=== PATIENT | male | born 1960 | race Caucasian/White ===

== ENCOUNTER 2020-04-29 13:23 | Outpatient (REF) | payer OTHER, SELFPAY | END 2020-04-29 13:24 | disposition home or self-care (01) | LOC: HO.LAB 13:23 | PROVIDERS: PCP Internal Medicine; Visit Provider Internal Medicine | DX: Z20.822 Contact with and (suspected) exposure to COVID-19 (principal) | CPT/HCPCS: 36415; C9803; U0003 ==

== ENCOUNTER 2020-07-17 17:50 | Inpatient (IN) | payer OTHER, SELFPAY ==
[2020-07-17] VITALS (39 sets, daily range): BP systolic 75–218; BP diastolic 47–128; PULSE 89–120; RESP 18–24; TEMP 37.5–38.1; O2SAT 65–99; BMI 31.1
--- NOTE | 2020-07-17 | ECG_ITS ---
Test Reason : OD Blood Pressure : / mmHG Vent. Rate : 091 BPM Atrial Rate : 091 BPM P-R Int : 194 ms QRS Dur : 092 ms QT Int : 362 ms P-R-T Axes : 059 053 054 degrees QTc Int : 445 ms Normal sinus rhythm Normal ECG When compared to the previous EKG of No significant changes seen Referred By: Tatianna Ruiz Electronically Signed By:Vazquez Moeller
--- NOTE | ~2020-07-17 | XR_ITS ---
EXAMINATION: XR CHEST CLINICAL INFORMATION: Post intubation COMPARISON: 07/26/2019 TECHNIQUE: Frontal view of the chest was obtained. FINDINGS: ET tube present 5.7 cm above the kellie. An NG tube has its tip somewhere below the diaphragm. There are new multifocal groundglass infiltrates present in both lungs that were not present on the 07/26/2019 study. XR/XR chest 1V IMPRESSION: Commonly reported imaging features of Covid 19 or viral pneumonia are present. Other processes such as influenza pneumonia or organizing pneumonia, as can be seen with drug toxicity and connective tissue disease, can cause a similar imaging pattern. ET tube in good position.
--- NOTE | ~2020-07-17 | CT_ITS ---
EXAMINATION: CT ABDOMEN AND PELVIS WITHOUT CONTRAST CLINICAL INFORMATION: Abdominal pain COMPARISON: None TECHNIQUE: Multidetector volumetric imaging was performed from the superior aspect of the liver through the pubic symphysis. Sagittal and coronal reformatted images were obtained on the technologist's workstation. This CT examination was performed using dose optimization techniques as appropriate, variously including the following: *Automated exposure control *Adjustment of mA and/or kV according to patient size (this includes techniques or standardized protocols for targeted exams where dose is matched to indication/reason for exam; i.e. extremities or head) *Use of iterative reconstruction technique DLP: 2720 mGy-cm FINDINGS: LUNG BASES: There are bilateral lower lobe small infiltrates right greater than left. The heart size is normal. No pericardial effusion seen. There is an enteric tube with its tip in the stomach. LIVER, GALLBLADDER, AND BILIARY TREE: The liver is normal in size, shape, and attenuation. No focal hepatic lesion or biliary ductal dilatation is present. The gallbladder has been surgically removed. PANCREAS: Unremarkable. SPLEEN: Unremarkable. ADRENAL GLANDS: Unremarkable. KIDNEYS AND URETERS: The kidneys are normal in size, shape, and attenuation. No hydronephrosis, hydroureter, or calculi seen. There is bilateral perinephric stranding. BLADDER: The bladder is mildly distended. GASTROINTESTINAL TRACT: There are scattered diverticuli throughout the colon. There is nonspecific submucosal fat deposition in descending colon but no pericolic fat stranding. Rest of the colon and small bowel loops are unremarkable. Appendix is visualized and appears normal caliber. No evidence of diverticulitis. No free air or free fluid seen. ABDOMINAL WALL: No significant hernia is appreciated. LYMPH NODES: Normal. VASCULAR: Atherosclerotic calcification of abdominal aorta and common iliac arteries with no dilatation seen. PELVIC VISCERA: Unremarkable. OSSEOUS STRUCTURES: No lytic or sclerotic process seen. CT/CT abdomen pelvis wo con IMPRESSION: No acute intra-abdominal process seen. Submucosal fat deposition in descending colon likely from chronic inflammatory process. Scattered colonic diverticulosis without diverticulitis. Bilateral basilar infiltrates
--- NOTE | ~2020-07-17 | XR_ITS ---
EXAMINATION: XR chest 1V CLINICAL INFORMATION: Reason for Exam s/p ett placement COMPARISON: 07/17/2020 TECHNIQUE: XR chest 1V Tubes and lines: Endotracheal tube tip is 7 cm above kellie. Gastric tube passing below the diaphragm into the stomach. Lungs and Diana: Redemonstration of bilateral diffuse patchy interstitial opacification unchanged. Pleura: Normal. Costophrenic angles are sharp. No pneumothorax. Heart and mediastinum: The mediastinum is within normal limits.. Bones: Skeletal structures included are normal for patient's age. XR/XR chest 1V IMPRESSION: No significant change. ET tube tip is about 7 cm above kellie. Gastric tube passing into the stomach. Unchanged bilateral diffuse patchy interstitial opacification.
--- NOTE | ~2020-07-17 | XR_ITS ---
EXAMINATION: XR CHEST CLINICAL INFORMATION: Temperature elevation COMPARISON: Prior chest 07/23/2020 TECHNIQUE: Frontal view of the chest was obtained. FINDINGS: There is linear opacity in the right mid to lower lung compared to prior. Lungs otherwise clear. Lines and tubes: Endotracheal tube 6 cm above kellie. Central venous catheter in SVC unchanged. NG tube tip in region of stomach unchanged. Cardiac silhouette normal. Calcification of the dorsal aorta. Pulmonary vessels normal. XR/XR chest 1V IMPRESSION: Linear opacity right lung new compared to prior likely discoid atelectasis. Lungs otherwise clear.
--- NOTE | ~2020-07-17 | CT_ITS ---
EXAMINATION: CT HEAD WITHOUT CONTRAST. CT CHEST WITHOUT CONTRAST. CLINICAL INFORMATION: Altered mental status. ? Covid Infection. COMPARISON: None TECHNIQUE: 5 mm thin axial and reformatted 2 mm thin sagittal and coronal images of brain were obtained. Subsequently 5 mm thin axial and reformatted 3 mm thin sagittal and coronal images of chest were obtained without contrast. DL 2720 FINDINGS: Brain: There is no acute intra-axial, extra-axial bleed, masses or midline shift. There are punctate hypodensities in the right head of caudate nucleus on axial image 18/5 and degenerative bilateral internal capsule, question lacunar infarctions. The lateral ventricles are slightly asymmetrical but normal for patient's age. Mild periventricular hypodensity without mass effect is seen in both cerebral hemispheres. Bone windows reveal no calvarial abnormality. There is no scalp soft tissue abnormality. There is mild mucosal thickening right maxillary sinus. Rest of the paranasal sinuses are well-aerated and clear. CHEST: The lungs are expanded with patchy confluent infiltrate seen right lower lobe posterior basal and superior segments. Minimal infiltrative changes seen in left lung base. Ill-defined groundglass opacities are seen in the left upper lobe. There is bronchial wall thickening in both upper lobes. The thyroid lobes are symmetrical and normal. There is endotracheal tube 4.8 cm above the kellie. Heart size and the great vessels are normal caliber. There are reactive lymph nodes in the mediastinum. No pericardial effusion seen. There are coronary artery calcifications present. There is an enteric tube with its tip in the stomach. There is no pleural effusion or calcification. The axilla and the chest wall appears unremarkable. Imaging through the upper abdomen reveals visualized liver, spleen, pancreas and bilateral adrenal glands to be unremarkable. The gallbladder has been surgically removed. There is a punctate air bubble seen in between the liver and anterior abdominal wall. Bone windows reveal no lytic or sclerotic process. CT/CT head/brain wo con IMPRESSION: Confluent large infiltrate in the dependent portion of the right lower lobe and right upper lobe. Minimal infiltrates is seen in the left lower lobe basal segment. There are groundglass opacities in the left upper lobe. Also visualized is bronchial wall thickening. Findings are suspicious for Covid disease. Small lacunar infarcts in the right basal ganglia and bilateral internal capsules. No acute intracranial bleed, edema or mass effect.
--- NOTE | ~2020-07-17 | MR_ITS ---
EXAMINATION: MR BRAIN WITHOUT CONTRAST CLINICAL INFORMATION: Persistent encephalopathy. Question of anoxic injury. COMPARISON: CT head dated 07/17/2020 TECHNIQUE: MRI of the brain was obtained using routine sequences without contrast. FINDINGS: Bilaterally symmetric ovoid areas of restricted diffusion involving the globus pallidi. Focal restricted diffusion within the right caudate head. Numerous foci of restricted diffusion scattered throughout the parasagittal bilateral cerebral white matter. Focally restricted diffusion present within the right superior occipital lobe/posterior temporal lobe. Background patchy and confluent subcortical and periventricular white matter T2 prolongation compatible with chronic microvascular ischemic disease. Ventricular system normal in size and configuration. Susceptibility weighted images fail to demonstrate evidence of intra-axial blood products. There is no intracranial mass, mass effect, or shift of midline structures. No abnormal extra axial fluid collection. Posterior fossa structures are normal. The craniocervical junction is normal. Midline structures including the posterior pituitary bright spot are normal. The intracranial vascular flow voids including the major dural venous sinuses are preserved. Mastoid air cells are clear. Mild mucosal thickening present throughout the paranasal sinuses. Globes and orbits unremarkable. MR/MR head/brain wo con IMPRESSION: Multiple areas of restricted diffusion scattered throughout the brain parenchyma, with symmetric involvement of the bilateral globus pallidus, focal involvement of the right caudate head, bilateral parasagittal subcortical white matter foci, and a single focus within the right lateral occipital lobe. The watershed distribution of the infarcts, and involvement of the globus pallidi (more sensitive to ischemia) would suggest a hypoxic-ischemic insult.
--- NOTE | ~2020-07-17 | XR_ITS ---
EXAMINATION: XR CHEST CLINICAL INFORMATION: Check central line placement COMPARISON: Chest radiograph 07/22/2020 TECHNIQUE: Frontal view of the chest was obtained. FINDINGS: An ET tube remains in place 6 cm above the kellie. A left IJ central line has been placed with its tip up against the lateral wall of the proximal SVC. No pneumothorax is seen. Again noted left lower lobe increased opacity suggestive of left lower lobe collapse/consolidation. Bilateral effusions are most likely present. An NG tube is present with its tip in the stomach. XR/XR chest 1V IMPRESSION: The left IJ catheter has its tip in the proximal SVC up against the lateral wall.
--- NOTE | ~2020-07-17 | CT_ITS ---
EXAMINATION: CT HEAD WITHOUT CONTRAST CLINICAL INFORMATION: Sluggish pupils. Status post anoxic encephalopathy. COMPARISON: MRI brain dated 07/20/2020 TECHNIQUE: Contiguous axial imaging was performed from the skull base to vertex without intravenous administration of contrast. This CT examination was performed using dose optimization techniques as appropriate, variously including the following: *Automated exposure control *Adjustment of mA and/or kV according to patient size (this includes techniques or standardized protocols for targeted exams where dose is matched to indication/reason for exam; i.e. extremities or head) *Use of iterative reconstruction technique DLP: 812 mGy-cm FINDINGS: Evolving infarcts within the bilateral globi pallidi, right caudate head, parasagittal white matter and right lateral occipital lobe. No new infarcts are seen. No intracranial hemorrhage or extra-axial collection. No extra-axial fluid collection. The ventricles are normal in size. The osseous structures and soft tissues are normal. Scattered secretions present throughout the paranasal sinuses. Small mucous retention cyst within the right maxillary sinus. Mastoid air cells are clear. CT/CT head/brain wo con IMPRESSION: Evolving deep keenan, parasagittal cerebral white matter and right occipital lobe infarcts. No new infarcts. No intracranial hemorrhage.
--- NOTE | ~2020-07-17 | XR_ITS ---
EXAMINATION: XR CHEST CLINICAL INFORMATION: Hypoxic COMPARISON: 07/21/2020 TECHNIQUE: Frontal view of the chest was obtained. FINDINGS: Again seen is ET tube 6 cm above the kellie. An NG tube is present in the stomach. Since the prior study, there is new left lower lobe consolidation with increased opacity and obscuration of the left hemidiaphragm. A small left pleural effusion is present. Mildly increased bilateral interstitial markings are improved since the prior study. XR/XR chest 1V IMPRESSION: Slight improvement in interstitial changes but there is new dense left lower lobe consolidation and probable left effusion.
[2020-07-17] MEDS: Etomidate 20 MG/10 ML VIAL IVPUSH (18:00)
[2020-07-17] MEDS: Succinylcholine Chloride 200 MG/10 ML VIAL 100 MG IVPUSH (18:00)
[2020-07-17] MEDS: 0.9 % Sodium Chloride 1,000 ML 999 ML IV ×3 (18:00→20:20)
--- NOTE | 2020-07-17 18:07 | ECG_ITS ---
Test Reason : OVERDOSE Blood Pressure : / mmHG Vent. Rate : 116 BPM Atrial Rate : 116 BPM P-R Int : 196 ms QRS Dur : 088 ms QT Int : 308 ms P-R-T Axes : 050 059 034 degrees QTc Int : 428 ms Sinus tachycardia Otherwise normal ECG No previous ECGs available Referred By: Tatianna Ruiz Electronically Signed By:Vazquez Moeller
--- NOTE | 2020-07-17 18:10 | PC.NURSE ---
propofol started at 20, MAR perlat let this nurse document it
[2020-07-17 18:24] LABS: MANUAL DIFF FLAG NO
[2020-07-17 18:40] LABS: Prothrombin Time 11.8 SEC (10.8-13.0)
[2020-07-17 18:44] LABS: Basophils Percent Auto 0.1 % (0-2); Hemoglobin 16.1 g/dl (14.0-18.0); Imm Gran Pct Auto 0.7 % (0.0-0.4); Lymphocytes Absolute Auto 0.9 X10*3/uL (1.2-4.9); Lymphocytes Percent Auto 6.1 % (20-40); Mean Corpuscular HGB Conc 32.2 g/dl (31.0-36.0); Mean Corpuscular Hemoglobin 33.8 pg (27.0-33.0); Mean Corpuscular Volume 104.8 fL (80-98); Mean Platelet Volume 10.7 fL (9.4-12.4); Monocytes Absolute Auto 1.4 X10*3/uL (0.1-1.2); Monocytes Percent Auto 9.6 % (2-11); Neutrophils Absolute Auto 12.1 X10*3/uL (2.0-8.3); Neutrophils Percent Auto 83.5 % (45-73); Platelet Count 252 X10*3/uL (160-400); Red Blood Count 4.77 X10*6/uL (4.60-5.80); Red Cell Distribution Width 12.4 % (11.0-16.0); White Blood Count 14.5 X10*3/uL (4.8-10.8)
[2020-07-17 18:45] LABS: ABG Refer to POC result
[2020-07-17 18:47] LABS: ABG Base Excess -6.4 mmol/L; ABG HCO3 21 mmol/L (22-26); ABG pCO2 51 mmHg (32-45); ABG pCO2 TC 52 mmHg (32-45); ABG pH 7.22 (7.35-7.45); ABG pH TC 7.22 (7.35-7.45); ABG pO2 64 mmHg (83-108); ABG pO2 TC 64 (83-108)
--- NOTE | 2020-07-17 18:54 | ED.AMS ---
HPI - Altered Mental Status General Chief Complaint: Overdose Stated Complaint: OVERDOSE,UNRESPSONSIVE, NARCAN GIVEN,BAGGED Time Seen by Provider: 07/17/20 17:53 History of Present Illness HPI narrative: Patient is a 59-year-old male with a history of hypertension previous history of narcotic use. Patient found on the ground with altered mental status. A sugar was checked by EMS. It was over 100. Narcan was given to no avail. Patient sent in for further evaluation being bag at the time. Per the son patient has a history of depression and anxiety. Per the family member that found him there was an empty bottle of Percocet. He takes it for chronic pain. He is also on gabapentin and clonidine. The clonidine bottle seems to be intact per EMS. Related Data Home Medications Medication Instructions Recorded Confirmed clonidine HCl 0.1 mg PO BID PRN 07/17/20 07/17/20 fluoride (sodium) 1 appl PO BID 07/17/20 07/17/20 gabapentin 100 mg PO BID 07/17/20 07/17/20 mirtazapine 30 mg PO BEDTIME 07/17/20 07/17/20 olanzapine 7.5 mg PO BID 07/17/20 07/17/20 trazodone 50 - 100 mg PO BEDTIME PRN 07/17/20 07/17/20 venlafaxine 75 mg PO DAILY 07/17/20 07/17/20 Allergies Allergy/AdvReac Type Severity Reaction Status Date / Time No Known Allergies Allergy Unverified 01/04/20 15:51 [No Known Allergies*] Review of Systems Review of Systems: Unable to obtain review of systems secondary to patient's condition. COUNTS INCLUDE 234 BEDS AT THE [facility] Past Medical History Medical History Anxiety Depression Social History Social History Advance Directives: No Advance Directives Information Provided: No Physical Exam Vital Signs: Vital Signs: Last Vital Signs Temp 100.6 F H 07/17/20 23:00 Pulse 90 07/17/20 23:00 Resp 24 H 07/17/20 23:00 BP 109/73 07/17/20 23:00 Pulse Ox 98 07/17/20 23:00 Body Mass Index 31.1 Appearance: Lethargic withdrawals to pain. Unable to respond to verbal stimuli. No spontaneous eye opening to painful stimuli. Eyes: Pupils equal, round and reactive to light. ENT: Pharynx normal. Neck: Neck is supple, there is no JVD noted. Trachea is midline. CVS: Regular rate rhythm no murmurs Respiratory: Rhonchi bilaterally diminished breath sounds bilaterally. Abdomen: Soft and nontender Skin: Skin warm and dry. Normal skin color. Normal skin turgor. Extremities: No lower extremity edema. Neurovascular intact to all extremities. No Lacerations. No Rash Neuro: Lethargic. Withdraws to pain. Moving all extremities. Procedures Intubation Time out performed: Yes sedative: Etomidate paralytic: Succinylcholine Laryngoscope: other ([place] scope) ET Tube Size: 8 ET Tube Uncuffed: No Tube Secured Depth (cm): 23 Tube Secured Location: teeth Tube Placement Confirmation: visualized tube passing through cords, equal breath sounds bilaterally, no breath sounds over epigastrium and confirmation by capnometry Patient Tolerated Procedure: well Intubation Complications: none MDM - Altered Mental Status MDM Narrative Medical decision making narrative: Positive change in mental status with increased respiratory rate question etiology. Cultures obtained. Patient's chest x-ray showed bilateral infiltrate cannot rule out the possibility of CHF versus community-acquired pneumonia versus coronavirus infection versus aspiration. Zosyn was started. Patient BNP is still pending. Patient's EKG showed a sinus tachycardia heart rate is 120 WI QRS QT within normal limits is no acute ST segment elevation. Interestingly patient's troponin is elevated at approximately 800. Question if patient had a myocardial infarction. Will give aspirin p.r.. Patient had no response to Narcan. Gervais at this time less likely secondary to narcotics overdose. There is a possibility of Tylenol overdose here. Patient had a bottle Percocet that was open. And emptied. Question as to the timing of ingestion. Tylenol and salicylate level was ordered. Patient started on a seated O2 for him. Treatment of acute versus chronic Tylenol overdose. An ABG was obtained at this point. It showed a respiratory acidosis with a pH of 7.2 to a pCO2 in the 50s. Will increase the respiratory rate and increased the tidal volume. Patient taken to CT scanner. CT of the head chest, abdomen pelvis was ordered. The head is to rule out the possibility of bleeding. The abdomen pelvis is look for gross pathology to rule out the possibility of obstruction causing nausea vomiting. The ICU was notified. Patient will require intensive care unit. CT scan of the chest showed areas consistent with pneumonia. There is ground-glass opacity cannot rule out the possibility of coronavirus. COVID test was negative initially. Patient was started on Zosyn initially also given Decadron. Patient's lactate was elevated. 30 cc/kilos IV fluid given. Will monitor carefully. CT scan of the abdomen did not show any acute evidence of pathology. CT scan of the head was negative for any evidence of bleeding. No fracture noted. Patient being admitted to the intensive care unit. Differential Diagnosis Differential diagnosis: Likely altered mental status, hypoglycemia, overdose polysubstance, renal failure, subarachnoid hemorrhage and sepsis Medical Records Attestation: I reviewed the patient's medical records. Lab Data Result diagrams: 07/17/20 18:18 07/17/20 22:03 Labs: Lab Results 07/17/20 07/17/20 07/17/20 Range/Units 18:18 18:18 18:18 WBC 14.5 H (4.8-10.8) X10*3/uL RBC 4.77 (4.60-5.80) X10*6/uL Hgb 16.1 (14.0-18.0) g/dl Hct 50.0 (42-52) % MCV 104.8 H (80-98) fL MCH 33.8 H (27.0-33.0) pg MCHC 32.2 (31.0-36.0) g/dl RDW 12.4 (11.0-16.0) % Plt Count 252 (160-400) X10*3/uL MPV 10.7 (9.4-12.4) fL Immature Gran % (Auto) 0.7 H (0.0-0.4) % Neut % (Auto) 83.5 H (45-73) % Lymph % (Auto) 6.1 L (20-40) % Shelby % (Auto) 9.6 (2-11) % Eos % (Auto) 0.0 (0-4) % Baso % (Auto) 0.1 (0-2) % Lymph # (Auto) 0.9 L (1.2-4.9) X10*3/uL Shelby # (Auto) 1.4 H (0.1-1.2) X10*3/uL Eos # (Auto) 0.0 (0.0-0.4) X10*3/uL Baso # (Auto) 0.0 (0.0-0.2) X10*3/uL Abs Immat Gran (auto) 0.10 H (0.00-0.03) X10*3/uL Absolute Neuts (auto) 12.1 H (2.0-8.3) X10*3/uL Absolute Nucleated RBC 0.000 (0.0-0.012) X10*3/uL Nucleated RBC % (auto) 0.0 (0.0-0.2) /100WBC PT 11.8 (10.8-13.0) SEC INR 1.0 (0.9-1.1) O2 Saturation % ABG pH at Pt Temp (7.35-7.45) ABG pH (Temp Correct) (7.35-7.45) ABG pCO2 at Pt Temp (32-45) mmHg ABG pCO2 (Temp Corrct (32-45) mmHg ABG pO2 at Pt Temp (83-108) mmHg ABG pO2 (Temp Correct (83-108) ABG HCO3 (22-26) mmol/L ABG Base Excess (Actual) mmol/L Sodium 137 (135-145) mmol/L Potassium 5.5 H (3.3-5.1) mmol/L Chloride 96 (96-108) mmol/L Carbon Dioxide 23 (22-29) mmol/L Anion Gap 24 H (12-20) BUN 14 (9-16) mg/dL Creatinine 3.44 H (0.5-1.4) mg/dL Estim Creat Clear Calc 25.7 Estimated GFR 18 Random Glucose 112 (60-115) mg/dL Calcium 8.4 (8.4-10.2) mg/dL Phosphorus 8.5 H (2.7-4.5) mg/dL Magnesium 1.9 (1.6-2.6) mg/dL Total Bilirubin 0.6 (0.0-1.0) mg/dL Direct Bilirubin 0.3 (0.0-0.5) mg/dL AST 30 (5-37) U/L ALT 24 (0-40) U/L Alkaline Phosphatase 123 H (39-117) U/L Total Creatine Kinase (38-174) U/L Troponin I High Sens (<3.5-35.0) ng/L B-Natriuretic Peptide (<100) pg/mL Total Protein 7.7 (6.5-8.0) g/dL Albumin 4.2 (3.5-5.0) g/dL Salicylates < 5.0 L (15-30) mg/dL Acetaminophen < 1 (<30) mcg/mL Coronavirus (PCR) (Negative) Influenza Type A (PCR) (Negative) Influenza Type B (PCR) (Negative) RSV RNA Qual (PCR) (Negative) 07/17/20 07/17/20 07/17/20 Range/Units 18:18 18:18 18:28 WBC (4.8-10.8) X10*3/uL RBC (4.60-5.80) X10*6/uL Hgb (14.0-18.0) g/dl Hct (42-52) % MCV (80-98) fL MCH (27.0-33.0) pg MCHC (31.0-36.0) g/dl RDW (11.0-16.0) % Plt Count (160-400) X10*3/uL MPV (9.4-12.4) fL Immature Gran % (Auto) (0.0-0.4) % Neut % (Auto) (45-73) % Lymph % (Auto) (20-40) % Shelby % (Auto) (2-11) % Eos % (Auto) (0-4) % Baso % (Auto) (0-2) % Lymph # (Auto) (1.2-4.9) X10*3/uL Shelby # (Auto) (0.1-1.2) X10*3/uL Eos # (Auto) (0.0-0.4) X10*3/uL Baso # (Auto) (0.0-0.2) X10*3/uL Abs Immat Gran (auto) (0.00-0.03) X10*3/uL Absolute Neuts (auto) (2.0-8.3) X10*3/uL Absolute Nucleated RBC (0.0-0.012) X10*3/uL Nucleated RBC % (auto) (0.0-0.2) /100WBC PT (10.8-13.0) SEC INR (0.9-1.1) O2 Saturation % ABG pH at Pt Temp (7.35-7.45) ABG pH (Temp Correct) (7.35-7.45) ABG pCO2 at Pt Temp (32-45) mmHg ABG pCO2 (Temp Corrct (32-45) mmHg ABG pO2 at Pt Temp (83-108) mmHg ABG pO2 (Temp Correct (83-108) ABG HCO3 (22-26) mmol/L ABG Base Excess (Actual) mmol/L Sodium (135-145) mmol/L Potassium (3.3-5.1) mmol/L Chloride (96-108) mmol/L Carbon Dioxide (22-29) mmol/L Anion Gap (12-20) BUN (9-16) mg/dL Creatinine (0.5-1.4) mg/dL Estim Creat Clear Calc Estimated GFR Random Glucose (60-115) mg/dL Calcium (8.4-10.2) mg/dL Phosphorus (2.7-4.5) mg/dL Magnesium (1.6-2.6) mg/dL Total Bilirubin (0.0-1.0) mg/dL Direct Bilirubin (0.0-0.5) mg/dL AST (5-37) U/L ALT (0-40) U/L Alkaline Phosphatase (39-117) U/L Total Creatine Kinase 895 H (38-174) U/L Troponin I High Sens 882.9 H (<3.5-35.0) ng/L B-Natriuretic Peptide 154 H (<100) pg/mL Total Protein (6.5-8.0) g/dL Albumin (3.5-5.0) g/dL Salicylates (15-30) mg/dL Acetaminophen (<30) mcg/mL Coronavirus (PCR) NEGATIVE (Negative) Influenza Type A (PCR) NEGATIVE (Negative) Influenza Type B (PCR) NEGATIVE (Negative) RSV RNA Qual (PCR) NEGATIVE (Negative) 07/17/20 Range/Units 18:37 WBC (4.8-10.8) X10*3/uL RBC (4.60-5.80) X10*6/uL Hgb (14.0-18.0) g/dl Hct (42-52) % MCV (80-98) fL MCH (27.0-33.0) pg MCHC (31.0-36.0) g/dl RDW (11.0-16.0) % Plt Count (160-400) X10*3/uL MPV (9.4-12.4) fL Immature Gran % (Auto) (0.0-0.4) % Neut % (Auto) (45-73) % Lymph % (Auto) (20-40) % Shelby % (Auto) (2-11) % Eos % (Auto) (0-4) % Baso % (Auto) (0-2) % Lymph # (Auto) (1.2-4.9) X10*3/uL Shelby # (Auto) (0.1-1.2) X10*3/uL Eos # (Auto) (0.0-0.4) X10*3/uL Baso # (Auto) (0.0-0.2) X10*3/uL Abs Immat Gran (auto) (0.00-0.03) X10*3/uL Absolute Neuts (auto) (2.0-8.3) X10*3/uL Absolute Nucleated RBC (0.0-0.012) X10*3/uL Nucleated RBC % (auto) (0.0-0.2) /100WBC PT (10.8-13.0) SEC INR (0.9-1.1) O2 Saturation 91.0 % ABG pH at Pt Temp 7.22 L (7.35-7.45) ABG pH (Temp Correct) 7.22 L (7.35-7.45) ABG pCO2 at Pt Temp 51 H (32-45) mmHg ABG pCO2 (Temp Corrct 52 H (32-45) mmHg ABG pO2 at Pt Temp 64 L (83-108) mmHg ABG pO2 (Temp Correct 64 L (83-108) ABG HCO3 21 L (22-26) mmol/L ABG Base Excess (Actual) -6.4 mmol/L Sodium (135-145) mmol/L Potassium (3.3-5.1) mmol/L Chloride (96-108) mmol/L Carbon Dioxide (22-29) mmol/L Anion Gap (12-20) BUN (9-16) mg/dL Creatinine (0.5-1.4) mg/dL Estim Creat Clear Calc Estimated GFR Random Glucose (60-115) mg/dL Calcium (8.4-10.2) mg/dL Phosphorus (2.7-4.5) mg/dL Magnesium (1.6-2.6) mg/dL Total Bilirubin (0.0-1.0) mg/dL Direct Bilirubin (0.0-0.5) mg/dL AST (5-37) U/L ALT (0-40) U/L Alkaline Phosphatase (39-117) U/L Total Creatine Kinase (38-174) U/L Troponin I High Sens (<3.5-35.0) ng/L B-Natriuretic Peptide (<100) pg/mL Total Protein (6.5-8.0) g/dL Albumin (3.5-5.0) g/dL Salicylates (15-30) mg/dL Acetaminophen (<30) mcg/mL Coronavirus (PCR) (Negative) Influenza Type A (PCR) (Negative) Influenza Type B (PCR) (Negative) RSV RNA Qual (PCR) (Negative) Critical Care Time Critical Care Time Critical Care Time: Yes Total Critical Care Time: 130 Attestation: I have personally provided 130 minutes of critical care time exclusive of time spent on separately billable procedures. Time includes review of lab data, radiology results, discussion with consultants, and monitoring for potential decompensation. Interventions were performed as documented above Discharge Plan Discharge Clinical Impression: Respiratory failure Patient Disposition: Admitted As Inpatient
[2020-07-17 18:58] LABS: Alanine Aminotransferase 24 U/L (0-40); Albumin Level 4.2 g/dL (3.5-5.0); Alkaline Phosphatase 123 U/L (39-117); Anion Gap 24 (12-20); Aspartate Amino Transferase 30 U/L (5-37); Bilirubin Direct 0.3 mg/dL (0.0-0.5); Bilirubin Total 0.6 mg/dL (0.0-1.0); Blood Urea Nitrogen 14 mg/dL (9-16); Calcium 8.4 mg/dL (8.4-10.2); Carbon Dioxide 23 mmol/L (22-29); Chloride 96 mmol/L (96-108); Creatinine Clr Calc Pharmacy 25.7; Estimated Glomerular Filt Rate 18; Glucose Random 112 mg/dL (60-115); Magnesium 1.9 mg/dL (1.6-2.6); Phosphorus 8.5 mg/dL (2.7-4.5); Potassium 5.5 mmol/L (3.3-5.1); Salicylate < 5.0 mg/dL (15-30); Sodium 137 mmol/L (135-145); Total Protein 7.7 g/dL (6.5-8.0)
[2020-07-17 19:00] LABS: Acetaminophen LAB < 1 mcg/mL (<30); B Type Natriuretic Peptide 154 pg/mL (<100); Troponin-I High Sensitivity 882.9 ng/L (<3.5-35.0)
[2020-07-17 19:21] LABS: Influenza A PCR NEGATIVE (Negative); Influenza B PCR NEGATIVE (Negative); Resp Syncy Virus RNA Qual PCR NEGATIVE (Negative); SARS COV2 PCR INHOUSE NEGATIVE (Negative)
[2020-07-17] MEDS: Acetylcysteine 15,000 MG in Dextrose 5 % 200 ML 275 MG IV (19:21)
--- NOTE | 2020-07-17 19:22 | PC.NURSE ---
Addendum entered by Alondra Christensen RN 07/17/20 23:32: ekg performed Original Note: 1800 pt intubated, - tube 8, 24 at lip, 18 rr, tv 450, 50% O2, peep 5 1805- og tube placed by provider 1815- cxr performed, 20 g lt ac placed 183-additional of 100 ben administered due to patient movement, hr 113, bp 153/[address] scan hr 116, [address], vent settings changed by rt, rr24, tv 500, 70% o2, 5 peep 1905- schmitt cath placed, urine obtained 1920 medication started per order
--- NOTE | 2020-07-17 19:26 | PC.NURSE ---
blood cultures obtained
[2020-07-17 19:43] LABS: Amphetamine Screen Urine Not Detected (Not Detect); Barbiturates, Urine Not Detected (Not Detect); Benzodiazepines Screen Urine Not Detected (Not Detect); Cannabinoid Screen Urine Not Detected (Not Detect); Cocaine Screen Urine Not Detected (Not Detect); Opiate Screen Urine Not Detected (Not Detect); Phencyclidine Screen Urine Not Detected (Not Detect)
[2020-07-17 19:56] LABS: Lactic Acid 3.4 mmol/L (0.5-2.0)
--- NOTE | 2020-07-17 20:05 | PC.NURSE ---
2005- new 50ml bottle propofol hung
[2020-07-17] MEDS: Piperacillin Sodium/Tazobactam 4.5 GM in 0.9 % Sodium Chloride 100 ML IV (20:11)
--- NOTE | 2020-07-17 20:11 | PM.CCHP ---
History of Present Illness Date of Service: 07/17/20 Chief Complaint: Altered mental status This is a 59-year-old male with a past medical history of hypertension in history under cardiac use who presented to the emergency room after family found him on the floor where altered mental status. According to EMS, the patient was unresponsive with shallow breathing. Blood sugar was over 100 at home and Narcan was given. Upon arrival to the emergency room, the patient required emergent endotracheal intubation due to severe altered mental status and airway protection. ED physician spoke with the patient's son who reported the patient has a history of depression and anxiety. He also reported to have found an empty bottle of Percocet at the patient home. He takes it for chronic pain. He is also on gabapentin and clonidine. The clonidine bottle seems to be intact per EMS. Laboratory data significant for: ABGs: 7.22/ / / WBC 14.5, neutrophils % 83.5, potassium 5.5, and anion gap 24, BUN 14, creatinine 3.44, alk-phos 123, CK 895, troponin 882.9, BNP 154, lactic 3.4. Imaging: Head CT: no acute findings Chest CT: shows significant infiltrates in the right lobe. With some ground-glass opacities in the left upper lobe. Abdominal/ pelvis CT: no acute findings In the ED he received Narcan 2mg, 3 L of fluids, Zosyn, and started on acetylcysteine protocol. Review of Systems Review of Systems: Whenever 4 patient on a mechanical ventilator PMFSH Past Medical History Medical History Anxiety Depression Social History Social History Advance Directives: No Advance Directives Information Provided: No Meds Allergies Allergy/AdvReac Type Severity Reaction Status Date / Time No Known Allergies Allergy Unverified 01/04/20 15:51 [No Known Allergies*] Active Medications: Current Medications Generic Name Dose Route Start Last Admin Trade Name Freq PRN Reason Stop Dose Admin Heparin Sodium (Porcine) 5,000 unit 07/17/20 20:00 Heparin Sodium,Porcine 5,000 Unit/Ml Vial SUBCUT Q8H GINNY Acetylcysteine 5,000 mg/ 525 mls @ 125 mls/hr 07/17/20 20:00 Dextrose IV 07/18/20 00:11 ONCE ONE Acetylcysteine 10,000 mg/ 1,050 mls @ 62.5 mls/hr 07/18/20 00:00 Dextrose IV 07/18/20 16:47 ONCE ONE Lactated Ringer's 1,000 mls @ 125 mls/hr 07/17/20 19:30 Lr IVCONT .Q8H GINNY Piperacillin Sod/Tazobactam 100 mls @ 200 mls/hr 07/18/20 03:00 Sod 4.5 gm/ Sodium Chloride IV Q8H GINNY Propofol 1,000 mg in 100 mls @ 0 mls/hr 07/17/20 19:45 Diprivan IVCONT .Q0M GINNY Protocol Per Protocol Sodium Chloride 1,000 mls @ 999 mls/hr 07/17/20 20:00 Ns IV 07/17/20 21:00 .Q1H1M GINNY Sodium Chloride 1,000 mls @ 999 mls/hr 07/17/20 20:00 Ns IV 07/17/20 21:00 .Q1H1M [facility] Pharmacy Consult 1 each 07/17/20 18:12 Consult Rx Perform Med Rec MISCELLANE ONCE PRN Consult order Rocuronium [place] 100 mg 07/17/20 18:36 07/17/20 18:38 Rocuronium [place] 100 Mg/10 Ml Vial IV 100 mg Q2H PRN Administration agtation Home Medications Medication Instructions Recorded Confirmed Last Taken Type clonidine HCl 0.1 mg PO BID PRN 07/17/20 07/17/20 Unknown History fluoride (sodium) 1 appl PO BID 07/17/20 07/17/20 Unknown History gabapentin 100 mg PO BID 07/17/20 07/17/20 Unknown History mirtazapine 30 mg PO BEDTIME 07/17/20 07/17/20 Unknown History olanzapine 7.5 mg PO BID 07/17/20 07/17/20 Unknown History trazodone 50 - 100 mg PO BEDTIME PRN 07/17/20 07/17/20 Unknown History venlafaxine 75 mg PO DAILY 07/17/20 07/17/20 Unknown History Physical Exam Vital Signs: Vital Signs: Last Vital Signs Pulse 110 H 07/17/20 18:02 BP 185/111 H 07/17/20 18:02 Pulse Ox 90 L 07/17/20 18:02 Body Mass Index 31.1 Const: Other: On a ventilator HENMT: Head: Yes normal to inspection Eyes: Pupils: Equal, round and reactive pupils present Neck: Neck: Yes supple and Yes no JVD Chest: Chest palpation & inspection: normal inspection of the chest Resp: Other: On a ventilator on AC: 24/500/5/ Effort & Inspection: normal respiratory effort Auscultation: rhonchi Cardio: Jugular venous distension: no JVD Rate: regular rate Rhythm: regular rhythm Heart sounds: S1 normal heart sound present and S2 normal heart sound present Peripheral pulses: Peripheral pulses 2+ throughout GI: Palpation (GI): Soft to palpation Auscultation: normal bowel sounds : Other: Martinez catheter Neuro: Cranial nerves: Yes Equal, round and reactive pupils present Extrem: Right upper extremity: normal capillary refill Results Labs CBC and Chem 7: 07/17/20 18:18 07/17/20 22:03 Labs: Laboratory Results - last 24 hr 07/17/20 07/17/20 07/17/20 18:18 18:18 18:18 MCV 104.8 H MCH 33.8 H MCHC 32.2 RDW 12.4 Plt Count 252 MPV 10.7 Immature Gran % (Auto) 0.7 H Neut % (Auto) 83.5 H Lymph % (Auto) 6.1 L Parke % (Auto) 9.6 Eos % (Auto) 0.0 Baso % (Auto) 0.1 Lymph # (Auto) 0.9 L Parke # (Auto) 1.4 H Eos # (Auto) 0.0 Baso # (Auto) 0.0 Abs Immat Gran (auto) 0.10 H Absolute Neuts (auto) 12.1 H Absolute Nucleated RBC 0.000 Nucleated RBC % (auto) 0.0 PT 11.8 INR 1.0 O2 Saturation ABG pH at Pt Temp ABG pH (Temp Correct) ABG pCO2 at Pt Temp ABG pCO2 (Temp Corrct ABG pO2 at Pt Temp ABG pO2 (Temp Correct ABG HCO3 ABG Base Excess (Actual) Anion Gap 24 H Estim Creat Clear Calc 25.7 Estimated GFR 18 Random Glucose 112 Lactic Acid Calcium 8.4 Phosphorus 8.5 H Magnesium 1.9 Total Bilirubin 0.6 Direct Bilirubin 0.3 AST 30 ALT 24 Alkaline Phosphatase 123 H Total Creatine Kinase Troponin I High Sens B-Natriuretic Peptide Total Protein 7.7 Albumin 4.2 Salicylates < 5.0 L Urine Opiates Screen Acetaminophen < 1 Ur Barbiturates Screen Ur Phencyclidine Scrn Ur Amphetamines Screen U Benzodiazepines Scrn Urine Cocaine Screen U Marijuana (THC) Screen Coronavirus (PCR) Influenza Type A (PCR) Influenza Type B (PCR) RSV RNA Qual (PCR) 07/17/20 07/17/20 07/17/20 18:18 18:18 18:28 MCV MCH MCHC RDW Plt Count MPV Immature Gran % (Auto) Neut % (Auto) Lymph % (Auto) Parke % (Auto) Eos % (Auto) Baso % (Auto) Lymph # (Auto) Parke # (Auto) Eos # (Auto) Baso # (Auto) Abs Immat Gran (auto) Absolute Neuts (auto) Absolute Nucleated RBC Nucleated RBC % (auto) PT INR O2 Saturation ABG pH at Pt Temp ABG pH (Temp Correct) ABG pCO2 at Pt Temp ABG pCO2 (Temp Corrct ABG pO2 at Pt Temp ABG pO2 (Temp Correct ABG HCO3 ABG Base Excess (Actual) Anion Gap Estim Creat Clear Calc Estimated GFR Random Glucose Lactic Acid Calcium Phosphorus Magnesium Total Bilirubin Direct Bilirubin AST ALT Alkaline Phosphatase Total Creatine Kinase 895 H Troponin I High Sens 882.9 H B-Natriuretic Peptide 154 H Total Protein Albumin Salicylates Urine Opiates Screen Acetaminophen Ur Barbiturates Screen Ur Phencyclidine Scrn Ur Amphetamines Screen U Benzodiazepines Scrn Urine Cocaine Screen U Marijuana (THC) Screen Coronavirus (PCR) NEGATIVE Influenza Type A (PCR) NEGATIVE Influenza Type B (PCR) NEGATIVE RSV RNA Qual (PCR) NEGATIVE 07/17/20 07/17/20 07/17/20 18:37 19:12 19:20 MCV MCH MCHC RDW Plt Count MPV Immature Gran % (Auto) Neut % (Auto) Lymph % (Auto) Parke % (Auto) Eos % (Auto) Baso % (Auto) Lymph # (Auto) Parke # (Auto) Eos # (Auto) Baso # (Auto) Abs Immat Gran (auto) Absolute Neuts (auto) Absolute Nucleated RBC Nucleated RBC % (auto) PT INR O2 Saturation 91.0 ABG pH at Pt Temp 7.22 L ABG pH (Temp Correct) 7.22 L ABG pCO2 at Pt Temp 51 H ABG pCO2 (Temp Corrct 52 H ABG pO2 at Pt Temp 64 L ABG pO2 (Temp Correct 64 L ABG HCO3 21 L ABG Base Excess (Actual) -6.4 Anion Gap Estim Creat Clear Calc Estimated GFR Random Glucose Lactic Acid 3.4 H* Calcium Phosphorus Magnesium Total Bilirubin Direct Bilirubin AST ALT Alkaline Phosphatase Total Creatine Kinase Troponin I High Sens B-Natriuretic Peptide Total Protein Albumin Salicylates Urine Opiates Screen Not Detected Acetaminophen Ur Barbiturates Screen Not Detected Ur Phencyclidine Scrn Not Detected Ur Amphetamines Screen Not Detected U Benzodiazepines Scrn Not Detected Urine Cocaine Screen Not Detected U Marijuana (THC) Screen Not Detected Coronavirus (PCR) Influenza Type A (PCR) Influenza Type B (PCR) RSV RNA Qual (PCR) Imaging Radiologist's Impressions: Impressions Chest X-Ray 07/17/20 18:05 IMPRESSION: Commonly reported imaging features of Covid 19 or viral pneumonia are present. Other processes such as influenza pneumonia or organizing pneumonia, as can be seen with drug toxicity and connective tissue disease, can cause a similar imaging pattern. ET tube in good position. Head CT 07/17/20 18:07 IMPRESSION: Confluent large infiltrate in the dependent portion of the right lower lobe and right upper lobe. Minimal infiltrates is seen in the left lower lobe basal segment. There are groundglass opacities in the left upper lobe. Also visualized is bronchial wall thickening. Findings are suspicious for Covid disease. Small lacunar infarcts in the right basal ganglia and bilateral internal capsules. No acute intracranial bleed, edema or mass effect. Chest CT 07/17/20 18:21 IMPRESSION: Confluent large infiltrate in the dependent portion of the right lower lobe and right upper lobe. Minimal infiltrates is seen in the left lower lobe basal segment. There are groundglass opacities in the left upper lobe. Also visualized is bronchial wall thickening. Findings are suspicious for Covid disease. Small lacunar infarcts in the right basal ganglia and bilateral internal capsules. No acute intracranial bleed, edema or mass effect. Abdomen/Pelvis CT 07/17/20 18:31 IMPRESSION: No acute intra-abdominal process seen. Submucosal fat deposition in descending colon likely from chronic inflammatory process. Scattered colonic diverticulosis without diverticulitis. Bilateral basilar infiltrates Assessment and Plan (1) Acute respiratory failure: Status: Acute 59-year-old male with a past medical history of hypertension, anxiety and depression who was found down by family from like narcotic overdose. Admitted into the ICU for acute respiratory failure require mechanical intubation likely from overdose Neuro: AMS- due to narcotic overdose. Head CT with no acute findings. Neurologically intact at this point. Continue to closely monitor neuros Cardiac: Elevated troponin: EKG does not show any ST changes. This could be likely due to possible rhabdomyolysis from the patient being down. We will repeat troponin. Elevated lactic: lactate 3.4, he did have a possible aspiration event during his downtime. He received empiric dose of Zosyn. Vitals are stable at this time. There is no significant evidence for septic shock. Will cont to trend lactate. Pulmonary: Acute respiratory failure: this is likely related to overdose, as well as an underlying aspiration event due to the overdose. Continue Zosyn. Wean from mechanical ventilation as tolerated. Renal: LA- most likely related to hypoperfusion and rhabdo, nonoliguric. Continue Aggressive IV fluids. Continue to check renal induces and urine output Rhabdomyolysis: unknown down time for patient, CPK 895. Concerning for rhabdo. He has received 3 L of fluids in the ED. We will add maintenance fluids repeat CPK. Hyperkalemia- likely related to hypoperfusion/ rhabdo/ LA. no acute changes on the EKG. Will repeat BMP later on. GI: No acute issues Endo: No acute issues ID: leukocytosis: WBC elevated to 14.5, neutrophils 83.5%. COVID negative. CT chest does show some possible aspiration of the right upper and lobe. Will continue with Zosyn Heme/Onc: No acute issues. Psych: No acute issues. Miscellaneous: No acute issues. Prophylaxis: Heparin Subcut Diet: NPO Critical care time: 90x minutes of critical care time CODE: FULL (2) Aspiration into airway: Status: Acute (3) Rhabdomyolysis: Status: Acute (4) LA (acute kidney injury): Status: Acute (5) Hyperkalemia: Status: Acute (6) Elevated troponin: Status: Acute (7) Metabolic acidosis: Status: Acute
--- NOTE | 2020-07-17 20:23 | PC.NURSE ---
per icu provider, run NS first then start LR
--- NOTE | 2020-07-17 20:45 | PC.NURSE ---
OG tube clogged, 40 ml water to flush tube, air instilled as well, OG tube unclogged. patients bp decreased during this time, ICU provider notified and will be down to evaluate.
[2020-07-17] MEDS: Heparin Sodium,Porcine 5,000 UNIT/ML VIAL 5000 UNIT SUBCUT (21:06)
[2020-07-17] MEDS: Acetylcysteine 5,000 MG in Dextrose 5 % 500 ML 125 MG IV (21:08)
[2020-07-17] MEDS: Albumin Human 25 % 100 ML IV (21:16)
[2020-07-17 21:22] LABS: Reflex Lactate? Lactic Acid Added
--- NOTE | 2020-07-17 21:25 | PC.NURSE ---
iv drips hung per order
[2020-07-17] MEDS: Lactated Ringers 1,000 ML 125 ML IVCONT (22:10)
[2020-07-17 22:13] LABS: Venous Blood Gas Refer to POC result
[2020-07-17 22:14] LABS: VBG Base Excess -8.2 mmol/L; VBG HCO3 16 mmol/L (22-26); VBG pCO2 31 mmHg; VBG pH 7.32 (7.32-7.43); VBG pO2 78 mmHg
[2020-07-17 22:33] LABS: ~Lactic Acid-LAB USE ONLY 2.8 mmol/L (0.5-2.0)
[2020-07-17 22:34] LABS: Anion Gap 17 (12-20); Blood Urea Nitrogen 14 mg/dL (9-16); Carbon Dioxide 19 mmol/L (22-29); Chloride 107 mmol/L (96-108); Creatinine Clr Calc Pharmacy 40.7; Estimated Glomerular Filt Rate 31; Glucose Random 148 mg/dL (60-115); Sodium 139 mmol/L (135-145)
[2020-07-17 22:37] LABS: Troponin-I High Sensitivity 699.1 ng/L (<3.5-35.0)
[2020-07-18] VITALS (28 sets, daily range): BP systolic 107–161; BP diastolic 66–100; PULSE 79–104; RESP 11–27; TEMP 36.8–37.7; O2SAT 3–96; BMI 31.8; BMI 32.9
[2020-07-18 00:06] LABS: Reflex Lactate? 2 Y
[2020-07-18] MEDS: propofoL 1,000 MG/100 ML VIAL 11.47 MG IVCONT ×3 (00:25→13:40)
[2020-07-18 01:04] LABS: ~Lactic Acid-LAB USE ONLY 2.6 mmol/L (0.5-2.0)
[2020-07-18] MEDS: Acetylcysteine 10,000 MG in Dextrose 5 % 1,000 ML 62.5 MG IV (01:40)
[2020-07-18] MEDS: Lactated Ringers 1,000 ML 125 ML IVCONT ×3 (04:03→22:13)
[2020-07-18] MEDS: Piperacillin Sodium/Tazobactam 4.5 GM in 0.9 % Sodium Chloride 100 ML IV (04:04)
[2020-07-18] MEDS: Heparin Sodium,Porcine 5,000 UNIT/ML VIAL 5000 UNIT SUBCUT ×2 (04:04→11:15)
[2020-07-18] MEDS: Chlorhexidine Gluc Oral Rinse 15 ML MOUTHWASH BUCCAL ×3 (06:14→22:11)
[2020-07-18 06:17] LABS: MANUAL DIFF FLAG NO
[2020-07-18 06:19] LABS: Basophils Percent Auto 0.1 % (0-2); Hematocrit 41.8 % (42-52); Hemoglobin 14.1 g/dl (14.0-18.0); Imm Gran Abs Auto 0.04 X10*3/uL (0.00-0.03); Imm Gran Pct Auto 0.3 % (0.0-0.4); Lymphocytes Percent Auto 6.6 % (20-40); Mean Corpuscular HGB Conc 33.7 g/dl (31.0-36.0); Mean Corpuscular Hemoglobin 33.7 pg (27.0-33.0); Mean Platelet Volume 11.6 fL (9.4-12.4); Monocytes Absolute Auto 0.8 X10*3/uL (0.1-1.2); Monocytes Percent Auto 5.5 % (2-11); Neutrophils Absolute Auto 13.1 X10*3/uL (2.0-8.3); Neutrophils Percent Auto 87.5 % (45-73); Platelet Count 186 X10*3/uL (160-400); Red Blood Count 4.18 X10*6/uL (4.60-5.80); Red Cell Distribution Width 12.3 % (11.0-16.0); White Blood Count 14.9 X10*3/uL (4.8-10.8)
[2020-07-18 06:43] LABS: Alanine Aminotransferase 20 U/L (0-40); Albumin Level 3.5 g/dL (3.5-5.0); Alkaline Phosphatase 73 U/L (39-117); Anion Gap 19 (12-20); Aspartate Amino Transferase 34 U/L (5-37); Bilirubin Total 0.7 mg/dL (0.0-1.0); Blood Urea Nitrogen 18 mg/dL (9-16); Calcium 8.1 mg/dL (8.4-10.2); Carbon Dioxide 18 mmol/L (22-29); Chloride 104 mmol/L (96-108); Creatinine Clr Calc Pharmacy 44.5; Estimated Glomerular Filt Rate 34; Glucose Random 124 mg/dL (60-115); Magnesium 1.7 mg/dL (1.6-2.6); Phosphorus 2.2 mg/dL (2.7-4.5); Potassium 4.1 mmol/L (3.3-5.1); Sodium 137 mmol/L (135-145)
[2020-07-18 06:57] LABS: Troponin-I High Sensitivity 1082.4 ng/L (<3.5-35.0)
--- NOTE | 2020-07-18 07:18 | P.CDIC_ITS ---
CDI Concurrent Query Service Date: 07/18/20 Documentation Clarification: Please clarify if you are treating a proba ble/suspected/likely or confirmed: Sepsis txt Sepsis rule out Please specify if known Provider Response: Other Other Diagnosis: Sepsis ruled out PLEASE DO NOT DELETE/MODIFY EXISTING CONTENT Additional information is needed in order to code to the highest accuracy and appropriate Severity of Illness (SOI). Please clarify the information noted below in your progress notes and discharge summary. Risk Factors/Clinical Indicators/Treatments WBC 14.9 LA 2.4/3.4 HR 120 RR 24 Temp 100.6 altered mental status due to narcotic overdose? Tylenol? found unresponsive Zosyn administered ? aspiration vs community acquired pneumonia vs CHF. Intubated for airway protection, ICU admit requested. CDS: Naina Alejandro CCS, CDIS Contact Number: [phone]. [phone] Please Review the information above and exercise your independent professional judgment in responding to the query. If you concur, pleas document in the PROGRESS NOTES and DISCHARGE SUMMARY. If you do not agree with the query, please document in the query above. THIS QUERY IS PART OF THE PERMANENT MEDICAL RECORD
--- NOTE | 2020-07-18 07:24 | P.CDIC_ITS ---
CDI Concurrent Query Service Date: 07/18/20 Documentation Clarification: Please clarify if you are treating a proba ble/suspected/likely or confirmed: Toxic encephalopathy due to drug overdose POA Other please specify if known Provider Response: Other Other Diagnosis: Toxic encephalopathy secondary to drug overdose present on admission PLEASE DO NOT DELETE/MODIFY EXISTING CONTENT Additional information is needed in order to code to the highest accuracy and appropriate Severity of Illness (SOI). Please clarify the information noted below in your progress notes and discharge summary. Risk Factors/Clinical Indicators/Treatments Altered mental status, found unresponsive, lethargic possible narcotic overdose, Tylenol? jar of Percocet found empty. Admit to ICU intubated for severe altered mental status and airway protection. CDS: Naina Alejandro CCS, CDIS Contact Number: [phone]. [phone] Please Review the information above and exercise your independent professional judgment in responding to the query. If you concur, pleas document in the PROGRESS NOTES and DISCHARGE SUMMARY. If you do not agree with the query, please document in the query above. THIS QUERY IS PART OF THE PERMANENT MEDICAL RECORD
[2020-07-18 07:29] LABS: VBG Base Excess -5.9 mmol/L; VBG HCO3 17 mmol/L (22-26); VBG pCO2 29 mmHg; VBG pO2 74 mmHg
[2020-07-18 07:30] LABS: VBG pH 7.38 (7.32-7.43)
[2020-07-18] MEDS: Sodium,Potassium Phosphates POWD.PACK 2 PACKET PO (08:40)
--- NOTE | 2020-07-18 10:00 | CA_ITS ---
Transthoracic Echocardiogram Patient (Last, First, Middle): Eugene Gustafson D Gender: Male Date of : 1960 Age: 59 Procedure Date: 07/18/2020 Procedure Type: Transthoracic Echocardiogram Location: ICU Height: 175.26 cm Weight: 100.7 kg BSA: 2.16 m2 Heart Rate: bpm BP: 150 / 100 mmHg Smasher: JENS Referring MD: David Arthur MD Symptoms: ?NSTEMI Study Quality: Technically Difficult/contrast Conclusions: - The left ventricular systolic function is moderately decreased. The visually estimated ejection fraction is between 30-35%. - There is a large mobile mass noticed in the apex which is likely a thrombus. - There is mildly decreased right ventricular systolic function. - There is mild dilatation of the ascending aorta. Findings Procedure Information Contrast agent, definity, is being given per protocol without apparent complications. Left Ventricle Normal left ventricular cavity size. There is mildly increased left ventricular wall thickness. The left ventricular systolic function is moderately decreased. The visually estimated ejection fraction is between 30 35%. There is moderate global hypokinesis. Diastolic function is indeterminate on the basis of available data. There is a large thrombus in the left ventricle. Right Ventricle Normal right ventricular cavity size. There is mildly decreased right ventricular systolic function. Atria The left atrium is normal in size. Aortic Valve There is a normal trileaflet aortic valve. There is mild calcification of the aortic valve. There is mild thickening of the aortic valve. There is no aortic valve regurgitation. Mitral Valve Likely normal mitral valve structure and function. There is no mitral valve regurgitation. There is no mitral valve stenosis. Pulmonic Valve The pulmonic valve is likely normal. Tricuspid Valve Normal tricuspid valve structure and function. There is trace tricuspid valve regurgitation. Tricuspid regurgitation envelope is inadequate for calculation of right ventricular systolic pressure. Moderately elevated right atrial pressure. Great Vessels There is mild dilatation of the ascending aorta. The visualized portions of the pulmonary artery and branches are normal. Venous The inferior vena cava is dilated and does not collapse with inspiration. Pericardium/Pleural There is no evidence of pericardial effusion. Prior Study Comparison No prior study available for comparison. Measurements 2D Linear Measurements IVSd: 1.08 0.6-0.9/0.6-1.0 cm LVIDd: 4.58 3.9-5.3/4.2-5.9 cm LVIDd Index: 2.12 2.4-3.2/2.2-3.1 cm/m2 LVIDs: 4.04 2.0-3.6 cm LVPWd: 1.15 0.7-1.1 cm Ao Root: 4.10 2.1-3.5 cm LA Diam: 3.50 2.7-3.8/3.0-4.0 cm LAIDs Index: 1.62 1.5-2.3 cm/m2 LV Mass: 228.54 67-162/88-224 g LV Mass Index: 105.81 43-95/49-115 g/m2 LVOT Diam: 2.20 3.0+(-)1.3 cm Aortic Valve AoV Pk Tal: 0.87 AoV Mn Tal: 0.68 AoV VTI: 0.16 AoV Pk Grad: 3.00 Aov Mn Grad: 2.00 WOLFGANG Cont.VTI: 2.79 LVOT LVOT Pk Tal: 0.70 LVOT Mn Tal: 0.49 LVOT VTI: 0.12 LVOT Pk Grad: 2.00 LVOT Mn Grad: 1.00 LVOT Diam: 2.20 LVOT Area: 3.80 Tricuspid Valve TR Pk Tal: 1.62 TR Pk Grad: 10.00 Great Vessels Aorta Ao Root-2D: 4.10 2.0-3.7 cm Ao Asc: 3.50 2.1-3.4 cm Updated in Other Vendor System with Status of Final Vazquez Moeller MD electronically signed on 07/18/2020 8:05:58 PM with status of Final
--- NOTE | 2020-07-18 10:23 | MHC.CM.PN ---
Pt is intubated and unable to participate in CM assessment: Information obtained from EMR, ICU care team and from pt's brother Star who was in to visit. Per Star, pt resides in a rooming house run by the [facility] One of his other brothers also resides there. Star states pt's PCP is Dr. Hernandez. Because pt has a large family, Star will serve as the automotive parts counter person and can be reached at [phone]. There may be a HCP although Star isn't certain on it's location. Pt is independent with all care needs and has family that can assist with transportation. Pt has a son, Aaron and significant other, Laura (spelling?) who can assist as well. Pt will be weaned off vent support today and more will be known regarding his level of function. It is expected he can return to home without services. CM will follow for any changes.
[2020-07-18 11:00] LABS: Venous Blood Gas Refer to POC result
[2020-07-18] MEDS: Famotidine/PF 20 MG/2 ML VIAL IVPUSH (11:16)
[2020-07-18] MEDS: Piperacillin Sodium/Tazobactam 3.375 GM in 0.9 % Sodium Chloride 50 ML IV ×3 (11:16→22:11)
--- NOTE | 2020-07-18 13:52 | P.PNCC_ITS ---
Subjective Subjective Date of Service: 07/18/20 Interval History: 59-year-old gentleman with underlying history of hypertension, depression, anxiety with possible psychotic features, admitted on 07/17/2020 of after he was found unresponsive and on the floor in his house with Percocet but anemia by. EMS administered Narcan with no improvement. Patient was intubated in the emergency room. 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 He has been transferred to intensive care unit for further care. His toxicology screen has been essentially negative. He got an empiric 1st part of acetylcysteine protocol for Tylenol toxicity. His CT chest was significant for sequela of an aspiration. Patient also was noted to have rising CPK and has been started IV fluid resuscitation. No events overnight. Copious amount of endotracheal secretions. Physical Exam Vital Signs: Vital Signs: Last Vital Signs Temp 99.9 F 07/18/20 13:00 Pulse 99 07/18/20 13:00 Resp 21 H 07/18/20 13:00 BP 126/79 07/18/20 13:00 Pulse Ox 90 L 07/18/20 13:00 Body Mass Index 32.9 Const: General: no acute distress and other (Sedated on the vent) Eyes: Sclerae: sclerae normal EOM: EOMs intact bilaterally Neck: Neck: Yes no lymphadenopathy, Yes trachea midline and Yes supple Resp: Effort & Inspection: normal respiratory effort and no respiratory distress Auscultation: clear to auscultation bilaterally Cardio: Rate: regular rate Rhythm: regular rhythm Heart sounds: no gallops, no murmurs and no rubs GI: Palpation (GI): Soft to palpation and Other GI palpation findings present ( Nontender) Auscultation: normal bowel sounds Extrem: General: No clubbing, No cyanosis and Yes pedal edema (Trace bilateral) Objective Data Labs CBC & Chem 7: 07/18/20 05:30 07/18/20 05:30 Labs: Laboratory Results - last 24 hr 07/17/20 07/17/20 07/17/20 18:18 18:18 18:18 WBC 14.5 H RBC 4.77 Hgb 16.1 Hct 50.0 MCV 104.8 H MCH 33.8 H MCHC 32.2 RDW 12.4 Plt Count 252 MPV 10.7 Immature Gran % (Auto) 0.7 H Neut % (Auto) 83.5 H Lymph % (Auto) 6.1 L Catron % (Auto) 9.6 Eos % (Auto) 0.0 Baso % (Auto) 0.1 Lymph # (Auto) 0.9 L Catron # (Auto) 1.4 H Eos # (Auto) 0.0 Baso # (Auto) 0.0 Abs Immat Gran (auto) 0.10 H Absolute Neuts (auto) 12.1 H Absolute Nucleated RBC 0.000 Nucleated RBC % (auto) 0.0 PT 11.8 INR 1.0 O2 Saturation ABG pH at Pt Temp ABG pH (Temp Correct) ABG pCO2 at Pt Temp ABG pCO2 (Temp Corrct ABG pO2 at Pt Temp ABG pO2 (Temp Correct ABG HCO3 ABG Base Excess (Actual) VBG pH VBG pCO2 VBG pO2 VBG HCO3 VBG O2 Saturation VBG Base Excess Sodium 137 Potassium 5.5 H Chloride 96 Carbon Dioxide 23 Anion Gap 24 H BUN 14 Creatinine 3.44 H Estim Creat Clear Calc 25.7 Estimated GFR 18 Random Glucose 112 Lactic Acid Lactic Acid Fup @ 2Hr Lactic Acid Fup @ 4Hr Calcium 8.4 Phosphorus 8.5 H Magnesium 1.9 Total Bilirubin 0.6 Direct Bilirubin 0.3 AST 30 ALT 24 Alkaline Phosphatase 123 H Total Creatine Kinase Troponin I High Sens B-Natriuretic Peptide Total Protein 7.7 Albumin 4.2 Salicylates < 5.0 L Urine Opiates Screen Acetaminophen < 1 Ur Barbiturates Screen Ur Phencyclidine Scrn Ur Amphetamines Screen U Benzodiazepines Scrn Urine Cocaine Screen U Marijuana (THC) Screen Coronavirus (PCR) Influenza Type A (PCR) Influenza Type B (PCR) RSV RNA Qual (PCR) 07/17/20 07/17/20 07/17/20 18:18 18:18 18:28 WBC RBC Hgb Hct MCV MCH MCHC RDW Plt Count MPV Immature Gran % (Auto) Neut % (Auto) Lymph % (Auto) Catron % (Auto) Eos % (Auto) Baso % (Auto) Lymph # (Auto) Catron # (Auto) Eos # (Auto) Baso # (Auto) Abs Immat Gran (auto) Absolute Neuts (auto) Absolute Nucleated RBC Nucleated RBC % (auto) PT INR O2 Saturation ABG pH at Pt Temp ABG pH (Temp Correct) ABG pCO2 at Pt Temp ABG pCO2 (Temp Corrct ABG pO2 at Pt Temp ABG pO2 (Temp Correct ABG HCO3 ABG Base Excess (Actual) VBG pH VBG pCO2 VBG pO2 VBG HCO3 VBG O2 Saturation VBG Base Excess Sodium Potassium Chloride Carbon Dioxide Anion Gap BUN Creatinine Estim Creat Clear Calc Estimated GFR Random Glucose Lactic Acid Lactic Acid Fup @ 2Hr Lactic Acid Fup @ 4Hr Calcium Phosphorus Magnesium Total Bilirubin Direct Bilirubin AST ALT Alkaline Phosphatase Total Creatine Kinase 895 H Troponin I High Sens 882.9 H B-Natriuretic Peptide 154 H Total Protein Albumin Salicylates Urine Opiates Screen Acetaminophen Ur Barbiturates Screen Ur Phencyclidine Scrn Ur Amphetamines Screen U Benzodiazepines Scrn Urine Cocaine Screen U Marijuana (THC) Screen Coronavirus (PCR) NEGATIVE Influenza Type A (PCR) NEGATIVE Influenza Type B (PCR) NEGATIVE RSV RNA Qual (PCR) NEGATIVE 07/17/20 07/17/20 07/17/20 18:37 19:12 19:20 WBC RBC Hgb Hct MCV MCH MCHC RDW Plt Count MPV Immature Gran % (Auto) Neut % (Auto) Lymph % (Auto) Catron % (Auto) Eos % (Auto) Baso % (Auto) Lymph # (Auto) Catron # (Auto) Eos # (Auto) Baso # (Auto) Abs Immat Gran (auto) Absolute Neuts (auto) Absolute Nucleated RBC Nucleated RBC % (auto) PT INR O2 Saturation 91.0 ABG pH at Pt Temp 7.22 L ABG pH (Temp Correct) 7.22 L ABG pCO2 at Pt Temp 51 H ABG pCO2 (Temp Corrct 52 H ABG pO2 at Pt Temp 64 L ABG pO2 (Temp Correct 64 L ABG HCO3 21 L ABG Base Excess (Actual) -6.4 VBG pH VBG pCO2 VBG pO2 VBG HCO3 VBG O2 Saturation VBG Base Excess Sodium Potassium Chloride Carbon Dioxide Anion Gap BUN Creatinine Estim Creat Clear Calc Estimated GFR Random Glucose Lactic Acid 3.4 H* Lactic Acid Fup @ 2Hr Lactic Acid Fup @ 4Hr Calcium Phosphorus Magnesium Total Bilirubin Direct Bilirubin AST ALT Alkaline Phosphatase Total Creatine Kinase Troponin I High Sens B-Natriuretic Peptide Total Protein Albumin Salicylates Urine Opiates Screen Not Detected Acetaminophen Ur Barbiturates Screen Not Detected Ur Phencyclidine Scrn Not Detected Ur Amphetamines Screen Not Detected U Benzodiazepines Scrn Not Detected Urine Cocaine Screen Not Detected U Marijuana (THC) Screen Not Detected Coronavirus (PCR) Influenza Type A (PCR) Influenza Type B (PCR) RSV RNA Qual (PCR) 07/17/20 07/17/20 07/17/20 22:03 22:03 22:03 WBC RBC Hgb Hct MCV MCH MCHC RDW Plt Count MPV Immature Gran % (Auto) Neut % (Auto) Lymph % (Auto) Catron % (Auto) Eos % (Auto) Baso % (Auto) Lymph # (Auto) Catron # (Auto) Eos # (Auto) Baso # (Auto) Abs Immat Gran (auto) Absolute Neuts (auto) Absolute Nucleated RBC Nucleated RBC % (auto) PT INR O2 Saturation ABG pH at Pt Temp ABG pH (Temp Correct) ABG pCO2 at Pt Temp ABG pCO2 (Temp Corrct ABG pO2 at Pt Temp ABG pO2 (Temp Correct ABG HCO3 ABG Base Excess (Actual) VBG pH VBG pCO2 VBG pO2 VBG HCO3 VBG O2 Saturation VBG Base Excess Sodium 139 Potassium 4.0 D Chloride 107 Carbon Dioxide 19 L Anion Gap 17 BUN 14 Creatinine 2.17 H Estim Creat Clear Calc 40.7 Estimated GFR 31 Random Glucose 148 H Lactic Acid Lactic Acid Fup @ 2Hr 2.8 H* Lactic Acid Fup @ 4Hr Calcium 7.0 L D Phosphorus Magnesium Total Bilirubin Direct Bilirubin AST ALT Alkaline Phosphatase Total Creatine Kinase 1349 H D Troponin I High Sens 699.1 H B-Natriuretic Peptide Total Protein Albumin Salicylates Urine Opiates Screen Acetaminophen Ur Barbiturates Screen Ur Phencyclidine Scrn Ur Amphetamines Screen U Benzodiazepines Scrn Urine Cocaine Screen U Marijuana (THC) Screen Coronavirus (PCR) Influenza Type A (PCR) Influenza Type B (PCR) RSV RNA Qual (PCR) 07/17/20 07/18/20 07/18/20 22:07 00:31 05:30 WBC 14.9 H RBC 4.18 L Hgb 14.1 Hct 41.8 L MCV 100.0 H MCH 33.7 H MCHC 33.7 RDW 12.3 Plt Count 186 D MPV 11.6 Immature Gran % (Auto) 0.3 Neut % (Auto) 87.5 H Lymph % (Auto) 6.6 L Catron % (Auto) 5.5 Eos % (Auto) 0.0 Baso % (Auto) 0.1 Lymph # (Auto) 1.0 L Catron # (Auto) 0.8 Eos # (Auto) 0.0 Baso # (Auto) 0.0 Abs Immat Gran (auto) 0.04 H Absolute Neuts (auto) 13.1 H Absolute Nucleated RBC 0.000 Nucleated RBC % (auto) 0.0 PT INR O2 Saturation ABG pH at Pt Temp ABG pH (Temp Correct) ABG pCO2 at Pt Temp ABG pCO2 (Temp Corrct ABG pO2 at Pt Temp ABG pO2 (Temp Correct ABG HCO3 ABG Base Excess (Actual) VBG pH 7.32 VBG pCO2 31 VBG pO2 78 VBG HCO3 16 L VBG O2 Saturation 96.0 VBG Base Excess -8.2 Sodium Potassium Chloride Carbon Dioxide Anion Gap BUN Creatinine Estim Creat Clear Calc Estimated GFR Random Glucose Lactic Acid Lactic Acid Fup @ 2Hr Lactic Acid Fup @ 4Hr 2.6 H* Calcium Phosphorus Magnesium Total Bilirubin Direct Bilirubin AST ALT Alkaline Phosphatase Total Creatine Kinase Troponin I High Sens B-Natriuretic Peptide Total Protein Albumin Salicylates Urine Opiates Screen Acetaminophen Ur Barbiturates Screen Ur Phencyclidine Scrn Ur Amphetamines Screen U Benzodiazepines Scrn Urine Cocaine Screen U Marijuana (THC) Screen Coronavirus (PCR) Influenza Type A (PCR) Influenza Type B (PCR) RSV RNA Qual (PCR) 07/18/20 07/18/20 07/18/20 05:30 05:30 05:30 WBC RBC Hgb Hct MCV MCH MCHC RDW Plt Count MPV Immature Gran % (Auto) Neut % (Auto) Lymph % (Auto) Catron % (Auto) Eos % (Auto) Baso % (Auto) Lymph # (Auto) Catron # (Auto) Eos # (Auto) Baso # (Auto) Abs Immat Gran (auto) Absolute Neuts (auto) Absolute Nucleated RBC Nucleated RBC % (auto) PT INR O2 Saturation ABG pH at Pt Temp ABG pH (Temp Correct) ABG pCO2 at Pt Temp ABG pCO2 (Temp Corrct ABG pO2 at Pt Temp ABG pO2 (Temp Correct ABG HCO3 ABG Base Excess (Actual) VBG pH VBG pCO2 VBG pO2 VBG HCO3 VBG O2 Saturation VBG Base Excess Sodium 137 Potassium 4.1 Chloride 104 Carbon Dioxide 18 L Anion Gap 19 BUN 18 H Creatinine 2.01 H Estim Creat Clear Calc 44.5 Estimated GFR 34 Random Glucose 124 H Lactic Acid Lactic Acid Fup @ 2Hr Lactic Acid Fup @ 4Hr Calcium 8.1 L D Phosphorus 2.2 L Magnesium 1.7 Total Bilirubin 0.7 Direct Bilirubin AST 34 ALT 20 Alkaline Phosphatase 73 D Total Creatine Kinase 1457 H Troponin I High Sens 1082.4 H D B-Natriuretic Peptide Total Protein 6.0 L D Albumin 3.5 Salicylates Urine Opiates Screen Acetaminophen Ur Barbiturates Screen Ur Phencyclidine Scrn Ur Amphetamines Screen U Benzodiazepines Scrn Urine Cocaine Screen U Marijuana (THC) Screen Coronavirus (PCR) Influenza Type A (PCR) Influenza Type B (PCR) RSV RNA Qual (PCR) 07/18/20 07/18/20 05:30 05:35 WBC RBC Hgb Hct MCV MCH MCHC RDW Plt Count MPV Immature Gran % (Auto) Neut % (Auto) Lymph % (Auto) Catron % (Auto) Eos % (Auto) Baso % (Auto) Lymph # (Auto) Catron # (Auto) Eos # (Auto) Baso # (Auto) Abs Immat Gran (auto) Absolute Neuts (auto) Absolute Nucleated RBC Nucleated RBC % (auto) PT INR O2 Saturation TNP ABG pH at Pt Temp TNP ABG pH (Temp Correct) [employer] ABG pCO2 at Pt Temp TNP ABG pCO2 (Temp Corrct ABG pO2 at Pt Temp TNP ABG pO2 (Temp Correct ABG HCO3 TNP ABG Base Excess (Actual) TNP VBG pH 7.38 VBG pCO2 29 VBG pO2 74 VBG HCO3 17 L VBG O2 Saturation 92.0 VBG Base Excess -5.9 Sodium Potassium Chloride Carbon Dioxide Anion Gap BUN Creatinine Estim Creat Clear Calc Estimated GFR Random Glucose Lactic Acid Lactic Acid Fup @ 2Hr Lactic Acid Fup @ 4Hr Calcium Phosphorus Magnesium Total Bilirubin Direct Bilirubin AST ALT Alkaline Phosphatase Total Creatine Kinase Troponin I High Sens B-Natriuretic Peptide Total Protein Albumin Salicylates Urine Opiates Screen Acetaminophen Ur Barbiturates Screen Ur Phencyclidine Scrn Ur Amphetamines Screen U Benzodiazepines Scrn Urine Cocaine Screen U Marijuana (THC) Screen Coronavirus (PCR) Influenza Type A (PCR) Influenza Type B (PCR) RSV RNA Qual (PCR) Progress Note: A&P Assessment and plan (1) LA (acute kidney injury): Status: Acute Assessment and Plan: Assessment: 59-year-old gentleman admitted with acute respiratory failure and toxic encephalopathy likely secondary to intentional versus unintentional drug overdose requiring ventilatory support further complicated by elevated troponins, acute kidney injury, and rhabdomyolysis. Plan: Neuro: Toxic encephalopathy. Initial CT chest negative for an acute changes. Cardiac: Elevated troponin, likely physiologic stress related. 2D echocardiogram is pending. Pulmonary: Acute hypoxic respiratory failure with a pulmonary aspiration component requiring ventilatory support. Continue to titrate off ventilatory support as tolerated. Renal: Acute kidney injury likely secondary to rhabdomyolysis. Non oliguric. Continue with IV fluid support. Continue to monitor renal indices and urine output. Endo: No acute issues. GI: No acute issues. ID: No evidence of severe sepsis or septic shock. Empirically covered with broad-spectrum antibiotics. Will consider discontinuation in 24-48 hours. Heme/Onc: No acute issues. Psych: No acute issues. Underlying anxiety and depression. Possible suicide attempt. Now on one-to-one sitter. Will require psychiatric clearance after extubation. Miscellaneous: No acute issues. Prophylaxis: Heparin, famotidine Diet: Nothing by mouth Critical care time spent: 60 minutes (2) Rhabdomyolysis: Status: Acute (3) Aspiration into airway: Status: Acute (4) Acute respiratory failure: Status: Acute (5) Toxic encephalopathy: Status: Acute (6) Metabolic acidosis: Status: Acute Time Spent With Patient Total time spent with greater than 50% in coordination of care (as documented) at patient's floor/unit and/or counseling patient:: 0 Critical Care Time Critical Care Time (minutes): 60
[2020-07-18 14:54] LABS: Anion Gap 15 (12-20); Blood Urea Nitrogen 19 mg/dL (9-16); Calcium 8.5 mg/dL (8.4-10.2); Carbon Dioxide 22 mmol/L (22-29); Chloride 102 mmol/L (96-108); Creatinine Clr Calc Pharmacy 56.4; Estimated Glomerular Filt Rate 44; Glucose Random 105 mg/dL (60-115); Potassium 3.6 mmol/L (3.3-5.1); Sodium 135 mmol/L (135-145)
[2020-07-18] MEDS: propofoL 1,000 MG/100 ML VIAL 22.94 MG IVCONT (18:02)
[2020-07-18 19:56] LABS: INTERNATIONAL NORM RATIO 1.4 (0.9-1.1); Prothrombin Time 16.8 SEC (10.8-13.0)
[2020-07-18 19:58] LABS: PTT Heparin Drip 32.8 SEC (53-77.9)
[2020-07-18] MEDS: Heparin Sodium,Porcine/1/2NS 25,000 UNIT/250 ML IV.SOLN 14.15 UNIT IVCONT (20:04)
[2020-07-18 20:47] LABS: Troponin-I High Sensitivity 1212.2 ng/L (<3.5-35.0)
[2020-07-18] MEDS: propofoL 1,000 MG/100 ML VIAL 20.08 MG IVCONT (23:47)
[2020-07-19] VITALS (28 sets, daily range): BP systolic 97–170; BP diastolic 67–117; PULSE 69–99; RESP 14–26; TEMP 36.7–37.9; O2SAT 89–96; BMI 32.8
[2020-07-19] MEDS: propofoL 1,000 MG/100 ML VIAL 20.08 MG IVCONT ×2 (03:54→09:01)
[2020-07-19] MEDS: Piperacillin Sodium/Tazobactam 3.375 GM in 0.9 % Sodium Chloride 50 ML IV ×4 (04:21→23:19)
[2020-07-19 05:47] LABS: VBG Base Excess 0.1 mmol/L; VBG HCO3 22 mmol/L (22-26); VBG pCO2 29 mmHg; VBG pH 7.48 (7.32-7.43); VBG pO2 132 mmHg
[2020-07-19] MEDS: Lactated Ringers 1,000 ML 125 ML IVCONT ×2 (05:58→13:25)
[2020-07-19] MEDS: Chlorhexidine Gluc Oral Rinse 15 ML MOUTHWASH BUCCAL (05:58)
[2020-07-19 06:19] LABS: MANUAL DIFF FLAG NO
[2020-07-19 06:24] LABS: Basophils Percent Auto 0.1 % (0-2); Eosinophils Percent Auto 0.1 % (0-4); Hematocrit 37.9 % (42-52); Hemoglobin 12.9 g/dl (14.0-18.0); Imm Gran Abs Auto 0.04 X10*3/uL (0.00-0.03); Imm Gran Pct Auto 0.3 % (0.0-0.4); Lymphocytes Absolute Auto 1.8 X10*3/uL (1.2-4.9); Lymphocytes Percent Auto 12.3 % (20-40); Mean Corpuscular Hemoglobin 33.5 pg (27.0-33.0); Mean Corpuscular Volume 98.4 fL (80-98); Mean Platelet Volume 12.1 fL (9.4-12.4); Monocytes Absolute Auto 0.8 X10*3/uL (0.1-1.2); Monocytes Percent Auto 5.8 % (2-11); Neutrophils Absolute Auto 11.6 X10*3/uL (2.0-8.3); Neutrophils Percent Auto 81.4 % (45-73); Platelet Count 202 X10*3/uL (160-400); Red Blood Count 3.85 X10*6/uL (4.60-5.80); Red Cell Distribution Width 12.6 % (11.0-16.0); White Blood Count 14.3 X10*3/uL (4.8-10.8)
[2020-07-19 06:33] LABS: INTERNATIONAL NORM RATIO 1.2 (0.9-1.1); Prothrombin Time 14.6 SEC (10.8-13.0)
--- NOTE | 2020-07-19 06:44 | P.CDIC_ITS ---
CDI Concurrent Query Service Date: 07/19/20 Documentation Clarification: Please clarify if you are treating a proba ble/suspected/likely or confirmed: Clarity of documentation within medical record: Aspiration pneumonia Community acquired pneumonia Please specific if known Provider Response: Other Other Diagnosis: Aspiration pneumonitis PLEASE DO NOT DELETE/MODIFY EXISTING CONTENT Additional information is needed in order to code to the highest accuracy and appropriate Severity of Illness (SOI). Please clarify the information noted below in your progress notes and discharge summary. Risk Factors/Clinical Indicators/Treatments ED: Evaluation- Cxr shows bilateral infiltrates, CHF vs. community acquired pneumonia vs. Covid CT consistent with pneumonia. IV Zosyn, Intubated for severe altered mental status and to protect airway. H&P: Patient did have possible aspiration due to overdose. PN: sequela of aspiration. Dx: acute hypoxic respiratory failure w a pulmonary aspiration component requiring vent support. CDS: Naina Alejandro CCS, CDIS Contact Number: [phone]. [phone] Please Review the information above and exercise your independent professional judgment in responding to the query. If you concur, pleas document in the PROGRESS NOTES and DISCHARGE SUMMARY. If you do not agree with the query, please document in the query above. THIS QUERY IS PART OF THE PERMANENT MEDICAL RECORD
[2020-07-19 06:53] LABS: Alanine Aminotransferase 21 U/L (0-40); Albumin Level 3.1 g/dL (3.5-5.0); Alkaline Phosphatase 61 U/L (39-117); Anion Gap 14 (12-20); Aspartate Amino Transferase 29 U/L (5-37); Bilirubin Total 0.7 mg/dL (0.0-1.0); Blood Urea Nitrogen 17 mg/dL (9-16); Calcium 8.3 mg/dL (8.4-10.2); Carbon Dioxide 22 mmol/L (22-29); Chloride 100 mmol/L (96-108); Creatinine Clr Calc Pharmacy 79.7; Estimated Glomerular Filt Rate > 60; Glucose Random 103 mg/dL (60-115); Magnesium 1.7 mg/dL (1.6-2.6); Phosphorus 2.2 mg/dL (2.7-4.5); Potassium 3.4 mmol/L (3.3-5.1); Sodium 133 mmol/L (135-145); Total Protein 5.5 g/dL (6.5-8.0)
[2020-07-19 07:08] LABS: Troponin-I High Sensitivity 859.4 ng/L (<3.5-35.0)
[2020-07-19 07:15] LABS: Venous Blood Gas Refer to POC result
[2020-07-19] MEDS: Famotidine/PF 20 MG/2 ML VIAL IVPUSH (07:50)
[2020-07-19 09:25] LABS: PTT Heparin Drip 73.7 SEC (53-77.9)
--- NOTE | 2020-07-19 09:57 | P.CDIC_ITS ---
CDI Concurrent Query Service Date: 07/19/20 Documentation Clarification: Please clarify if you are treating a proba ble/suspected/likely or confirmed: LABS: Hyperkalemia POA, resolved Please specify if known or other Provider Response: Other Other Diagnosis: Hyperkalemia present on admission, resolved PLEASE DO NOT DELETE/MODIFY EXISTING CONTENT Additional information is needed in order to code to the highest accuracy and appropriate Severity of Illness (SOI). Please clarify the information noted below in your progress notes and discharge summary. Risk Factors/Clinical Indicators/Treatments LAB FINDING: Potassium 5.5 H (poa) potassium/sodium 2 packet po x1 CDS: Naina Alejandro CCS, CDIS Contact Number: [phone]. [phone] Please Review the information above and exercise your independent professional judgment in responding to the query. If you concur, pleas document in the PROGRESS NOTES and DISCHARGE SUMMARY. If you do not agree with the query, please document in the query above. THIS QUERY IS PART OF THE PERMANENT MEDICAL RECORD
[2020-07-19] MEDS: dexmedeTOMIDidine HCL/NS 400 MCG/100 ML INFUS..BTL 25.25 MCG IVCONT (10:00)
--- NOTE | 2020-07-19 10:08 | PM.CNCAR ---
History of Present Illness History of Present Illness Date of Service: 07/19/20 Requesting physician: David Arthur Chief complaint: OVERDOSE Narrative: [age] year gentleman with background history of hypertension who was found at home by family on the floor without a mental status. He was given Narcan and was intubated in the emergency department for airway protection. He had positive biomarkers and ruled in for NSTEMI. He had an echocardiogram done yesterday which showed somewhat globally down ejection fraction of 30 35% and concern for apical thrombus. He had definity given to him but still it was difficult to say whether there is a true apical thrombus or an abnormal papillary muscle or subvalvular structure there. In any case given his wall motion abnormality this was called as a thrombus. He is currently intubated and sedation is being backed off so he could be extubated. Review of Systems Review of Systems: Yes unobtainable due to endotracheal tube PMFSH Past Medical History Medical History Anxiety Depression Social History Social History Currently Displaying Signs/Symptoms of Drug Intoxication Withdrawal: No Advance Directives: No Advance Directives Information Provided: No service: No Current occupational status: unemployed Meds Allergies Allergy/AdvReac Type Severity Reaction Status Date / Time No Known Allergies Allergy Unverified 01/04/20 15:51 [No Known Allergies*] Active Medications: Current Medications Generic Name Dose Route Start Last Admin Trade Name Freq PRN Reason Stop Dose Admin Chlorhexidine Gluconate 15 ml 07/18/20 06:00 07/19/20 05:58 Chlorhexidine Gluc Oral Rinse 15 Ml Mouthwash BUCCAL 15 ml Q8H GINNY Administration Famotidine 20 mg 07/18/20 09:40 07/19/20 07:50 Famotidine/Pf 20 Mg/2 Ml Vial IVPUSH 20 mg DAILY GINNY Administration Heparin Sodium (Porcine) 4,000 unit 07/18/20 19:30 Heparin Sodium,Porcine 5,000 Unit/Ml Vial 40 unit/kg (4000 unit) IVPUSH BOLUS PRN 40 unit/kg - Heparin Protocol Heparin Sodium (Porcine) 8,100 unit 07/18/20 19:30 Heparin Sodium,Porcine 5,000 Unit/Ml Vial 80 unit/kg (8100 unit) IVPUSH BOLUS PRN 80 unit/kg - Heparin Protocol Lactated Ringer's 1,000 mls @ 125 mls/hr 07/17/20 19:30 07/19/20 05:58 Lr IVCONT 125 mls/hr .Q8H GINNY Administration Propofol 1,000 mg in 100 mls @ 0 mls/hr 07/17/20 19:45 07/19/20 09:01 Diprivan IVCONT 35 mcg/kg/min .Q0M GINNY 20.08 mls/hr Administration Protocol Per Protocol Piperacillin Sod/Tazobactam 50 mls @ 100 mls/hr 07/18/20 11:00 07/19/20 05:01 Sod 3.375 gm/ Sodium Chloride IV Infused Q6H GINNY Infusion Heparin Sodium/Sodium Chloride 25,000 unit in 250 mls @ 0 mls/hr 07/18/20 19:30 07/19/20 03:58 IVCONT 11 units/kg/hr .Q0M GINNY 11.12 mls/hr Titration Protocol Per Protocol Potassium Phosphate 30 mmol/ 510 mls @ 85 mls/hr 07/19/20 07:55 Sodium Chloride IV 07/19/20 13:54 ONCE ONE Dexmedetomidine HCl 400 mcg in 100 mls @ 0 mls/hr 07/19/20 10:00 Precedex IVCONT .Q0M GINNY Protocol Per Protocol Pharmacy Consult 1 each 07/17/20 18:12 Consult Rx Perform Med Rec MISCELLANE ONCE PRN Consult order Home Medications Medication Instructions Recorded Confirmed Last Taken Type clonidine HCl 0.1 mg PO BID PRN 07/17/20 07/17/20 Unknown History fluoride (sodium) 1 appl PO BID 07/17/20 07/17/20 Unknown History gabapentin 100 mg PO BID 07/17/20 07/17/20 Unknown History mirtazapine 30 mg PO BEDTIME 07/17/20 07/17/20 Unknown History olanzapine 7.5 mg PO BID 07/17/20 07/17/20 Unknown History trazodone 50 - 100 mg PO BEDTIME PRN 07/17/20 07/17/20 Unknown History venlafaxine 75 mg PO DAILY 07/17/20 07/17/20 Unknown History Physical Exam Vital Signs: Vital Signs: Last Vital Signs Temp 98.8 F 07/19/20 09:47 Pulse 97 07/19/20 09:47 Resp 22 H 07/19/20 09:47 BP 135/79 07/19/20 09:47 Pulse Ox 95 07/19/20 09:47 Body Mass Index 32.8 GENERAL APPEARANCE: Intubated, slightly agitated as sedation has been cut back.. HEENT: unremarkable. HEAD: normocephalic, atraumatic. NECK/THYROID: no carotid bruit, no jugular venous distention. SKIN: no suspicious lesions, warm and dry. HEART: no murmurs, regular rate and rhythm, S1, S2 normal. LUNGS: clear to auscultation bilaterally. ABDOMEN: Soft, nondistended. EXTREMITIES: no clubbing, cyanosis, or edema. PERIPHERAL PULSES: equal. NEUROLOGIC: Sedated and ventilated. Somewhat agitated right now. Results Labs and Meds Result diagrams: 07/19/20 05:32 07/19/20 05:32 Lab results: Laboratory Results - last 24 hr 07/18/20 07/18/20 07/18/20 14:07 19:41 19:41 WBC RBC Hgb Hct MCV MCH MCHC RDW Plt Count MPV Immature Gran % (Auto) Neut % (Auto) Lymph % (Auto) [place] % (Auto) Eos % (Auto) Baso % (Auto) Lymph # (Auto) [place] # (Auto) Eos # (Auto) Baso # (Auto) Abs Immat Gran (auto) Absolute Neuts (auto) Absolute Nucleated RBC Nucleated RBC % (auto) PT 16.8 H D INR 1.4 H PTT (Heparin Protocol) 32.8 L VBG pH VBG pCO2 VBG pO2 VBG HCO3 VBG O2 Saturation VBG Base Excess Sodium 135 Potassium 3.6 Chloride 102 Carbon Dioxide 22 Anion Gap 15 BUN 19 H Creatinine 1.61 H Estim Creat Clear Calc 56.4 Estimated GFR 44 Random Glucose 105 Calcium 8.5 Phosphorus Magnesium Total Bilirubin AST ALT Alkaline Phosphatase Total Creatine Kinase 1678 H Troponin I High Sens 1212.2 H Total Protein Albumin 07/19/20 07/19/20 07/19/20 02:09 05:32 05:32 WBC 14.3 H RBC 3.85 L Hgb 12.9 L Hct 37.9 L MCV 98.4 H MCH 33.5 H MCHC 34.0 RDW 12.6 Plt Count 202 MPV 12.1 Immature Gran % (Auto) 0.3 Neut % (Auto) 81.4 H Lymph % (Auto) 12.3 L [place] % (Auto) 5.8 Eos % (Auto) 0.1 Baso % (Auto) 0.1 Lymph # (Auto) 1.8 [place] # (Auto) 0.8 Eos # (Auto) 0.0 Baso # (Auto) 0.0 Abs Immat Gran (auto) 0.04 H Absolute Neuts (auto) 11.6 H Absolute Nucleated RBC 0.000 Nucleated RBC % (auto) 0.0 PT INR PTT (Heparin Protocol) 104.0 H D VBG pH VBG pCO2 VBG pO2 VBG HCO3 VBG O2 Saturation VBG Base Excess Sodium 133 L Potassium 3.4 Chloride 100 Carbon Dioxide 22 Anion Gap 14 BUN 17 H Creatinine 1.14 Estim Creat Clear Calc 79.7 Estimated GFR > 60 Random Glucose 103 Calcium 8.3 L Phosphorus 2.2 L Magnesium 1.7 Total Bilirubin 0.7 AST 29 ALT 21 Alkaline Phosphatase 61 Total Creatine Kinase 848 H D Troponin I High Sens Total Protein 5.5 L Albumin 3.1 L 07/19/20 07/19/20 07/19/20 05:32 05:32 05:37 WBC RBC Hgb Hct MCV MCH MCHC RDW Plt Count MPV Immature Gran % (Auto) Neut % (Auto) Lymph % (Auto) [place] % (Auto) Eos % (Auto) Baso % (Auto) Lymph # (Auto) [place] # (Auto) Eos # (Auto) Baso # (Auto) Abs Immat Gran (auto) Absolute Neuts (auto) Absolute Nucleated RBC Nucleated RBC % (auto) PT 14.6 H INR 1.2 H PTT (Heparin Protocol) VBG pH 7.48 H VBG pCO2 29 VBG pO2 132 VBG HCO3 22 VBG O2 Saturation 98.0 VBG Base Excess 0.1 Sodium Potassium Chloride Carbon Dioxide Anion Gap BUN Creatinine Estim Creat Clear Calc Estimated GFR Random Glucose Calcium Phosphorus Magnesium Total Bilirubin AST ALT Alkaline Phosphatase Total Creatine Kinase Troponin I High Sens 859.4 H Total Protein Albumin 07/19/20 09:05 WBC RBC Hgb Hct MCV MCH MCHC RDW Plt Count MPV Immature Gran % (Auto) Neut % (Auto) Lymph % (Auto) [place] % (Auto) Eos % (Auto) Baso % (Auto) Lymph # (Auto) [place] # (Auto) Eos # (Auto) Baso # (Auto) Abs Immat Gran (auto) Absolute Neuts (auto) Absolute Nucleated RBC Nucleated RBC % (auto) PT INR PTT (Heparin Protocol) 73.7 D VBG pH VBG pCO2 VBG pO2 VBG HCO3 VBG O2 Saturation VBG Base Excess Sodium Potassium Chloride Carbon Dioxide Anion Gap BUN Creatinine Estim Creat Clear Calc Estimated GFR Random Glucose Calcium Phosphorus Magnesium Total Bilirubin AST ALT Alkaline Phosphatase Total Creatine Kinase Troponin I High Sens Total Protein Albumin Assessment and Plan (1) Toxic encephalopathy: Status: Acute (2) Cardiomyopathy: Status: Acute (3) NSTEMI (non-ST elevated myocardial infarction): Status: Acute 59-year-old gentleman who is presenting with change in mental status was given Narcan in the field. He was intubated for airway protection. He had ruled in for NSTEMI and has EF of 30 35% which seems globally down. The apical windows have concern for LV thrombus versus subvalvular structure. He has depressed LV function which can increase the risk of thrombus formation. He is on heparin drip right now. I will continue the heparin drip for the non-STEMI as well as the concern for apical thrombus. We will do limited echo with definity just focusing on the apex to see if we can clear this issue. If truly there is an apical thrombus present then he will need longer anticoagulation till LV function improves. In terms of his non-STEMI I think he should be on baby aspirin if there is a bleeding issues right now. He should also be started on statin therapy if there is no significant concerns again state. He will require further assessment for the LV dysfunction as he wakes up. This will be decided based on his clinical situation and status. Once he is extubated and stable please add low-dose lisinopril. Thank you for allowing me to participate in the care of your patient. Please feel free to contact me if you have any questions.
[2020-07-19] MEDS: Potassium Phosphate 30 MMOL in 0.9 % Sodium Chloride 500 ML 85 MMOL IV (10:14)
[2020-07-19] MEDS: LORazepam 2 MG/ML VIAL 0.5 MG IVPUSH ×3 (10:45→20:04)
--- NOTE | 2020-07-19 11:10 | MHC.CLN ---
F/U PT STARTED ON TF PROMOTE AT MAX GOAL RATE 65CC/HR WITH 240CC WATER FLUSHES Q SHIFT TO PROVIDE 1560KCALS (2089KCALS WITH SEDATION; 25KCALS/KG), 97.5G (1.2G/KG), 2027CC TOTAL WATER FROM FORMULA AND FLUSH (25CC/KG) TF CURRENTLY AT 40CC/HR-TOLERATING WELL PER NSG MONITOR TOLERANCE, RESIDUALS AND LYTES
--- NOTE | 2020-07-19 11:42 | CA_ITS ---
Transthoracic Echocardiogram Patient (Last, First, Middle): Eugene Gustafson D Gender: Male Date of : 1960 Age: 59 Procedure Date: 07/19/2020 Procedure Type: Transthoracic Echocardiogram Location: ICU Height: 175.26 cm Weight: 100.7 kg BSA: 2.16 m2 Heart Rate: bpm Equipment Planner: JENS Referring MD: Vazquez Moeller MD Symptoms: ? apical thrombus. limited echo, do with definity Study Quality: Fair ECG Rhythm: Sinus Conclusions: - Limited echo for ?apical thrombus seen on previous echo. - Moderate biventricular dysfunction. - There is no evidence of apical thrombus. The abnormality seen on previous echo was either an artifact or was due to imaging of accessory papillary muscle. Findings Left Ventricle Normal left ventricular cavity size. The left ventricular systolic function is moderately decreased. The visually estimated ejection fraction is between 30-35%. There is abnormal septal motion with excessive respiratory change. Right Ventricle Moderately increased right ventricular cavity size. There is moderately decreased right ventricular systolic function. Mitral Valve There is moderate mitral annular calcification. Updated in Other Vendor System with Status of Final Vazquez Moeller MD electronically signed on 07/20/2020 2:14:08 PM with status of Final
--- NOTE | 2020-07-19 12:59 | MHC.CM.PN ---
pt is in icu; intubated, sedated on mech. vent. dc planning is deferred to a future time. cm to cont to follow.
[2020-07-19 15:39] LABS: PTT Heparin Drip 54.6 SEC (53-77.9)
--- NOTE | 2020-07-19 15:42 | P.PNCC_ITS ---
Subjective Subjective Date of Service: 07/19/20 Interval History: 59-year-old gentleman with underlying history of hypertension, depression, anxiety with possible psychotic features, admitted on 07/17/2020 of after he was found unresponsive and on the floor in his house with Percocet but anemia by. EMS administered Narcan with no improvement. Patient was intubated in the emergency room. 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 He has been transferred to intensive care unit for further care. His toxicology screen has been essentially negative. He got an empiric 1st part of acetylcysteine protocol for Tylenol toxicity. His CT chest was significant for sequela of an aspiration. Patient also was noted to have rising CPK and has been started IV fluid resuscitation. On further discussion with his family patient was not noted to be abusing any substances, including alcohol over the last several years. His 2D echocardiogram was notable for new cardiomyopathy with ejection fraction of 30% and possible left ventricular thrombus. Patient has been started heparin drip. He has been extubated on 07/19/2020, however he remained significantly delirious. Physical Exam Vital Signs: Vital Signs: Last Vital Signs Temp 100.0 F 07/19/20 15:00 Pulse 73 07/19/20 15:00 Resp 17 07/19/20 15:00 BP 157/106 H 07/19/20 15:00 Pulse Ox 90 L 07/19/20 15:00 Body Mass Index 32.8 Const: General: no acute distress and lethargic (Intermittently agitated) Orientation/consciousness: lethargic (Intermittently agitated) Eyes: Sclerae: sclerae normal Neck: Neck: Yes no lymphadenopathy, Yes trachea midline and Yes supple Resp: Effort & Inspection: normal respiratory effort and no respiratory di stress Auscultation: crackles (Bibasilar) Cardio: Rate: regular rate Rhythm: regular rhythm Heart sounds: no gallops, no murmurs and no rubs GI: Palpation (GI): Soft to palpation and Other GI palpation findings present ( Nontender) Auscultation: normal bowel sounds Extrem: General: No clubbing, No cyanosis and Yes pedal edema (Trace bilateral) Objective Data Labs CBC & Chem 7: 07/19/20 05:32 07/19/20 05:32 Labs: Laboratory Results - last 24 hr 07/18/20 07/18/20 07/19/20 19:41 19:41 02:09 WBC RBC Hgb Hct MCV MCH MCHC RDW Plt Count MPV Immature Gran % (Auto) Neut % (Auto) Lymph % (Auto) [place] % (Auto) Eos % (Auto) Baso % (Auto) Lymph # (Auto) [place] # (Auto) Eos # (Auto) Baso # (Auto) Abs Immat Gran (auto) Absolute Neuts (auto) Absolute Nucleated RBC Nucleated RBC % (auto) PT 16.8 H D INR 1.4 H PTT (Heparin Protocol) 32.8 L 104.0 H D VBG pH VBG pCO2 VBG pO2 VBG HCO3 VBG O2 Saturation VBG Base Excess Sodium Potassium Chloride Carbon Dioxide Anion Gap BUN Creatinine Estim Creat Clear Calc Estimated GFR Random Glucose Calcium Phosphorus Magnesium Total Bilirubin AST ALT Alkaline Phosphatase Total Creatine Kinase Troponin I High Sens 1212.2 H Total Protein Albumin 07/19/20 07/19/20 07/19/20 05:32 05:32 05:32 WBC 14.3 H RBC 3.85 L Hgb 12.9 L Hct 37.9 L MCV 98.4 H MCH 33.5 H MCHC 34.0 RDW 12.6 Plt Count 202 MPV 12.1 Immature Gran % (Auto) 0.3 Neut % (Auto) 81.4 H Lymph % (Auto) 12.3 L [place] % (Auto) 5.8 Eos % (Auto) 0.1 Baso % (Auto) 0.1 Lymph # (Auto) 1.8 [place] # (Auto) 0.8 Eos # (Auto) 0.0 Baso # (Auto) 0.0 Abs Immat Gran (auto) 0.04 H Absolute Neuts (auto) 11.6 H Absolute Nucleated RBC 0.000 Nucleated RBC % (auto) 0.0 PT INR PTT (Heparin Protocol) VBG pH VBG pCO2 VBG pO2 VBG HCO3 VBG O2 Saturation VBG Base Excess Sodium 133 L Potassium 3.4 Chloride 100 Carbon Dioxide 22 Anion Gap 14 BUN 17 H Creatinine 1.14 Estim Creat Clear Calc 79.7 Estimated GFR > 60 Random Glucose 103 Calcium 8.3 L Phosphorus 2.2 L Magnesium 1.7 Total Bilirubin 0.7 AST 29 ALT 21 Alkaline Phosphatase 61 Total Creatine Kinase 848 H D Troponin I High Sens 859.4 H Total Protein 5.5 L Albumin 3.1 L 07/19/20 07/19/20 07/19/20 05:32 05:37 09:05 WBC RBC Hgb Hct MCV MCH MCHC RDW Plt Count MPV Immature Gran % (Auto) Neut % (Auto) Lymph % (Auto) [place] % (Auto) Eos % (Auto) Baso % (Auto) Lymph # (Auto) [place] # (Auto) Eos # (Auto) Baso # (Auto) Abs Immat Gran (auto) Absolute Neuts (auto) Absolute Nucleated RBC Nucleated RBC % (auto) PT 14.6 H INR 1.2 H PTT (Heparin Protocol) 73.7 D VBG pH 7.48 H VBG pCO2 29 VBG pO2 132 VBG HCO3 22 VBG O2 Saturation 98.0 VBG Base Excess 0.1 Sodium Potassium Chloride Carbon Dioxide Anion Gap BUN Creatinine Estim Creat Clear Calc Estimated GFR Random Glucose Calcium Phosphorus Magnesium Total Bilirubin AST ALT Alkaline Phosphatase Total Creatine Kinase Troponin I High Sens Total Protein Albumin 07/19/20 15:22 WBC RBC Hgb Hct MCV MCH MCHC RDW Plt Count MPV Immature Gran % (Auto) Neut % (Auto) Lymph % (Auto) [place] % (Auto) Eos % (Auto) Baso % (Auto) Lymph # (Auto) [place] # (Auto) Eos # (Auto) Baso # (Auto) Abs Immat Gran (auto) Absolute Neuts (auto) Absolute Nucleated RBC Nucleated RBC % (auto) PT INR PTT (Heparin Protocol) 54.6 D VBG pH VBG pCO2 VBG pO2 VBG HCO3 VBG O2 Saturation VBG Base Excess Sodium Potassium Chloride Carbon Dioxide Anion Gap BUN Creatinine Estim Creat Clear Calc Estimated GFR Random Glucose Calcium Phosphorus Magnesium Total Bilirubin AST ALT Alkaline Phosphatase Total Creatine Kinase Troponin I High Sens Total Protein Albumin Microbiology Microbiology Results: Microbiology 07/19/20 10:02 Sputum - Suctioned Gram Stain - Final 07/17/20 19:28 Blood - Venous Blood Culture - Preliminary No growth after 24 hours. 07/17/20 19:20 Blood - Venous Blood Culture - Preliminary No growth after 24 hours. Progress Note: A&P Assessment and plan (1) Cardiomyopathy: Status: Acute Assessment and Plan: Assessment: 59-year-old gentleman admitted with acute respiratory failure and toxic encephalopathy likely secondary to intentional versus unintentional drug overdose requiring ventilatory support further complicated by elevated troponins, acute kidney injury, and rhabdomyolysis. Plan: Neuro: Likely underlying toxic encephalopathy. Initial CT chest negative for an acute changes. Extubated, but remains lethargic with intermittent agitation. If mental status does not improve, will consider MRI brain. Cardiac: New diagnosis of cardiomyopathy with reduced ejection fraction and possible left ventricular thrombus. Started on heparin drip. Cardiology servic e care appreciated. Pulmonary: Acute hypoxic respiratory failure with a pulmonary aspiration compon ent requiring ventilatory support. Extubated 07/19/2020. Continue to titrate off supplemental oxygen as tolerated. Renal: Acute kidney injury secondary to rhabdomyolysis, improving. Non oliguric. Continue to monitor renal indices and urine output. Endo: No acute issues. GI: No acute issues. ID: No evidence of severe sepsis or septic shock. Empirically covered with broad-spectrum antibiotics. Will consider discontinuation in 24-48 hours. Heme/Onc: No acute issues. Psych: No acute issues. Underlying anxiety and depression. Possible suicide attempt. Now on one-to-one sitter. Will require psychiatric clearance. Miscellaneous: No acute issues. Prophylaxis: Heparin Diet: Nothing by mouth Critical care time spent: 60 minutes (2) LA (acute kidney injury): Status: Acute (3) Rhabdomyolysis: Status: Acute (4) Acute respiratory failure: Status: Acute (5) Aspiration into airway: Status: Acute (6) Toxic encephalopathy: Status: Acute Time Spent With Patient Total time spent with greater than 50% in coordination of care (as documented) at patient's floor/unit and/or counseling patient:: 0 Critical Care Time Critical Care Time (minutes): 60
[2020-07-19] MEDS: Heparin Sodium,Porcine/1/2NS 25,000 UNIT/250 ML IV.SOLN 11.12 UNIT IVCONT (15:48)
[2020-07-19] MEDS: dexmedeTOMIDidine HCL/NS 400 MCG/100 ML INFUS..BTL 12.63 MCG IVCONT (17:22)
--- NOTE | 2020-07-19 17:40 | PC.NURSE ---
Sedation vacation from propofol started at 10:00 per MD. Patient switched to PS 10/5 and 40% fio2. O2 sats trends in the low 90s, HR 102, RR 24. Patient alert and opening eyes to command. Extubated around 10:30 and placed on 4 L via NC with O2 sats in the low 90s. Patient alert but unable to follow commands. Patient became increasingly restless and agitated kicking, kicking legs. Started on Precedex drip per MD, titrated per protocol with moderated effect effect. Patient remained restless, one time dose of 0.5 mg ativan given. Medication combination provided good effect. Patient became relaxed and appeared comfortable. Precedex drip titrated down following ativan admin per MD. Around 1500 patient given nasopharengeal suctioning per MD for a weak productive cough and O2 sats trending around 88% on 4L. Thick, cream colored secretions removed, O2 sats improved to low 90s. Patient remains on Precedex drip and resting comfortably in bed. Primary patient contact/ patients brother Star Gustafson at bedside this morning and provided with patient health status update and plan of care by this RN and MD. Star verbalized understanding of health status and questions were answered satisfactory. Star was also in agreement with plan of care . Star to update multiple other family members. Multiple family members at bedside to visit patient throughout the day. Recommended they speak to primary contact for detailed update.
[2020-07-20] VITALS (27 sets, daily range): BP systolic 134–185; BP diastolic 76–114; PULSE 66–110; RESP 16–88; TEMP 36.3–37.5; O2SAT 88–97; BMI 32.3
[2020-07-20] MEDS: dexmedeTOMIDidine HCL/NS 400 MCG/100 ML INFUS..BTL 16.41 MCG IVCONT (00:35)
[2020-07-20] MEDS: hydrALAZINE HCl 20 MG/ML VIAL 10 MG IVPUSH ×3 (02:31→13:25)
[2020-07-20] MEDS: LORazepam 2 MG/ML VIAL 0.5 MG IVPUSH ×3 (02:50→09:40)
[2020-07-20] MEDS: Piperacillin Sodium/Tazobactam 3.375 GM in 0.9 % Sodium Chloride 50 ML IV (04:52)
[2020-07-20 05:41] LABS: VBG HCO3 20 mmol/L (22-26); VBG pCO2 26 mmHg; VBG pH 7.49 (7.32-7.43); VBG pO2 71 mmHg
[2020-07-20 05:53] LABS: Venous Blood Gas Refer to POC result
[2020-07-20 05:57] LABS: MANUAL DIFF FLAG NO
[2020-07-20 06:00] LABS: Basophils Percent Auto 0.1 % (0-2); Eosinophils Percent Auto 0.1 % (0-4); Hematocrit 37.4 % (42-52); Hemoglobin 12.8 g/dl (14.0-18.0); Imm Gran Abs Auto 0.07 X10*3/uL (0.00-0.03); Imm Gran Pct Auto 0.5 % (0.0-0.4); Lymphocytes Absolute Auto 1.3 X10*3/uL (1.2-4.9); Lymphocytes Percent Auto 9.7 % (20-40); Mean Corpuscular HGB Conc 34.2 g/dl (31.0-36.0); Mean Corpuscular Hemoglobin 33.2 pg (27.0-33.0); Mean Corpuscular Volume 96.9 fL (80-98); Mean Platelet Volume 11.1 fL (9.4-12.4); Monocytes Absolute Auto 0.7 X10*3/uL (0.1-1.2); Monocytes Percent Auto 5.2 % (2-11); Neutrophils Absolute Auto 11.6 X10*3/uL (2.0-8.3); Neutrophils Percent Auto 84.4 % (45-73); Platelet Count 203 X10*3/uL (160-400); Red Blood Count 3.86 X10*6/uL (4.60-5.80); Red Cell Distribution Width 12.3 % (11.0-16.0); White Blood Count 13.8 X10*3/uL (4.8-10.8)
[2020-07-20] MEDS: dexmedeTOMIDidine HCL/NS 400 MCG/100 ML INFUS..BTL 20.2 MCG IVCONT ×2 (06:03→21:49)
[2020-07-20 06:07] LABS: PTT Heparin Drip 44.1 SEC (53-77.9)
[2020-07-20 06:15] LABS: Ammonia 36 umol/L (13-55)
[2020-07-20 06:28] LABS: Alanine Aminotransferase 19 U/L (0-40); Albumin Level 3.3 g/dL (3.5-5.0); Alkaline Phosphatase 68 U/L (39-117); Anion Gap 14 (12-20); Aspartate Amino Transferase 41 U/L (5-37); Bilirubin Total 0.9 mg/dL (0.0-1.0); Blood Urea Nitrogen 15 mg/dL (9-16); Calcium 8.4 mg/dL (8.4-10.2); Carbon Dioxide 23 mmol/L (22-29); Chloride 108 mmol/L (96-108); Creatinine Clr Calc Pharmacy 109.4; Estimated Glomerular Filt Rate > 60; Glucose Random 64 mg/dL (60-115); Magnesium 1.8 mg/dL (1.6-2.6); Phosphorus 2.2 mg/dL (2.7-4.5); Potassium 3.3 mmol/L (3.3-5.1); Sodium 142 mmol/L (135-145); Total Protein 5.8 g/dL (6.5-8.0)
[2020-07-20] MEDS: Heparin Sodium,Porcine 5,000 UNIT/ML VIAL 4000 UNIT IVPUSH (07:23)
--- NOTE | 2020-07-20 07:35 | PC.NURSE ---
Precedex was titrated as needed. Patient with increasing blood pressures, Stefani Ruiz NP notitifed and hydralazine 10 mg administered. Patient was unable to follow directions during shift. Patient's movements are random, repetitive and nonpurposeful.
[2020-07-20] MEDS: Haloperidol Lactate 5 MG/ML VIAL 10 MG IVPUSH (08:37)
--- NOTE | 2020-07-20 09:16 | PM.CCPN ---
Subjective Subjective Date of Service: 07/20/20 Interval History: 59-year-old gentleman with underlying history of hypertension, depression, anxiety with possible psychotic features, admitted on 07/17/2020 of after he was found unresponsive and on the floor in his house with Percocet but anemia by. EMS administered Narcan with no improvement. Patient was intubated in the emergency room. 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 He has been transferred to intensive care unit for further care. His toxicology screen has been essentially negative. He got an empiric 1st part of acetylcysteine protocol for Tylenol toxicity. His CT chest was significant for sequela of an aspiration. Patient also was noted to have rising CPK and has been started IV fluid resuscitation. On further discussion with his family patient was not noted to be abusing any substances, including alcohol over the last several years. His 2D echocardiogram was notable for new cardiomyopathy with ejection fraction of 30% and possible left ventricular thrombus. Patient has been started heparin drip. He has been extubated on 07/19/2020, however he remained significantly delirious. No improvement in delirium/encephalopathy overnight. Otherwise no events overnight. Physical Exam Vital Signs: Vital Signs: Last Vital Signs Temp 99.5 F 07/20/20 09:00 Pulse 84 07/20/20 09:00 Resp 30 H 07/20/20 09:00 BP 134/76 07/20/20 09:00 Pulse Ox 96 07/20/20 09:00 Body Mass Index 32.3 Const: General: no acute distress and lethargic (Intermittently agitated) Eyes: Sclerae: sclerae normal Neck: Neck: Yes no lymphadenopathy, Yes trachea midline and Yes supple Resp: Effort & Inspection: normal respiratory effort and no respiratory distress Auscultation: crackles (Bibasilar ) Cardio: Rate: regular rate Rhythm: regular rhythm Heart sounds: no gallops, no murmurs and no rubs GI: Palpation (GI): Soft to palpation and Other GI palpation findings present ( Nontender) Auscultation: normal bowel sounds Extrem: General: Yes no pedal edema, No clubbing and No cyanosis Objective Data Labs CBC & Chem 7: 07/20/20 05:35 07/20/20 05:35 Labs: Laboratory Results - last 24 hr 07/19/20 07/19/20 07/20/20 09:05 15:22 05:34 WBC RBC Hgb Hct MCV MCH MCHC RDW Plt Count MPV Immature Gran % (Auto) Neut % (Auto) Lymph % (Auto) [place] % (Auto) Eos % (Auto) Baso % (Auto) Lymph # (Auto) [place] # (Auto) Eos # (Auto) Baso # (Auto) Abs Immat Gran (auto) Absolute Neuts (auto) Absolute Nucleated RBC Nucleated RBC % (auto) PTT (Heparin Protocol) 73.7 D 54.6 D 44.1 L VBG pH VBG pCO2 VBG pO2 VBG HCO3 VBG O2 Saturation VBG Base Excess Sodium Potassium Chloride Carbon Dioxide Anion Gap BUN Creatinine Estim Creat Clear Calc Estimated GFR Random Glucose Calcium Phosphorus Magnesium Total Bilirubin AST ALT Alkaline Phosphatase Ammonia Total Protein Albumin 07/20/20 07/20/20 07/20/20 05:34 05:34 05:35 WBC 13.8 H RBC 3.86 L Hgb 12.8 L Hct 37.4 L MCV 96.9 MCH 33.2 H MCHC 34.2 RDW 12.3 Plt Count 203 MPV 11.1 Immature Gran % (Auto) 0.5 H Neut % (Auto) 84.4 H Lymph % (Auto) 9.7 L [place] % (Auto) 5.2 Eos % (Auto) 0.1 Baso % (Auto) 0.1 Lymph # (Auto) 1.3 [place] # (Auto) 0.7 Eos # (Auto) 0.0 Baso # (Auto) 0.0 Abs Immat Gran (auto) 0.07 H Absolute Neuts (auto) 11.6 H Absolute Nucleated RBC 0.000 Nucleated RBC % (auto) 0.0 PTT (Heparin Protocol) VBG pH 7.49 H VBG pCO2 26 VBG pO2 71 VBG HCO3 20 L VBG O2 Saturation 92.0 VBG Base Excess -1.0 Sodium Potassium Chloride Carbon Dioxide Anion Gap BUN Creatinine Estim Creat Clear Calc Estimated GFR Random Glucose Calcium Phosphorus Magnesium Total Bilirubin AST ALT Alkaline Phosphatase Ammonia 36 Total Protein Albumin 07/20/20 05:35 WBC RBC Hgb Hct MCV MCH MCHC RDW Plt Count MPV Immature Gran % (Auto) Neut % (Auto) Lymph % (Auto) [place] % (Auto) Eos % (Auto) Baso % (Auto) Lymph # (Auto) [place] # (Auto) Eos # (Auto) Baso # (Auto) Abs Immat Gran (auto) Absolute Neuts (auto) Absolute Nucleated RBC Nucleated RBC % (auto) PTT (Heparin Protocol) VBG pH VBG pCO2 VBG pO2 VBG HCO3 VBG O2 Saturation VBG Base Excess Sodium 142 Potassium 3.3 Chloride 108 Carbon Dioxide 23 Anion Gap 14 BUN 15 Creatinine 0.83 Estim Creat Clear Calc 109.4 Estimated GFR > 60 Random Glucose 64 D Calcium 8.4 Phosphorus 2.2 L Magnesium 1.8 Total Bilirubin 0.9 AST 41 H D ALT 19 Alkaline Phosphatase 68 Ammonia Total Protein 5.8 L Albumin 3.3 L Microbiology Microbiology Results: Microbiology 07/19/20 10:02 Sputum - Suctioned Gram Stain - Final 07/19/20 10:02 Sputum - Suctioned Sputum Culture - Preliminary Normal so far. 07/17/20 19:28 Blood - Venous Blood Culture - Preliminary No growth after 48 hours. 07/17/20 19:20 Blood - Venous Blood Culture - Preliminary No growth after 48 hours. Progress Note: A&P Assessment and plan (1) Toxic encephalopathy: Status: Acute Assessment and Plan: Assessment: 59-year-old gentleman admitted with acute respiratory failure and toxic encephalopathy likely secondary to intentional versus unintentional drug overdose requiring ventilatory support further complicated by new onset cardiomyopathy, acute kidney injury, and rhabdomyolysis. Plan: Neuro: Likely underlying toxic encephalopathy. Initial CT chest negative for an acute changes. Extubated, but remains lethargic with intermittent agitation. Will obtain MRI brain to evaluate for possible anoxic injury. Cardiac: New diagnosis of cardiomyopathy with reduced ejection fraction and possible left ventricular thrombus. Continues heparin drip. Cardiology service care appreciated. Pulmonary: Acute hypoxic respiratory failure with a pulmonary aspiration component requiring ventilatory support. Extubated 07/19/2020. Continue to titrate off supplemental oxygen as tolerated. Renal: Acute kidney injury secondary to rhabdomyolysis, improving. Non oliguric. Continue to monitor renal indices and urine output. Endo: No acute issues. GI: No acute issues. ID: No evidence of severe sepsis or septic shock. Will discontinue and monitor off antibiotics. Heme/Onc: No acute issues. Psych: No acute issues. Underlying anxiety and depression. Possible suicide attempt. Now on one-to-one sitter. Will require psychiatric clearance. Miscellaneous: No acute issues. Prophylaxis: Heparin Diet: Nothing by mouth Critical care time spent: 60 minutes (2) Cardiomyopathy: Status: Acute (3) Rhabdomyolysis: Status: Acute (4) LA (acute kidney injury): Status: Acute (5) Aspiration into airway: Status: Acute (6) Acute respiratory failure: Status: Acute Time Spent With Patient Total time spent with greater than 50% in coordination of care (as documented) at patient's floor/unit and/or counseling patient:: 0 Critical Care Time Critical Care Time (minutes): 60
[2020-07-20] MEDS: Potassium Phosphate 30 MMOL in 0.9 % Sodium Chloride 500 ML 85 MMOL IV (09:28)
--- NOTE | 2020-07-20 10:18 | MHC.CM.PN ---
Received message from Johanny at [facility] requesting clinical info on patient. Attempted to reach Johanny at [phone]. Unable to leave message. Will attempt to reach during normal business hours. Continue to monitor for d/c needs.
[2020-07-20] MEDS: dexmedeTOMIDidine HCL/NS 400 MCG/100 ML INFUS..BTL 35.35 MCG IVCONT (10:43)
[2020-07-20] MEDS: LORazepam 2 MG/ML VIAL IVPUSH (11:45)
[2020-07-20] MEDS: Heparin Sodium,Porcine/1/2NS 25,000 UNIT/250 ML IV.SOLN 13.14 UNIT IVCONT (13:21)
[2020-07-20 14:09] LABS: PTT Heparin Drip 83.6 SEC (53-77.9)
[2020-07-20] MEDS: dexmedeTOMIDidine HCL/NS 400 MCG/100 ML INFUS..BTL 25.25 MCG IVCONT (17:10)
[2020-07-20] MEDS: fentaNYL citrate/PF 100 MCG/2 ML VIAL 50 MCG IVPUSH ×2 (17:21→20:32)
--- NOTE | 2020-07-20 19:29 | PC.NURSE ---
Assumed care at 07:00. Patient had been on 0.8 of precedex, and this was turned off per MD and patient was attempted to be awakened with sternal rub, verbal and tactile stimuli, with no purposeful movement. Patient did not follow any commands, he did try repeatedly to put his leg out ot the bed. Patient was very restless, tachypneic, RR 36-42, MD aware, sedation holiday was stopped around 9 am, and patient was re-started on precedex, which was uptitrated as high as 1.4, and patient also was given 0.5 mg IV ativan, with no noticeable effect, then given 0.5 mg IV ativan again early per MD, and finally given another 2 mg IV ativan at 1145 upon arrival to MRI. Audible upper airway congestion, MD aware, discussed possible nasal deep suctioning, but OK to continue to monitor per MD as long as spO2 is wnl, and patient was 98-100% on 4 lpm nasal cannula, which was titrated down in the afternoon to 3 lpm nasal cannula, and subsequent spo2 was 92-93%. Lung sounds coarse bilaterally to auscultation, and dim at bilateral bases. Patient was brought to MRI after screening was completed using medical record, information obtained from patient's primary contact, Star, as well as having a radiologist clear him using his recent CT scans of head, chest, and abdmn/pelvis. Upon review of MRI, MD updated patient's primary contact that he has an anoxic brain injury; patient's family was in today as well. Patient had a 1:1 sitter, but the sitter was discontinued after MRI was resulted in the afternoon per MD, nursing supervisor abattoir aware. Patient continued to have increased work of breathing and tachypneia, seeming somewhat episodic, discussed with MD and was given one time dose of 50 mcg IV fentanyl per MD with good effect, decreased WOB and RR was down from 36 to 24, discusse with MD and new order for IV PRN fentanyl. fop was about 75-100 cc/hour, concentrated, dark [place]. skin intact, slight bruising to hands and slight blanchable redness to buttocks; air loss bed, heelbos, q2hr turning, barrier cream. no bm this shift.
[2020-07-20 20:17] LABS: Glucose, Whole Blood 59 mg/dL (60-115)
[2020-07-20] MEDS: Dextrose 5 % 1,000 ML 50 ML IVCONT (20:18)
[2020-07-20 20:48] LABS: PTT Heparin Drip 53.8 SEC (53-77.9)
[2020-07-21] VITALS (58 sets, daily range): BP systolic 69–216; BP diastolic 41–124; PULSE 79–132; RESP 11–45; TEMP 37.2–38.6; O2SAT 89–97; BMI 32.5
[2020-07-21] MEDS: fentaNYL citrate/PF 100 MCG/2 ML VIAL 50 MCG IVPUSH ×6 (00:05→19:40)
[2020-07-21] MEDS: Albuterol/Iprat 2.5/0.5MG 3 ML AMPUL.NEB INHALE (00:09)
[2020-07-21] MEDS: dexmedeTOMIDidine HCL/NS 400 MCG/100 ML INFUS..BTL 20.2 MCG IVCONT (02:43)
[2020-07-21 04:00] LABS: PTT Heparin Drip 26.5 SEC (53-77.9)
[2020-07-21] MEDS: Heparin Sodium,Porcine 5,000 UNIT/ML VIAL 8100 UNIT IVPUSH (04:08)
[2020-07-21] MEDS: hydrALAZINE HCl 20 MG/ML VIAL 10 MG IVPUSH ×2 (04:10→07:15)
[2020-07-21 05:26] LABS: VBG Base Excess -5.3 mmol/L; VBG HCO3 16 mmol/L (22-26); VBG pCO2 22 mmHg; VBG pH 7.47 (7.32-7.43); VBG pO2 74 mmHg
[2020-07-21 05:47] LABS: MANUAL DIFF FLAG NO
[2020-07-21 05:51] LABS: Basophils Percent Auto 0.2 % (0-2); Eosinophils Absolute Auto 0.1 X10*3/uL (0.0-0.4); Eosinophils Percent Auto 0.7 % (0-4); Hematocrit 37.8 % (42-52); Hemoglobin 12.9 g/dl (14.0-18.0); Imm Gran Abs Auto 0.18 X10*3/uL (0.00-0.03); Imm Gran Pct Auto 1.5 % (0.0-0.4); Lymphocytes Absolute Auto 1.2 X10*3/uL (1.2-4.9); Lymphocytes Percent Auto 9.7 % (20-40); Mean Corpuscular HGB Conc 34.1 g/dl (31.0-36.0); Mean Corpuscular Hemoglobin 33.1 pg (27.0-33.0); Mean Corpuscular Volume 96.9 fL (80-98); Mean Platelet Volume 11.3 fL (9.4-12.4); Monocytes Percent Auto 7.8 % (2-11); Neutrophils Absolute Auto 9.7 X10*3/uL (2.0-8.3); Neutrophils Percent Auto 80.1 % (45-73); Platelet Count 174 X10*3/uL (160-400); Red Cell Distribution Width 12.3 % (11.0-16.0); White Blood Count 12.1 X10*3/uL (4.8-10.8)
[2020-07-21 05:52] LABS: Venous Blood Gas Refer to POC result
[2020-07-21 06:42] LABS: Alanine Aminotransferase 20 U/L (0-40); Albumin Level 3.3 g/dL (3.5-5.0); Alkaline Phosphatase 68 U/L (39-117); Anion Gap 20 (12-20); Aspartate Amino Transferase 36 U/L (5-37); Bilirubin Total 1.8 mg/dL (0.0-1.0); Blood Urea Nitrogen 11 mg/dL (9-16); Carbon Dioxide 17 mmol/L (22-29); Chloride 109 mmol/L (96-108); Creatinine Clr Calc Pharmacy 116.9; Estimated Glomerular Filt Rate > 60; Glucose Random 66 mg/dL (60-115); Magnesium 1.8 mg/dL (1.6-2.6); Phosphorus 3.1 mg/dL (2.7-4.5); Potassium 3.3 mmol/L (3.3-5.1); Sodium 143 mmol/L (135-145); Total Protein 5.8 g/dL (6.5-8.0)
[2020-07-21] MEDS: dexmedeTOMIDidine HCL/NS 400 MCG/100 ML INFUS..BTL 35.35 MCG IVCONT (07:41)
[2020-07-21] MEDS: LORazepam 2 MG/ML VIAL 0.5 MG IVPUSH (07:41)
[2020-07-21] MEDS: niCARdipine HCL 25 MG in 0.9 % Sodium Chloride 250 ML 50 MG IVCONT (07:46)
[2020-07-21] MEDS: Heparin Sodium,Porcine/1/2NS 25,000 UNIT/250 ML IV.SOLN 15.17 UNIT IVCONT (07:47)
[2020-07-21 08:02] LABS: Glucose, Whole Blood 128 mg/dL (60-115)
[2020-07-21] MEDS: propofoL 200 MG/20 ML VIAL 150 MG IVPUSH (08:27)
[2020-07-21] MEDS: Cisatracurium Besylate 20 MG/10 ML VIAL 10 MG IVPUSH (08:30)
[2020-07-21] MEDS: propofoL 1,000 MG/100 ML VIAL 17.86 MG IVCONT (08:30)
--- NOTE | 2020-07-21 08:51 | W.PM.CCHP ---
Procedures Intubation Intubation Comments: Patient acutely developed respiratory distress and hypoxia secondary to an acute aspiration event and has been emergently intubated with 7.5 cuffed ET tube under glide scope guidance. Passage of ET tube through the vocal cords visualized with glide scope. Position verified with capnometry. Copious amount of tenacious dark brown/black secretions suctioned out from oropharynx during intubation. Chest x-ray for ett position is pending.
--- NOTE | 2020-07-21 09:30 | W.PM.CCHP ---
Procedures Bronchoscopy Bronchoscopy Comments: Emergent bedside bronchoscopy performed for refractory hypoxemia and aspiration of tenacious secretions. Bronchoscope advanced via ET tube through the tracheobronchial tree with with visualization and clearance of tenacious copious right mainstem and bilateral lower lobe secretions with significant improvement in patient's oxygenation and tachypnea with no immediate complications. Consent for Procedure: Emergent-no informed consent obtained Indication: pulmonary toilet
--- NOTE | 2020-07-21 09:33 | PM.NEUROCN ---
History of Present Illness Data of Consult Service Date: 07/21/20 Primary Care Provider: John Hernandez MD 59 years old man with underlying history of hypertension anxiety and depression, also taking Percocet, was brought to hospital after he was found unresponsive at home. Apparently down time was unclear but at least was few hours. He was found with blood sugar of 100, shallow breathing, and confusion. In emergency room he was intubated to protect his airway. Tentative diagnosis was myocardial infarction leading to collapse and possibly vomiting leading to aspiration. Yesterday he was extubated and noted not to be communicating. He would thrash his legs randomly and was restless and tachypneic. He did not follow any commands. Because of worsening of same symptoms he was reactivated this morning. I examined him after stopping sedation while he was still intubated. There was no evidence of convulsion or seizure-like episode. Review of Systems Review of Systems: Unable to obtain. PMFSH Past Medical History Medical History Anxiety Depression Social History Social History Currently Displaying Signs/Symptoms of Drug Intoxication Withdrawal: No Advance Directives: No Advance Directives Information Provided: No service: No Current occupational status: unemployed Meds Allergies Allergy/AdvReac Type Severity Reaction Status Date / Time No Known Allergies Allergy Unverified 01/04/20 15:51 [No Known Allergies*] Active Medications: Current Medications Generic Name Dose Route Start Last Admin Trade Name Freq PRN Reason Stop Dose Admin Chlorhexidine Gluconate 15 ml 07/21/20 09:00 Chlorhexidine Gluc Oral Rinse 15 Ml Mouthwash BUCCAL TID GINNY Fentanyl 50 mcg 07/20/20 18:06 07/21/20 06:58 Fentanyl Citrate/Pf 100 Mcg/2 Ml Vial IVPUSH 50 mcg Q2H PRN Administration Respiratory rate >30 Heparin Sodium (Porcine) 4,000 unit 07/18/20 19:30 07/20/20 07:23 Heparin Sodium,Porcine 5,000 Unit/Ml Vial 40 unit/kg (4000 unit) 4,000 unit IVPUSH Administration BOLUS PRN 40 unit/kg - Heparin Protocol Heparin Sodium (Porcine) 8,100 unit 07/18/20 19:30 07/21/20 04:08 Heparin Sodium,Porcine 5,000 Unit/Ml Vial 80 unit/kg (8100 unit) 8,100 unit IVPUSH Administration BOLUS PRN 80 unit/kg - Heparin Protocol Hydralazine HCl 10 mg 07/20/20 08:07 07/21/20 07:15 Hydralazine Hcl 20 Mg/Ml Vial IVPUSH 10 mg Q4H PRN Administration SBP >160 Protocol Heparin Sodium/Sodium Chloride 25,000 unit in 250 mls @ 0 mls/hr 07/18/20 19:30 07/21/20 07:47 IVCONT 15 units/kg/hr .Q0M GINNY 15.17 mls/hr Administration Protocol Per Protocol Dexmedetomidine HCl 400 mcg in 100 mls @ 0 mls/hr 07/19/20 10:00 07/21/20 08:30 Precedex IVCONT 0 mcg/kg/hr .Q0M GINNY 0 mls/hr Titration Protocol Per Protocol Dextrose 1,000 mls @ 50 mls/hr 07/20/20 20:15 07/20/20 20:18 D5w IVCONT 50 mls/hr .Q20H GINNY Administration Nicardipine HCl 25 mg/ Sodium 260 mls @ 0 mls/hr 07/21/20 07:45 07/21/20 09:07 Chloride IVCONT 12.5 mg/hr .Q0M GINNY 130 mls/hr Titration Protocol Per Protocol Propofol 1,000 mg in 100 mls @ 0 mls/hr 07/21/20 08:15 Diprivan IVCONT .Q0M GINNY Protocol Per Protocol Lorazepam 0.5 mg 07/19/20 12:50 07/21/20 07:41 Lorazepam 2 Mg/Ml Vial IVPUSH 0.5 mg Q4H PRN Administration agitation Pharmacy Consult 1 each 07/17/20 18:12 Consult Rx Perform Med Rec MISCELLANE ONCE PRN Consult order Home Medications Medication Instructions Recorded Confirmed Last Taken Type clonidine HCl 0.1 mg PO BID PRN 07/17/20 07/17/20 Unknown History fluoride (sodium) 1 appl PO BID 07/17/20 07/17/20 Unknown History gabapentin 100 mg PO BID 07/17/20 07/17/20 Unknown History mirtazapine 30 mg PO BEDTIME 07/17/20 07/17/20 Unknown History olanzapine 7.5 mg PO BID 07/17/20 07/17/20 Unknown History trazodone 50 - 100 mg PO BEDTIME PRN 07/17/20 07/17/20 Unknown History venlafaxine 75 mg PO DAILY 07/17/20 07/17/20 Unknown History Physical Exam Vital Signs: Vital Signs: Last Vital Signs Temp 101.1 F H 07/21/20 09:00 Pulse 126 H 07/21/20 09:00 Resp 29 H 07/21/20 09:00 BP 190/96 H 07/21/20 09:07 Pulse Ox 90 L 07/21/20 09:00 Body Mass Index 32.5 He was hypertensive and febrile. He was intubated and sedation was stopped for exam. In a minute or 2 started moving his legs and became quite restless and tachypneic with the breathing rate in 40s. His pupils were about 3 mm round reactive to light. I was able to move his eyes with oculocephalic maneuver. Neck was supple. He was withdrawing with painful stimulus but not when I applied it to left hand. Deep tendon reflexes were absent with flexor plantars. Examination was limited. Because of significant restlessness and tachypnea, sedation was restarted. Nursing stated that last night his gag reflex was present. Results Labs CBC & Chem 7: 07/21/20 05:20 07/21/20 05:20 Labs: Short CBC 07/21/20 Range/Units 05:20 WBC 12.1 H (4.8-10.8) X10*3/uL Hgb 12.9 L (14.0-18.0) g/dl Hct 37.8 L (42-52) % Plt Count 174 (160-400) X10*3/uL BMP 07/21/20 05:20 Sodium 143 Potassium 3.3 Chloride 109 H Carbon Dioxide 17 L BUN 11 Creatinine 0.77 Calcium 8.0 L Liver Function 07/21/20 Range/Units 05:20 Total Bilirubin 1.8 H (0.0-1.0) mg/dL AST 36 (5-37) U/L ALT 20 (0-40) U/L Alkaline Phosphatase 68 (39-117) U/L Albumin 3.3 L (3.5-5.0) g/dL His chest x-ray has revealed bilateral infiltrate. COVID test was negative. Initial CT scan revealed bilateral putaminal area hypodensities. MRI of brain revealed multiple areas of restricted diffusion scattered bilaterally and cerebral cortex and also distinct bilateral putaminal abnormalities. These lesions are also noted on FLAIR sequence. His echocardiogram revealed low ejection fraction. Initially at thrombus was reported but repeat echocardiogram seem to refute that. Cardiac enzymes were significantly high. Microbiology Microbiology Results: Microbiology 07/19/20 10:02 Sputum - Suctioned Gram Stain - Final 07/19/20 10:02 Sputum - Suctioned Sputum Culture - Final 07/17/20 19:28 Blood - Venous Blood Culture - Preliminary No growth after 48 hours. 07/17/20 19:20 Blood - Venous Blood Culture - Preliminary No growth after 48 hours. Assessment and Plan (1) Encephalopathy: Problem details: Multifactorial encephalopathy. There was significant concern about anoxic encephalopathy based upon his initial history. His imaging revealed distinct basal ganglia lesions that were likely not from cerebral infarcts from embolism but rather were from anoxic injury. This implied the severe nature of anoxic injury. On top of that there were multiple acute embolic infarctions probably from cardiac source of embolism. Primary pathology probably was myocardial infarction resulting in hypoxemia and cerebral embolism. Status: Acute Due to multifactorial nature of encephalopathy from anoxia and multiple cerebral infarctions, prognosis was poor. At the same time his brainstem at this time was intact. Lack of cortical functions could be explained based upon severe nature of anoxic encephalopathy and multiple cerebral infarcts. It is highly unlikely that, if he recovers, he would go back to his baseline brain function. At the same time his brain lesions were not severe enough to be fatal. Overall prognosis was poor because of multi organ failure, including cardiopulmonary system (2) Multiple cerebral infarctions: Status: Acute (3) Anoxic encephalopathy: Status: Acute
[2020-07-21] MEDS: propofoL 200 MG/20 ML VIAL 100 MG IVPUSH (09:41)
[2020-07-21] MEDS: Phenylephrine HCL 1,000 MCG/10 ML SYRINGE 1000 MCG IVPUSH (09:54)
[2020-07-21] MEDS: Phenylephrine HCL 20 MG in 0.9 % Sodium Chloride 250 ML 37.88 MG IVCONT (10:15)
[2020-07-21] MEDS: Cisatracurium Besylate 20 MG/10 ML VIAL IVPUSH (11:00)
[2020-07-21 11:07] LABS: PTT Heparin Drip 85.4 SEC (53-77.9)
[2020-07-21] MEDS: Chlorhexidine Gluc Oral Rinse 15 ML MOUTHWASH BUCCAL ×3 (11:22→19:40)
--- NOTE | 2020-07-21 11:54 | PM.CCPN ---
Subjective Subjective Date of Service: 07/21/20 Interval History: ICU day 5 for acute hypoxic respiratory failure, new onset cardiomyopathy, and anoxic encephalopathy 59-year-old gentleman with underlying history of hypertension, depression, anxiety with possible psychotic features, admitted on 07/17/2020 of after he was found unresponsive and on the floor in his house with Percocet but anemia by. EMS administered Narcan with no improvement. Patient was intubated in the emergency room. 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 He has been transferred to intensive care unit for further care. His toxicology screen has been essentially negative. He got an empiric 1st part of acetylcysteine protocol for Tylenol toxicity. His CT chest was significant for sequela of an aspiration. Patient also was noted to have rising CPK and has been started IV fluid resuscitation. On further discussion with his family patient was not noted to be abusing any substances, including alcohol over the last several years. His 2D echocardiogram was notable for new cardiomyopathy with ejection fraction of 30% and possible left ventricular thrombus. Patient has been started heparin drip. He has been extubated on 07/19/2020, however he remained significantly delirious. MRI in 07/20/2020 with evidence of anoxic brain injury. Overnight with intermittent agitation. This a.m. with an acutely worsening hypoxia requiring re-intubation and bedside bronchoscopic clearance of aspirated secretions. Physical Exam Vital Signs: Vital Signs: Last Vital Signs Temp 101.5 F H 07/21/20 10:03 Pulse 127 H 07/21/20 11:00 Resp 36 H 07/21/20 11:33 BP 213/111 H 07/21/20 11:28 Pulse Ox 94 07/21/20 11:00 Body Mass Index 32.5 Const: General: no acute distress and other (Sedated on the vent) Eyes: Sclerae: sclerae normal EOM: EOMs intact bilaterally Neck: Neck: Yes no lymphadenopathy, Yes trachea midline and Yes supple Resp: Auscultation: crackles (Bibasilar) Cardio: Rate: tachycardic Rhythm: regular rhythm Heart sounds: no gallops, no murmurs and no rubs GI: Palpation (GI): Soft to palpation and Other GI palpation findings present ( Nontender) Auscultation: normal bowel sounds Extrem: General: No clubbing, No cyanosis and Yes pedal edema (Trace bilateral) Objective Data Labs CBC & Chem 7: 07/21/20 05:20 07/21/20 05:20 Labs: Laboratory Results - last 24 hr 07/20/20 07/20/20 07/20/20 13:45 20:03 20:31 WBC RBC Hgb Hct MCV MCH MCHC RDW Plt Count MPV Immature Gran % (Auto) Neut % (Auto) Lymph % (Auto) [place] % (Auto) Eos % (Auto) Baso % (Auto) Lymph # (Auto) [place] # (Auto) Eos # (Auto) Baso # (Auto) Abs Immat Gran (auto) Absolute Neuts (auto) Absolute Nucleated RBC Nucleated RBC % (auto) PTT (Heparin Protocol) 83.6 H D 53.8 D VBG pH VBG pCO2 VBG pO2 VBG HCO3 VBG O2 Saturation VBG Base Excess Sodium Potassium Chloride Carbon Dioxide Anion Gap BUN Creatinine Estim Creat Clear Calc Estimated GFR POC Glucose 59 L* Random Glucose Calcium Phosphorus Magnesium Total Bilirubin AST ALT Alkaline Phosphatase Total Protein Albumin 07/21/20 07/21/20 07/21/20 03:11 05:20 05:20 WBC 12.1 H RBC 3.90 L Hgb 12.9 L Hct 37.8 L MCV 96.9 MCH 33.1 H MCHC 34.1 RDW 12.3 Plt Count 174 MPV 11.3 Immature Gran % (Auto) 1.5 H Neut % (Auto) 80.1 H Lymph % (Auto) 9.7 L [place] % (Auto) 7.8 Eos % (Auto) 0.7 Baso % (Auto) 0.2 Lymph # (Auto) 1.2 [place] # (Auto) 1.0 Eos # (Auto) 0.1 Baso # (Auto) 0.0 Abs Immat Gran (auto) 0.18 H Absolute Neuts (auto) 9.7 H Absolute Nucleated RBC 0.000 Nucleated RBC % (auto) 0.0 PTT (Heparin Protocol) 26.5 L D VBG pH VBG pCO2 VBG pO2 VBG HCO3 VBG O2 Saturation VBG Base Excess Sodium 143 Potassium 3.3 Chloride 109 H Carbon Dioxide 17 L Anion Gap 20 BUN 11 Creatinine 0.77 Estim Creat Clear Calc 116.9 Estimated GFR > 60 POC Glucose Random Glucose 66 Calcium 8.0 L Phosphorus 3.1 Magnesium 1.8 Total Bilirubin 1.8 H AST 36 ALT 20 Alkaline Phosphatase 68 Total Protein 5.8 L Albumin 3.3 L 07/21/20 07/21/20 07/21/20 05:20 07:42 10:17 WBC RBC Hgb Hct MCV MCH MCHC RDW Plt Count MPV Immature Gran % (Auto) Neut % (Auto) Lymph % (Auto) [place] % (Auto) Eos % (Auto) Baso % (Auto) Lymph # (Auto) [place] # (Auto) Eos # (Auto) Baso # (Auto) Abs Immat Gran (auto) Absolute Neuts (auto) Absolute Nucleated RBC Nucleated RBC % (auto) PTT (Heparin Protocol) 85.4 H D VBG pH 7.47 H VBG pCO2 22 VBG pO2 74 VBG HCO3 16 L VBG O2 Saturation 94.0 VBG Base Excess -5.3 Sodium Potassium Chloride Carbon Dioxide Anion Gap BUN Creatinine Estim Creat Clear Calc Estimated GFR POC Glucose 128 H Random Glucose Calcium Phosphorus Magnesium Total Bilirubin AST ALT Alkaline Phosphatase Total Protein Albumin Microbiology Microbiology Results: Microbiology 07/19/20 10:02 Sputum - Suctioned Gram Stain - Final 07/19/20 10:02 Sputum - Suctioned Sputum Culture - Final 07/17/20 19:28 Blood - Venous Blood Culture - Preliminary No growth after 48 hours. 07/17/20 19:20 Blood - Venous Blood Culture - Preliminary No growth after 48 hours. Progress Note: A&P Assessment and plan (1) Anoxic encephalopathy: Status: Acute Assessment and Plan: Assessment: 59-year-old gentleman admitted with acute respiratory failure and toxic encephalopathy likely secondary to intentional versus unintentional drug overdose requiring ventilatory support further complicated by new onset cardiomyopathy, acute kidney injury, and rhabdomyolysis. Plan: Neuro: MRI brain with evidence of multiple infarcts and anoxic encephalopathy. Neurology service care appreciated. Prognosis for recovery is poor Cardiac: New diagnosis of cardiomyopathy with reduced ejection fraction and possible left ventricular thrombus. Completed heparin drip of 48 hours. Cardiology service care appreciated. Pulmonary: Acute hypoxic respiratory failure with a pulmonary aspiration component requiring ventilatory support. Extubated 07/19/2020. Continue to titrate off supplemental oxygen as tolerated. Renal: Acute kidney injury secondary to rhabdomyolysis, improving. Non oliguric. Continue to monitor renal indices and urine output. Endo: No acute issues. GI: No acute issues. ID: No evidence of severe sepsis or septic shock. Will discontinue and monitor off antibiotics. Heme/Onc: No acute issues. Psych: No acute issues. Underlying anxiety and depression. Miscellaneous: No acute issues. Prophylaxis: Heparin, ppi Diet: Tube feeds Critical care time spent: 60 minutes (2) Multiple cerebral infarctions: Status: Acute (3) NSTEMI (non-ST elevated myocardial infarction): Status: Acute (4) Cardiomyopathy: Status: Acute (5) Aspiration into airway: Status: Acute (6) Acute respiratory failure: Status: Acute Time Spent With Patient Total time spent with greater than 50% in coordination of care (as documented) at patient's floor/unit and/or counseling patient:: 0 Critical Care Time Critical Care Time (minutes): 60
[2020-07-21 11:58] LABS: Glucose, Whole Blood 107 mg/dL (60-115)
[2020-07-21] MEDS: propofoL 1,000 MG/100 ML VIAL 23.81 MG IVCONT ×2 (12:00→20:04)
[2020-07-21] MEDS: niCARdipine HCL 25 MG in 0.9 % Sodium Chloride 250 ML 52 MG IVCONT (12:47)
[2020-07-21] MEDS: Dextrose 5 % 1,000 ML 50 ML IVCONT (13:09)
[2020-07-21] MEDS: propofoL 1,000 MG/100 ML VIAL 11.9 MG IVCONT (17:45)
[2020-07-21] MEDS: Dextrose 5 % 1,000 ML 100 ML IVCONT (18:00)
[2020-07-21 18:10] LABS: Glucose, Whole Blood 93 mg/dL (60-115)
[2020-07-21] MEDS: fentaNYL citrate/NS 1,000 MCG/100 ML PLAST..BAG 5 MCG IVCONT (22:09)
[2020-07-22] VITALS (37 sets, daily range): BP systolic 70–223; BP diastolic 42–124; PULSE 47–136; RESP 7–31; TEMP 36.7–37.4; O2SAT 91–100
[2020-07-22] MEDS: propofoL 1,000 MG/100 ML VIAL 23.81 MG IVCONT ×3 (00:28→14:00)
[2020-07-22] MEDS: Dextrose 5 % 1,000 ML 100 ML IVCONT ×3 (00:29→21:02)
[2020-07-22 00:32] LABS: Glucose, Whole Blood 96 mg/dL (60-115)
[2020-07-22 05:21] LABS: VBG Base Excess 0.8 mmol/L; VBG HCO3 24 mmol/L (22-26); VBG pCO2 34 mmHg; VBG pH 7.45 (7.32-7.43); VBG pO2 83 mmHg
[2020-07-22 05:22] LABS: MANUAL DIFF FLAG NO
[2020-07-22 05:25] LABS: Basophils Percent Auto 0.3 % (0-2); Eosinophils Absolute Auto 0.4 X10*3/uL (0.0-0.4); Eosinophils Percent Auto 4.3 % (0-4); Hematocrit 39.3 % (42-52); Hemoglobin 13.3 g/dl (14.0-18.0); Lymphocytes Absolute Auto 1.6 X10*3/uL (1.2-4.9); Lymphocytes Percent Auto 15.8 % (20-40); Mean Corpuscular HGB Conc 33.8 g/dl (31.0-36.0); Mean Corpuscular Hemoglobin 33.7 pg (27.0-33.0); Mean Corpuscular Volume 99.5 fL (80-98); Mean Platelet Volume 10.6 fL (9.4-12.4); Monocytes Absolute Auto 1.4 X10*3/uL (0.1-1.2); Monocytes Percent Auto 13.9 % (2-11); NRBC Pct Auto 0.4 /100WBC (0.0-0.2); Neutrophils Absolute Auto 6.5 X10*3/uL (2.0-8.3); Neutrophils Percent Auto 63.7 % (45-73); Platelet Count 170 X10*3/uL (160-400); Red Blood Count 3.95 X10*6/uL (4.60-5.80); Red Cell Distribution Width 12.9 % (11.0-16.0); White Blood Count 10.2 X10*3/uL (4.8-10.8)
[2020-07-22 05:26] LABS: Venous Blood Gas Refer to POC result
[2020-07-22] MEDS: propofoL 1,000 MG/100 ML VIAL 17.86 MG IVCONT (05:30)
[2020-07-22 05:48] LABS: Glucose, Whole Blood 101 mg/dL (60-115)
[2020-07-22 05:50] LABS: Albumin Level 3.1 g/dL (3.5-5.0); Anion Gap 12 (12-20); Blood Urea Nitrogen 11 mg/dL (9-16); Carbon Dioxide 24 mmol/L (22-29); Chloride 108 mmol/L (96-108); Estimated Glomerular Filt Rate > 60; Glucose Random 101 mg/dL (60-115); Magnesium 1.8 mg/dL (1.6-2.6); Phosphorus 3.8 mg/dL (2.7-4.5); Potassium 2.9 mmol/L (3.3-5.1); Sodium 141 mmol/L (135-145)
[2020-07-22] MEDS: Potassium Chloride Packet 20 MEQ PACKET 40 MEQ G-TUBE ×2 (06:27→07:58)
[2020-07-22] MEDS: Phenylephrine HCL 20 MG in 0.9 % Sodium Chloride 250 ML 15.15 MG IVCONT ×2 (06:46→13:39)
[2020-07-22] MEDS: Chlorhexidine Gluc Oral Rinse 15 ML MOUTHWASH BUCCAL ×2 (07:59→17:10)
[2020-07-22 08:22] LABS: Glucose, Whole Blood 61 mg/dL (60-115)
[2020-07-22] MEDS: fentaNYL citrate/NS 1,000 MCG/100 ML PLAST..BAG 5 MCG IVCONT (10:29)
[2020-07-22 13:05] LABS: Glucose, Whole Blood 117 mg/dL (60-115)
[2020-07-22] MEDS: LORazepam 2 MG/ML VIAL 0.5 MG IVPUSH (17:13)
--- NOTE | 2020-07-22 17:40 | P.PNCC_ITS ---
Subjective Subjective Date of Service: 07/22/20 Interval History: 59-year-old male found unresponsive with an empty bottle of pills and an unknown amount of down time and was intubated and clearly has evidence of anoxic encephalopathy and attempt at extubation was made on July 19 requiring re-intubation on July [address] scan shows multilobar infiltrates throughout the entire right lung and left lower lobe in particular which could be aspiration and his brain MRI shows multiple areas of restricted diffusion interpreted as an ischemic or anoxic insult but being treated right now with heparin as possibility of of scattered possibly embolic infarcts Currently dyssynchronous with the ventilator with significant sternal retraction well making a significant inspiratory effort and as a result tachycardic to a rate of 124 in sinus rhythm with respiratory rate in the mid 30s and acute blood pressure even on sedation of 156/86 and it looks as though he needs to be paralyzed to to make him synchronous with the machine and remove his own negative inspiratory pressure room before he developed pulmonary edema That process worked well and he was perfectly synchronous and comfortable for the night with the ventilator and the hope was to stop sedation in the morning to evaluate his mental status and cognitive function to see whether not he might be again a candidate for weaning from the ventilator given that his FiO2 has been weaned to 30% Physical Exam Vital Signs: Vital Signs: Last Vital Signs Temp 99 F 07/22/20 17:00 Pulse 122 H 07/22/20 17:05 Resp 31 H 07/22/20 17:00 BP 157/82 H 07/22/20 17:00 Pulse Ox 94 07/22/20 17:00 Body Mass Index 32.5 Const: Other: Sedated and intubated No adventitious sounds over lungs Bedside echo shows moderate reduction of systolic reserve with the ventricle with estimated ejection fraction 30-35% no primary valve or pericardial disease Tolerating feedings abdomen benign soft with no organomegaly Skin is intact no significant edema Objective Data Labs CBC & Chem 7: 07/23/20 05:16 07/23/20 05:16 Labs: Laboratory Results - last 24 hr 07/20/20 07/21/20 07/22/20 20:04 18:06 00:28 WBC RBC Hgb Hct MCV MCH MCHC RDW Plt Count MPV Immature Gran % (Auto) Neut % (Auto) Lymph % (Auto) [place] % (Auto) Eos % (Auto) Baso % (Auto) Lymph # (Auto) [place] # (Auto) Eos # (Auto) Baso # (Auto) Abs Immat Gran (auto) Absolute Neuts (auto) Absolute Nucleated RBC Nucleated RBC % (auto) VBG pH VBG pCO2 VBG pO2 VBG HCO3 VBG O2 Saturation VBG Base Excess Sodium Potassium Chloride Carbon Dioxide Anion Gap BUN Creatinine Estim Creat Clear Calc Estimated GFR POC Glucose 61 93 96 Random Glucose Calcium Phosphorus Magnesium Albumin 07/22/20 07/22/20 07/22/20 05:09 05:09 05:15 WBC 10.2 RBC 3.95 L Hgb 13.3 L Hct 39.3 L MCV 99.5 H MCH 33.7 H MCHC 33.8 RDW 12.9 Plt Count 170 MPV 10.6 Immature Gran % (Auto) 2.0 H Neut % (Auto) 63.7 Lymph % (Auto) 15.8 L [place] % (Auto) 13.9 H Eos % (Auto) 4.3 H Baso % (Auto) 0.3 Lymph # (Auto) 1.6 [place] # (Auto) 1.4 H Eos # (Auto) 0.4 Baso # (Auto) 0.0 Abs Immat Gran (auto) 0.20 H Absolute Neuts (auto) 6.5 Absolute Nucleated RBC 0.040 H Nucleated RBC % (auto) 0.4 H VBG pH 7.45 H VBG pCO2 34 VBG pO2 83 VBG HCO3 24 VBG O2 Saturation 94.0 VBG Base Excess 0.8 Sodium 141 Potassium 2.9 L Chloride 108 Carbon Dioxide 24 Anion Gap 12 BUN 11 Creatinine 0.78 Estim Creat Clear Calc 116.0 Estimated GFR > 60 POC Glucose Random Glucose 101 D Calcium 8.0 L Phosphorus 3.8 Magnesium 1.8 Albumin 3.1 L 07/22/20 07/22/20 05:43 12:55 WBC RBC Hgb Hct MCV MCH MCHC RDW Plt Count MPV Immature Gran % (Auto) Neut % (Auto) Lymph % (Auto) [place] % (Auto) Eos % (Auto) Baso % (Auto) Lymph # (Auto) [place] # (Auto) Eos # (Auto) Baso # (Auto) Abs Immat Gran (auto) Absolute Neuts (auto) Absolute Nucleated RBC Nucleated RBC % (auto) VBG pH VBG pCO2 VBG pO2 VBG HCO3 VBG O2 Saturation VBG Base Excess Sodium Potassium Chloride Carbon Dioxide Anion Gap BUN Creatinine Estim Creat Clear Calc Estimated GFR POC Glucose 101 117 H Random Glucose Calcium Phosphorus Magnesium Albumin Microbiology Microbiology Results: Microbiology 07/19/20 10:02 Sputum - Suctioned Gram Stain - Final 07/19/20 10:02 Sputum - Suctioned Sputum Culture - Final 07/17/20 19:28 Blood - Venous Blood Culture - Preliminary No growth after 48 hours. 07/17/20 19:20 Blood - Venous Blood Culture - Preliminary No growth after 48 hours. Progress Note: A&P Assessment and plan (1) Anoxic encephalopathy: Status: Acute (2) Multiple cerebral infarctions: Status: Acute (3) NSTEMI (non-ST elevated myocardial infarction): Status: Acute (4) Cardiomyopathy: Status: Acute (5) Toxic encephalopathy: Status: Acute (6) Metabolic acidosis: Status: Acute (7) Elevated troponin: Status: Acute (8) Hyperkalemia: Status: Acute (9) LA (acute kidney injury): Status: Acute (10) Rhabdomyolysis: Status: Acute (11) Aspiration into airway: Status: Acute (12) Acute respiratory failure: Status: Acute Assessment and Plan: Status post possible attempted suicide with empty bottle of Percocet which did not appear as opiate positivity on his basic drug screen but nonetheless but could still be what he took in and found with reduced level of consciousness threatened airway intubated subsequently extubated and reintubated and along the way what appears to be aspiration pneumonitis now resolving along with resolving acute renal insufficiency and compensated cardiac status but nonetheless still no signs of restored cognitive function status post probable anoxic encephalopathy with questionable prognosis but will continue to try sedation holidays each morning to evaluate cognitive status and then if improving will consider weaning trial from the ventilator if not improving I think possibly an EEG and discussion with Neurology Time Spent With Patient Time: Total time spent is greater than 50% in coordination of care (as documented) at patient's floor/unit and/or counseling patient: Total time spent with greater than 50% in coordination of care (as documented) at patient's floor/unit and/or counseling patient:: 35
[2020-07-22] MEDS: Rocuronium Bromide 50 MG/5 ML VIAL IVPUSH (17:48)
[2020-07-22] MEDS: propofoL 1,000 MG/100 ML VIAL 29.76 MG IVCONT ×2 (18:01→21:02)
[2020-07-22] MEDS: Labetalol HCL 100 MG/20 ML VIAL 10 MG IVPUSH (18:05)
--- NOTE | 2020-07-22 18:07 | PC.NURSE ---
Pt became more restless, tachypneic- 30-32, tachycardic- 120's, increased propofol gtt per EMAR. Pt continued to be restless, tachycardic- 120's, tachypneic 30-32, prn ativan given. Pt using accessory muscles while breathing, breathing over vent, and sternal retraction. Md at bedside, order for rocuronium, given per EMAR. Pt hypertensive- 200-220s, tachycardic 130's, MD aware, labetolol given per emar. BP 153/86, HR 85, pt synchronized with vent o2 sat 92%
[2020-07-22 18:36] LABS: Glucose, Whole Blood 104 mg/dL (60-115)
[2020-07-23] VITALS (29 sets, daily range): BP systolic 85–182; BP diastolic 47–111; PULSE 65–110; RESP 10–27; TEMP 36.7–37.9; O2SAT 80–96; BMI 32.3
--- NOTE | 2020-07-23 | EEG_ITS ---
This is a 16-channel EEG with an EKG lead. The patient is reported restless and intubated during the tracing. Background EEG rhythm is 14-16 hertz, low to medium amplitude with frequent lead muscle and technical artifacts with no obvious asymmetry or paroxysmal tendency. Photic stimulation was not done. IMPRESSION: This EEG did not suggest any indication of epilepsy or seizure disorder. No significant abnormality was noted on this EEG. MD BRIGITTE Farfan/PENG / [phone]
[2020-07-23 00:56] LABS: Glucose, Whole Blood 122 mg/dL (60-115)
[2020-07-23] MEDS: Chlorhexidine Gluc Oral Rinse 15 ML MOUTHWASH BUCCAL ×4 (00:59→21:42)
[2020-07-23] MEDS: propofoL 1,000 MG/100 ML VIAL 29.76 MG IVCONT ×6 (00:59→23:37)
[2020-07-23 05:21] LABS: VBG Base Excess -0.4 mmol/L; VBG HCO3 24 mmol/L (22-26); VBG pCO2 38 mmHg; VBG pO2 79 mmHg
[2020-07-23 05:34] LABS: Venous Blood Gas Refer to POC result
[2020-07-23] MEDS: propofoL 1,000 MG/100 ML VIAL 17.86 MG IVCONT (05:48)
[2020-07-23] MEDS: fentaNYL citrate/NS 1,000 MCG/100 ML PLAST..BAG 5 MCG IVCONT (05:48)
[2020-07-23] MEDS: Dextrose 5 % 1,000 ML 100 ML IVCONT ×3 (05:48→23:41)
[2020-07-23 06:02] LABS: MANUAL DIFF FLAG SCAN; Mean Corpuscular Volume 100.5 fL (80-98); PLT CLUMP 1; SCAN SMEAR FLAG 1
[2020-07-23 06:05] LABS: Basophils Percent Auto 0.3 % (0-2); Eosinophils Absolute Auto 0.5 X10*3/uL (0.0-0.4); Eosinophils Percent Auto 7.8 % (0-4); Hematocrit 37.5 % (42-52); Hemoglobin 12.4 g/dl (14.0-18.0); Imm Gran Abs Auto 0.13 X10*3/uL (0.00-0.03); Imm Gran Pct Auto 1.9 % (0.0-0.4); Lymphocytes Absolute Auto 1.3 X10*3/uL (1.2-4.9); Lymphocytes Percent Auto 18.8 % (20-40); Mean Corpuscular HGB Conc 33.1 g/dl (31.0-36.0); Mean Corpuscular Hemoglobin 33.2 pg (27.0-33.0); Mean Platelet Volume 10.6 fL (9.4-12.4); Monocytes Percent Auto 13.7 % (2-11); NRBC Pct Auto 0.3 /100WBC (0.0-0.2); Neutrophils Percent Auto 57.5 % (45-73); Platelet Count 146 X10*3/uL (160-400); Red Blood Count 3.73 X10*6/uL (4.60-5.80); Red Cell Distribution Width 13.1 % (11.0-16.0); White Blood Count 6.9 X10*3/uL (4.8-10.8)
[2020-07-23 06:27] LABS: B Type Natriuretic Peptide 58 pg/mL (<100)
[2020-07-23 06:30] LABS: Anion Gap 11 (12-20); Blood Urea Nitrogen 9 mg/dL (9-16); Calcium 8.1 mg/dL (8.4-10.2); Carbon Dioxide 24 mmol/L (22-29); Chloride 105 mmol/L (96-108); Creatinine Clr Calc Pharmacy 123.5; Estimated Glomerular Filt Rate > 60; Glucose Random 117 mg/dL (60-115); Magnesium 1.8 mg/dL (1.6-2.6); Phosphorus 4.3 mg/dL (2.7-4.5); Potassium 3.3 mmol/L (3.3-5.1); Sodium 137 mmol/L (135-145)
[2020-07-23 06:32] LABS: Glucose, Whole Blood 125 mg/dL (60-115)
[2020-07-23] MEDS: Potassium Chloride Packet 20 MEQ PACKET PO (09:19)
--- NOTE | 2020-07-23 10:25 | MHC.CLN ---
F/U RECOMMEND CHANGE IN FORMULA; TF PROMOTE AT MAX GOAL RATE 65CC/HR TO PROVIDE 1560KCALS (2031KCALS WITH SEDATION; 25KCALS/KG), 97.5G (1.2G/KG), 1308CC WATER FROM FORMULA TF CURRENTLY USING JEVITY AT 50CC/HR -TOLERATING WELL PER NSG NOTED FRAGILE SKIN MONITOR TOLERANCE, RESIDUALS AND LYTES FOLLOWING
[2020-07-23] MEDS: Midazolam HCl/PF 2 MG/2 ML VIAL IVPUSH (11:00)
[2020-07-23 13:30] LABS: Glucose, Whole Blood 114 mg/dL (60-115)
[2020-07-23 18:01] LABS: Glucose, Whole Blood 116 mg/dL (60-115)
--- NOTE | 2020-07-23 18:03 | P.PNCC_ITS ---
Subjective Subjective Date of Service: 07/23/20 Interval History: 59-year-old male status post attempted overdose with Percocet with a negative urine drug screen toxicology The scenario was the presence of an empty bottle of Percocet which on a routine drug screen and will not be picked up and because it is a semi synthetic There was an and extubation and then a requirement for re-intubation for possible aspiration and since that time he has remained in the ICU with CT scan evidence of significant damage to the putamen and other nuclei indicating the severity of the anoxic injury and and each morning we removed sedation and patient has no signs of cognitive function stares at the ceiling with no response not to touch lab out voice 90 even necessarily to pain and then just simply becomes agitated moving all 4 extremities in a nonpurposeful fashion and but when he becomes tachypneic develops it in significant auto PEEP and needs to be recent dated The plan at least for a sense of prognosis is to keep repeating these actions of stopping the sedation each morning but did to recall Neurology the no for their opinion possibly EEG just to be sure were not missing somewhat form of a nonconvulsive status epilepticus and to see if there is an end encephalopathic pattern Physical Exam Vital Signs: Vital Signs: Last Vital Signs Temp 99.9 F 07/23/20 17:48 Pulse 97 07/23/20 17:48 Resp 17 07/23/20 17:48 BP 148/96 H 07/23/20 17:48 Pulse Ox 95 07/23/20 17:48 Body Mass Index 32.3 Const: Other: Again no cognitive function but is capable of moving all 4 ex tremities and his tone is equal in all 4 extremities Cardiac exam with my bedside echo reveals globally normal systolic wall motion which mean significant improvement over his presenting echo where he had segmental wall motion abnormalities and an ejection fraction of 30-35% and today currently EF is 55-60% and has no murmurs gallops and no primary valve or pericardial disease Lungs with no adventitious sounds but does make diaphragmatic effort once tachypneic on the ventilator Skin intact with no wounds and no livedo Objective Data Labs CBC & Chem 7: 07/26/20 05:17 07/26/20 05:17 Labs: Laboratory Results - last 24 hr 07/22/20 07/23/20 07/23/20 18:25 00:52 05:15 WBC RBC Hgb Hct MCV MCH MCHC RDW Plt Count MPV Immature Gran % (Auto) Neut % (Auto) Lymph % (Auto) [place] % (Auto) Eos % (Auto) Baso % (Auto) Lymph # (Auto) [place] # (Auto) Eos # (Auto) Baso # (Auto) Abs Immat Gran (auto) Absolute Neuts (auto) Absolute Nucleated RBC Nucleated RBC % (auto) Smear Tech's Comments VBG pH 7.40 VBG pCO2 38 VBG pO2 79 VBG HCO3 24 VBG O2 Saturation 93.0 VBG Base Excess -0.4 Sodium Potassium Chloride Carbon Dioxide Anion Gap BUN Creatinine Estim Creat Clear Calc Estimated GFR POC Glucose 104 122 H Random Glucose Calcium Phosphorus Magnesium Total Creatine Kinase B-Natriuretic Peptide 07/23/20 07/23/20 07/23/20 05:16 05:16 05:16 WBC 6.9 RBC 3.73 L Hgb 12.4 L Hct 37.5 L MCV 100.5 H MCH 33.2 H MCHC 33.1 RDW 13.1 Plt Count 146 L MPV 10.6 Immature Gran % (Auto) 1.9 H Neut % (Auto) 57.5 Lymph % (Auto) 18.8 L [place] % (Auto) 13.7 H Eos % (Auto) 7.8 H Baso % (Auto) 0.3 Lymph # (Auto) 1.3 [place] # (Auto) 1.0 Eos # (Auto) 0.5 H Baso # (Auto) 0.0 Abs Immat Gran (auto) 0.13 H Absolute Neuts (auto) 4.0 Absolute Nucleated RBC 0.020 H Nucleated RBC % (auto) 0.3 H Smear Tech's Comments Not Reportable VBG pH VBG pCO2 VBG pO2 VBG HCO3 VBG O2 Saturation VBG Base Excess Sodium 137 Potassium 3.3 Chloride 105 Carbon Dioxide 24 Anion Gap 11 L BUN 9 Creatinine 0.73 Estim Creat Clear Calc 123.5 Estimated GFR > 60 POC Glucose Random Glucose 117 H Calcium 8.1 L Phosphorus 4.3 Magnesium 1.8 Total Creatine Kinase 289 H D B-Natriuretic Peptide 58 07/23/20 07/23/20 07/23/20 06:28 13:26 17:57 WBC RBC Hgb Hct MCV MCH MCHC RDW Plt Count MPV Immature Gran % (Auto) Neut % (Auto) Lymph % (Auto) [place] % (Auto) Eos % (Auto) Baso % (Auto) Lymph # (Auto) [place] # (Auto) Eos # (Auto) Baso # (Auto) Abs Immat Gran (auto) Absolute Neuts (auto) Absolute Nucleated RBC Nucleated RBC % (auto) Smear Tech's Comments VBG pH VBG pCO2 VBG pO2 VBG HCO3 VBG O2 Saturation VBG Base Excess Sodium Potassium Chloride Carbon Dioxide Anion Gap BUN Creatinine Estim Creat Clear Calc Estimated GFR POC Glucose 125 H 114 116 H Random Glucose Calcium Phosphorus Magnesium Total Creatine Kinase B-Natriuretic Peptide Microbiology Microbiology Results: Microbiology 07/17/20 19:28 Blood - Venous Blood Culture - Final No growth after 5 days. 07/17/20 19:20 Blood - Venous Blood Culture - Final No growth after 5 days. 07/19/20 10:02 Sputum - Suctioned Gram Stain - Final 07/19/20 10:02 Sputum - Suctioned Sputum Culture - Final Progress Note: A&P Assessment and plan (1) Anoxic encephalopathy: Status: Acute (2) Multiple cerebral infarctions: Status: Acute (3) Encephalopathy: Problem details: Multifactorial encephalopathy. There was significant concern about anoxic encephalopathy based upon his initial history. His imaging revealed distinct basal ganglia lesions that were likely not from cerebral infarcts from embolism but rather were from anoxic injury. This implied the severe nature of anoxic injury. On top of that there were multiple acute embolic infarctions probably from cardiac source of embolism. Primary pathology probably was myocardial infarction resulting in hypoxemia and cerebral embolism. Status: Acute (4) NSTEMI (non-ST elevated myocardial infarction): Status: Acute (5) Cardiomyopathy: Status: Acute (6) Toxic encephalopathy: Status: Acute (7) Metabolic acidosis: Status: Acute (8) Elevated troponin: Status: Acute (9) Hyperkalemia: Status: Acute (10) LA (acute kidney injury): Status: Acute (11) Rhabdomyolysis: Status: Acute (12) Aspiration into airway: Status: Acute (13) Acute respiratory failure: Status: Acute (14) Respiratory failure: Status: Acute Assessment and Plan: A 59-year-old male who was down for an unknown amount of time found with empty bottle of Percocet following a long history of depression with negative urine tox screen which of course is not designed to detect semi synthetic opiates a who required re-intubation because of lack of airway protection and probable aspiration and has been here without signs of cognitive function and therefore the plan still remains continued support on the ventilator and decision about tracheostomy and PEG will be based on family desire but we will need the help of Neurology pop possibly EEG and maybe even repeat head scanning to determine prognosis to help the family make decision Time Spent With Patient Time: Total time spent is greater than 50% in coordination of care (as documented) at patient's floor/unit and/or counseling patient: Total time spent with greater than 50% in coordination of care (as documented) at patient's floor/unit and/or counseling patient:: 30
--- NOTE | 2020-07-23 20:09 | W.PM.CCHP ---
Procedures Central Line Placement Left IJ: Central Line Comments: venous access needed Spoke with Radiologist, Dr Yusef Villalpando, he said TLC is in good position and okay to use. He added to aspirate slowly, may feel some resistance. Advised RN Cherri to pass this info along in report to each nurse. I easliy aspirated and flushed each line upon insertion. Consent for Procedure: Emergent-no informed consent obtained Time out performed: Yes Sterile Technique Used: Yes Patient placed on monitor/pulse ox: Yes MD prep: mask, gown and gloves Central line prep: Chlorhexidine scrub and sterile drapes applied Local anesthesia used: other anesthetic (propofol sedation) Ultrasound used for placement: Yes Central line lumen inserted: triple Post procedure: sutured in place, good blood return, all ports aspirated, flushed, capped and sterile dressing applied Post procedure x-ray: tip of catheter in good position and no pneumothorax seen Patient tolerated procedure: well and no complications Complications: none
[2020-07-23] MEDS: Labetalol HCL 100 MG/20 ML VIAL 10 MG IVPUSH (22:02)
[2020-07-24] VITALS (30 sets, daily range): BP systolic 101–197; BP diastolic 60–113; PULSE 73–105; RESP 19–40; TEMP 36.9–37.9; O2SAT 93–100; BMI 33.3
[2020-07-24 00:03] LABS: Glucose, Whole Blood 135 mg/dL (60-115)
[2020-07-24] MEDS: propofoL 1,000 MG/100 ML VIAL 29.76 MG IVCONT ×6 (01:45→23:49)
[2020-07-24 05:18] LABS: VBG Base Excess 2.3 mmol/L; VBG HCO3 26 mmol/L (22-26); VBG pCO2 41 mmHg; VBG pH 7.41 (7.32-7.43); VBG pO2 58 mmHg
[2020-07-24 05:22] LABS: MANUAL DIFF FLAG NO
[2020-07-24 05:29] LABS: Basophils Percent Auto 0.3 % (0-2); Eosinophils Absolute Auto 0.6 X10*3/uL (0.0-0.4); Eosinophils Percent Auto 7.5 % (0-4); Hematocrit 37.7 % (42-52); Hemoglobin 12.7 g/dl (14.0-18.0); Imm Gran Abs Auto 0.15 X10*3/uL (0.00-0.03); Imm Gran Pct Auto 2.1 % (0.0-0.4); Lymphocytes Absolute Auto 1.2 X10*3/uL (1.2-4.9); Lymphocytes Percent Auto 16.8 % (20-40); Mean Corpuscular HGB Conc 33.7 g/dl (31.0-36.0); Mean Corpuscular Hemoglobin 33.3 pg (27.0-33.0); Mean Platelet Volume 10.3 fL (9.4-12.4); Monocytes Percent Auto 13.1 % (2-11); Neutrophils Absolute Auto 4.4 X10*3/uL (2.0-8.3); Neutrophils Percent Auto 60.2 % (45-73); Platelet Count 150 X10*3/uL (160-400); Red Blood Count 3.81 X10*6/uL (4.60-5.80); White Blood Count 7.3 X10*3/uL (4.8-10.8)
[2020-07-24 06:11] LABS: Anion Gap 9 (12-20); Blood Urea Nitrogen 6 mg/dL (9-16); Calcium 8.3 mg/dL (8.4-10.2); Carbon Dioxide 30 mmol/L (22-29); Chloride 104 mmol/L (96-108); Creatinine Clr Calc Pharmacy 138.5; Estimated Glomerular Filt Rate > 60; Glucose Random 108 mg/dL (60-115); Magnesium 1.8 mg/dL (1.6-2.6); Phosphorus 4.8 mg/dL (2.7-4.5); Potassium 3.4 mmol/L (3.3-5.1); Sodium 140 mmol/L (135-145)
[2020-07-24 06:13] LABS: B Type Natriuretic Peptide 39 pg/mL (<100)
[2020-07-24 07:53] LABS: Venous Blood Gas Refer to POC result
[2020-07-24] MEDS: Chlorhexidine Gluc Oral Rinse 15 ML MOUTHWASH BUCCAL ×3 (08:21→22:15)
--- NOTE | 2020-07-24 10:21 | MHC.CLN ---
F/U PT RECEIVING TF PROMOTE AT MAX GOAL RATE 65CC/HR TO PROVIDE 1560KCALS (2345KCALS WITH SEDATION; 28KCALS/KG), 97.5G (1.2G/KG), 1308CC WATER FROM FORMULA TOLERATING WELL PER NSG MONITOR TOLERANCE, RESIDUALS AND LYTES FOLLOWING
[2020-07-24 13:00] LABS: Glucose, Whole Blood 95 mg/dL (60-115)
--- NOTE | 2020-07-24 15:16 | PC.NURSE ---
Pt had EEG today, restless when off sedation. Tolerating pressure support. Plan is to evaluate EEG results tomorrow and contact family to decide if they are going to consider TRACH/PEG. MD aware and in communcation with family.
--- NOTE | 2020-07-24 17:07 | PM.CCPN ---
Subjective Subjective Date of Service: 07/24/20 Interval History: 59-year-old male with history of depression and opiate abuse found with empty bottle of Percocet by his side and unresponsive and initially intubated subsequently extubated and reintubated for aspiration and here ever since with original CT scan indicating significant anoxic brain injury that he sustained and neurology's opinion is that he has been and probably will remain in mostly a vegetative state with no evidence once again on a sedation holiday of any return of cognitive function again he awakens initially with just a stair in 1 direction no response to loud voice or to sore to the touch and eventually becomes agitated moves all 4 extremities becomes tachypneic developed auto PEEP requiring resedation EEG is to be done today and subsequently will recall Neurology between his examination and EEG to help us again generate a prognosis before tracheostomy and PEG is done to be sure that this is the wish of the family Physical Exam Vital Signs: Vital Signs: Last Vital Signs Temp 99.1 F 07/24/20 17:00 Pulse 95 07/24/20 17:00 Resp 25 H 07/24/20 17:00 BP 156/95 H 07/24/20 17:00 Pulse Ox 97 07/24/20 17:00 Body Mass Index 33.3 Const: Other: Again there is no cognitive function Stable on the ventilator at only on FiO2 of 30% and remains in normal sinus rhythm with restored systolic reserve of the left ventricle Between the troponin pattern and a trivial the no troponin peak and the initial dysfunction with quick repair I believe the anoxia because they could cardiac stunning affect just as it had damage to brain except that the the heart repaired itself and the brain has not and the patient continues to remain in a vegetative state Objective Data Labs CBC & Chem 7: 07/26/20 05:17 07/26/20 05:17 Labs: Laboratory Results - last 24 hr 07/23/20 07/23/20 07/24/20 17:57 23:55 05:10 WBC 7.3 RBC 3.81 L Hgb 12.7 L Hct 37.7 L MCV 99.0 H MCH 33.3 H MCHC 33.7 RDW 13.0 Plt Count 150 L MPV 10.3 Immature Gran % (Auto) 2.1 H Neut % (Auto) 60.2 Lymph % (Auto) 16.8 L [place] % (Auto) 13.1 H Eos % (Auto) 7.5 H Baso % (Auto) 0.3 Lymph # (Auto) 1.2 [place] # (Auto) 1.0 Eos # (Auto) 0.6 H Baso # (Auto) 0.0 Abs Immat Gran (auto) 0.15 H Absolute Neuts (auto) 4.4 Absolute Nucleated RBC 0.000 Nucleated RBC % (auto) 0.0 VBG pH VBG pCO2 VBG pO2 VBG HCO3 VBG O2 Saturation VBG Base Excess Sodium Potassium Chloride Carbon Dioxide Anion Gap BUN Creatinine Estim Creat Clear Calc Estimated GFR POC Glucose 116 H 135 H Random Glucose Calcium Phosphorus Magnesium Total Creatine Kinase B-Natriuretic Peptide Blood Type Antibody Screen 07/24/20 07/24/20 07/24/20 05:10 05:10 05:13 WBC RBC Hgb Hct MCV MCH MCHC RDW Plt Count MPV Immature Gran % (Auto) Neut % (Auto) Lymph % (Auto) [place] % (Auto) Eos % (Auto) Baso % (Auto) Lymph # (Auto) [place] # (Auto) Eos # (Auto) Baso # (Auto) Abs Immat Gran (auto) Absolute Neuts (auto) Absolute Nucleated RBC Nucleated RBC % (auto) VBG pH 7.41 VBG pCO2 41 VBG pO2 58 VBG HCO3 26 VBG O2 Saturation 83.0 VBG Base Excess 2.3 Sodium 140 Potassium 3.4 Chloride 104 Carbon Dioxide 30 H Anion Gap 9 L BUN 6 L Creatinine 0.66 Estim Creat Clear Calc 138.5 Estimated GFR > 60 POC Glucose Random Glucose 108 Calcium 8.3 L Phosphorus 4.8 H Magnesium 1.8 Total Creatine Kinase 244 H B-Natriuretic Peptide 39 Blood Type Antibody Screen 07/24/20 07/24/20 08:34 12:56 WBC RBC Hgb Hct MCV MCH MCHC RDW Plt Count MPV Immature Gran % (Auto) Neut % (Auto) Lymph % (Auto) [place] % (Auto) Eos % (Auto) Baso % (Auto) Lymph # (Auto) [place] # (Auto) Eos # (Auto) Baso # (Auto) Abs Immat Gran (auto) Absolute Neuts (auto) Absolute Nucleated RBC Nucleated RBC % (auto) VBG pH VBG pCO2 VBG pO2 VBG HCO3 VBG O2 Saturation VBG Base Excess Sodium Potassium Chloride Carbon Dioxide Anion Gap BUN Creatinine Estim Creat Clear Calc Estimated GFR POC Glucose 95 Random Glucose Calcium Phosphorus Magnesium Total Creatine Kinase B-Natriuretic Peptide Blood Type A Negative Antibody Screen NEGATIVE Microbiology Microbiology Results: Microbiology 07/17/20 19:28 Blood - Venous Blood Culture - Final No growth after 5 days. 07/17/20 19:20 Blood - Venous Blood Culture - Final No growth after 5 days. 07/19/20 10:02 Sputum - Suctioned Gram Stain - Final 07/19/20 10:02 Sputum - Suctioned Sputum Culture - Final Progress Note: A&P Assessment and plan (1) Anoxic encephalopathy: Status: Acute (2) Multiple cerebral infarctions: Status: Acute (3) Encephalopathy: Problem details: Multifactorial encephalopathy. There was significant concern about anoxic encephalopathy based upon his initial history. His imaging revealed distinct basal ganglia lesions that were likely not from cerebral infarcts from embolism but rather were from anoxic injury. This implied the severe nature of anoxic injury. On top of that there were multiple acute embolic infarctions probably from cardiac source of embolism. Primary pathology probably was myocardial infarction resulting in hypoxemia and cerebral embolism. Status: Acute (4) NSTEMI (non-ST elevated myocardial infarction): Status: Acute (5) Cardiomyopathy: Status: Acute (6) Toxic encephalopathy: Status: Acute (7) Metabolic acidosis: Status: Acute (8) Elevated troponin: Status: Acute (9) Hyperkalemia: Status: Acute (10) LA (acute kidney injury): Status: Acute (11) Rhabdomyolysis: Status: Acute (12) Aspiration into airway: Status: Acute (13) Acute respiratory failure: Status: Acute (14) Respiratory failure: Status: Acute Assessment and Plan: Again recent dated and will await EEG interpretation and neurology's return to speak with the family and will continue to maintain all the support Time Spent With Patient Time: Total time spent is greater than 50% in coordination of care (as documented) at patient's floor/unit and/or counseling patient: Total time spent with greater than 50% in coordination of care (as documented) at patient's floor/unit and/or counseling patient:: 30
[2020-07-24 18:13] LABS: Glucose, Whole Blood 109 mg/dL (60-115)
[2020-07-25] VITALS (30 sets, daily range): BP systolic 98–144; BP diastolic 60–92; PULSE 78–97; RESP 8–39; TEMP 37.7–38; O2SAT 91–97; BMI 34.8
[2020-07-25 00:10] LABS: Glucose, Whole Blood 108 mg/dL (60-115)
[2020-07-25] MEDS: propofoL 1,000 MG/100 ML VIAL 29.76 MG IVCONT ×7 (02:43→21:01)
[2020-07-25 05:41] LABS: VBG Base Excess 5.2 mmol/L; VBG HCO3 29 mmol/L (22-26); VBG pCO2 39 mmHg; VBG pH 7.47 (7.32-7.43); VBG pO2 54 mmHg
[2020-07-25 05:42] LABS: Venous Blood Gas Refer to POC result
[2020-07-25 05:48] LABS: MANUAL DIFF FLAG NO
[2020-07-25 05:53] LABS: Basophils Percent Auto 0.3 % (0-2); Eosinophils Absolute Auto 0.4 X10*3/uL (0.0-0.4); Eosinophils Percent Auto 3.3 % (0-4); Hematocrit 38.4 % (42-52); Hemoglobin 13.3 g/dl (14.0-18.0); Imm Gran Abs Auto 0.13 X10*3/uL (0.00-0.03); Imm Gran Pct Auto 1.1 % (0.0-0.4); Lymphocytes Absolute Auto 1.1 X10*3/uL (1.2-4.9); Lymphocytes Percent Auto 8.9 % (20-40); Mean Corpuscular HGB Conc 34.6 g/dl (31.0-36.0); Mean Corpuscular Hemoglobin 34.4 pg (27.0-33.0); Mean Corpuscular Volume 99.2 fL (80-98); Mean Platelet Volume 10.2 fL (9.4-12.4); Monocytes Absolute Auto 1.4 X10*3/uL (0.1-1.2); Monocytes Percent Auto 11.4 % (2-11); Platelet Count 175 X10*3/uL (160-400); Red Blood Count 3.87 X10*6/uL (4.60-5.80)
[2020-07-25 06:22] LABS: Anion Gap 11 (12-20); Blood Urea Nitrogen 9 mg/dL (9-16); Calcium 8.5 mg/dL (8.4-10.2); Carbon Dioxide 31 mmol/L (22-29); Chloride 105 mmol/L (96-108); Creatinine Clr Calc Pharmacy 136.4; Estimated Glomerular Filt Rate > 60; Glucose Random 100 mg/dL (60-115); Magnesium 1.7 mg/dL (1.6-2.6); Phosphorus 4.1 mg/dL (2.7-4.5); Potassium 3.7 mmol/L (3.3-5.1); Sodium 143 mmol/L (135-145)
[2020-07-25 06:34] LABS: B Type Natriuretic Peptide 52 pg/mL (<100)
--- NOTE | 2020-07-25 06:40 | PC.NURSE ---
NPO AT MIDNIGHT. SEDATED/WITH REPOSITIONING WILLHAVE ABNORMAL EXTENSION OF UPPER EXTREMITIES. WILL FLEX LEGS REPEATEDLY UP AND DOWN NO EYE OPENING. BREATH SOUNDS CONGESTED WITH SCATTERED RHONCHI. SUCTIONED VIA ETT FOR COPIOUS AMOUNTS OF THIN YELLOW SPUTUM. ECG DISPLAYS SR. HEMODYNAMICALLY STABLE. FEEDING HELD AT 2400. U/O 100-150ML/HR.
[2020-07-25 08:27] LABS: INTERNATIONAL NORM RATIO 1.1 (0.9-1.1)
[2020-07-25] MEDS: Chlorhexidine Gluc Oral Rinse 15 ML MOUTHWASH BUCCAL ×3 (08:38→21:02)
--- NOTE | 2020-07-25 09:29 | MHC.CLN ---
F/U PT CURRENTLY NPO PENDING TRACH/PEG PLACEMENT WHEN TF TO RESUME; RECOMMEND PROMOTE AT MAX GOAL RATE 65CC/HR TO PROVIDE 1560KCALS (2031KCALS WITH SEDATION; 25KCALS/KG), 97.5G (1.2G/KG), 1308CC WATER FROM FORMULA START AT 20CC/HR AND INCREASE BY 10CC Q 4HRS UNTIL MAX GOAL ACHIEVED MONITOR TOLERANCE, RESIDUALS AND LYTES FOLLOWING
--- NOTE | 2020-07-25 10:20 | PM.NEUROCN ---
History of Present Illness Data of Consult Service Date: 07/25/20 Primary Care Provider: John Hernandez MD 59 years old man with multifactorial but predominantly anoxic encephalopathy. I saw him few days ago and I was asked to see him again. Apparently his sedation was stopped but he was still not responsive and intubated. [facility] Past Medical History Medical History Anxiety Depression Social History Social History Currently Displaying Signs/Symptoms of Drug Intoxication Withdrawal: No Advance Directives: No Advance Directives Information Provided: No service: No Current occupational status: unemployed Meds Allergies Allergy/AdvReac Type Severity Reaction Status Date / Time No Known Allergies Allergy Unverified 01/04/20 15:51 [No Known Allergies*] Active Medications: Current Medications Generic Name Dose Route Start Last Admin Trade Name Freq PRN Reason Stop Dose Admin Chlorhexidine Gluconate 15 ml 07/21/20 09:00 07/25/20 08:38 Chlorhexidine Gluc Oral Rinse 15 Ml Mouthwash BUCCAL 15 ml TID GINNY Administration Nicardipine HCl 25 mg/ Sodium 260 mls @ 0 mls/hr 07/21/20 07:45 07/22/20 10:55 Chloride IVCONT Infused .Q0M GINNY Titration Protocol Per Protocol Propofol 1,000 mg in 100 mls @ 0 mls/hr 07/21/20 08:15 07/25/20 09:57 Diprivan IVCONT 50 mcg/kg/min .Q0M GINNY 29.76 mls/hr Titration Protocol Per Protocol Pharmacy Consult 1 each 07/17/20 18:12 Consult Rx Perform Med Rec MISCELLANE ONCE PRN Consult order Rocuronium [place] 50 mg 07/22/20 17:39 Rocuronium [place] 50 Mg/5 Ml Vial IVPUSH Q2H PRN VENTILATOR DYSSYNCHRONY Home Medications Medication Instructions Recorded Confirmed Last Taken Type clonidine HCl 0.1 mg PO BID PRN 07/17/20 07/17/20 Unknown History fluoride (sodium) 1 appl PO BID 07/17/20 07/17/20 Unknown History gabapentin 100 mg PO BID 07/17/20 07/17/20 Unknown History mirtazapine 30 mg PO BEDTIME 07/17/20 07/17/20 Unknown History olanzapine 7.5 mg PO BID 07/17/20 07/17/20 Unknown History trazodone 50 - 100 mg PO BEDTIME PRN 07/17/20 07/17/20 Unknown History venlafaxine 75 mg PO DAILY 07/17/20 07/17/20 Unknown History Physical Exam Vital Signs: Vital Signs: Last Vital Signs Temp 100.0 F 07/25/20 09:00 Pulse 87 07/25/20 09:00 Resp 12 07/25/20 09:00 BP 108/66 07/25/20 09:00 Pulse Ox 92 07/25/20 09:00 Body Mass Index 34.8 He was intubated. When I saw him his eyes were open and staring in space. He did not make eye contact. Pupils were reactive. I was able to move his eyes with oculocephalic maneuver. Deep tendon reflexes are absent with flexor plantars. Results Labs CBC & Chem 7: 07/25/20 05:35 07/25/20 05:35 Labs: Short CBC 07/25/20 Range/Units 05:35 WBC 12.0 H (4.8-10.8) X10*3/uL Hgb 13.3 L (14.0-18.0) g/dl Hct 38.4 L (42-52) % Plt Count 175 (160-400) X10*3/uL BMP 07/25/20 05:35 Sodium 143 Potassium 3.7 Chloride 105 Carbon Dioxide 31 H BUN 9 Creatinine 0.67 Calcium 8.5 Cardiac Enzymes 07/25/20 Range/Units 05:35 Total Creatine Kinase 85 D (38-174) U/L Electroencephalogram did not reveal any sign of seizure. Microbiology Microbiology Results: Microbiology 07/17/20 19:28 Blood - Venous Blood Culture - Final No growth after 5 days. 07/17/20 19:20 Blood - Venous Blood Culture - Final No growth after 5 days. 07/19/20 10:02 Sputum - Suctioned Gram Stain - Final 07/19/20 10:02 Sputum - Suctioned Sputum Culture - Final Assessment and Plan (1) Anoxic encephalopathy: Status: Acute Multifactorial but predominantly anoxic encephalopathy. At this time there was no obvious cortical function that 1 could discern from his examination. EEG did not reveal seizures but otherwise was not much helpful. His brainstem functions were relatively intact. This type of clinical picture was initially suspected, if he was not going to succumb to cardiopulmonary pathology. At this time, other than nursing care and management of cardiopulmonary function with intubation or tracheostomy, no further neurological intervention is recommended. His chances of going back to close to his baseline brain function was very limited around likely. At the same time his brain pathology was not fatal.
[2020-07-25] MEDS: Rocuronium Bromide 50 MG/5 ML VIAL IVPUSH (12:15)
[2020-07-25 12:51] LABS: Glucose, Whole Blood 105 mg/dL (60-115)
--- NOTE | 2020-07-25 13:32 | MHC.CM.PN ---
Pt remains in ICU on ventilatory and pressor support. Seen by neuro re: EEG findings: ? anoxic injury with some brain stem functioning. MD to have family meeting today to discuss goals of care. Family had initially wanted to pursue trach/peg if there was a high probability of meaningful recovery. Pt was independent with all care needs prior to admission - CM to follow for potential d/c needs
--- NOTE | 2020-07-25 14:00 | CA_ITS ---
Transthoracic Echocardiogram Patient (Last, First, Middle): Eugene Gustafson D Gender: Male Date of : 1960 Age: 59 Procedure Date: 07/25/2020 Procedure Type: Transthoracic Echocardiogram Location: ICU Height: 175.2 cm Weight: 100.7 kg BSA: 2.16 m2 Heart Rate: bpm BP: 112 / 66 mmHg Hat Checker: DANITA Referring MD: Soledad Peters MD Symptoms: LV function only Study Quality: Fair ECG Rhythm: Sinus Conclusions: - The left ventricular systolic function is normal. The visually estimated ejection fraction is between 55-60%. Findings Left Ventricle Normal left ventricular cavity size. The left ventricular systolic function is normal. The visually estimated ejection fraction is between 55-60%. No obvious wall motion abnormalities on limited images. Prior Study Comparison Changes noted compared to prior study dated: 07/19/2020. LVEF improved from prior study. Updated in Other Vendor System with Status of Final Leandro Garner MD electronically signed on 07/25/2020 3:34:24 PM with status of Final
--- NOTE | 2020-07-25 18:00 | P.PNCC_ITS ---
Subjective Subjective Date of Service: 07/25/20 Interval History: 59-year-old male with severe anoxic brain injury remains essentially vegetative no cognitive function when we wean his sedation and he gets agitated and I appreciate Neurology coming back to revisit him who feels that the prognosis is not good to regain meaningful cognitive function but otherwise no signs of active infection metabolically normal and my bedside echo today shows that he has returned his cardiac function to normal without segmental wall motion abnormality so I believe in retrospect that whenever created the anoxic brain injury also caused a stunning affect on the same basis to heart muscle making it diffusely dysfunctional and it has since the no returned to normal and therefore the troponin was not indicative of and unstable ischemic event if probably was part and parcel of the prolonged hypoxia His response today was no different coming off the propofol he had no demonstration of cognitive function no purposeful action And I discussed this with his girlfriend and she said that she believed that he was saving Percocet pills Physical Exam Vital Signs: Vital Signs: Last Vital Signs Temp 100.4 F 07/25/20 16:00 Pulse 85 07/25/20 16:55 Resp 15 07/25/20 16:55 BP 111/66 07/25/20 16:55 Pulse Ox 94 07/25/20 16:55 Body Mass Index 34.8 Const: Other: Off sedation he opens his eyes and awakens but no meaningful or purposeful function to indicate preserved cognitive capability As he awakens he becomes tachypneic during which time there was some air trapping and we have to recent date Repeat chest x-ray looked fairly clear and in relation to his low-grade temperature it seems the urinary tract is a likely source with the indwelling Martinez catheter and he is being covered for that Tolerating feedings and is abdomen is benign good bowel sounds and no organomegaly Skin without wounds and no evidence of livedo or acrocyanosis Cardiac exam by bedside echo shows normal left ventricular systolic reserve Objective Data Labs CBC & Chem 7: 07/26/20 05:17 07/26/20 05:17 Labs: Laboratory Results - last 24 hr 07/24/20 07/24/20 07/25/20 18:07 23:57 05:35 WBC 12.0 H RBC 3.87 L Hgb 13.3 L Hct 38.4 L MCV 99.2 H MCH 34.4 H MCHC 34.6 RDW 13.0 Plt Count 175 MPV 10.2 Immature Gran % (Auto) 1.1 H Neut % (Auto) 75.0 H Lymph % (Auto) 8.9 L [place] % (Auto) 11.4 H Eos % (Auto) 3.3 Baso % (Auto) 0.3 Lymph # (Auto) 1.1 L [place] # (Auto) 1.4 H Eos # (Auto) 0.4 Baso # (Auto) 0.0 Abs Immat Gran (auto) 0.13 H Absolute Neuts (auto) 9.0 H Absolute Nucleated RBC 0.000 Nucleated RBC % (auto) 0.0 PT INR APTT VBG pH VBG pCO2 VBG pO2 VBG HCO3 VBG O2 Saturation VBG Base Excess Sodium Potassium Chloride Carbon Dioxide Anion Gap BUN Creatinine Estim Creat Clear Calc Estimated GFR POC Glucose 109 108 Random Glucose Calcium Phosphorus Magnesium Total Creatine Kinase B-Natriuretic Peptide 07/25/20 07/25/20 07/25/20 05:35 05:35 05:35 WBC RBC Hgb Hct MCV MCH MCHC RDW Plt Count MPV Immature Gran % (Auto) Neut % (Auto) Lymph % (Auto) [place] % (Auto) Eos % (Auto) Baso % (Auto) Lymph # (Auto) [place] # (Auto) Eos # (Auto) Baso # (Auto) Abs Immat Gran (auto) Absolute Neuts (auto) Absolute Nucleated RBC Nucleated RBC % (auto) PT INR APTT VBG pH 7.47 H VBG pCO2 39 VBG pO2 54 VBG HCO3 29 H VBG O2 Saturation 82.0 VBG Base Excess 5.2 Sodium 143 Potassium 3.7 Chloride 105 Carbon Dioxide 31 H Anion Gap 11 L BUN 9 Creatinine 0.67 Estim Creat Clear Calc 136.4 Estimated GFR > 60 POC Glucose Random Glucose 100 Calcium 8.5 Phosphorus 4.1 Magnesium 1.7 Total Creatine Kinase 85 D B-Natriuretic Peptide 52 07/25/20 07/25/20 08:04 11:56 WBC RBC Hgb Hct MCV MCH MCHC RDW Plt Count MPV Immature Gran % (Auto) Neut % (Auto) Lymph % (Auto) [place] % (Auto) Eos % (Auto) Baso % (Auto) Lymph # (Auto) [place] # (Auto) Eos # (Auto) Baso # (Auto) Abs Immat Gran (auto) Absolute Neuts (auto) Absolute Nucleated RBC Nucleated RBC % (auto) PT 13.0 INR 1.1 APTT 29.0 VBG pH VBG pCO2 VBG pO2 VBG HCO3 VBG O2 Saturation VBG Base Excess Sodium Potassium Chloride Carbon Dioxide Anion Gap BUN Creatinine Estim Creat Clear Calc Estimated GFR POC Glucose 105 Random Glucose Calcium Phosphorus Magnesium Total Creatine Kinase B-Natriuretic Peptide Microbiology Microbiology Results: Microbiology 07/17/20 19:28 Blood - Venous Blood Culture - Final No growth after 5 days. 07/17/20 19:20 Blood - Venous Blood Culture - Final No growth after 5 days. 07/19/20 10:02 Sputum - Suctioned Gram Stain - Final 07/19/20 10:02 Sputum - Suctioned Sputum Culture - Final Progress Note: A&P Assessment and plan (1) Anoxic encephalopathy: Status: Acute (2) Multiple cerebral infarctions: Status: Acute (3) Encephalopathy: Problem details: Multifactorial encephalopathy. There was significant concern about anoxic encephalopathy based upon his initial history. His imaging revealed distinct basal ganglia lesions that were likely not from cerebral infarcts from embolism but rather were from anoxic injury. This implied the severe nature of anoxic injury. On top of that there were multiple acute embolic infarctions probably from cardiac source of embolism. Primary pathology probably was myocardial infarction resulting in hypoxemia and cerebral embolism. Status: Acute (4) NSTEMI (non-ST elevated myocardial infarction): Status: Acute (5) Cardiomyopathy: Status: Acute (6) Toxic encephalopathy: Status: Acute (7) Metabolic acidosis: Status: Acute (8) Elevated troponin: Status: Acute (9) Hyperkalemia: Status: Acute (10) LA (acute kidney injury): Status: Acute (11) Rhabdomyolysis: Status: Acute (12) Aspiration into airway: Status: Acute (13) Acute respiratory failure: Status: Acute (14) Respiratory failure: Status: Acute Assessment and Plan: So he still remains without cognitive function and in discussion the family seems to have a consensus for proceeding with the tracheostomy and PEG and that is now pending for next week and application will start to be made for long-term acute care Treating urinary tract infection and we will continue to do surveillance of his lungs and mental status Time Spent With Patient Time: Total time spent is greater than 50% in coordination of care (as documented) at patient's floor/unit and/or counseling patient: Total time spent with greater than 50% in coordination of care (as documented) at patient's floor/unit and/or counseling patient:: 30
[2020-07-25 18:19] LABS: Glucose, Whole Blood 94 mg/dL (60-115)
[2020-07-25 20:48] LABS: Glucose Urine UA NEG (NEG); Leukocyte Esterase Urine 2+ (NEG); Nitrite Urine POS (NEG); Specific Gravity - Urine 1.025 (1.005-1.025); UACC Culture Trigger YES; Urine Blood TRACE (NEG); Urine Ketones NEG (NEG); Urine Protein TRACE MG/DL (NEG-TRACE)
[2020-07-25] MEDS: cefTRIAXone sodium 1 GM in 0.9 % Sodium Chloride 50 ML IV (20:55)
[2020-07-25 20:59] LABS: Appearance Urine HAZY; Color Urine DARK YELLOW
[2020-07-25 21:03] LABS: Bacteria Urine 3+ /LPF; WBC Urine 50-75 /HPF (0-4)
[2020-07-25 21:04] LABS: Mucus Urine TRACE /LPF; Renal Epithelial Cells Urine TRACE /LPF; WBC Clumps Urine NOTED
[2020-07-25 21:04] LABS: Lactic Acid 0.9 mmol/L (0.5-2.0)
[2020-07-25 23:26] LABS: Glucose, Whole Blood 96 mg/dL (60-115)
[2020-07-26] VITALS (29 sets, daily range): BP systolic 89–149; BP diastolic 51–89; PULSE 69–892; RESP 17–71; TEMP 37.2–37.9; O2SAT 91–100; BMI 32.3
[2020-07-26] MEDS: propofoL 1,000 MG/100 ML VIAL 29.76 MG IVCONT ×8 (00:48→23:53)
--- NOTE | 2020-07-26 00:54 | PC.NURSE ---
SON SHANNAN VISITED [facility] IN THE NIGHT. LAKIA HENSON INFORMED SHANNAN THE PLAN OF CARE AND THE SEVERITY OF THE SITUATION WHICH IS COMPLICATED BY ANOXIC BRAIN INJURY. SON IS ADMANT THAT EVERYTHING BE DONE AND THAT HIS FATHER WOULD WANT EVERYTHING TO BE DONE. PT IS UNDER THE INFLUENCES OF PROPOFOL FOR VENTILATORY HARMONY. HE HAS EXPERIENCED BRIEF MOMENTS OF EMERGENCE FROM SEDATION WHERE HE WILL REPETITIVELY FLEX LOWER EXTREMITIES BACK AND FORTH. WITH ETT SUCTIONING ABNORMAL EXTENSION IS NOTED INVOLVING UPPER EXTREMITIES. PT HAS TEMP 100.2 1. PANCULTURES DRAWN(SPUTUM/URINE/BLOOD) 2. POST CULTURES CEFTRIAXONE 1 GRAM IVSS 3. LACTATE 0.9-URINE SPECIMEN IS + NITRATE AND NUMEROUS WBCS. HEMODYNAMICALLY STABLE. ECG DISPLAYS SR. ABDOMEN ROUND/SEMISOFT. TUBE FEEDINGS PROMOTE ADVANCED TO 40 ML/HR. GOAL FOR FEEDING IS 50ML/HR.
[2020-07-26 05:32] LABS: MANUAL DIFF FLAG NO
[2020-07-26 05:36] LABS: VBG Base Excess 5.9 mmol/L; VBG HCO3 29 mmol/L (22-26); VBG pCO2 39 mmHg; VBG pH 7.48 (7.32-7.43); VBG pO2 50 mmHg
[2020-07-26 05:39] LABS: Venous Blood Gas Refer to POC result
[2020-07-26 05:44] LABS: Basophils Percent Auto 0.2 % (0-2); Eosinophils Absolute Auto 0.4 X10*3/uL (0.0-0.4); Eosinophils Percent Auto 3.1 % (0-4); Hematocrit 39.8 % (42-52); Hemoglobin 12.9 g/dl (14.0-18.0); Imm Gran Abs Auto 0.09 X10*3/uL (0.00-0.03); Imm Gran Pct Auto 0.7 % (0.0-0.4); Lymphocytes Absolute Auto 1.3 X10*3/uL (1.2-4.9); Lymphocytes Percent Auto 9.5 % (20-40); Mean Corpuscular HGB Conc 32.4 g/dl (31.0-36.0); Mean Corpuscular Volume 101.8 fL (80-98); Mean Platelet Volume 10.4 fL (9.4-12.4); Monocytes Absolute Auto 1.4 X10*3/uL (0.1-1.2); Monocytes Percent Auto 10.8 % (2-11); Neutrophils Percent Auto 75.7 % (45-73); Platelet Count 179 X10*3/uL (160-400); Red Blood Count 3.91 X10*6/uL (4.60-5.80); Red Cell Distribution Width 13.1 % (11.0-16.0); White Blood Count 13.2 X10*3/uL (4.8-10.8)
[2020-07-26 06:09] LABS: B Type Natriuretic Peptide 27 pg/mL (<100)
[2020-07-26 06:11] LABS: Anion Gap 10 (12-20); Blood Urea Nitrogen 13 mg/dL (9-16); Calcium 8.6 mg/dL (8.4-10.2); Carbon Dioxide 31 mmol/L (22-29); Chloride 105 mmol/L (96-108); Creatinine Clr Calc Pharmacy 129.8; Estimated Glomerular Filt Rate > 60; Glucose Random 101 mg/dL (60-115); Phosphorus 4.1 mg/dL (2.7-4.5); Potassium 3.8 mmol/L (3.3-5.1); Sodium 142 mmol/L (135-145)
[2020-07-26 06:22] LABS: Glucose, Whole Blood 95 mg/dL (60-115)
[2020-07-26] MEDS: Chlorhexidine Gluc Oral Rinse 15 ML MOUTHWASH BUCCAL ×3 (07:48→20:59)
--- NOTE | 2020-07-26 11:16 | MHC.CLN ---
F/U PT RECEIVING TF PROMOTE AT MAX GOAL RATE 65CC/HR WITH TO PROVIDE 1560KCALS (2089KCALS WITH SEDATION; 25KCALS/KG), 97.5G (1.2G/KG), 1308CC FREE WATER FROM FORMULA WILL RE-START WATER FLUSHES 240CC WATER FLUSHES Q SHIFT TO PROVIDE 2028CC TOTAL WATER FROM FORMULA AND FLUSH (25CC/KG) MONITOR TOLERANCE, RESIDUALS AND LYTES
[2020-07-26 12:18] LABS: Glucose, Whole Blood 120 mg/dL (60-115)
[2020-07-26 13:08] LABS: Partial Thromboplastin Time 31.7 SEC (24.1-38.0)
--- NOTE | 2020-07-26 13:43 | MHC.CM.PN ---
i called pt's brother, jenniffer, today as he had questions regarding LTAC's - locations and process getting pt there. discussion was in detail and all his answers were satisfied. he would like a ref. made to [facility] [place] p PEG and Trach are placed. cm to cont. to follow.
--- NOTE | 2020-07-26 15:41 | PM.CCPN ---
Subjective Subjective Date of Service: 07/26/20 Interval History: 59-year-old male background of depression and opiate abuse who may very well have been saving Percocet pills was found with unresponsiveness and according to girlfriend foaming at the mouth with the very noisy gurgling for breathing was bagged by EMS but found with an empty Percocet bottle next to him and brought into the ER where he was intubated and between his CT scans and his MRI it appears that he has suffered a profound ischemic injury to his brain with extensive bilateral subcortical white matter and bilateral nuclei ischemic injury and still has no return of cognitive function and he remains ventilated and being fed by OG tube and at this point family wishes to proceed with tracheostomy and PEG tube and eventual transfer to [facility] Physical Exam Vital Signs: Vital Signs: Last Vital Signs Temp 99.1 F 07/26/20 15:00 Pulse 82 07/26/20 15:00 Resp 18 07/26/20 15:00 BP 130/73 07/26/20 15:00 Pulse Ox 96 07/26/20 15:00 Body Mass Index 32.3 Const: Other: Sedated and intubated and were going to try and other sedation holiday but today we will replace propofol with dexmedetomidine and because of the length of time that he spent on the propofol Pupils equal and reactive to light he has positive gag reflex lab work indicates that he has metabolically normal and he was started on ceftriaxone [place] for a presumed urinary tract infection Abdomen benign tolerating feedings good bowel sounds no organomegaly Cardiac exam with normal S1 normal S2 no gallops no murmurs good bilateral carotid upstrokes Chest essentially clear no adventitious sounds No wounds and no acrocyanosis no livedo Objective Data Labs CBC & Chem 7: 07/27/20 06:08 07/27/20 06:08 Labs: Laboratory Results - last 24 hr 07/25/20 07/25/20 07/25/20 18:14 20:23 20:34 WBC RBC Hgb Hct MCV MCH MCHC RDW Plt Count MPV Immature Gran % (Auto) Neut % (Auto) Lymph % (Auto) [place] % (Auto) Eos % (Auto) Baso % (Auto) Lymph # (Auto) [place] # (Auto) Eos # (Auto) Baso # (Auto) Abs Immat Gran (auto) Absolute Neuts (auto) Absolute Nucleated RBC Nucleated RBC % (auto) APTT VBG pH VBG pCO2 VBG pO2 VBG HCO3 VBG O2 Saturation VBG Base Excess Sodium Potassium Chloride Carbon Dioxide Anion Gap BUN Creatinine Estim Creat Clear Calc Estimated GFR POC Glucose 94 Random Glucose Lactic Acid 0.9 Calcium Phosphorus Magnesium Total Creatine Kinase B-Natriuretic Peptide Urine Color DARK YELLOW Urine Appearance HAZY Urine pH 6.0 Ur Specific [place] 1.025 Urine Protein TRACE Urine Glucose (UA) NEG Urine Ketones NEG Urine Blood TRACE Urine Nitrite POS H Ur Leukocyte Esterase 2+ H Urine RBC 15-29 H Urine WBC 50-75 H Urine WBC Clumps NOTED Ur Squamous Epith Cells NONE Ur Renal Epithelial Cell TRACE Urine Bacteria 3+ Urine Mucus TRACE 07/25/20 07/26/20 07/26/20 23:23 05:17 05:17 WBC 13.2 H RBC 3.91 L Hgb 12.9 L Hct 39.8 L MCV 101.8 H MCH 33.0 MCHC 32.4 RDW 13.1 Plt Count 179 MPV 10.4 Immature Gran % (Auto) 0.7 H Neut % (Auto) 75.7 H Lymph % (Auto) 9.5 L [place] % (Auto) 10.8 Eos % (Auto) 3.1 Baso % (Auto) 0.2 Lymph # (Auto) 1.3 [place] # (Auto) 1.4 H Eos # (Auto) 0.4 Baso # (Auto) 0.0 Abs Immat Gran (auto) 0.09 H Absolute Neuts (auto) 10.0 H Absolute Nucleated RBC 0.000 Nucleated RBC % (auto) 0.0 APTT VBG pH VBG pCO2 VBG pO2 VBG HCO3 VBG O2 Saturation VBG Base Excess Sodium 142 Potassium 3.8 Chloride 105 Carbon Dioxide 31 H Anion Gap 10 L BUN 13 Creatinine 0.72 Estim Creat Clear Calc 129.8 Estimated GFR > 60 POC Glucose 96 Random Glucose 101 Lactic Acid Calcium 8.6 Phosphorus 4.1 Magnesium 2.0 Total Creatine Kinase 37 L D B-Natriuretic Peptide Urine Color Urine Appearance Urine pH Ur Specific [place] Urine Protein Urine Glucose (UA) Urine Ketones Urine Blood Urine Nitrite Ur Leukocyte Esterase Urine RBC Urine WBC Urine WBC Clumps Ur Squamous Epith Cells Ur Renal Epithelial Cell Urine Bacteria Urine Mucus 07/26/20 07/26/20 07/26/20 05:17 05:29 06:00 WBC RBC Hgb Hct MCV MCH MCHC RDW Plt Count MPV Immature Gran % (Auto) Neut % (Auto) Lymph % (Auto) [place] % (Auto) Eos % (Auto) Baso % (Auto) Lymph # (Auto) [place] # (Auto) Eos # (Auto) Baso # (Auto) Abs Immat Gran (auto) Absolute Neuts (auto) Absolute Nucleated RBC Nucleated RBC % (auto) APTT VBG pH 7.48 H VBG pCO2 39 VBG pO2 50 VBG HCO3 29 H VBG O2 Saturation 78.0 VBG Base Excess 5.9 Sodium Potassium Chloride Carbon Dioxide Anion Gap BUN Creatinine Estim Creat Clear Calc Estimated GFR POC Glucose 95 Random Glucose Lactic Acid Calcium Phosphorus Magnesium Total Creatine Kinase B-Natriuretic Peptide 27 Urine Color Urine Appearance Urine pH Ur Specific [place] Urine Protein Urine Glucose (UA) Urine Ketones Urine Blood Urine Nitrite Ur Leukocyte Esterase Urine RBC Urine WBC Urine WBC Clumps Ur Squamous Epith Cells Ur Renal Epithelial Cell Urine Bacteria Urine Mucus 07/26/20 07/26/20 12:04 12:40 WBC RBC Hgb Hct MCV MCH MCHC RDW Plt Count MPV Immature Gran % (Auto) Neut % (Auto) Lymph % (Auto) [place] % (Auto) Eos % (Auto) Baso % (Auto) Lymph # (Auto) [place] # (Auto) Eos # (Auto) Baso # (Auto) Abs Immat Gran (auto) Absolute Neuts (auto) Absolute Nucleated RBC Nucleated RBC % (auto) APTT 31.7 VBG pH VBG pCO2 VBG pO2 VBG HCO3 VBG O2 Saturation VBG Base Excess Sodium Potassium Chloride Carbon Dioxide Anion Gap BUN Creatinine Estim Creat Clear Calc Estimated GFR POC Glucose 120 H Random Glucose Lactic Acid Calcium Phosphorus Magnesium Total Creatine Kinase B-Natriuretic Peptide Urine Color Urine Appearance Urine pH Ur Specific [place] Urine Protein Urine Glucose (UA) Urine Ketones Urine Blood Urine Nitrite Ur Leukocyte Esterase Urine RBC Urine WBC Urine WBC Clumps Ur Squamous Epith Cells Ur Renal Epithelial Cell Urine Bacteria Urine Mucus Microbiology Microbiology Results: Microbiology 07/25/20 Unknown Urine [place] Urine Culture - Preliminary Gram negative yoko 07/25/20 20:23 Sputum - Suctioned Gram Stain - Final 07/25/20 20:23 Sputum - Suctioned Sputum Culture - Preliminary Culture in progress. 07/17/20 19:28 Blood - Venous Blood Culture - Final No growth after 5 days. 07/17/20 19:20 Blood - Venous Blood Culture - Final No growth after 5 days. 07/19/20 10:02 Sputum - Suctioned Gram Stain - Final 07/19/20 10:02 Sputum - Suctioned Sputum Culture - Final Progress Note: A&P Assessment and plan (1) Anoxic encephalopathy: Status: Acute (2) Multiple cerebral infarctions: Status: Acute (3) Encephalopathy: Problem details: Multifactorial encephalopathy. There was significant concern about anoxic encephalopathy based upon his initial history. His imaging revealed distinct basal ganglia lesions that were likely not from cerebral infarcts from embolism but rather were from anoxic injury. This implied the severe nature of anoxic injury. On top of that there were multiple acute embolic infarctions probably from cardiac source of embolism. Primary pathology probably was myocardial infarction resulting in hypoxemia and cerebral embolism. Status: Acute (4) NSTEMI (non-ST elevated myocardial infarction): Status: Acute (5) Cardiomyopathy: Status: Acute (6) Toxic encephalopathy: Status: Acute (7) Metabolic acidosis: Status: Acute (8) Elevated troponin: Status: Acute (9) Hyperkalemia: Status: Acute (10) LA (acute kidney injury): Status: Acute (11) Rhabdomyolysis: Status: Acute (12) Aspiration into airway: Status: Acute (13) Acute respiratory failure: Status: Acute (14) Respiratory failure: Status: Acute Assessment and Plan: 59-year-old male with possible suicide attempt as there was an empty bottle of Percocet by his side when he was found unresponsive with compromised breathing and airway I can not even rule out that he might have been status post a a prolonged seizure from what the significant other had described in his appearance and here it is it is clear from Neurology and from his imaging that he had very significant anoxic brain damage with encephalopathy and still has not demonstrated any cognitive function and remains intubated and sedated and today we plan to change him to dexmedetomidine because of the length of time that he has spent on propofol and see if that hold him as we re-evaluate cognitive function once again This week he is rescheduled for tracheostomy and PEG tube insertion Time Spent With Patient Time: Total time spent is greater than 50% in coordination of care (as documented) at patient's floor/unit and/or counseling patient: Total time spent with greater than 50% in coordination of care (as documented) at patient's floor/unit and/or counseling patient:: 25
--- NOTE | 2020-07-26 17:45 | PC.NURSE ---
S/E Afebrile Sedated w/ propofol gtt Failed sedation vacation - tachypnic & HTN No purposeful movements, no pain response Pupils 3mm, PERRLA ; no tracking SR, HR 70-80's, no ectopy L IJ TLC dressing changed 3+ upper extremity edema LS dim throughout ETT 8, 26cm @ lip ; AC 18/500/8/30% Tolerating tube feeds well - Promote maxed @ 65 240cc water flushes q8hr added Last BM 07/24 Urine output 40-60cc/hr, dark yellow/concentrated On Rocephin 1g IV q24 for +UTI - culture pending No skin integrity concerns Repo q2hr, bathed, barrier cream applied Air loss bed & prevlon pad in place Family updated
[2020-07-26 18:37] LABS: Glucose, Whole Blood 111 mg/dL (60-115)
[2020-07-26] MEDS: cefTRIAXone sodium 1 GM in 0.9 % Sodium Chloride 50 ML IV (20:59)
[2020-07-27] VITALS (29 sets, daily range): BP systolic 105–168; BP diastolic 52–99; PULSE 55–87; RESP 4–27; TEMP 37–37.6; O2SAT 93–100
[2020-07-27 00:21] LABS: Glucose, Whole Blood 110 mg/dL (60-115)
[2020-07-27] MEDS: propofoL 1,000 MG/100 ML VIAL 23.81 MG IVCONT ×2 (04:12→09:00)
[2020-07-27 06:19] LABS: VBG Base Excess 5.7 mmol/L; VBG HCO3 29 mmol/L (22-26); VBG pCO2 38 mmHg; VBG pH 7.49 (7.32-7.43); VBG pO2 55 mmHg
[2020-07-27 06:28] LABS: MANUAL DIFF FLAG NO
[2020-07-27 06:32] LABS: Venous Blood Gas Refer to POC result
[2020-07-27 06:37] LABS: Basophils Percent Auto 0.2 % (0-2); Eosinophils Absolute Auto 0.3 X10*3/uL (0.0-0.4); Eosinophils Percent Auto 2.9 % (0-4); Hematocrit 38.5 % (42-52); Hemoglobin 12.5 g/dl (14.0-18.0); Imm Gran Abs Auto 0.06 X10*3/uL (0.00-0.03); Imm Gran Pct Auto 0.6 % (0.0-0.4); Lymphocytes Absolute Auto 1.1 X10*3/uL (1.2-4.9); Lymphocytes Percent Auto 10.7 % (20-40); Mean Corpuscular HGB Conc 32.5 g/dl (31.0-36.0); Mean Corpuscular Hemoglobin 33.1 pg (27.0-33.0); Mean Corpuscular Volume 101.9 fL (80-98); Mean Platelet Volume 11.4 fL (9.4-12.4); Monocytes Percent Auto 9.5 % (2-11); Neutrophils Absolute Auto 7.7 X10*3/uL (2.0-8.3); Neutrophils Percent Auto 76.1 % (45-73); Platelet Count 182 X10*3/uL (160-400); Red Blood Count 3.78 X10*6/uL (4.60-5.80); White Blood Count 10.1 X10*3/uL (4.8-10.8)
[2020-07-27 07:00] LABS: B Type Natriuretic Peptide 19 pg/mL (<100)
[2020-07-27 07:02] LABS: Anion Gap 13 (12-20); Blood Urea Nitrogen 16 mg/dL (9-16); Calcium 8.5 mg/dL (8.4-10.2); Carbon Dioxide 28 mmol/L (22-29); Chloride 105 mmol/L (96-108); Creatinine Clr Calc Pharmacy 132.6; Estimated Glomerular Filt Rate > 60; Glucose Random 112 mg/dL (60-115); Magnesium 1.9 mg/dL (1.6-2.6); Phosphorus 4.5 mg/dL (2.7-4.5); Sodium 142 mmol/L (135-145)
[2020-07-27] MEDS: Chlorhexidine Gluc Oral Rinse 15 ML MOUTHWASH BUCCAL ×3 (09:01→20:43)
--- NOTE | 2020-07-27 09:55 | MHC.CM.PN ---
Review of MD notes re: family meeting. Family aware of brain injury and little chance for meaningful recovery but are opting for peg and trach placement. Call to pt's brother Star who has been the family point of contact: Discussed LTAC facilities, potential wait list, overall prognosis and potential for complications d/t medical condition: Star verbalized understanding but states pt has 2 sons who want to give the pt every opportunity to make progress. 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 Star will contact Wilbert, pt's son who is most involved in pt's care to pass along CM contact number. Inquired on possible HCP form to which Star states nothing has surfaced as of yet. Referral made to [facility] as pt will likely have a peg/trach placed early this week. CM to follow and will await call from pt's son.
--- NOTE | 2020-07-27 12:03 | PM.CCPN ---
Subjective Subjective Date of Service: 07/27/20 Interval History: 59-year-old male possible suicide attempt found unresponsive with gurgling breathing frothy sputum unresponsive and was bagged until he came to the emergency room where he was intubated questionable aspiration as well can not even rule out that he might have been postictal and there was 1 attempted extubation and he required re-intubation within 24 hours with what looked like an inability to maintain airway and the probable aspiration and since then all infectious and metabolic issues have been cured including some acute kidney injury and tolerating feedings doing well but has no cognitive function on testing every day he has he has got intact vegetative function and the imaging and exam are all indicative of severe anoxic encephalopathy with a grave prognosis as was explained to the family but he remains here to have an elective tracheostomy and PEG tube and then eventually transfer to long-term acute care The initial troponin spill also seemed to have been based on the anoxic issue because he had initially a dysfunctional left ventricle which has completely turned around and all within 1 week so I do not believe this was an unstable ischemic issue Physical Exam Vital Signs: Vital Signs: Last Vital Signs Temp 99.1 F 07/27/20 11:00 Pulse 71 07/27/20 11:00 Resp 18 07/27/20 11:00 BP 155/89 H 07/27/20 11:00 Pulse Ox 95 07/27/20 11:00 Body Mass Index 32.3 Const: Other: Sedated and intubated moves his head and all 4 extremities in a nonpurposeful way cranial nerves intact With bilateral carotid upstrokes no neck vein distension no gallops Chest is clear and clear as well on chest x-ray Abdomen soft no guarding no organomegaly and tolerating feedings Skin intact no edema no acrocyanosis Objective Data Labs CBC & Chem 7: 07/27/20 06:08 07/27/20 06:08 Labs: Laboratory Results - last 24 hr 07/26/20 07/26/20 07/26/20 12:04 12:40 18:15 WBC RBC Hgb Hct MCV MCH MCHC RDW Plt Count MPV Immature Gran % (Auto) Neut % (Auto) Lymph % (Auto) [place] % (Auto) Eos % (Auto) Baso % (Auto) Lymph # (Auto) [place] # (Auto) Eos # (Auto) Baso # (Auto) Abs Immat Gran (auto) Absolute Neuts (auto) Absolute Nucleated RBC Nucleated RBC % (auto) APTT 31.7 VBG pH VBG pCO2 VBG pO2 VBG HCO3 VBG O2 Saturation VBG Base Excess Sodium Potassium Chloride Carbon Dioxide Anion Gap BUN Creatinine Estim Creat Clear Calc Estimated GFR POC Glucose 120 H 111 Random Glucose Calcium Phosphorus Magnesium Total Creatine Kinase B-Natriuretic Peptide 07/27/20 07/27/20 07/27/20 00:17 06:08 06:08 WBC 10.1 RBC 3.78 L Hgb 12.5 L Hct 38.5 L MCV 101.9 H MCH 33.1 H MCHC 32.5 RDW 13.0 Plt Count 182 MPV 11.4 Immature Gran % (Auto) 0.6 H Neut % (Auto) 76.1 H Lymph % (Auto) 10.7 L [place] % (Auto) 9.5 Eos % (Auto) 2.9 Baso % (Auto) 0.2 Lymph # (Auto) 1.1 L [place] # (Auto) 1.0 Eos # (Auto) 0.3 Baso # (Auto) 0.0 Abs Immat Gran (auto) 0.06 H Absolute Neuts (auto) 7.7 Absolute Nucleated RBC 0.000 Nucleated RBC % (auto) 0.0 APTT VBG pH VBG pCO2 VBG pO2 VBG HCO3 VBG O2 Saturation VBG Base Excess Sodium 142 Potassium 4.0 Chloride 105 Carbon Dioxide 28 Anion Gap 13 BUN 16 Creatinine 0.68 Estim Creat Clear Calc 132.6 Estimated GFR > 60 POC Glucose 110 Random Glucose 112 Calcium 8.5 Phosphorus 4.5 Magnesium 1.9 Total Creatine Kinase 29 L B-Natriuretic Peptide 07/27/20 07/27/20 06:08 06:13 WBC RBC Hgb Hct MCV MCH MCHC RDW Plt Count MPV Immature Gran % (Auto) Neut % (Auto) Lymph % (Auto) [place] % (Auto) Eos % (Auto) Baso % (Auto) Lymph # (Auto) [place] # (Auto) Eos # (Auto) Baso # (Auto) Abs Immat Gran (auto) Absolute Neuts (auto) Absolute Nucleated RBC Nucleated RBC % (auto) APTT VBG pH 7.49 H VBG pCO2 38 VBG pO2 55 VBG HCO3 29 H VBG O2 Saturation 82.0 VBG Base Excess 5.7 Sodium Potassium Chloride Carbon Dioxide Anion Gap BUN Creatinine Estim Creat Clear Calc Estimated GFR POC Glucose Random Glucose Calcium Phosphorus Magnesium Total Creatine Kinase B-Natriuretic Peptide 19 Microbiology Microbiology Results: Microbiology 07/25/20 20:23 Sputum - Suctioned Gram Stain - Final 07/25/20 20:23 Sputum - Suctioned Sputum Culture - Preliminary Culture in progress. 07/25/20 Unknown Urine [place] Urine Culture - Final Escherichia coli 07/25/20 20:34 Blood - Venous Blood Culture - Preliminary No growth after 24 hours. 07/25/20 20:34 Blood - Venous Blood Culture - Preliminary No growth after 24 hours. 07/17/20 19:28 Blood - Venous Blood Culture - Final No growth after 5 days. 07/17/20 19:20 Blood - Venous Blood Culture - Final No growth after 5 days. 07/19/20 10:02 Sputum - Suctioned Gram Stain - Final 07/19/20 10:02 Sputum - Suctioned Sputum Culture - Final Progress Note: A&P Assessment and plan (1) Anoxic encephalopathy: Status: Acute (2) Multiple cerebral infarctions: Status: Acute (3) Encephalopathy: Problem details: Multifactorial encephalopathy. There was significant concern about anoxic encephalopathy based upon his initial history. His imaging revealed distinct basal ganglia lesions that were likely not from cerebral infarcts from embolism but rather were from anoxic injury. This implied the severe nature of anoxic injury. On top of that there were multiple acute embolic infarctions probably from cardiac source of embolism. Primary pathology probably was myocardial infarction resulting in hypoxemia and cerebral embolism. Status: Acute (4) NSTEMI (non-ST elevated myocardial infarction): Status: Acute (5) Cardiomyopathy: Status: Acute (6) Toxic encephalopathy: Status: Acute (7) Metabolic acidosis: Status: Acute (8) Elevated troponin: Status: Acute (9) Hyperkalemia: Status: Acute (10) LA (acute kidney injury): Status: Acute (11) Rhabdomyolysis: Status: Acute (12) Aspiration into airway: Status: Acute (13) Acute respiratory failure: Status: Acute (14) Respiratory failure: Status: Acute Assessment and Plan: Continue feedings and exchange propofol for dexmedetomidine to avoid any propofol infusion issues and await next weeks elective tracheostomy and PEG tube Time Spent With Patient Time: Total time spent is greater than 50% in coordination of care (as documented) at patient's floor/unit and/or counseling patient: Total time spent with greater than 50% in coordination of care (as documented) at patient's floor/unit and/or counseling patient:: 25
[2020-07-27] MEDS: dexmedeTOMIDidine HCL/NS 400 MCG/100 ML INFUS..BTL 9.94 MCG IVCONT (12:36)
[2020-07-27] MEDS: dexmedeTOMIDidine HCL/NS 400 MCG/100 ML INFUS..BTL 14.91 MCG IVCONT (18:12)
[2020-07-27] MEDS: cefTRIAXone sodium 1 GM in 0.9 % Sodium Chloride 50 ML IV (20:43)
[2020-07-28] VITALS (36 sets, daily range): BP systolic 110–188; BP diastolic 65–105; PULSE 53–98; RESP 18–97; TEMP 37–37.5; O2SAT 93–100
[2020-07-28] MEDS: dexmedeTOMIDidine HCL/NS 400 MCG/100 ML INFUS..BTL 14.91 MCG IVCONT ×2 (00:14→05:45)
--- NOTE | 2020-07-28 07:40 | P.PNCC_ITS ---
Subjective Subjective Date of Service: 07/28/20 Interval History: Who presented to the emergency room now approximately 10 or 11 days ago after being found unresponsive with an empty bottle of Percocet apparently was shallow breathing and according to the girlfriend more less the foamy secretions and gurgling sound to the breathing which which of course could represent a postictal state and or with with aspiration because CT scan of the chest did show that he had scattered bilateral infiltrates and ultimately the he was intubated in the emergency room and has been of stairs with us and daily reassessment after stopping his sedation he he just stares absolutely no response 90 even to pain and never makes eye contact and then eventually becomes agitated so this still is persistent encephalopathy Originally came in with acute renal insufficiency stage IV level with evidence of rhabdomyolysis and a positive anion gap metabolic acidosis most of the metabolic issues including his renal insufficiency have all resolved as has his clinical aspiration pneumonitis and subsequent CT scans and MRI basically demonstrate ischemic changes in some of the adeno would deeper white matter im plying a profound and Oxy a and therefore an anoxic encephalopathy and of course on a daily basis without signs of repair bodes poorly for meaningful recovery and that has been corroborated on 2 occasions by Neurology Physical Exam Vital Signs: Vital Signs: Last Vital Signs Temp 99.5 F 07/28/20 07:00 Pulse 54 07/28/20 07:00 Resp 18 07/28/20 07:00 BP 123/71 07/28/20 07:00 Pulse Ox 98 07/28/20 07:00 Body Mass Index 32.3 Const: Other: Currently he is sedated on dexmedetomidine with a normal sinus rhythm rate of 59 oxygen saturation 97% and minimal residual low-grade temperature 99.5? and still being treated with ceftriaxone for and E coli urinary tract infection and blood pressure is 120/70 Bedside echo shows normal left ventricular systolic reserve and at this is with the initial backdrop of a dysfunctional it ventricle with 35% ejection fraction with a peak presenting troponin of about 1200 in the face of renal insufficiency Lungs it looks like he has got some residual infiltrate and/or elect atelectasis in the right base certainly much clearer than it is presentation Abdomen is benign with good bowel sounds soft and tolerating feedings Objective Data Labs CBC & Chem 7: 07/27/20 06:08 07/27/20 06:08 Microbiology Microbiology Results: Microbiology 07/25/20 20:34 Blood - Venous Blood Culture - Preliminary No growth after 48 hours. 07/25/20 20:34 Blood - Venous Blood Culture - Preliminary No growth after 48 hours. 07/25/20 20:23 Sputum - Suctioned Gram Stain - Final 07/25/20 20:23 Sputum - Suctioned Sputum Culture - Preliminary Culture in progress. 07/25/20 Unknown Urine [place] Urine Culture - Final Escherichia coli 07/17/20 19:28 Blood - Venous Blood Culture - Final No growth after 5 days. 07/17/20 19:20 Blood - Venous Blood Culture - Final No growth after 5 days. 07/19/20 10:02 Sputum - Suctioned Gram Stain - Final 07/19/20 10:02 Sputum - Suctioned Sputum Culture - Final Progress Note: A&P Assessment and plan (1) Anoxic encephalopathy: Status: Acute (2) Multiple cerebral infarctions: Status: Acute (3) Encephalopathy: Problem details: Multifactorial encephalopathy. There was significant concern about anoxic encephalopathy based upon his initial history. His imaging revealed distinct basal ganglia lesions that were likely not from cerebral infarcts from embolism but rather were from anoxic injury. This implied the severe nature of anoxic injury. On top of that there were multiple acute embolic infarctions probably from cardiac source of embolism. Primary pathology probably was myocardial infarction resulting in hypoxemia and cerebral embolism. Status: Acute (4) NSTEMI (non-ST elevated myocardial infarction): Status: Acute (5) Cardiomyopathy: Status: Acute (6) Toxic encephalopathy: Status: Acute (7) Metabolic acidosis: Status: Acute (8) Elevated troponin: Status: Acute (9) Hyperkalemia: Status: Acute (10) LA (acute kidney injury): Status: Acute (11) Rhabdomyolysis: Status: Acute (12) Aspiration into airway: Status: Acute (13) Acute respiratory failure: Status: Acute (14) Respiratory failure: Status: Acute Time Spent With Patient Time: Total time spent is greater than 50% in coordination of care (as documen tricia) at patient's floor/unit and/or counseling patient: Total time spent with greater than 50% in coordination of care (as documented) at patient's floor/unit and/or counseling patient:: 25
[2020-07-28 07:58] LABS: VBG Base Excess 3.2 mmol/L; VBG HCO3 26 mmol/L (22-26); VBG pCO2 36 mmHg; VBG pH 7.46 (7.32-7.43); VBG pO2 138 mmHg
[2020-07-28 08:01] LABS: Venous Blood Gas Refer to POC result
[2020-07-28 08:04] LABS: Imm Gran Abs Auto 0.05 X10*3/uL (0.00-0.03); Imm Gran Pct Auto 0.6 % (0.0-0.4); MANUAL DIFF FLAG SCAN; PLT CLUMP 1; SCAN SMEAR FLAG 1
[2020-07-28 08:06] LABS: Basophils Percent Auto 0.3 % (0-2); Eosinophils Absolute Auto 0.4 X10*3/uL (0.0-0.4); Eosinophils Percent Auto 4.2 % (0-4); Hematocrit 38.4 % (42-52); Hemoglobin 12.9 g/dl (14.0-18.0); Lymphocytes Absolute Auto 1.4 X10*3/uL (1.2-4.9); Mean Corpuscular HGB Conc 33.6 g/dl (31.0-36.0); Mean Corpuscular Hemoglobin 33.4 pg (27.0-33.0); Mean Corpuscular Volume 99.5 fL (80-98); Monocytes Absolute Auto 0.7 X10*3/uL (0.1-1.2); Monocytes Percent Auto 7.7 % (2-11); Neutrophils Absolute Auto 6.4 X10*3/uL (2.0-8.3); Neutrophils Percent Auto 71.2 % (45-73); Red Blood Count 3.86 X10*6/uL (4.60-5.80); Red Cell Distribution Width 12.6 % (11.0-16.0)
[2020-07-28 08:27] LABS: B Type Natriuretic Peptide 86 pg/mL (<100)
[2020-07-28 08:31] LABS: Anion Gap 14 (12-20); Blood Urea Nitrogen 18 mg/dL (9-16); Calcium 8.6 mg/dL (8.4-10.2); Carbon Dioxide 25 mmol/L (22-29); Chloride 107 mmol/L (96-108); Creatinine Clr Calc Pharmacy 134.5; Estimated Glomerular Filt Rate > 60; Glucose Random 129 mg/dL (60-115); Phosphorus 4.2 mg/dL (2.7-4.5); Potassium 4.5 mmol/L (3.3-5.1); Sodium 141 mmol/L (135-145)
[2020-07-28 08:45] LABS: Mean Platelet Volume 12.2 fL (9.4-12.4); Platelet Count 178 X10*3/uL (160-400)
[2020-07-28 08:46] LABS: SLIDE REVIEW VERIFIED
[2020-07-28] MEDS: Chlorhexidine Gluc Oral Rinse 15 ML MOUTHWASH BUCCAL ×3 (11:06→21:45)
[2020-07-28 12:18] LABS: Glucose, Whole Blood 112 mg/dL (60-115)
[2020-07-28] MEDS: dexmedeTOMIDidine HCL/NS 400 MCG/100 ML INFUS..BTL 9.94 MCG IVCONT (12:44)
--- NOTE | 2020-07-28 13:53 | PM.CCPN ---
Subjective Subjective Date of Service: 07/28/20 Interval History: 59-year-old male who was discovered to be unresponsive by his significant other they also noted an empty bottle of Percocet and he she believed that he was saving pills and she noted that he was unresponsive with gurgling with foamy secretions EMS bagged him to the hospital where he was intubated and that state in 0 could have been in a postictal or that could have been an episode of aspiration which compromised him and he was shortly thereafter extubated it did it barely last twenty four hours and then he required re-intubation with an episode of clinical aspiration and has remained here intubated kidney insufficiency all resolved Each day with sedation holiday he will open his eyes and just stare at the ceiling no meaningful response or lateralization to vigorous touch loud voice etc. and then he gets agitated and hyper ventilatory and compromises his oxygen saturation and then he requires recent they greer but currently he is on dexmedetomidine and propofol was stopped because of the length of time he was on and these Physical Exam Vital Signs: Vital Signs: Last Vital Signs Temp 99.1 F 07/28/20 13:00 Pulse 72 07/28/20 13:17 Resp 18 07/28/20 13:00 BP 148/89 H 07/28/20 13:00 Pulse Ox 99 07/28/20 13:00 Body Mass Index 32.3 Const: Other: Currently sedated with dexmedetomidine and off sedation awakens with staring no meaningful response or lateralizing to vigorous touch loud voice Tolerating feedings with no gastric residuals All lab work indicating good metabolic status and consistent with resolved pneumonitis and he is currently on ceftriaxone for an E coli urinary tract infection Chest essentially clear no adventitious sounds Cardiac exam but no neck vein distension and good bilateral carotid upstrokes normal S1 normal S2 Objective Data Labs CBC & Chem 7: 07/28/20 07:44 07/28/20 07:44 Labs: Laboratory Results - last 24 hr 07/28/20 07/28/20 07/28/20 07:44 07:44 07:44 WBC 9.0 RBC 3.86 L Hgb 12.9 L Hct 38.4 L MCV 99.5 H MCH 33.4 H MCHC 33.6 RDW 12.6 Plt Count 178 MPV 12.2 Immature Gran % (Auto) 0.6 H Neut % (Auto) 71.2 Lymph % (Auto) 16.0 L [place] % (Auto) 7.7 Eos % (Auto) 4.2 H Baso % (Auto) 0.3 Lymph # (Auto) 1.4 [place] # (Auto) 0.7 Eos # (Auto) 0.4 Baso # (Auto) 0.0 Abs Immat Gran (auto) 0.05 H Absolute Neuts (auto) 6.4 Absolute Nucleated RBC 0.000 Nucleated RBC % (auto) 0.0 Smear Tech's Comments VERIFIED O2 Saturation ABG pH at Pt Temp ABG pH (Temp Correct) ABG pCO2 at Pt Temp ABG pCO2 (Temp Corrct ABG pO2 at Pt Temp ABG pO2 (Temp Correct ABG HCO3 ABG Base Excess (Actual) VBG pH VBG pCO2 VBG pO2 VBG HCO3 VBG O2 Saturation VBG Base Excess Sodium 141 Potassium 4.5 Chloride 107 Carbon Dioxide 25 Anion Gap 14 BUN 18 H Creatinine 0.67 Estim Creat Clear Calc 134.5 Estimated GFR > 60 POC Glucose Random Glucose 129 H Calcium 8.6 Phosphorus 4.2 Magnesium 2.0 Total Creatine Kinase 28 L B-Natriuretic Peptide 86 07/28/20 07/28/20 07/28/20 07:46 07:53 12:15 WBC RBC Hgb Hct MCV MCH MCHC RDW Plt Count MPV Immature Gran % (Auto) Neut % (Auto) Lymph % (Auto) [place] % (Auto) Eos % (Auto) Baso % (Auto) Lymph # (Auto) [place] # (Auto) Eos # (Auto) Baso # (Auto) Abs Immat Gran (auto) Absolute Neuts (auto) Absolute Nucleated RBC Nucleated RBC % (auto) Smear Tech's Comments O2 Saturation Cancelled ABG pH at Pt Temp Cancelled ABG pH (Temp Correct) Cancelled ABG pCO2 at Pt Temp Cancelled ABG pCO2 (Temp Corrct Cancelled ABG pO2 at Pt Temp Cancelled ABG pO2 (Temp Correct Cancelled ABG HCO3 Cancelled ABG Base Excess (Actual) Cancelled VBG pH 7.46 H VBG pCO2 36 VBG pO2 138 VBG HCO3 26 VBG O2 Saturation 98.0 VBG Base Excess 3.2 Sodium Potassium Chloride Carbon Dioxide Anion Gap BUN Creatinine Estim Creat Clear Calc Estimated GFR POC Glucose 112 Random Glucose Calcium Phosphorus Magnesium Total Creatine Kinase B-Natriuretic Peptide Microbiology Microbiology Results: Microbiology 07/25/20 20:23 Sputum - Suctioned Gram Stain - Final 07/25/20 20:23 Sputum - Suctioned Sputum Culture - Final 07/25/20 20:34 Blood - Venous Blood Culture - Preliminary No growth after 48 hours. 07/25/20 20:34 Blood - Venous Blood Culture - Preliminary No growth after 48 hours. 07/25/20 Unknown Urine [place] Urine Culture - Final Escherichia coli 07/17/20 19:28 Blood - Venous Blood Culture - Final No growth after 5 days. 07/17/20 19:20 Blood - Venous Blood Culture - Final No growth after 5 days. 07/19/20 10:02 Sputum - Suctioned Gram Stain - Final 07/19/20 10:02 Sputum - Suctioned Sputum Culture - Final Progress Note: A&P Assessment and plan (1) Anoxic encephalopathy: Status: Acute (2) Multiple cerebral infarctions: Status: Acute (3) Encephalopathy: Problem details: Multifactorial encephalopathy. There was significant concern about anoxic encephalopathy based upon his initial history. His imaging revealed distinct basal ganglia lesions that were likely not from cerebral infarcts from embolism but rather were from anoxic injury. This implied the severe nature of anoxic injury. On top of that there were multiple acute embolic infarctions probably from cardiac source of embolism. Primary pathology probably was myocardial infarction resulting in hypoxemia and cerebral embolism. Status: Acute (4) NSTEMI (non-ST elevated myocardial infarction): Status: Acute (5) Cardiomyopathy: Status: Acute (6) Toxic encephalopathy: Status: Acute (7) Metabolic acidosis: Status: Acute (8) Elevated troponin: Status: Acute (9) Hyperkalemia: Status: Acute (10) LA (acute kidney injury): Status: Acute (11) Rhabdomyolysis: Status: Acute (12) Aspiration into airway: Status: Acute (13) Acute respiratory failure: Status: Acute (14) Respiratory failure: Status: Acute Assessment and Plan: So the plan is to continue with supportive therapy and finished a course of ceftriaxone for his UTI plan is for tracheostomy on Wednesday the and telephonic case managerresearch program manager worker where in they will begin to search out a bed in a long-term acute care unit Time Spent With Patient Time: Total time spent is greater than 50% in coordination of care (as documented) at patient's floor/unit and/or counseling patient: Total time spent with greater than 50% in coordination of care (as documented) at patient's floor/unit and/or counseling patient:: 25
--- NOTE | 2020-07-28 15:00 | PC.NURSE ---
Patient remains off sedation and on Precedex drip. This morning and early afternoon patient still unable to visually track, follow commands, or make purposeful movements. Patient was resting, appeared comfortable, and was not agitated. Vital signs stable. Sinus bradycardia on tele, HR in the high 50s on tele. Titrated Precedex drip per MD and protocolm, see titration in JUN. Patient reassessed this afternoon, able to nod to yes/no questions, tracking, following commands. MD at bedside. Continues to nod appropriately. Continues on Precedex per MD. Patient's son at bedside becoming aggressive, swearing and accusatory toward this RN. Patient becoming restless, tachypneic. Son asked to leave and visitors on hold for now. Nursing aluminum fabrication supervisor and Security updated and aware. HCP Star Gustafson called and updated about patient status and above situation with patient's son. HCP agreeable with plan for no visitors until he comes to visit [facility] [place].
--- NOTE | 2020-07-28 16:41 | MHC.CM.PN ---
No call from pt's son Wilbert as planned during 07/27 phone conversation with pt's brother/family contact point person, Star. CM wished to answer questions about prognosis, overall outcomes, LTAC placement, etc to ensure family is making informed decisions based on what they feel pt would want for continuation of care needs. Pt has had an anoxic brain injury and isn't likely to make clicnial progress. Review of MD notes indicate pt will go for Peg/Trach placement on 08/02. Pt has been referred to [facility] for LTAC placement. CM will follow
[2020-07-28 18:39] LABS: Glucose, Whole Blood 92 mg/dL (60-115)
[2020-07-28] MEDS: dexmedeTOMIDidine HCL/NS 400 MCG/100 ML INFUS..BTL 12.43 MCG IVCONT (18:42)
[2020-07-28] MEDS: cefTRIAXone sodium 1 GM in 0.9 % Sodium Chloride 50 ML IV (21:45)
[2020-07-28] MEDS: niCARdipine HCL 25 MG in 0.9 % Sodium Chloride 250 ML 52 MG IVCONT (21:48)
[2020-07-29] VITALS (48 sets, daily range): BP systolic 74–188; BP diastolic 43–121; PULSE 69–123; RESP 9–33; TEMP 37–37.5; O2SAT 92–98; BMI 31.6
[2020-07-29 00:44] LABS: Glucose, Whole Blood 95 mg/dL (60-115)
[2020-07-29] MEDS: propofoL 1,000 MG/100 ML VIAL 14.91 MG IVCONT ×2 (01:48→06:45)
[2020-07-29] MEDS: niCARdipine HCL 25 MG in 0.9 % Sodium Chloride 250 ML 26 MG IVCONT (04:38)
[2020-07-29 05:55] LABS: VBG Base Excess 2.5 mmol/L; VBG HCO3 25 mmol/L (22-26); VBG pCO2 32 mmHg; VBG pH 7.49 (7.32-7.43); VBG pO2 91 mmHg
[2020-07-29 06:04] LABS: Venous Blood Gas Refer to POC result
[2020-07-29 06:35] LABS: Glucose, Whole Blood 101 mg/dL (60-115)
[2020-07-29 06:50] LABS: Basophils Absolute Auto 0.1 X10*3/uL (0.0-0.2); Basophils Percent Auto 0.4 % (0-2); Eosinophils Absolute Auto 0.2 X10*3/uL (0.0-0.4); Eosinophils Percent Auto 1.7 % (0-4); Hematocrit 43.6 % (42-52); Hemoglobin 14.6 g/dl (14.0-18.0); Imm Gran Abs Auto 0.07 X10*3/uL (0.00-0.03); Imm Gran Pct Auto 0.5 % (0.0-0.4); Lymphocytes Absolute Auto 1.6 X10*3/uL (1.2-4.9); Lymphocytes Percent Auto 11.5 % (20-40); MANUAL DIFF FLAG SCAN; Mean Corpuscular HGB Conc 33.5 g/dl (31.0-36.0); Mean Corpuscular Volume 98.6 fL (80-98); Monocytes Absolute Auto 1.5 X10*3/uL (0.1-1.2); Monocytes Percent Auto 11.2 % (2-11); Neutrophils Absolute Auto 10.2 X10*3/uL (2.0-8.3); Neutrophils Percent Auto 74.7 % (45-73); PLT CLUMP 1; Red Blood Count 4.42 X10*6/uL (4.60-5.80); Red Cell Distribution Width 12.5 % (11.0-16.0); SCAN SMEAR FLAG 1
[2020-07-29 07:13] LABS: B Type Natriuretic Peptide 210 pg/mL (<100)
[2020-07-29 07:15] LABS: Anion Gap 17 (12-20); Blood Urea Nitrogen 18 mg/dL (9-16); Calcium 8.9 mg/dL (8.4-10.2); Carbon Dioxide 22 mmol/L (22-29); Chloride 105 mmol/L (96-108); Creatinine Clr Calc Pharmacy 135.1; Estimated Glomerular Filt Rate > 60; Glucose Random 92 mg/dL (60-115); Phosphorus 4.2 mg/dL (2.7-4.5); Potassium 4.1 mmol/L (3.3-5.1); Sodium 140 mmol/L (135-145)
[2020-07-29 07:47] LABS: SLIDE REVIEW VERIFIED; White Blood Count 13.7 X10*3/uL (4.8-10.8)
[2020-07-29] MEDS: fentaNYL citrate/NS 1,000 MCG/100 ML PLAST..BAG 5 MCG IVCONT (08:30)
[2020-07-29] MEDS: Chlorhexidine Gluc Oral Rinse 15 ML MOUTHWASH BUCCAL ×3 (09:54→21:22)
[2020-07-29] MEDS: niCARdipine HCL 25 MG in 0.9 % Sodium Chloride 250 ML 52 MG IVCONT (09:54)
[2020-07-29] MEDS: Metoprolol Tartrate 5 MG/5 ML VIAL IVPUSH ×3 (10:34→13:15)
--- NOTE | 2020-07-29 10:42 | P.PNCC_ITS ---
Subjective Subjective Date of Service: 07/29/20 Interval History: Mr. Gustafson was admitted to ICU on July 17 with acute respiratory failure. The patient is a 59 yo M with h/o HTN and depression, on mult meds (clonidine, gabapentin, mirtazapine, olanzapine, trazodone, and venlafaxine), along with opiates for chronic pain. The patient was BIBA to the ED on 07/17 after being found unresponsive at home w shallow breathing 2? presumed opiate OD. An empty bottle of Percocet was found. No response to Narcan. Was intubated for airway protection immed on arrival to ED. Chest CT suggested aspiration pneumonitis. Also had rhabdo and LA. Echo showed mod decreased LV fxn, EF 30-35%, with a likely apical thrombus, mildly decreased RV function, and dilated common non collapsing inferior vena cava. RVSP was unable to be calculated. Troponin was elevated. The patient was started on heparin drip. The patient was extubated on July 19, and was lethargic and significantly delirious. Acute kidney injury resolved. Empiric antibiotics were discontinued after 48 hours. MRI on July 20 showed ?Multiple areas of restricted diffusion scattered throughout the brain parenchyma, with symmetric involvement of the bilateral globus pallidus, focal involvement of the right caudate head, bilateral parasagittal subcortical white matter foci, and a single focus within the right lateral occipital lobe. The watershed distribution of the infarcts, and involvement of the globus pallidi (more sensitive to ischemia) suggested a hypoxic-ischemic insult.? On July 21, the patient acutely aspirated and required re-intubation. Neurology consult felt that there was severe anoxic injury, plus multiple acute embolic infarctions probably from cardiac source of embolism. Neurological p rognosis was poor. F/u echo on July 25g showed normal LV fxn with EF 55-60%, and no RWMAs. F/u neuro exam on July 25 showed no cognitive fxn. Fever w/u on July 25 showed a UTI, and he was put on ceftriaxone. Urine grew sensitive E-coli. After mult discussions, family decided to proceed with tracheostomy and PEG. Yesterday the patient seemed to be showing some purposeful responsiveness. On neuro exam today, with propofol off for a number of hours, the patient?s eyes are fully open. Pupils are equal round and very reactive to light, about 5 mm. On voice command, the patient does move his head and eyes slightly to the correct side, but only slightly, and he has no clear response to confrontation. There is no clear tracking. On command to show us 2 fingers, holding his arm, he did try to raise his arm once, and might have made some questionable movements with his fingers. But he only did this once and it was very equivocal. Otherwise, he moves all 4 spontaneously. He?s afebrile this morning. HR this morning was 112, blood pressure 178/101. We changed him over to pressure support. At PSV 15/30%/+5, respiratory rate was 23, tidal volume about 540cc, minute volume about 13L and end-tidal CO2 was in the 20s. Sat was mid-90s. Central venous blood gas showed 7.49/32/+2. We started him on fentanyl, and his respiratory rate slowed to 18, tidal volume went up to 6-700s, end-tidal CO2 went up to 38. After we added beta-blockers, respiratory rate slowed further and minute volume drop down to 9 L. there is no jugular venous distention with the head of the bed at about 30 degrees. Auscultation of the chest shows light bilateral rhonchi, with a normal expirator y phase. Abdomen is benign, he has no peripheral edema. U/O is averaging > 100cc/hr. LABORATORY DATA: As noted below. WBC is bumped to 13. IMPRESSION: 1. AMS on admission. Presumed 2? opiate OD. 2. Current encephalopathy. MRI suggests anoxic and embolic etiologies. He?s clearly ?awake? but severely encephalopathic. Does seem to be making some progress though. We?ll see how he does over the next few days. I?m doubtful that he?ll make enough progress rapidly enough to allow safe extubation and avoid the need for tracheostomy. I?ll book the tracheostomy for 07/31. 3. Acute respiratory failure. Remains intubated primarily for airway control. 4. Aspiration pneumonitis. Resolving. 5. LA. 2? rhabdo and hypovolemia. Resolved. 6. CMOP. s/p ? NSTEMI. CMOP is resolved. 7. Nutrition. On tube feeds. Discussed condition, prognosis, plans with multiple family members. Mult exams throughout the day. Critical care time (including full chart rev and hospital course summary): 80+ min. Physical Exam Vital Signs: Vital Signs: Last Vital Signs Temp 99.3 F 07/29/20 09:00 Pulse 111 H 07/29/20 10:34 Resp 21 H 07/29/20 09:56 BP 144/98 H 07/29/20 10:34 Pulse Ox 95 07/29/20 09:56 Body Mass Index 31.6 Objective Data Labs CBC & Chem 7: 07/29/20 05:46 07/29/20 05:46 Labs: Laboratory Results - last 24 hr 07/28/20 07/28/20 07/29/20 12:15 18:22 00:41 WBC RBC Hgb Hct MCV MCH MCHC RDW Plt Count MPV Immature Gran % (Auto) Neut % (Auto) Lymph % (Auto) [place] % (Auto) Eos % (Auto) Baso % (Auto) Lymph # (Auto) [place] # (Auto) Eos # (Auto) Baso # (Auto) Abs Immat Gran (auto) Absolute Neuts (auto) Absolute Nucleated RBC Nucleated RBC % (auto) Smear Tech's Comments VBG pH VBG pCO2 VBG pO2 VBG HCO3 VBG O2 Saturation VBG Base Excess Sodium Potassium Chloride Carbon Dioxide Anion Gap BUN Creatinine Estim Creat Clear Calc Estimated GFR POC Glucose 112 92 95 Random Glucose Calcium Phosphorus Magnesium Total Creatine Kinase B-Natriuretic Peptide 07/29/20 07/29/20 07/29/20 05:46 05:46 05:46 WBC 13.7 H RBC 4.42 L Hgb 14.6 Hct 43.6 MCV 98.6 H MCH 33.0 MCHC 33.5 RDW 12.5 Plt Count TNP MPV Not Reportable Immature Gran % (Auto) 0.5 H Neut % (Auto) 74.7 H Lymph % (Auto) 11.5 L [place] % (Auto) 11.2 H Eos % (Auto) 1.7 Baso % (Auto) 0.4 Lymph # (Auto) 1.6 [place] # (Auto) 1.5 H Eos # (Auto) 0.2 Baso # (Auto) 0.1 Abs Immat Gran (auto) 0.07 H Absolute Neuts (auto) 10.2 H Absolute Nucleated RBC 0.000 Nucleated RBC % (auto) 0.0 Smear Tech's Comments VERIFIED VBG pH VBG pCO2 VBG pO2 VBG HCO3 VBG O2 Saturation VBG Base Excess Sodium 140 Potassium 4.1 Chloride 105 Carbon Dioxide 22 Anion Gap 17 BUN 18 H Creatinine 0.66 Estim Creat Clear Calc 135.1 Estimated GFR > 60 POC Glucose Random Glucose 92 Calcium 8.9 Phosphorus 4.2 Magnesium 2.0 Total Creatine Kinase 61 D B-Natriuretic Peptide 210 H 07/29/20 07/29/20 05:50 06:32 WBC RBC Hgb Hct MCV MCH MCHC RDW Plt Count MPV Immature Gran % (Auto) Neut % (Auto) Lymph % (Auto) [place] % (Auto) Eos % (Auto) Baso % (Auto) Lymph # (Auto) [place] # (Auto) Eos # (Auto) Baso # (Auto) Abs Immat Gran (auto) Absolute Neuts (auto) Absolute Nucleated RBC Nucleated RBC % (auto) Smear Tech's Comments VBG pH 7.49 H VBG pCO2 32 VBG pO2 91 VBG HCO3 25 VBG O2 Saturation 97.0 VBG Base Excess 2.5 Sodium Potassium Chloride Carbon Dioxide Anion Gap BUN Creatinine Estim Creat Clear Calc Estimated GFR POC Glucose 101 Random Glucose Calcium Phosphorus Magnesium Total Creatine Kinase B-Natriuretic Peptide Microbiology Microbiology Results: Microbiology 07/25/20 20:23 Sputum - Suctioned Gram Stain - Final 07/25/20 20:23 Sputum - Suctioned Sputum Culture - Final 07/25/20 20:34 Blood - Venous Blood Culture - Preliminary No growth after 48 hours. 07/25/20 20:34 Blood - Venous Blood Culture - Preliminary No growth after 48 hours. 07/25/20 Unknown Urine [place] Urine Culture - Final Escherichia coli 07/17/20 19:28 Blood - Venous Blood Culture - Final No growth after 5 days. 07/17/20 19:20 Blood - Venous Blood Culture - Final No growth after 5 days. 07/19/20 10:02 Sputum - Suctioned Gram Stain - Final 07/19/20 10:02 Sputum - Suctioned Sputum Culture - Final Progress Note: A&P Time Spent With Patient Time: Total time spent is greater than 50% in coordination of care (as documented) at patient's floor/unit and/or counseling patient: Total time spent with greater than 50% in coordination of care (as documented) at patient's floor/unit and/or counseling patient:: 0 Critical Care Time Critical Care Time (minutes): 90
[2020-07-29] MEDS: Metoprolol Tartrate 25 MG TABLET PO (10:43)
--- NOTE | 2020-07-29 11:03 | MHC.CLN ---
F/U PT CONTINUES RECEIVING TF PROMOTE AT MAX GOAL RATE 65CC/HR WITH WATER FLUSHES 240CC WATER FLUSHES Q SHIFT PROVIDES 1560KCALS (2110KCALS WITH SEDATION; 26KCALS/KG), 97.5G (1.2G/KG), 2027CC TOTAL WATER FROM FORMULA AND FLUSH (25CC/KG) MONITOR TOLERANCE, RESIDUALS AND LYTES
[2020-07-29] MEDS: modafiniL 100 MG TABLET 200 MG OG-TUBE ×2 (12:33→13:28)
[2020-07-29] MEDS: Esmolol HCl/NaCl Iso 2,500 MG/250 ML IV.SOLN 29.16 MG IVCONT (13:49)
[2020-07-29] MEDS: hydrALAZINE HCl 20 MG/ML VIAL IVPUSH (15:58)
[2020-07-29] MEDS: propofoL 1,000 MG/100 ML VIAL 11.93 MG IVCONT (16:30)
[2020-07-29] MEDS: fentaNYL citrate/NS 1,000 MCG/100 ML PLAST..BAG 10 MCG IVCONT (16:53)
[2020-07-29] MEDS: cefTRIAXone sodium 1 GM in 0.9 % Sodium Chloride 50 ML IV (21:22)
[2020-07-29] MEDS: propofoL 1,000 MG/100 ML VIAL 5.96 MG IVCONT (22:36)
[2020-07-30] VITALS (30 sets, daily range): BP systolic 92–167; BP diastolic 58–111; PULSE 75–112; RESP 11–24; TEMP 36.9–37.5; O2SAT 91–97; BMI 31.9
[2020-07-30] MEDS: propofoL 1,000 MG/100 ML VIAL 5.96 MG IVCONT (02:59)
[2020-07-30] MEDS: Esmolol HCl/NaCl Iso 2,500 MG/250 ML IV.SOLN 5.83 MG IVCONT (03:05)
[2020-07-30] MEDS: fentaNYL citrate/NS 1,000 MCG/100 ML PLAST..BAG 5 MCG IVCONT (03:06)
[2020-07-30 07:33] LABS: MANUAL DIFF FLAG NO
[2020-07-30 07:36] LABS: Basophils Percent Auto 0.4 % (0-2); Eosinophils Absolute Auto 0.2 X10*3/uL (0.0-0.4); Eosinophils Percent Auto 1.9 % (0-4); Hematocrit 42.9 % (42-52); Hemoglobin 14.2 g/dl (14.0-18.0); Imm Gran Abs Auto 0.05 X10*3/uL (0.00-0.03); Imm Gran Pct Auto 0.5 % (0.0-0.4); Lymphocytes Absolute Auto 1.3 X10*3/uL (1.2-4.9); Lymphocytes Percent Auto 12.8 % (20-40); Mean Corpuscular HGB Conc 33.1 g/dl (31.0-36.0); Mean Corpuscular Hemoglobin 33.1 pg (27.0-33.0); Mean Platelet Volume 10.6 fL (9.4-12.4); Monocytes Absolute Auto 1.3 X10*3/uL (0.1-1.2); Neutrophils Absolute Auto 7.5 X10*3/uL (2.0-8.3); Neutrophils Percent Auto 72.4 % (45-73); Platelet Count 337 X10*3/uL (160-400); Red Blood Count 4.29 X10*6/uL (4.60-5.80); Red Cell Distribution Width 12.8 % (11.0-16.0); White Blood Count 10.4 X10*3/uL (4.8-10.8)
[2020-07-30 07:37] LABS: Venous Blood Gas Refer to POC result
[2020-07-30 07:38] LABS: VBG Base Excess 3.6 mmol/L; VBG HCO3 27 mmol/L (22-26); VBG pCO2 40 mmHg; VBG pH 7.44 (7.32-7.43); VBG pO2 149 mmHg
[2020-07-30 08:02] LABS: Anion Gap 14 (12-20); Blood Urea Nitrogen 24 mg/dL (9-16); Calcium 9.1 mg/dL (8.4-10.2); Carbon Dioxide 27 mmol/L (22-29); Chloride 105 mmol/L (96-108); Creatinine Clr Calc Pharmacy 129.9; Estimated Glomerular Filt Rate > 60; Glucose Fasting 101 mg/dL (60-99); Potassium 4.8 mmol/L (3.3-5.1); Sodium 141 mmol/L (135-145)
[2020-07-30] MEDS: modafiniL 100 MG TABLET 200 MG OG-TUBE (09:12)
[2020-07-30] MEDS: Chlorhexidine Gluc Oral Rinse 15 ML MOUTHWASH BUCCAL ×3 (09:13→20:49)
[2020-07-30] MEDS: propofoL 1,000 MG/100 ML VIAL 11.93 MG IVCONT ×2 (09:20→18:32)
[2020-07-30] MEDS: Enoxaparin Sodium 40 MG/0.4 ML SYRINGE SUBCUT (13:01)
[2020-07-30] MEDS: Metoprolol Tartrate 25 MG TABLET G-TUBE ×2 (14:00→20:49)
--- NOTE | 2020-07-30 14:19 | MHC.CM.PN ---
Per discussion in ICU rounds: pt will have a peg and trach placed on 07/31 (if OR available) in anticipation of transfer to LTAC. has held numerous family discussions and this is the treatment and care consensus they reached. Pt is presently unable to make his own medical / care need decisions and attempts at locating a HCP have not been successful (nothing found at residence or PCP office.) [facility] is requesting the initiation of legal guardianship with the SNF placement option. Per [facility] [place] liasion, they do not require the guardian in place, just initiated with the hope of a court date at the time of transfer. Call placed to pt's brother and family pets and pet supplies salesperson, Star. Explained above: he would be willing to serve a his brother's guardian but will contact pt's two son's to obtain full permission and support. Star has been assisting pt with health care needs and decisions for years and he does not anticipate any objections from pts sons to legally continue. Above discussed with CM Creative Producer who will pursue legal guardianship on 07/31 once Star has spoke with the pt's sons. CM to follow for finalization of d/c plans: Clinical updates sent to [facility].
--- NOTE | 2020-07-30 14:23 | PM.CCPN ---
Subjective Subjective Date of Service: 07/30/20 Interval History: Mr. Gustafson was admitted to ICU on July 17 with acute respiratory failure. The patient is a 59 yo M with h/o HTN and depression, on mult meds (clonidine, gabapentin, mirtazapine, olanzapine, trazodone, and venlafaxine), along with opiates for chronic pain. The patient was BIBA to the ED on 07/17 after being found unresponsive at home w shallow breathing 2? presumed opiate OD. An empty bottle of Percocet was found. No response to Narcan. He was intubated for airway protection immed on arrival to ED. Chest CT suggested aspiration pneumonitis. Also had rhabdo and LA, along with troponin elevation. The patient was admitted to the ICU. Echo showed mod decreased LV fxn, EF 30-35%, with a likely apical thrombus, mildly decreased RV function, and dilated common non collapsing inferior vena cava. RVSP was unable to be calculated. The patient was started on heparin drip. The patient was extubated on July 19, and was lethargic and significantly delirious. Acute kidney injury resolved. Empiric antibiotics were discontinued after 48 hours. MRI on July 20 showed ?Multiple areas of restricted diffusion scattered throughout the brain parenchyma, with symmetric involvement of the bilateral globus pallidus, focal involvement of the right caudate head, bilateral parasagittal subcortical white matter foci, and a single focus within the right lateral occipital lobe. The watershed distribution of the infarcts, and involvement of the globus pallidi (more sensitive to ischemia) suggested a hypoxic-ischemic insult.? On July 21, the patient acutely aspirated and required re-intubation. 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 Neurological prognosis was judged to be poor. F/u echo on July 25 showed normal LV fxn with EF 55-60%, and no RWMAs. F/u neuro exam on July 25 showed no cognitive fxn. Fever w/u on July 25 showed a UTI, and he was put on ceftriaxone. Urine grew sensitive E-coli. After mult discussions, family decided to proceed with tracheostomy and PEG. Yesterday the patient seemed to be showing some purposeful responsiveness. On neuro exam yesterday today, with propofol off, the patient?s eyes were fully open, but he was very minimally response. We started him yesterday on Provigil. Exam today is not significantly improved from yesterday. Eyes fully open, he?s clearly awake, but is demonstrating minimal cortical fxn. Pupils are equal round and very reactive to light, about 5 mm. On voice command, the patient does move his head and eyes slightly to the correct side, but only slightly, and he has no clear response to confrontation. There is no clear tracking. On command to show us 2 fingers or thumbs up, he made no response. Otherwise, he moves all 4 spontaneously. Gag reflex is markedly diminished. He?s been afebrile x 5days. Vital signs are dependent on his level of stimulation and the dose of esmolol he?s on. Propofol was turned on overnight for sedation and then turned off again at 9am. On exam today, HR is 89, SR. Blood pressure 175/107. He?s on esmolol at 100ug. On PSV 10/30%/+5 with fentanyl @ 25ug, respiratory rate is 18, tidal volume about 600cc, minute volume about 12L and end-tidal CO2 38, Sat 97%. Central venous blood gas showed 7.44/40/+3. There is no jugular venous distention with the head of the bed at about 30 degrees. Auscultation of the chest shows low pitched insp wheeze, with a normal expiratory phase. Abdomen is benign, he has no peripheral edema. U/O is averaging > 70cc/hr. LABORATORY DATA: As noted below. WBC is down. Abx: Ceftriaxone day# 5. IMPRESSION: 1. AMS on admission. Presumed 2? opiate OD. 2. Current encephalopathy. MRI suggests anoxic and embolic etiologies. He?s clearly ?awake? but severely encephalopathic. Does seem to be making some progress, but very slow, no response to Provigil, and diminished gag reflex. He?ll need a tracheostomy and PEG. We?ll plan that for tomorrow. Discussed with Dr. Kumari, Dr. Spaulding, and Dr. Luis. 3. Acute respiratory failure. Remains intubated primarily for airway control. 4. Aspiration pneumonitis. Resolving. 5. LA. 2? rhabdo and hypovolemia. Resolved. 6. CMOP. s/p ? NSTEMI. CMOP is resolved. 7. Nutrition. On tube feeds. Discussed condition, prognosis, and plans with brother Star, and consent obtained for PDT. Critical care time (including mult exams throughout the day): 60 min. Physical Exam Vital Signs: Vital Signs: Last Vital Signs Temp 98.8 F 07/30/20 14:00 Pulse 85 07/30/20 14:00 Resp 17 07/30/20 14:00 BP 161/91 H 07/30/20 14:00 Pulse Ox 96 07/30/20 14:00 Body Mass Index 31.9 Objective Data Labs CBC & Chem 7: 07/30/20 07:28 07/30/20 07:28 Labs: Laboratory Results - last 24 hr 07/30/20 07/30/20 07/30/20 07:28 07:28 07:32 WBC 10.4 RBC 4.29 L Hgb 14.2 Hct 42.9 MCV 100.0 H MCH 33.1 H MCHC 33.1 RDW 12.8 Plt Count 337 D MPV 10.6 Immature Gran % (Auto) 0.5 H Neut % (Auto) 72.4 Lymph % (Auto) 12.8 L [place] % (Auto) 12.0 H Eos % (Auto) 1.9 Baso % (Auto) 0.4 Lymph # (Auto) 1.3 [place] # (Auto) 1.3 H Eos # (Auto) 0.2 Baso # (Auto) 0.0 Abs Immat Gran (auto) 0.05 H Absolute Neuts (auto) 7.5 Absolute Nucleated RBC 0.000 Nucleated RBC % (auto) 0.0 VBG pH 7.44 H VBG pCO2 40 VBG pO2 149 VBG HCO3 27 H VBG O2 Saturation 99.0 VBG Base Excess 3.6 Sodium 141 Potassium 4.8 Chloride 105 Carbon Dioxide 27 Anion Gap 14 BUN 24 H Creatinine 0.69 Estim Creat Clear Calc 129.9 Estimated GFR > 60 Fasting Glucose 101 H Calcium 9.1 Microbiology Microbiology Results: Microbiology 07/25/20 20:23 Sputum - Suctioned Gram Stain - Final 07/25/20 20:23 Sputum - Suctioned Sputum Culture - Final 07/25/20 20:34 Blood - Venous Blood Culture - Preliminary No growth after 48 hours. 07/25/20 20:34 Blood - Venous Blood Culture - Preliminary No growth after 48 hours. 04/08/21 Unknown Urine [place] Urine Culture - Final Escherichia coli 07/17/20 19:28 Blood - Venous Blood Culture - Final No growth after 5 days. 07/17/20 19:20 Blood - Venous Blood Culture - Final No growth after 5 days. 07/19/20 10:02 Sputum - Suctioned Gram Stain - Final 07/19/20 10:02 Sputum - Suctioned Sputum Culture - Final Progress Note: A&P Time Spent With Patient Time: Total time spent is greater than 50% in coordination of care (as documented) at patient's floor/unit and/or counseling patient: Total time spent with greater than 50% in coordination of care (as documented) at patient's floor/unit and/or counseling patient:: 0 Critical Care Time Critical Care Time (minutes): 60
[2020-07-30 14:38] LABS: Glucose Urine UA NEG (NEG); Leukocyte Esterase Urine NEG (NEG); Nitrite Urine NEG (NEG); PH 6.5 (5.0-8.0); Urine Blood NEG (NEG); Urine Ketones NEG (NEG); Urine Protein NEG (NEG-TRACE)
[2020-07-30 14:39] LABS: Appearance Urine CLEAR; Color Urine YELLOW
--- NOTE | 2020-07-30 16:16 | PM.CNGS ---
History of Present Illness Consult details Consult date: 07/30/20 Narrative: 59-year-old male referred to me for a PEG tube placement. He was admitted to the hospital by the emergency room for altered mental status on July 17, 2020. This was deemed to be secondary to drug overdose with opiates. He apparently was intubated in the emergency room for airway protection and has been in the ICU since then. He was extubated last 07/19/2020 but had to be intubated 3 days later because of aspiration with subsequent pneumonia. He remains dependent on the ventilator for respiratory failure. He was also been diagnosed to have multiple cerebral infarctions since admission. He has had significant cognitive deficits but apparently has been noted to have some purposeful movements recently. He also also been manage for UTI in the ICU. He therefore was referred to me for PEG tube placement. Review of Systems Review of Systems: Yes unobtainable due to endotracheal tube and Unobtainable due to mental condition Constitutional: Constitutional: Denies fever(s) PMFSH Past Medical History Medical History Anxiety Depression Social History Social History Currently Displaying Signs/Symptoms of Drug Intoxication Withdrawal: No Advance Directives: No Advance Directives Information Provided: No Do you have thoughts of harming others: None Do you have a plan to hurt others: No Plan service: No Current occupational status: unemployed Meds Allergies Allergy/AdvReac Type Severity Reaction Status Date / Time No Known Allergies Allergy Unverified 01/04/20 15:51 [No Known Allergies*] Active Medications: Current Medications Generic Name Dose Route Start Last Admin Trade Name Freq PRN Reason Stop Dose Admin Chlorhexidine Gluconate 15 ml 07/21/20 09:00 07/30/20 15:05 Chlorhexidine Gluc Oral Rinse 15 Ml Mouthwash BUCCAL 15 ml TID GINNY Administration Enoxaparin Sodium 40 mg 07/31/20 21:00 Enoxaparin Sodium 40 Mg/0.4 Ml Syringe SUBCUT Q24H GINNY Fentanyl 50 mcg 07/29/20 08:42 Fentanyl Citrate/Pf 100 Mcg/2 Ml Vial IVPUSH Q5M PRN WOB Ceftriaxone Sodium 1 gm/ 50 mls @ 100 mls/hr 07/26/20 21:00 07/29/20 21:59 Sodium Chloride IV 07/31/20 01:00 Infused Q24H GINNY Infusion Propofol 1,000 mg in 100 mls @ 0 mls/hr 07/29/20 01:45 07/30/20 14:00 Diprivan IVCONT 20 mcg/kg/min .Q0M GINNY 11.93 mls/hr Titration Protocol Per Protocol Fentanyl 1,000 mcg in 100 mls @ 0 mls/hr 07/29/20 08:45 07/30/20 09:20 Sublimaze/Ns IVCONT 25 mcg/hr .Q0M GINNY 2.5 mls/hr Titration Protocol Per Protocol Esmolol HCl 2,500 mg in 250 mls @ 0 mls/hr 07/29/20 16:45 07/30/20 15:07 Brevibloc/Nacl IVCONT 0 mcg/kg/min .Q0M GINNY 0 mls/hr Titration Protocol Per Protocol Metoprolol Tartrate 25 mg 07/30/20 21:00 Metoprolol Tartrate 25 Mg Tablet G-TUBE BID [facility] Protocol Modafinil 200 mg 07/29/20 13:00 07/30/20 09:12 Modafinil 100 Mg Tablet OG-TUBE 200 mg DAILY [facility] Administration Home Medications Medication Instructions Recorded Confirmed Last Taken Type clonidine HCl 0.1 mg PO BID PRN 07/17/20 07/17/20 Unknown History fluoride (sodium) 1 appl PO BID 07/17/20 07/17/20 Unknown History gabapentin 100 mg PO BID 07/17/20 07/17/20 Unknown History mirtazapine 30 mg PO BEDTIME 07/17/20 07/17/20 Unknown History olanzapine 7.5 mg PO BID 07/17/20 07/17/20 Unknown History trazodone 50 - 100 mg PO BEDTIME PRN 07/17/20 07/17/20 Unknown History venlafaxine 75 mg PO DAILY 07/17/20 07/17/20 Unknown History Physical Exam Vital Signs: Vital Signs: Last Vital Signs Temp 99.1 F 07/30/20 16:00 Pulse 105 H 07/30/20 16:00 Resp 17 07/30/20 16:00 BP 148/102 H 07/30/20 16:00 Pulse Ox 97 07/30/20 16:00 Body Mass Index 31.9 Const: Other: Intubated, appears sedated, eyes however open spontaneously Resp: Other: On ventilator Cardio: Rhythm: regular rhythm GI: Other: Soft, nondistended, no guarding, no rebound, no obvious laparotomy scar but he does have what appears to a port site scar on the epigastric area Extrem: General: Yes no pedal edema Results Labs Result diagrams: 07/31/20 05:26 07/31/20 05:26 Labs: Abnormal lab results 07/30/20 07/30/20 07/30/20 Range/Units 07:28 07:28 07:32 RBC 4.29 L (4.60-5.80) X10*6/uL MCV 100.0 H (80-98) fL MCH 33.1 H (27.0-33.0) pg Immature Gran % (Auto) 0.5 H (0.0-0.4) % Lymph % (Auto) 12.8 L (20-40) % [place] % (Auto) 12.0 H (2-11) % [place] # (Auto) 1.3 H (0.1-1.2) X10*3/uL Abs Immat Gran (auto) 0.05 H (0.00-0.03) X10*3/uL VBG pH 7.44 H (7.32-7.43) VBG HCO3 27 H (22-26) mmol/L BUN 24 H (9-16) mg/dL Fasting Glucose 101 H (60-99) mg/dL Short CBC 07/30/20 Range/Units 07:28 WBC 10.4 (4.8-10.8) X10*3/uL Hgb 14.2 (14.0-18.0) g/dl Hct 42.9 (42-52) % Plt Count 337 D (160-400) X10*3/uL BMP 07/30/20 07:28 Sodium 141 Potassium 4.8 Chloride 105 Carbon Dioxide 27 BUN 24 H Creatinine 0.69 Calcium 9.1 Urine 07/25/20 07/30/20 Range/Units 20:23 14:25 Urine Color DARK YELLOW YELLOW Urine Appearance HAZY CLEAR Urine pH 6.0 6.5 (5.0-8.0) Ur Specific [place] 1.025 1.020 (1.005-1.025) Urine Protein TRACE NEG (NEG-TRACE) MG/DL Urine Glucose (UA) NEG NEG (NEG) MG/DL All other labs normal. Assessment and Plan (1) Anoxic encephalopathy: Status: Acute In view of his mental status, he remains ventilator-dependent. I have been therefore consulted to put a PEG tube in place. I had a long discussion with his brother Star Gustafson about the technique of PEG tube placement. I discussed with him the risks including but not limited to bleeding, infections, bowel injury, tube dislodgement, leak of, contents around the PEG tube, loss of airway, as well as the benefits and alternatives. Star has given consent. The PEG tube placement will be done in the OR after placement of a percutaneous tracheostomy by the english and reading instructor.
[2020-07-30] MEDS: cefTRIAXone sodium 1 GM in 0.9 % Sodium Chloride 50 ML IV (20:48)
[2020-07-31] VITALS (34 sets, daily range): BP systolic 81–208; BP diastolic 57–129; PULSE 67–121; RESP 8–31; TEMP 36.7–37.5; O2SAT 93–98; BMI 32.9
[2020-07-31] MEDS: propofoL 1,000 MG/100 ML VIAL 5.96 MG IVCONT (03:22)
[2020-07-31] MEDS: fentaNYL citrate/NS 1,000 MCG/100 ML PLAST..BAG 2.5 MCG IVCONT (05:34)
[2020-07-31 05:35] LABS: VBG HCO3 30 mmol/L (22-26); VBG pCO2 51 mmHg; VBG pH 7.37 (7.32-7.43); VBG pO2 47 mmHg
[2020-07-31 05:52] LABS: MANUAL DIFF FLAG NO
[2020-07-31 05:57] LABS: Basophils Absolute Auto 0.1 X10*3/uL (0.0-0.2); Basophils Percent Auto 0.5 % (0-2); Eosinophils Absolute Auto 0.2 X10*3/uL (0.0-0.4); Eosinophils Percent Auto 2.2 % (0-4); Hematocrit 42.9 % (42-52); Imm Gran Abs Auto 0.05 X10*3/uL (0.00-0.03); Imm Gran Pct Auto 0.5 % (0.0-0.4); Lymphocytes Absolute Auto 1.4 X10*3/uL (1.2-4.9); Lymphocytes Percent Auto 13.2 % (20-40); Mean Corpuscular HGB Conc 32.6 g/dl (31.0-36.0); Mean Corpuscular Hemoglobin 33.1 pg (27.0-33.0); Mean Corpuscular Volume 101.4 fL (80-98); Mean Platelet Volume 10.8 fL (9.4-12.4); Monocytes Absolute Auto 1.2 X10*3/uL (0.1-1.2); Monocytes Percent Auto 11.2 % (2-11); Neutrophils Absolute Auto 7.8 X10*3/uL (2.0-8.3); Neutrophils Percent Auto 72.4 % (45-73); Platelet Count 353 X10*3/uL (160-400); Red Blood Count 4.23 X10*6/uL (4.60-5.80); Red Cell Distribution Width 12.7 % (11.0-16.0); White Blood Count 10.8 X10*3/uL (4.8-10.8)
[2020-07-31 06:28] LABS: Anion Gap 12 (12-20); Blood Urea Nitrogen 26 mg/dL (9-16); Calcium 9.5 mg/dL (8.4-10.2); Carbon Dioxide 28 mmol/L (22-29); Chloride 106 mmol/L (96-108); Creatinine Clr Calc Pharmacy 128.1; Estimated Glomerular Filt Rate > 60; Glucose Random 84 mg/dL (60-115); Potassium 4.6 mmol/L (3.3-5.1); Sodium 141 mmol/L (135-145)
[2020-07-31] MEDS: modafiniL 100 MG TABLET 200 MG OG-TUBE (07:33)
[2020-07-31] MEDS: Chlorhexidine Gluc Oral Rinse 15 ML MOUTHWASH BUCCAL ×3 (07:33→20:26)
[2020-07-31] MEDS: Metoprolol Tartrate 25 MG TABLET G-TUBE ×2 (07:33→20:17)
[2020-07-31 08:33] LABS: Venous Blood Gas Refer to POC result
--- NOTE | 2020-07-31 09:24 | MHC.CLN ---
Addendum entered by Pam Reynolds, RD 07/31/20 09:26: PT CURRENTLY NPO FOR PEG/TRACH PLACEMENT WHEN TF TO RE-START CAN CONTINUE SAME FORMULA RECOMMEND PROMOTE AT 20CC/HR AND INCREASE BY 10CC Q 4 HRS UNTIL MAX GOAL IS REACHED WITH 240CC WATER FLUSH Q SHIFT MONITOR TOLERANCE, RESIDUALS AND LYTES Original Note: F/U PT SCHEDULED FOR PEG/TRACH PT CONTINUES RECEIVING TF PROMOTE AT MAX GOAL RATE 65CC/HR WITH WATER FLUSHES 240CC WATER FLUSHES Q SHIFT PROVIDES 1560KCALS (2110KCALS WITH SEDATION; 26KCALS/KG), 97.5G (1.2G/KG), 2028CC TOTAL WATER FROM FORMULA AND FLUSH (25CC/KG) TOLERATING WELL PER NSG MONITOR TOLERANCE, RESIDUALS AND LYTES
[2020-07-31] MEDS: propofoL 1,000 MG/100 ML VIAL 11.93 MG IVCONT (10:47)
--- NOTE | 2020-07-31 13:12 | MHC.CM.PN ---
Received call from pt's brother Star who states he has conversed with his siblings and pt's two semi involved sons, Wilbert and Eugene Felton and there is agreement with all that Star should be pt's legal guardian. Informed Dr. Storm of plan for [facility] to initiate guardianship per request of TORO as pt does not have a HCP and is unable to make decisions for himself. Also of note, pt's trach and peg placement will now occur on Wednesday, 08/02 per MD and not today as originally planned. CM will follow and will update TORO on surgical change.
[2020-07-31] MEDS: Esmolol HCl/NaCl Iso 2,500 MG/250 ML IV.SOLN 11.66 MG IVCONT (15:50)
--- NOTE | 2020-07-31 16:26 | PC.NURSE ---
1600 Pt initiated apnea alarm. RR 8-9 Vt 1100. Propofol/Fentanyl turned off. Pt eyes are open, does not follow commands. moves extremities. esmolol drip turned on and titrated up to 100mcg/kg/min to bring down HR and BP that elevate when off prop and fent.
[2020-07-31] MEDS: Esmolol HCl/NaCl Iso 2,500 MG/250 ML IV.SOLN 58.32 MG IVCONT (19:51)
[2020-07-31] MEDS: Enoxaparin Sodium 40 MG/0.4 ML SYRINGE SUBCUT (20:24)
--- NOTE | 2020-07-31 21:27 | PM.CCPN ---
Subjective Subjective Date of Service: 07/31/20 Interval History: Mr. Gustafson was admitted to ICU on July 17 with acute respiratory failure. The patient is a 59 yo M with h/o HTN and depression, on mult meds (clonidine, gabapentin, mirtazapine, olanzapine, trazodone, and venlafaxine), along with opiates for chronic pain. The patient was BIBA to the ED on 07/17 after being found unresponsive at home w shallow breathing 2? presumed opiate OD. An empty bottle of Percocet was found. No response to Narcan. He was intubated for airway protection immed on arrival to ED. Chest CT suggested aspiration pneumonitis. Also had rhabdo and LA, along with troponin elevation. The patient was admitted to the ICU. Echo showed mod decreased LV fxn, EF 30-35%, with a likely apical thrombus, mildly decreased RV function, and dilated common non collapsing inferior vena cava. RVSP was unable to be calculated. The patient was started on heparin drip. The patient was extubated on July 19, and was lethargic and significantly delirious. Acute kidney injury resolved. Empiric antibiotics were discontinued after 48 hours. MRI on July 20 showed ?Multiple areas of restricted diffusion scattered throughout the brain parenchyma, with symmetric involvement of the bilateral globus pallidus, focal involvement of the right caudate head, bilateral parasagittal subcortical white matter foci, and a single focus within the right lateral occipital lobe. The watershed distribution of the infarcts, and involvement of the globus pallidi (more sensitive to ischemia) suggested a hypoxic-ischemic insult.? On July 21, the patient acutely aspirated and required re-intubation. 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 Neurological prognosis was judged to be poor. F/u echo on July 25 showed normal LV fxn with EF 55-60%, and no RWMAs. F/u neuro exam on July 25 showed no cognitive fxn. Fever w/u on July 25 showed a UTI, and he was put on ceftriaxone. Urine grew sensitive E-coli. After mult discussions, family decided to proceed with tracheostomy and PEG. Over the past weekend, the patient woke up and seemed to be showing some purposeful responsiveness. Neuro exam over these last thre days however has been unchanged. He spontaneously opens eyes, but does not follow. He sometimes turns his head very slightly in the direction of verbal stimuli, but not consistently. No response to confrontation. Over the last two days he seemed to inconsistently start to make a small response to command, but very inconsistent and inconclusive. No response to command at all today. HR and BP intermittently rise, so we?ve been keeping him lightly sedated with propofol between exams. See Vital Signs. Breathing easy on low level PSV with Ve mostly He?s been afebrile x 6days. Started Provigil on July 29, no response. PERRL, about 6mm. Poor gag. Chest is clear. Abdomen benign. No edema. U/O is averaging > 60cc/hr. LABORATORY DATA: Below. All parameters steady. IMPRESSION: 1. AMS on admission. Presumed 2? opiate OD. 2. Current encephalopathy. MRI suggests anoxic and embolic etiologies. He?s clearly ?awake? but severely encephalopathic. Does seem to be making some questionable progress, but very, very slow. No response to Provigil, and diminished gag reflex. He?ll need a tracheostomy and PEG. We have that scheduled for August [address] Barboza. 3. Acute respiratory failure. Remains intubated primarily for airway control. 4. Aspiration pneumonitis. Resolving. 5. LA. 2? rhabdo and hypovolemia. Resolved. 6. CMOP. s/p ? NSTEMI. CMOP is resolved. 7. Nutrition. On tube feeds. Critical care time (including mult exams and medication adjustments throughout the day): 50 min. Physical Exam Vital Signs: Vital Signs: Last Vital Signs Temp 99.0 F 07/31/20 21:00 Pulse 93 07/31/20 21:00 Resp 16 07/31/20 21:00 BP 190/113 H 07/31/20 21:00 Pulse Ox 95 07/31/20 21:00 Body Mass Index 32.9 Objective Data Labs CBC & Chem 7: 07/31/20 05:26 07/31/20 05:26 Labs: Laboratory Results - last 24 hr 07/31/20 07/31/20 07/31/20 05:26 05:26 05:28 WBC 10.8 RBC 4.23 L Hgb 14.0 Hct 42.9 MCV 101.4 H MCH 33.1 H MCHC 32.6 RDW 12.7 Plt Count 353 MPV 10.8 Immature Gran % (Auto) 0.5 H Neut % (Auto) 72.4 Lymph % (Auto) 13.2 L [place] % (Auto) 11.2 H Eos % (Auto) 2.2 Baso % (Auto) 0.5 Lymph # (Auto) 1.4 [place] # (Auto) 1.2 Eos # (Auto) 0.2 Baso # (Auto) 0.1 Abs Immat Gran (auto) 0.05 H Absolute Neuts (auto) 7.8 Absolute Nucleated RBC 0.000 Nucleated RBC % (auto) 0.0 VBG pH 7.37 VBG pCO2 51 VBG pO2 47 VBG HCO3 30 H VBG O2 Saturation 74.0 VBG Base Excess 4.0 Sodium 141 Potassium 4.6 Chloride 106 Carbon Dioxide 28 Anion Gap 12 BUN 26 H Creatinine 0.71 Estim Creat Clear Calc 128.1 Estimated GFR > 60 Random Glucose 84 Calcium 9.5 Microbiology Microbiology Results: Microbiology 07/25/20 20:34 Blood - Venous Blood Culture - Final No growth after 5 days. 07/25/20 20:34 Blood - Venous Blood Culture - Final No growth after 5 days. 07/25/20 20:23 Sputum - Suctioned Gram Stain - Final 07/25/20 20:23 Sputum - Suctioned Sputum Culture - Final 07/25/20 Unknown Urine [place] Urine Culture - Final Escherichia coli 07/17/20 19:28 Blood - Venous Blood Culture - Final No growth after 5 days. 07/17/20 19:20 Blood - Venous Blood Culture - Final No growth after 5 days. 07/19/20 10:02 Sputum - Suctioned Gram Stain - Final 07/19/20 10:02 Sputum - Suctioned Sputum Culture - Final Critical Care Time Critical Care Time (minutes): 60
[2020-08-01] VITALS (50 sets, daily range): BP systolic 78–199; BP diastolic 47–109; PULSE 60–120; RESP 8–32; TEMP 36.1–37.3; O2SAT 92–98; BMI 33.0
[2020-08-01] MEDS: Esmolol HCl/NaCl Iso 2,500 MG/250 ML IV.SOLN 58.32 MG IVCONT (00:19)
[2020-08-01] MEDS: propofoL 1,000 MG/100 ML VIAL 11.93 MG IVCONT ×3 (00:19→17:25)
[2020-08-01] MEDS: fentaNYL citrate/PF 100 MCG/2 ML VIAL IVPUSH (00:33)
[2020-08-01] MEDS: fentaNYL citrate/PF 100 MCG/2 ML VIAL 50 MCG IVPUSH ×8 (01:30→20:30)
--- NOTE | 2020-08-01 03:41 | PC.NURSE ---
ASSUMED CARE OF PT AT 1900. PT ON PRESSURE SUPPORT 10/PEEP5 AND 30% FIO2. PROPOFOL AND FENTANYL DRIPS WERE BOTH OFF PT HAD BEEN HAVING APNEA PER REPORT. ESMOLOL DRIP WAS INFUSING AT 100 MCG/KG/MIN BUT LATER SHUT OFF HR WENT DOWN TO 70'S-80'S, NSR. HAD SOME PROBLEMS WITH HIGH BLOOD PRESSURE AT THE BEGINNING OF THE SHIFT AND THEN HIGH RESP RATE INTO THE 30'S. PROPOFOL WAS RESTARTED AT 20 MCG/KG/MIN. BIA DORMAN AT BEDSIDE AND ORDERED FENTANYL 100 MCG IV AND TO CHANGE VENT SETTINGS. RESP THERAPIST AT BEDSIDE AND INCREASED PRESSURE SUPPORT TO 20. PT IMPROVED BUT FENTANYL DID NOT LAST LONG AND PT RECEIVED 50 MCG OF FENTANYL 1 HOUR LATER. BP DROPPED TO 70'S SYSTOLIC BUT CAME BACK UP. FENTANYL WAS SHORT LIVED AGAIN AND RESP RATE WENT UP AND THUS LAKIA AMEZQUITA WANTED FENTANYL DRIP RESTARTED WHICH IT WAS AT 25 MCG/HR AFTER ANOTHER 50 MCG IV BOLUS. PT REQUIRED IV LEVOPHED TO MAINTAIN HIS BP MAP ABOVE 65. U/O GOOD. TUBE FEED SHUT OFF AT 0300 FOR POSSIBLE SURGURY TODAY FOR TRACH/PEG. PT ON SPECIAL CARE BED/MATTRESS. SKIN IS INTACT.
[2020-08-01 06:15] LABS: VBG Base Excess 3.4 mmol/L; VBG HCO3 29 mmol/L (22-26); VBG pCO2 50 mmHg; VBG pH 7.37 (7.32-7.43); VBG pO2 48 mmHg
[2020-08-01 06:25] LABS: Basophils Absolute Auto 0.1 X10*3/uL (0.0-0.2); Basophils Percent Auto 0.5 % (0-2); Eosinophils Absolute Auto 0.2 X10*3/uL (0.0-0.4); Eosinophils Percent Auto 1.9 % (0-4); Hemoglobin 13.7 g/dl (14.0-18.0); Imm Gran Abs Auto 0.06 X10*3/uL (0.00-0.03); Imm Gran Pct Auto 0.5 % (0.0-0.4); Lymphocytes Absolute Auto 1.8 X10*3/uL (1.2-4.9); Lymphocytes Percent Auto 15.7 % (20-40); MANUAL DIFF FLAG NO; Mean Corpuscular HGB Conc 32.6 g/dl (31.0-36.0); Mean Corpuscular Hemoglobin 33.2 pg (27.0-33.0); Mean Corpuscular Volume 101.7 fL (80-98); Mean Platelet Volume 10.7 fL (9.4-12.4); Monocytes Absolute Auto 1.3 X10*3/uL (0.1-1.2); Monocytes Percent Auto 11.1 % (2-11); Neutrophils Absolute Auto 8.2 X10*3/uL (2.0-8.3); Neutrophils Percent Auto 70.3 % (45-73); Platelet Count 438 X10*3/uL (160-400); Red Blood Count 4.13 X10*6/uL (4.60-5.80); Red Cell Distribution Width 12.6 % (11.0-16.0); White Blood Count 11.6 X10*3/uL (4.8-10.8)
[2020-08-01 06:51] LABS: Alanine Aminotransferase 63 U/L (0-40); Albumin Level 3.4 g/dL (3.5-5.0); Alkaline Phosphatase 101 U/L (39-117); Anion Gap 15 (12-20); Aspartate Amino Transferase 53 U/L (5-37); Bilirubin Total 0.7 mg/dL (0.0-1.0); Blood Urea Nitrogen 32 mg/dL (9-16); Calcium 9.4 mg/dL (8.4-10.2); Carbon Dioxide 27 mmol/L (22-29); Chloride 105 mmol/L (96-108); Creatinine Clr Calc Pharmacy 119.9; Estimated Glomerular Filt Rate > 60; Glucose Random 91 mg/dL (60-115); Potassium 4.8 mmol/L (3.3-5.1); Sodium 142 mmol/L (135-145); Total Protein 6.6 g/dL (6.5-8.0)
[2020-08-01 07:42] LABS: Venous Blood Gas Refer to POC result
[2020-08-01] MEDS: Chlorhexidine Gluc Oral Rinse 15 ML MOUTHWASH BUCCAL ×3 (08:06→20:26)
[2020-08-01] MEDS: propofoL 1,000 MG/100 ML VIAL 17.89 MG IVCONT (11:26)
--- NOTE | 2020-08-01 15:52 | MHC.CM.PN ---
Received call from Francine Ribera RN liasion at [facility]: she states her clinical director is requesting a court date for guardianship before pt can be placed at [facility]. Initially, she stated [facility] [place] need to submit [place] request to the court. Medical certificate is awaiting MD signature and should be submitted to [place] on 08/02. Pt is also scheduled for his trach/peg placement on the same date. Clinical updates will be remitted to [facility] following his procedures. CM will follow for d/c finalization
[2020-08-01] MEDS: fentaNYL citrate/NS 1,000 MCG/100 ML PLAST..BAG 5 MCG IVCONT (16:54)
[2020-08-01] MEDS: fentaNYL citrate/NS 1,000 MCG/100 ML PLAST..BAG 7.5 MCG IVCONT (17:10)
[2020-08-01] MEDS: Lactated Ringers 500 ML 999 ML IV (17:27)
[2020-08-01 17:53] LABS: Lactic Acid 1.1 mmol/L (0.5-2.0)
--- NOTE | 2020-08-01 18:14 | PM.CCPN ---
Subjective Subjective Date of Service: 08/01/20 Interval History: Mr. Gustafson was admitted to ICU on July 17 with acute respiratory failure. The patient is a 59 yo M with h/o HTN and depression, on mult meds (clonidine, gabapentin, mirtazapine, olanzapine, trazodone, and venlafaxine), along with opiates for chronic pain. The patient was BIBA to the ED on 07/17 after being found unresponsive at home w shallow breathing 2? presumed opiate OD. An empty bottle of Percocet was found. No response to Narcan. He was intubated for airway protection immed on arrival to ED. Chest CT suggested aspiration pneumonitis. Also had rhabdo and LA, along with troponin elevation. The patient was admitted to the ICU. Echo showed mod decreased LV fxn, EF 30-35%, with a likely apical thrombus, mildly decreased RV function, and dilated, non-collapsing inferior vena cava. RVSP was unable to be calculated. The patient was started on heparin drip. The patient was extubated on July 19, and was lethargic and significantly delirious. Acute kidney injury resolved. Empiric antibiotics were discontinued after 48 hours. MRI on July 20 showed ?Multiple areas of restricted diffusion scattered throughout the brain parenchyma, with symmetric involvement of the bilateral globus pallidus, focal involvement of the right caudate head, bilateral parasagittal subcortical white matter foci, and a single focus within the right lateral occipital lobe. The watershed distribution of the infarcts, and involvement of the globus pallidi (more sensitive to ischemia) suggested a hypoxic-ischemic insult.? On July 21, the patient acutely aspirated and required re-intubation. 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 Neurological prognosis was judged to be poor. F/u echo on July 25 showed normal LV fxn with EF 55-60%, and no RWMAs. F/u neuro exam on July 25 showed no cognitive fxn. Fever w/u on July 25 showed a UTI, and he was put on ceftriaxone. Urine grew sensitive E-coli. F/U u/a on 07/30 was negative. After mult discussions, family decided to proceed with tracheostomy and PEG. Over the past weekend, the patient woke up and seemed to be showing some purposeful responsiveness. Over the last 4 days that I?ve taken care of him, he?s been awake with eyes open, but demonstrated little cognitive function. Inconsistently, he has sometimes moved his head toward the sound of verbal stimuli, but he doesn?t track and has no clear response to confrontation. Once or twice he seemed to move his hand slightly to show us two fingers on command, but it was only once or twice during the entire week. No response at all to command today. Overall, no neurological progress at all this week. But his sympathetic tone has been very active and labile, katelyn today, requiring mult fentanyl boluses and freq esmolol infusions, and going up and down on the propofol drip, which we haven?t been able to discontinue completely bec he gets very agitated and dysynchronus with the ventilator. SBP has ranged from 170?s-80 range, HRs 70s-120?s, RR from 11-20s. Generally breathing easy on PSV. CVBG this morning showed 7.37/50/+3. He?s been afebrile for days. Started Provigil on July 29, with no response. PERRL, about 5mm. Poor gag. Chest is clear. Abdomen benign. No edema. U/O is averaging > 35-40cc/hr. LABORATORY DATA: Below. BUN/creat up slightly to 32/0.7. Lactate 1.1. I gave him a bolus of LR. IMPRESSION: 1. AMS on admission. Presumed 2? opiate OD. 2. Current encephalopathy. MRI suggests anoxic and embolic etiologies. He?s clearly ?awake? but severely encephalopathic. Does seem to be making some questionable progress, but very, very slow. No response to Provigil, and diminished gag reflex. He?ll need a tracheostomy and PEG. We have that scheduled for tomorrow w Dr. Barboza. I?m going to start him on Seroquel 50 mg bid. 3. Acute respiratory failure. Remains intubated primarily for airway control. No evidence that he can be extubated safely. 4. Aspiration pneumonitis. Resolved. 5. LA. 2? rhabdo and hypovolemia. Resolved. May be a little on the dry side now. I?ll give him another 500cc bolus. 6. CMOP. s/p ? NSTEMI. CMOP is resolved. 7. Nutrition. On tube feeds. Critical care time (including mult exams and medication adjustments throughout the day): 60+ min. Physical Exam Vital Signs: Vital Signs: Last Vital Signs Temp 98.4 F 08/01/20 16:00 Pulse 82 08/01/20 16:00 Resp 28 H 08/01/20 17:19 BP 122/75 08/01/20 16:00 Pulse Ox 95 08/01/20 16:00 Body Mass Index 33.0 Objective Data Labs CBC & Chem 7: 08/01/20 05:27 08/01/20 05:27 Labs: Laboratory Results - last 24 hr 08/01/20 08/01/20 08/01/20 05:26 05:27 05:27 WBC 11.6 H RBC 4.13 L Hgb 13.7 L Hct 42.0 MCV 101.7 H MCH 33.2 H MCHC 32.6 RDW 12.6 Plt Count 438 H MPV 10.7 Immature Gran % (Auto) 0.5 H Neut % (Auto) 70.3 Lymph % (Auto) 15.7 L [place] % (Auto) 11.1 H Eos % (Auto) 1.9 Baso % (Auto) 0.5 Lymph # (Auto) 1.8 [place] # (Auto) 1.3 H Eos # (Auto) 0.2 Baso # (Auto) 0.1 Abs Immat Gran (auto) 0.06 H Absolute Neuts (auto) 8.2 Absolute Nucleated RBC 0.000 Nucleated RBC % (auto) 0.0 VBG pH 7.37 VBG pCO2 50 VBG pO2 48 VBG HCO3 29 H VBG O2 Saturation 78.0 VBG Base Excess 3.4 Sodium 142 Potassium 4.8 Chloride 105 Carbon Dioxide 27 Anion Gap 15 BUN 32 H Creatinine 0.76 Estim Creat Clear Calc 119.9 Estimated GFR > 60 Random Glucose 91 Lactic Acid Calcium 9.4 Total Bilirubin 0.7 AST 53 H ALT 63 H Alkaline Phosphatase 101 D Total Protein 6.6 Albumin 3.4 L Blood Type Antibody Screen 08/01/20 08/01/20 17:11 17:20 WBC RBC Hgb Hct MCV MCH MCHC RDW Plt Count MPV Immature Gran % (Auto) Neut % (Auto) Lymph % (Auto) [place] % (Auto) Eos % (Auto) Baso % (Auto) Lymph # (Auto) [place] # (Auto) Eos # (Auto) Baso # (Auto) Abs Immat Gran (auto) Absolute Neuts (auto) Absolute Nucleated RBC Nucleated RBC % (auto) VBG pH VBG pCO2 VBG pO2 VBG HCO3 VBG O2 Saturation VBG Base Excess Sodium Potassium Chloride Carbon Dioxide Anion Gap BUN Creatinine Estim Creat Clear Calc Estimated GFR Random Glucose Lactic Acid 1.1 Calcium Total Bilirubin AST ALT Alkaline Phosphatase Total Protein Albumin Blood Type A Negative Antibody Screen NEGATIVE Microbiology Microbiology Results: Microbiology 07/25/20 20:34 Blood - Venous Blood Culture - Final No growth after 5 days. 07/25/20 20:34 Blood - Venous Blood Culture - Final No growth after 5 days. 07/25/20 20:23 Sputum - Suctioned Gram Stain - Final 07/25/20 20:23 Sputum - Suctioned Sputum Culture - Final 07/25/20 Unknown Urine [place] Urine Culture - Final Escherichia coli 07/17/20 19:28 Blood - Venous Blood Culture - Final No growth after 5 days. 07/17/20 19:20 Blood - Venous Blood Culture - Final No growth after 5 days. 07/19/20 10:02 Sputum - Suctioned Gram Stain - Final 07/19/20 10:02 Sputum - Suctioned Sputum Culture - Final Critical Care Time Critical Care Time (minutes): 60
[2020-08-01] MEDS: Enoxaparin Sodium 40 MG/0.4 ML SYRINGE SUBCUT (20:26)
--- NOTE | 2020-08-01 20:27 | PC.NURSE ---
Assumed care at 0700; Patient continues with #8 ETT, 26 cm betsy; on Pressure support settings, 15/7; 30% fio2, spo2 in low 90's%; minute volumes around 6; RR from 32 to as low as 8. Afebrile. Patient was sedate on fentanyl, propfol, and was on levophed. Patient did have sedation holiday today, at 1033, not well tolerated, tachycardia, tachypnea, increased WOB with accessory muscle use and abdominal breathing, sedation turned back on, but blood pressure very labile, difficult to keep work of breathing under control without lower BP. Patient BP ranged from 70's/40's to 190's/110; MD aware; esmolol low dose gtt was titrated per MD. Levophed was turned off. Fentanyl PRN 50 mcg was given 4 times for increased WOB with good effect, but BP was soft at times afterward. LR bolus 500 ccs was administered, double checked with MD, as BP had already recovered and was 150's-170's systolic when administering 500 cc bolus. Sinus rhythm to sinus tachycardia in the 110's-120's range. Due to low blood pressures, blood cx were taken; lactic acid was drawn and was 1.1. urine output around 30-100 per hour. no BM nor flatus noted today; markedly hypoactive bowel sounds. was NPO overnight, but restarted diet today with MD seay, well tolerated promote at 20 cc/hour, increased to 30; 240 ccs h2o flushes q8 hours, plan for tracheostomy tomorrow at 1500. will be NPO overnight. Patient family updated, added secondary contact Latonia Lew with [facility] from primary contact. skin intact, but has pink blanchable buttocks; blanchable red mali to right lower back; bruising scattered through arms and abdomen.
[2020-08-01] MEDS: QUEtiapine Fumarate 50 MG TABLET G-TUBE (22:46)
[2020-08-01] MEDS: Lactated Ringers 500 ML IV (22:47)
[2020-08-02] VITALS (29 sets, daily range): BP systolic 91–167; BP diastolic 50–103; PULSE 55–121; RESP 6–21; TEMP 36.4–37.6; O2SAT 91–100; BMI 32.2
[2020-08-02] MEDS: propofoL 1,000 MG/100 ML VIAL 17.89 MG IVCONT ×4 (00:11→22:14)
[2020-08-02] MEDS: fentaNYL citrate/NS 1,000 MCG/100 ML PLAST..BAG 7.5 MCG IVCONT (02:38)
[2020-08-02 06:12] LABS: VBG Base Excess 2.5 mmol/L; VBG HCO3 26 mmol/L (22-26); VBG pCO2 38 mmHg; VBG pH 7.44 (7.32-7.43); VBG pO2 87 mmHg
[2020-08-02 06:25] LABS: MANUAL DIFF FLAG NO
[2020-08-02 06:41] LABS: Basophils Absolute Auto 0.1 X10*3/uL (0.0-0.2); Basophils Percent Auto 0.9 % (0-2); Eosinophils Absolute Auto 0.5 X10*3/uL (0.0-0.4); Eosinophils Percent Auto 5.5 % (0-4); Hemoglobin 12.8 g/dl (14.0-18.0); Imm Gran Abs Auto 0.03 X10*3/uL (0.00-0.03); Imm Gran Pct Auto 0.3 % (0.0-0.4); Lymphocytes Absolute Auto 2.1 X10*3/uL (1.2-4.9); Lymphocytes Percent Auto 23.1 % (20-40); Mean Corpuscular HGB Conc 32.8 g/dl (31.0-36.0); Mean Corpuscular Hemoglobin 33.2 pg (27.0-33.0); Mean Platelet Volume 10.7 fL (9.4-12.4); Monocytes Percent Auto 11.3 % (2-11); Neutrophils Absolute Auto 5.3 X10*3/uL (2.0-8.3); Neutrophils Percent Auto 58.9 % (45-73); Platelet Count 373 X10*3/uL (160-400); Red Blood Count 3.86 X10*6/uL (4.60-5.80); Red Cell Distribution Width 12.6 % (11.0-16.0)
[2020-08-02 07:10] LABS: Alanine Aminotransferase 60 U/L (0-40); Albumin Level 3.3 g/dL (3.5-5.0); Alkaline Phosphatase 92 U/L (39-117); Anion Gap 15 (12-20); Aspartate Amino Transferase 51 U/L (5-37); Bilirubin Total 0.7 mg/dL (0.0-1.0); Blood Urea Nitrogen 31 mg/dL (9-16); Calcium 8.8 mg/dL (8.4-10.2); Carbon Dioxide 25 mmol/L (22-29); Chloride 103 mmol/L (96-108); Creatinine Clr Calc Pharmacy 138.4; Estimated Glomerular Filt Rate > 60; Glucose Random 82 mg/dL (60-115); Potassium 4.2 mmol/L (3.3-5.1); Sodium 139 mmol/L (135-145); Total Protein 6.3 g/dL (6.5-8.0)
[2020-08-02 07:25] LABS: Venous Blood Gas Refer to POC result
[2020-08-02 09:34] LABS: INTERNATIONAL NORM RATIO 1.1 (0.9-1.1); Prothrombin Time 12.6 SEC (10.8-13.0)
[2020-08-02] MEDS: Chlorhexidine Gluc Oral Rinse 15 ML MOUTHWASH BUCCAL ×3 (09:48→21:25)
[2020-08-02] MEDS: QUEtiapine Fumarate 50 MG TABLET G-TUBE (09:48)
[2020-08-02] MEDS: modafiniL 100 MG TABLET 200 MG OG-TUBE (09:48)
[2020-08-02] MEDS: propofoL 1,000 MG/100 ML VIAL 11.93 MG IVCONT (09:57)
--- NOTE | 2020-08-02 10:54 | MHC.CLN ---
F/U PT SCHEDULED FOR PEG/TRACH PT IS CURRENTLY NPO RECOMMEND TF JEVITY 1.0 AT MAX GOAL RATE 75CC/HR WITH WATER FLUSHES 240CC WATER FLUSHES Q 6HRS PROVIDES 1908KCALS (23KCALS/KG), 80G (1.0G/KG), 2463CC TOTAL WATER FROM FORMULA AND FLUSH (30CC/KG) START JEVITY AT 20CC/HR AND INCREASE BY 10CC Q 4 HRS UNTIL MAX GOAL OF 75CC/HR IS REACHED MONITOR TOLERANCE, RESIDUALS AND LYTES
[2020-08-02] MEDS: Alteplase Cath Clear 2 MG VIAL INTRACATH ×3 (11:02)
--- NOTE | 2020-08-02 11:55 | P.PNCC_ITS ---
Subjective Subjective Date of Service: 08/02/20 Interval History: Mr. Gustafson was admitted to ICU on July 17 with acute respiratory failure. The patient is a 59 yo M with h/o HTN and depression, on mult meds (clonidine, gabapentin, mirtazapine, olanzapine, trazodone, and venlafaxine), along with opiates for chronic pain. The patient was BIBA to the ED on 07/17 after being found unresponsive at home w shallow breathing 2? presumed opiate OD. An empty bottle of Percocet was found. No response to Narcan. He was intubated for airway protection immed on arrival to ED. Chest CT suggested aspiration pneumonitis. Also had rhabdo and LA, along with troponin elevation. The patient was admitted to the ICU. Echo showed mod decreased LV fxn, EF 30-35%, with a likely apical thrombus, mildly decreased RV function, and dilated, non-collapsing inferior vena cava. RVSP was unable to be calculated. The patient was started on heparin drip. The patient was extubated on July 19, and was lethargic and significantly delirious. Acute kidney injury resolved. Empiric antibiotics were discontinued after 48 hours. MRI on July 20 showed ?Multiple areas of restricted diffusion scattered throughout the brain parenchyma, with symmetric involvement of the bilateral globus pallidus, focal involvement of the right caudate head, bilateral parasagittal subcortical white matter foci, and a single focus within the right lateral occipital lobe. The watershed distribution of the infarcts, and involvement of the globus pallidi (more sensitive to ischemia) suggested a hypoxic-ischemic insult.? On July 21, the patient acutely aspirated and required re-intubation. 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 Neurological prognosis was judged to be poor. F/u echo on July 25 showed normal LV fxn with EF 55-60%, and no RWMAs. F/u neuro exam on July 25 showed no cognitive f xn. Fever w/u on July 25 showed a UTI, and he was put on ceftriaxone. Urine grew sensitive E-coli. F/U u/a on 07/30 was negative. After mult discussions, family decided to proceed with tracheostomy and PEG. Over the July 27- weekend, the patient woke up and seemed to be showing some purposeful responsiveness. Since then, he?s been awake with eyes open, but he?s demonstrated little cognitive function. Inconsistently, he?s sometimes moved his head toward the sound of verbal stimuli, but he doesn?t track and has no clear response to confrontation. Once or twice he seemed to move his hand slightly to show us two fingers on command, but it was only once or twice during the entire week. Best neuro response today is opens eyes to verbal stimulation. Overall, no neurological progress at all this week. But his sympathetic tone has been very active and labile, katelyn yesterday, requiring mult fentanyl boluses and freq esmolol infusions, and going up and down on the propofol drip, which we haven?t been able to discontinue completely bec he gets very agitated and dysynchronus with the ventilator. SBP was ranging from 170?s-80 range, HRs 70s- 120?s, RR from 11-20s. Yesterday I started him on Seroquel 50mg bid. He?d definitely calmer with the propofol off today. HR, BP, and RR don?t go up as high. Generally breathing easy on PSV 10/30%/+7, with RR 15-17 when stimulated, Vt 700, Ve 13L, ETCO2 34, Sat 94%. CVBG this morning showed 7.44/38/+2. He?s been afebrile for days. Started Provigil on July 29, with no response. PERRL, about 5mm. Poor gag. Chest is clear. Abdomen benign. No edema. U/O is averaging > 60cc/hr. LABORATORY DATA: Below. BUN/creat down slightly to 31/0.6 after a liter bolus of LR yesterday. IMPRESSION: 1. AMS on admission, presumed 2? opiate OD. 2. Current encephalopathy. MRI suggests anoxic and embolic etiologies. He?s clearly ?awake? but severely encephalopathic. Does seem to be making some questionable progress, but very, very slow. No response to Provigil, and diminished gag reflex. He?ll need a tracheostomy and PEG. We have that scheduled for today. Nice response so far to Seroquel 50 mg bid, seems much less sympathetically activated. 3. Acute respiratory failure. Remains intubated primarily for airway control. No evidence that he could be extubated safely. 4. Aspiration pneumonitis. Resolved. 5. LA. 2? rhabdo and hypovolemia. Resolved. May be a little on the dry side now, but he?s making good urine. 6. CMOP. s/p ? NSTEMI. CMOP is resolved. 7. Nutrition. On tube feeds. Critical care time (excluding procedures): 45 min. Physical Exam Vital Signs: Vital Signs: Last Vital Signs Temp 98.1 F 08/02/20 11:00 Pulse 107 H 08/02/20 11:00 Resp 10 L 08/02/20 11:00 BP 115/73 08/02/20 11:00 Pulse Ox 96 08/02/20 11:00 Body Mass Index 32.2 Objective Data Labs CBC & Chem 7: 08/02/20 06:12 08/02/20 06:12 Labs: Laboratory Results - last 24 hr 08/01/20 08/01/20 08/02/20 17:11 17:20 06:06 WBC RBC Hgb Hct MCV MCH MCHC RDW Plt Count MPV Immature Gran % (Auto) Neut % (Auto) Lymph % (Auto) [place] % (Auto) Eos % (Auto) Baso % (Auto) Lymph # (Auto) [place] # (Auto) Eos # (Auto) Baso # (Auto) Abs Immat Gran (auto) Absolute Neuts (auto) Absolute Nucleated RBC Nucleated RBC % (auto) PT INR VBG pH 7.44 H VBG pCO2 38 VBG pO2 87 VBG HCO3 26 VBG O2 Saturation 97.0 VBG Base Excess 2.5 Sodium Potassium Chloride Carbon Dioxide Anion Gap BUN Creatinine Estim Creat Clear Calc Estimated GFR Random Glucose Lactic Acid 1.1 Calcium Total Bilirubin AST ALT Alkaline Phosphatase Total Protein Albumin Blood Type A Negative Antibody Screen NEGATIVE 08/02/20 08/02/20 08/02/20 06:12 06:12 09:17 WBC 9.0 RBC 3.86 L Hgb 12.8 L Hct 39.0 L MCV 101.0 H MCH 33.2 H MCHC 32.8 RDW 12.6 Plt Count 373 MPV 10.7 Immature Gran % (Auto) 0.3 Neut % (Auto) 58.9 Lymph % (Auto) 23.1 [place] % (Auto) 11.3 H Eos % (Auto) 5.5 H Baso % (Auto) 0.9 Lymph # (Auto) 2.1 [place] # (Auto) 1.0 Eos # (Auto) 0.5 H Baso # (Auto) 0.1 Abs Immat Gran (auto) 0.03 Absolute Neuts (auto) 5.3 Absolute Nucleated RBC 0.000 Nucleated RBC % (auto) 0.0 PT 12.6 INR 1.1 VBG pH VBG pCO2 VBG pO2 VBG HCO3 VBG O2 Saturation VBG Base Excess Sodium 139 Potassium 4.2 Chloride 103 Carbon Dioxide 25 Anion Gap 15 BUN 31 H Creatinine 0.65 Estim Creat Clear Calc 138.4 Estimated GFR > 60 Random Glucose 82 Lactic Acid Calcium 8.8 D Total Bilirubin 0.7 AST 51 H ALT 60 H Alkaline Phosphatase 92 Total Protein 6.3 L Albumin 3.3 L Blood Type Antibody Screen Microbiology Microbiology Results: Microbiology 07/25/20 20:34 Blood - Venous Blood Culture - Final No growth after 5 days. 07/25/20 20:34 Blood - Venous Blood Culture - Final No growth after 5 days. 07/25/20 20:23 Sputum - Suctioned Gram Stain - Final 07/25/20 20:23 Sputum - Suctioned Sputum Culture - Final 07/25/20 Unknown Urine [place] Urine Culture - Final Escherichia coli 07/17/20 19:28 Blood - Venous Blood Culture - Final No growth after 5 days. 07/17/20 19:20 Blood - Venous Blood Culture - Final No growth after 5 days. 07/19/20 10:02 Sputum - Suctioned Gram Stain - Final 07/19/20 10:02 Sputum - Suctioned Sputum Culture - Final
--- NOTE | 2020-08-02 13:30 | PC.NURSE ---
Addendum entered by Rosa Elena Birmingham RN 08/02/20 18:25: ABEFRILE, VSS. LEVOPHED GTT OFF AT 1057. FENTANYL GTT TURNED OFF AT 1057. REMAINS ON PROPOFOL AT 30 MCG/KG/MIN. SEDATION VACATION FROM [id number]. ENDED DUE TO INCREASED HR AND BP, UNABLE TO FOLLOW COMMANDS. NO BLOOD RETURN NOTED ON ALL THREE PORTS OF TLC, MD NOTIFIED AND ORDERED CATH FLOW. ADMINISTERED WITH POSITIVE EFFECT X 3. TLC DRESSING AND CLAVES CHANGED. TUBE FEEDS REMAIN ON HOLD UNTIL OTHERWISE ORDERED. BATHED, Q2HR REPO, BARRIER CREAM APPLIED, AIRLOSS BED, PREVALON, HEELBOS, AND PILLOWS UTILIZED. Addendum entered by Rosa Elena Birmingham RN 08/02/20 14:41: BACK FROM OR WITH TRACH AND PEG. PORTEX 8.0. VENT SETTING PS 10/7 30%. LARGE AMOUNT OF INLINE BLOODY SECTIONS NOTED. HCP CALLED AND UPDATED. Original Note: OFF UNIT AT 1313 TO OR FOR TRACH AND PEG. HCP CALLED AND NOTIFIED.
--- NOTE | 2020-08-02 13:48 | HO.ANESPROP2 ---
Documented by User: Ghada Michael 08/02/20 14:44 [facility] Past Medical History Medical History Anxiety Depression Social History Social History Currently Displaying Signs/Symptoms of Drug Intoxication Withdrawal: No Advance Directives: No Advance Directives Information Provided: No Do you have thoughts of harming others: None Do you have a plan to hurt others: No Plan service: No Current occupational status: unemployed Meds Allergies Allergy/AdvReac Type Severity Reaction Status Date / Time No Known Allergies Allergy Unverified 01/04/20 15:51 [No Known Allergies*] Home Medications Medication Instructions Recorded Confirmed Last Taken Type clonidine HCl 0.1 mg PO BID PRN 07/17/20 07/17/20 Unknown History fluoride (sodium) 1 appl PO BID 07/17/20 07/17/20 Unknown History gabapentin 100 mg PO BID 07/17/20 07/17/20 Unknown History mirtazapine 30 mg PO BEDTIME 07/17/20 07/17/20 Unknown History olanzapine 7.5 mg PO BID 07/17/20 07/17/20 Unknown History trazodone 50 - 100 mg PO BEDTIME PRN 07/17/20 07/17/20 Unknown History venlafaxine 75 mg PO DAILY 07/17/20 07/17/20 Unknown History Exam Airway Mallampati Class: II TM Dist: >3cm Neck ROM: Full Heart: RRR Lungs: on vent Assessment and Plan Assessment Anesthesia Assessment: Anesthesia Plan Discussed and Chart Reviewed Final Anesthetic Review NPO: Yes ASA Class: IV Final Preanesthetic Review: No Changes in Pt Med Stat and Consent Obtained/Reviewed Patient Risk: Intermediate Procedure Risk: Intermediate Anesthetic Plan Anesthetic Plan: GA Disposition: Inp. Admit - ICU (Returning back to ICU) Documented by User: Deejay Townsend MD 08/06/20 07:22 [facility] Active Problems Active Problems: All Active Problems (Updated 07/21/20 @ 09:53 by Naz Dinh MD) Anoxic encephalopathy (Acute) Multiple cerebral infarctions (Acute) Encephalopathy (Acute) NSTEMI (non-ST elevated myocardial infarction) (Acute) Cardiomyopathy (Acute) Toxic encephalopathy (Acute) Metabolic acidosis (Acute) Elevated troponin (Acute) Hyperkalemia (Acute) LA (acute kidney injury) (Acute) Rhabdomyolysis (Acute) Aspiration into airway (Acute) Acute respiratory failure (Acute) Respiratory failure (Acute) Past Medical History Medical History Anxiety Depression Social History Social History Currently Displaying Signs/Symptoms of Drug Intoxication Withdrawal: No Advance Directives: No Advance Directives Information Provided: No Do you have thoughts of harming others: None Do you have a plan to hurt others: No Plan service: No Current occupational status: unemployed Meds Allergies Allergy/AdvReac Type Severity Reaction Status Date / Time No Known Allergies Allergy Unverified 01/04/20 15:51 [No Known Allergies*] Active Medications: Current Medications Generic Name Dose Route Start Last Admin Trade Name Freq PRN Reason Stop Dose Admin Chlorhexidine Gluconate 15 ml 07/21/20 09:00 08/02/20 09:48 Chlorhexidine Gluc Oral Rinse 15 Ml Mouthwash BUCCAL 15 ml TID GINNY Administration Enoxaparin Sodium 40 mg 07/31/20 21:00 08/01/20 20:26 Enoxaparin Sodium 40 Mg/0.4 Ml Syringe SUBCUT 40 mg Q24H GINNY Administration Fentanyl 50 mcg 07/29/20 08:42 08/01/20 20:30 Fentanyl Citrate/Pf 100 Mcg/2 Ml Vial IVPUSH 50 mcg Q5M PRN Administration WOB Propofol 1,000 mg in 100 mls @ 0 mls/hr 07/29/20 01:45 08/02/20 11:47 Diprivan IVCONT 30 mcg/kg/min .Q0M GINNY 17.89 mls/hr Titration Protocol Per Protocol Fentanyl 1,000 mcg in 100 mls @ 0 mls/hr 07/29/20 08:45 08/02/20 10:57 Sublimaze/Ns IVCONT 0 mcg/hr .Q0M GINNY 0 mls/hr Titration Protocol Per Protocol Esmolol HCl 2,500 mg in 250 mls @ 0 mls/hr 07/29/20 16:45 08/02/20 10:06 Brevibloc/Nacl IVCONT Infused .Q0M GINNY Titration Protocol Per Protocol Norepinephrine Bitartrate 8 mg in 250 mls @ 0 mls/hr 08/01/20 03:00 08/02/20 10:57 Levophed IVCONT 0 mcg/kg/min .Q0M GINNY 0 mls/hr Titration Protocol Per Protocol Cefazolin Sodium/Dextrose 2 gm in 50 mls @ 100 mls/hr 08/02/20 14:46 Ancef IV ONCE GINNY Modafinil 200 mg 07/29/20 13:00 08/02/20 09:48 Modafinil 100 Mg Tablet OG-TUBE 200 mg DAILY GINNY Administration Quetiapine Fumarate 50 mg 08/01/20 21:15 08/02/20 09:48 Quetiapine Fumarate 50 Mg Tablet G-TUBE 50 mg BID GINNY Administration Home Medications Medication Instructions Recorded Confirmed Last Taken Type clonidine HCl 0.1 mg PO BID PRN 07/17/20 07/17/20 Unknown History fluoride (sodium) 1 appl PO BID 07/17/20 07/17/20 Unknown History gabapentin 100 mg PO BID 07/17/20 07/17/20 Unknown History mirtazapine 30 mg PO BEDTIME 07/17/20 07/17/20 Unknown History olanzapine 7.5 mg PO BID 07/17/20 07/17/20 Unknown History trazodone 50 - 100 mg PO BEDTIME PRN 07/17/20 07/17/20 Unknown History venlafaxine 75 mg PO DAILY 07/17/20 07/17/20 Unknown History Exam Exam Date and Time: August 02, 2020 1348 Height,Weight and Vital Signs: Height 5 ft 9 in Weight 99 kg Last Vital Signs Temp 98.8 F 08/02/20 12:04 Pulse 120 H 08/02/20 12:04 Resp 14 08/02/20 12:04 BP 143/99 H 08/02/20 12:04 Pulse Ox 92 08/02/20 12:04 Pertinent Lab Results Pertinent Lab Results: Laboratory Tests 07/17/20 07/17/20 07/17/20 18:18 18:18 18:18 WBC 14.5 H RBC 4.77 Hgb 16.1 Hct 50.0 MCV 104.8 H MCH 33.8 H MCHC 32.2 RDW 12.4 Plt Count 252 MPV 10.7 Immature Gran % (Auto) 0.7 H Neut % (Auto) 83.5 H Lymph % (Auto) 6.1 L Garrett % (Auto) 9.6 Eos % (Auto) 0.0 Baso % (Auto) 0.1 Lymph # (Auto) 0.9 L Garrett # (Auto) 1.4 H Eos # (Auto) 0.0 Baso # (Auto) 0.0 Abs Immat Gran (auto) 0.10 H Absolute Neuts (auto) 12.1 H Absolute Nucleated RBC 0.000 Nucleated RBC % (auto) 0.0 Smear Tech's Comments PT 11.8 INR 1.0 APTT PTT (Heparin Protocol) O2 Saturation ABG pH at Pt Temp ABG pH (Temp Correct) ABG pCO2 at Pt Temp ABG pCO2 (Temp Corrct ABG pO2 at Pt Temp ABG pO2 (Temp Correct ABG HCO3 ABG Base Excess (Actual) VBG pH VBG pCO2 VBG pO2 VBG HCO3 VBG O2 Saturation VBG Base Excess Sodium 137 Potassium 5.5 H Chloride 96 Carbon Dioxide 23 Anion Gap 24 H BUN 14 Creatinine 3.44 H Estim Creat Clear Calc 25.7 Estimated GFR 18 POC Glucose Random Glucose 112 Fasting Glucose Lactic Acid Lactic Acid Fup @ 2Hr Lactic Acid Fup @ 4Hr Calcium 8.4 Phosphorus 8.5 H Magnesium 1.9 Total Bilirubin 0.6 Direct Bilirubin 0.3 AST 30 ALT 24 Alkaline Phosphatase 123 H Ammonia Total Creatine Kinase Troponin I High Sens B-Natriuretic Peptide Total Protein 7.7 Albumin 4.2 Urine Color Urine Appearance Urine pH Ur Specific [place] Urine Protein Urine Glucose (UA) Urine Ketones Urine Blood Urine Nitrite Ur Leukocyte Esterase Urine RBC Urine WBC Urine WBC Clumps Ur Squamous Epith Cells Ur Renal Epithelial Cell Urine Bacteria Urine Mucus Salicylates < 5.0 L Urine Opiates Screen Acetaminophen < 1 Ur Barbiturates Screen Ur Phencyclidine Scrn Ur Amphetamines Screen U Benzodiazepines Scrn Urine Cocaine Screen U Marijuana (THC) Screen Coronavirus (PCR) Influenza Type A (PCR) Influenza Type B (PCR) RSV RNA Qual (PCR) Blood Type Antibody Screen 07/17/20 07/17/20 07/17/20 18:18 18:18 18:28 WBC RBC Hgb Hct MCV MCH MCHC RDW Plt Count MPV Immature Gran % (Auto) Neut % (Auto) Lymph % (Auto) Garrett % (Auto) Eos % (Auto) Baso % (Auto) Lymph # (Auto) Garrett # (Auto) Eos # (Auto) Baso # (Auto) Abs Immat Gran (auto) Absolute Neuts (auto) Absolute Nucleated RBC Nucleated RBC % (auto) Smear Tech's Comments PT INR APTT PTT (Heparin Protocol) O2 Saturation ABG pH at Pt Temp ABG pH (Temp Correct) ABG pCO2 at Pt Temp ABG pCO2 (Temp Corrct ABG pO2 at Pt Temp ABG pO2 (Temp Correct ABG HCO3 ABG Base Excess (Actual) VBG pH VBG pCO2 VBG pO2 VBG HCO3 VBG O2 Saturation VBG Base Excess Sodium Potassium Chloride Carbon Dioxide Anion Gap BUN Creatinine Estim Creat Clear Calc Estimated GFR POC Glucose Random Glucose Fasting Glucose Lactic Acid Lactic Acid Fup @ 2Hr Lactic Acid Fup @ 4Hr Calcium Phosphorus Magnesium Total Bilirubin Direct Bilirubin AST ALT Alkaline Phosphatase Ammonia Total Creatine Kinase 895 H Troponin I High Sens 882.9 H B-Natriuretic Peptide 154 H Total Protein Albumin Urine Color Urine Appearance Urine pH Ur Specific [place] Urine Protein Urine Glucose (UA) Urine Ketones Urine Blood Urine Nitrite Ur Leukocyte Esterase Urine RBC Urine WBC Urine WBC Clumps Ur Squamous Epith Cells Ur Renal Epithelial Cell Urine Bacteria Urine Mucus Salicylates Urine Opiates Screen Acetaminophen Ur Barbiturates Screen Ur Phencyclidine Scrn Ur Amphetamines Screen U Benzodiazepines Scrn Urine Cocaine Screen U Marijuana (THC) Screen Coronavirus (PCR) NEGATIVE Influenza Type A (PCR) NEGATIVE Influenza Type B (PCR) NEGATIVE RSV RNA Qual (PCR) NEGATIVE Blood Type Antibody Screen 07/17/20 07/17/20 07/17/20 18:37 19:12 19:20 WBC RBC Hgb Hct MCV MCH MCHC RDW Plt Count MPV Immature Gran % (Auto) Neut % (Auto) Lymph % (Auto) Garrett % (Auto) Eos % (Auto) Baso % (Auto) Lymph # (Auto) Garrett # (Auto) Eos # (Auto) Baso # (Auto) Abs Immat Gran (auto) Absolute Neuts (auto) Absolute Nucleated RBC Nucleated RBC % (auto) Smear Tech's Comments PT INR APTT PTT (Heparin Protocol) O2 Saturation 91.0 ABG pH at Pt Temp 7.22 L ABG pH (Temp Correct) 7.22 L ABG pCO2 at Pt Temp 51 H ABG pCO2 (Temp Corrct 52 H ABG pO2 at Pt Temp 64 L ABG pO2 (Temp Correct 64 L ABG HCO3 21 L ABG Base Excess (Actual) -6.4 VBG pH VBG pCO2 VBG pO2 VBG HCO3 VBG O2 Saturation VBG Base Excess Sodium Potassium Chloride Carbon Dioxide Anion Gap BUN Creatinine Estim Creat Clear Calc Estimated GFR POC Glucose Random Glucose Fasting Glucose Lactic Acid 3.4 H* Lactic Acid Fup @ 2Hr Lactic Acid Fup @ 4Hr Calcium Phosphorus Magnesium Total Bilirubin Direct Bilirubin AST ALT Alkaline Phosphatase Ammonia Total Creatine Kinase Troponin I High Sens B-Natriuretic Peptide Total Protein Albumin Urine Color Urine Appearance Urine pH Ur Specific [place] Urine Protein Urine Glucose (UA) Urine Ketones Urine Blood Urine Nitrite Ur Leukocyte Esterase Urine RBC Urine WBC Urine WBC Clumps Ur Squamous Epith Cells Ur Renal Epithelial Cell Urine Bacteria Urine Mucus Salicylates Urine Opiates Screen Not Detected Acetaminophen Ur Barbiturates Screen Not Detected Ur Phencyclidine Scrn Not Detected Ur Amphetamines Screen Not Detected U Benzodiazepines Scrn Not Detected Urine Cocaine Screen Not Detected U Marijuana (THC) Screen Not Detected Coronavirus (PCR) Influenza Type A (PCR) Influenza Type B (PCR) RSV RNA Qual (PCR) Blood Type Antibody Screen 07/17/20 07/17/20 07/17/20 22:03 22:03 22:03 WBC RBC Hgb Hct MCV MCH MCHC RDW Plt Count MPV Immature Gran % (Auto) Neut % (Auto) Lymph % (Auto) Garrett % (Auto) Eos % (Auto) Baso % (Auto) Lymph # (Auto) Garrett # (Auto) Eos # (Auto) Baso # (Auto) Abs Immat Gran (auto) Absolute Neuts (auto) Absolute Nucleated RBC Nucleated RBC % (auto) Smear Tech's Comments PT INR APTT PTT (Heparin Protocol) O2 Saturation ABG pH at Pt Temp ABG pH (Temp Correct) ABG pCO2 at Pt Temp ABG pCO2 (Temp Corrct ABG pO2 at Pt Temp ABG pO2 (Temp Correct ABG HCO3 ABG Base Excess (Actual) VBG pH VBG pCO2 VBG pO2 VBG HCO3 VBG O2 Saturation VBG Base Excess Sodium 139 Potassium 4.0 D Chloride 107 Carbon Dioxide 19 L Anion Gap 17 BUN 14 Creatinine 2.17 H Estim Creat Clear Calc 40.7 Estimated GFR 31 POC Glucose Random Glucose 148 H Fasting Glucose Lactic Acid Lactic Acid Fup @ 2Hr 2.8 H* Lactic Acid Fup @ 4Hr Calcium 7.0 L D Phosphorus Magnesium Total Bilirubin Direct Bilirubin AST ALT Alkaline Phosphatase Ammonia Total Creatine Kinase 1349 H D Troponin I High Sens 699.1 H B-Natriuretic Peptide Total Protein Albumin Urine Color Urine Appearance Urine pH Ur Specific [place] Urine Protein Urine Glucose (UA) Urine Ketones Urine Blood Urine Nitrite Ur Leukocyte Esterase Urine RBC Urine WBC Urine WBC Clumps Ur Squamous Epith Cells Ur Renal Epithelial Cell Urine Bacteria Urine Mucus Salicylates Urine Opiates Screen Acetaminophen Ur Barbiturates Screen Ur Phencyclidine Scrn Ur Amphetamines Screen U Benzodiazepines Scrn Urine Cocaine Screen U Marijuana (THC) Screen Coronavirus (PCR) Influenza Type A (PCR) Influenza Type B (PCR) RSV RNA Qual (PCR) Blood Type Antibody Screen 07/17/20 07/18/20 07/18/20 22:07 00:31 05:30 WBC 14.9 H RBC 4.18 L Hgb 14.1 Hct 41.8 L MCV 100.0 H MCH 33.7 H MCHC 33.7 RDW 12.3 Plt Count 186 D MPV 11.6 Immature Gran % (Auto) 0.3 Neut % (Auto) 87.5 H Lymph % (Auto) 6.6 L Garrett % (Auto) 5.5 Eos % (Auto) 0.0 Baso % (Auto) 0.1 Lymph # (Auto) 1.0 L Garrett # (Auto) 0.8 Eos # (Auto) 0.0 Baso # (Auto) 0.0 Abs Immat Gran (auto) 0.04 H Absolute Neuts (auto) 13.1 H Absolute Nucleated RBC 0.000 Nucleated RBC % (auto) 0.0 Smear Tech's Comments PT INR APTT PTT (Heparin Protocol) O2 Saturation ABG pH at Pt Temp ABG pH (Temp Correct) ABG pCO2 at Pt Temp ABG pCO2 (Temp Corrct ABG pO2 at Pt Temp ABG pO2 (Temp Correct ABG HCO3 ABG Base Excess (Actual) VBG pH 7.32 VBG pCO2 31 VBG pO2 78 VBG HCO3 16 L VBG O2 Saturation 96.0 VBG Base Excess -8.2 Sodium Potassium Chloride Carbon Dioxide Anion Gap BUN Creatinine Estim Creat Clear Calc Estimated GFR POC Glucose Random Glucose Fasting Glucose Lactic Acid Lactic Acid Fup @ 2Hr Lactic Acid Fup @ 4Hr 2.6 H* Calcium Phosphorus Magnesium Total Bilirubin Direct Bilirubin AST ALT Alkaline Phosphatase Ammonia Total Creatine Kinase Troponin I High Sens B-Natriuretic Peptide Total Protein Albumin Urine Color Urine Appearance Urine pH Ur Specific [place] Urine Protein Urine Glucose (UA) Urine Ketones Urine Blood Urine Nitrite Ur Leukocyte Esterase Urine RBC Urine WBC Urine WBC Clumps Ur Squamous Epith Cells Ur Renal Epithelial Cell Urine Bacteria Urine Mucus Salicylates Urine Opiates Screen Acetaminophen Ur Barbiturates Screen Ur Phencyclidine Scrn Ur Amphetamines Screen U Benzodiazepines Scrn Urine Cocaine Screen U Marijuana (THC) Screen Coronavirus (PCR) Influenza Type A (PCR) Influenza Type B (PCR) RSV RNA Qual (PCR) Blood Type Antibody Screen 07/18/20 07/18/20 07/18/20 05:30 05:30 05:30 WBC RBC Hgb Hct MCV MCH MCHC RDW Plt Count MPV Immature Gran % (Auto) Neut % (Auto) Lymph % (Auto) Garrett % (Auto) Eos % (Auto) Baso % (Auto) Lymph # (Auto) Garrett # (Auto) Eos # (Auto) Baso # (Auto) Abs Immat Gran (auto) Absolute Neuts (auto) Absolute Nucleated RBC Nucleated RBC % (auto) Smear Tech's Comments PT INR APTT PTT (Heparin Protocol) O2 Saturation ABG pH at Pt Temp ABG pH (Temp Correct) ABG pCO2 at Pt Temp ABG pCO2 (Temp Corrct ABG pO2 at Pt Temp ABG pO2 (Temp Correct ABG HCO3 ABG Base Excess (Actual) VBG pH VBG pCO2 VBG pO2 VBG HCO3 VBG O2 Saturation VBG Base Excess Sodium 137 Potassium 4.1 Chloride 104 Carbon Dioxide 18 L Anion Gap 19 BUN 18 H Creatinine 2.01 H Estim Creat Clear Calc 44.5 Estimated GFR 34 POC Glucose Random Glucose 124 H Fasting Glucose Lactic Acid Lactic Acid Fup @ 2Hr Lactic Acid Fup @ 4Hr Calcium 8.1 L D Phosphorus 2.2 L Magnesium 1.7 Total Bilirubin 0.7 Direct Bilirubin AST 34 ALT 20 Alkaline Phosphatase 73 D Ammonia Total Creatine Kinase 1457 H Troponin I High Sens 1082.4 H D B-Natriuretic Peptide Total Protein 6.0 L D Albumin 3.5 Urine Color Urine Appearance Urine pH Ur Specific [place] Urine Protein Urine Glucose (UA) Urine Ketones Urine Blood Urine Nitrite Ur Leukocyte Esterase Urine RBC Urine WBC Urine WBC Clumps Ur Squamous Epith Cells Ur Renal Epithelial Cell Urine Bacteria Urine Mucus Salicylates Urine Opiates Screen Acetaminophen Ur Barbiturates Screen Ur Phencyclidine Scrn Ur Amphetamines Screen U Benzodiazepines Scrn Urine Cocaine Screen U Marijuana (THC) Screen Coronavirus (PCR) Influenza Type A (PCR) Influenza Type B (PCR) RSV RNA Qual (PCR) Blood Type Antibody Screen 07/18/20 07/18/20 07/18/20 05:30 05:35 14:07 WBC RBC Hgb Hct MCV MCH MCHC RDW Plt Count MPV Immature Gran % (Auto) Neut % (Auto) Lymph % (Auto) Garrett % (Auto) Eos % (Auto) Baso % (Auto) Lymph # (Auto) Garrett # (Auto) Eos # (Auto) Baso # (Auto) Abs Immat Gran (auto) Absolute Neuts (auto) Absolute Nucleated RBC Nucleated RBC % (auto) Smear Tech's Comments PT INR APTT PTT (Heparin Protocol) O2 Saturation TNP ABG pH at Pt Temp TNP ABG pH (Temp Correct) UX ARCHITECT ABG pCO2 at Pt Temp TNP ABG pCO2 (Temp Corrct ABG pO2 at Pt Temp TNP ABG pO2 (Temp Correct ABG HCO3 TNP ABG Base Excess (Actual) TNP VBG pH 7.38 VBG pCO2 29 VBG pO2 74 VBG HCO3 17 L VBG O2 Saturation 92.0 VBG Base Excess -5.9 Sodium 135 Potassium 3.6 Chloride 102 Carbon Dioxide 22 Anion Gap 15 BUN 19 H Creatinine 1.61 H Estim Creat Clear Calc 56.4 Estimated GFR 44 POC Glucose Random Glucose 105 Fasting Glucose Lactic Acid Lactic Acid Fup @ 2Hr Lactic Acid Fup @ 4Hr Calcium 8.5 Phosphorus Magnesium Total Bilirubin Direct Bilirubin AST ALT Alkaline Phosphatase Ammonia Total Creatine Kinase 1678 H Troponin I High Sens B-Natriuretic Peptide Total Protein Albumin Urine Color Urine Appearance Urine pH Ur Specific [place] Urine Protein Urine Glucose (UA) Urine Ketones Urine Blood Urine Nitrite Ur Leukocyte Esterase Urine RBC Urine WBC Urine WBC Clumps Ur Squamous Epith Cells Ur Renal Epithelial Cell Urine Bacteria Urine Mucus Salicylates Urine Opiates Screen Acetaminophen Ur Barbiturates Screen Ur Phencyclidine Scrn Ur Amphetamines Screen U Benzodiazepines Scrn Urine Cocaine Screen U Marijuana (THC) Screen Coronavirus (PCR) Influenza Type A (PCR) Influenza Type B (PCR) RSV RNA Qual (PCR) Blood Type Antibody Screen 07/18/20 07/18/20 07/19/20 19:41 19:41 02:09 WBC RBC Hgb Hct MCV MCH MCHC RDW Plt Count MPV Immature Gran % (Auto) Neut % (Auto) Lymph % (Auto) Garrett % (Auto) Eos % (Auto) Baso % (Auto) Lymph # (Auto) Garrett # (Auto) Eos # (Auto) Baso # (Auto) Abs Immat Gran (auto) Absolute Neuts (auto) Absolute Nucleated RBC Nucleated RBC % (auto) Smear Tech's Comments PT 16.8 H D INR 1.4 H APTT PTT (Heparin Protocol) 32.8 L 104.0 H D O2 Saturation ABG pH at Pt Temp ABG pH (Temp Correct) ABG pCO2 at Pt Temp ABG pCO2 (Temp Corrct ABG pO2 at Pt Temp ABG pO2 (Temp Correct ABG HCO3 ABG Base Excess (Actual) VBG pH VBG pCO2 VBG pO2 VBG HCO3 VBG O2 Saturation VBG Base Excess Sodium Potassium Chloride Carbon Dioxide Anion Gap BUN Creatinine Estim Creat Clear Calc Estimated GFR POC Glucose Random Glucose Fasting Glucose Lactic Acid Lactic Acid Fup @ 2Hr Lactic Acid Fup @ 4Hr Calcium Phosphorus Magnesium Total Bilirubin Direct Bilirubin AST ALT Alkaline Phosphatase Ammonia Total Creatine Kinase Troponin I High Sens 1212.2 H B-Natriuretic Peptide Total Protein Albumin Urine Color Urine Appearance Urine pH Ur Specific [place] Urine Protein Urine Glucose (UA) Urine Ketones Urine Blood Urine Nitrite Ur Leukocyte Esterase Urine RBC Urine WBC Urine WBC Clumps Ur Squamous Epith Cells Ur Renal Epithelial Cell Urine Bacteria Urine Mucus Salicylates Urine Opiates Screen Acetaminophen Ur Barbiturates Screen Ur Phencyclidine Scrn Ur Amphetamines Screen U Benzodiazepines Scrn Urine Cocaine Screen U Marijuana (THC) Screen Coronavirus (PCR) Influenza Type A (PCR) Influenza Type B (PCR) RSV RNA Qual (PCR) Blood Type Antibody Screen 07/19/20 07/19/20 07/19/20 05:32 05:32 05:32 WBC 14.3 H RBC 3.85 L Hgb 12.9 L Hct 37.9 L MCV 98.4 H MCH 33.5 H MCHC 34.0 RDW 12.6 Plt Count 202 MPV 12.1 Immature Gran % (Auto) 0.3 Neut % (Auto) 81.4 H Lymph % (Auto) 12.3 L Garrett % (Auto) 5.8 Eos % (Auto) 0.1 Baso % (Auto) 0.1 Lymph # (Auto) 1.8 Garrett # (Auto) 0.8 Eos # (Auto) 0.0 Baso # (Auto) 0.0 Abs Immat Gran (auto) 0.04 H Absolute Neuts (auto) 11.6 H Absolute Nucleated RBC 0.000 Nucleated RBC % (auto) 0.0 Smear Tech's Comments PT INR APTT PTT (Heparin Protocol) O2 Saturation ABG pH at Pt Temp ABG pH (Temp Correct) ABG pCO2 at Pt Temp ABG pCO2 (Temp Corrct ABG pO2 at Pt Temp ABG pO2 (Temp Correct ABG HCO3 ABG Base Excess (Actual) VBG pH VBG pCO2 VBG pO2 VBG HCO3 VBG O2 Saturation VBG Base Excess Sodium 133 L Potassium 3.4 Chloride 100 Carbon Dioxide 22 Anion Gap 14 BUN 17 H Creatinine 1.14 Estim Creat Clear Calc 79.7 Estimated GFR > 60 POC Glucose Random Glucose 103 Fasting Glucose Lactic Acid Lactic Acid Fup @ 2Hr Lactic Acid Fup @ 4Hr Calcium 8.3 L Phosphorus 2.2 L Magnesium 1.7 Total Bilirubin 0.7 Direct Bilirubin AST 29 ALT 21 Alkaline Phosphatase 61 Ammonia Total Creatine Kinase 848 H D Troponin I High Sens 859.4 H B-Natriuretic Peptide Total Protein 5.5 L Albumin 3.1 L Urine Color Urine Appearance Urine pH Ur Specific [place] Urine Protein Urine Glucose (UA) Urine Ketones Urine Blood Urine Nitrite Ur Leukocyte Esterase Urine RBC Urine WBC Urine WBC Clumps Ur Squamous Epith Cells Ur Renal Epithelial Cell Urine Bacteria Urine Mucus Salicylates Urine Opiates Screen Acetaminophen Ur Barbiturates Screen Ur Phencyclidine Scrn Ur Amphetamines Screen U Benzodiazepines Scrn Urine Cocaine Screen U Marijuana (THC) Screen Coronavirus (PCR) Influenza Type A (PCR) Influenza Type B (PCR) RSV RNA Qual (PCR) Blood Type Antibody Screen 07/19/20 07/19/20 07/19/20 05:32 05:37 09:05 WBC RBC Hgb Hct MCV MCH MCHC RDW Plt Count MPV Immature Gran % (Auto) Neut % (Auto) Lymph % (Auto) Garrett % (Auto) Eos % (Auto) Baso % (Auto) Lymph # (Auto) Garrett # (Auto) Eos # (Auto) Baso # (Auto) Abs Immat Gran (auto) Absolute Neuts (auto) Absolute Nucleated RBC Nucleated RBC % (auto) Smear Tech's Comments PT 14.6 H INR 1.2 H APTT PTT (Heparin Protocol) 73.7 D O2 Saturation ABG pH at Pt Temp ABG pH (Temp Correct) ABG pCO2 at Pt Temp ABG pCO2 (Temp Corrct ABG pO2 at Pt Temp ABG pO2 (Temp Correct ABG HCO3 ABG Base Excess (Actual) VBG pH 7.48 H VBG pCO2 29 VBG pO2 132 VBG HCO3 22 VBG O2 Saturation 98.0 VBG Base Excess 0.1 Sodium Potassium Chloride Carbon Dioxide Anion Gap BUN Creatinine Estim Creat Clear Calc Estimated GFR POC Glucose Random Glucose Fasting Glucose Lactic Acid Lactic Acid Fup @ 2Hr Lactic Acid Fup @ 4Hr Calcium Phosphorus Magnesium Total Bilirubin Direct Bilirubin AST ALT Alkaline Phosphatase Ammonia Total Creatine Kinase Troponin I High Sens B-Natriuretic Peptide Total Protein Albumin Urine Color Urine Appearance Urine pH Ur Specific [place] Urine Protein Urine Glucose (UA) Urine Ketones Urine Blood Urine Nitrite Ur Leukocyte Esterase Urine RBC Urine WBC Urine WBC Clumps Ur Squamous Epith Cells Ur Renal Epithelial Cell Urine Bacteria Urine Mucus Salicylates Urine Opiates Screen Acetaminophen Ur Barbiturates Screen Ur Phencyclidine Scrn Ur Amphetamines Screen U Benzodiazepines Scrn Urine Cocaine Screen U Marijuana (THC) Screen Coronavirus (PCR) Influenza Type A (PCR) Influenza Type B (PCR) RSV RNA Qual (PCR) Blood Type Antibody Screen 07/19/20 07/20/20 07/20/20 15:22 05:34 05:34 WBC RBC Hgb Hct MCV MCH MCHC RDW Plt Count MPV Immature Gran % (Auto) Neut % (Auto) Lymph % (Auto) Garrett % (Auto) Eos % (Auto) Baso % (Auto) Lymph # (Auto) Garrett # (Auto) Eos # (Auto) Baso # (Auto) Abs Immat Gran (auto) Absolute Neuts (auto) Absolute Nucleated RBC Nucleated RBC % (auto) Smear Tech's Comments PT INR APTT PTT (Heparin Protocol) 54.6 D 44.1 L O2 Saturation ABG pH at Pt Temp ABG pH (Temp Correct) ABG pCO2 at Pt Temp ABG pCO2 (Temp Corrct ABG pO2 at Pt Temp ABG pO2 (Temp Correct ABG HCO3 ABG Base Excess (Actual) VBG pH VBG pCO2 VBG pO2 VBG HCO3 VBG O2 Saturation VBG Base Excess Sodium Potassium Chloride Carbon Dioxide Anion Gap BUN Creatinine Estim Creat Clear Calc Estimated GFR POC Glucose Random Glucose Fasting Glucose Lactic Acid Lactic Acid Fup @ 2Hr Lactic Acid Fup @ 4Hr Calcium Phosphorus Magnesium Total Bilirubin Direct Bilirubin AST ALT Alkaline Phosphatase Ammonia 36 Total Creatine Kinase Troponin I High Sens B-Natriuretic Peptide Total Protein Albumin Urine Color Urine Appearance Urine pH Ur Specific [place] Urine Protein Urine Glucose (UA) Urine Ketones Urine Blood Urine Nitrite Ur Leukocyte Esterase Urine RBC Urine WBC Urine WBC Clumps Ur Squamous Epith Cells Ur Renal Epithelial Cell Urine Bacteria Urine Mucus Salicylates Urine Opiates Screen Acetaminophen Ur Barbiturates Screen Ur Phencyclidine Scrn Ur Amphetamines Screen U Benzodiazepines Scrn Urine Cocaine Screen U Marijuana (THC) Screen Coronavirus (PCR) Influenza Type A (PCR) Influenza Type B (PCR) RSV RNA Qual (PCR) Blood Type Antibody Screen 07/20/20 07/20/20 07/20/20 05:34 05:35 05:35 WBC 13.8 H RBC 3.86 L Hgb 12.8 L Hct 37.4 L MCV 96.9 MCH 33.2 H MCHC 34.2 RDW 12.3 Plt Count 203 MPV 11.1 Immature Gran % (Auto) 0.5 H Neut % (Auto) 84.4 H Lymph % (Auto) 9.7 L Garrett % (Auto) 5.2 Eos % (Auto) 0.1 Baso % (Auto) 0.1 Lymph # (Auto) 1.3 Garrett # (Auto) 0.7 Eos # (Auto) 0.0 Baso # (Auto) 0.0 Abs Immat Gran (auto) 0.07 H Absolute Neuts (auto) 11.6 H Absolute Nucleated RBC 0.000 Nucleated RBC % (auto) 0.0 Smear Tech's Comments PT INR APTT PTT (Heparin Protocol) O2 Saturation ABG pH at Pt Temp ABG pH (Temp Correct) ABG pCO2 at Pt Temp ABG pCO2 (Temp Corrct ABG pO2 at Pt Temp ABG pO2 (Temp Correct ABG HCO3 ABG Base Excess (Actual) VBG pH 7.49 H VBG pCO2 26 VBG pO2 71 VBG HCO3 20 L VBG O2 Saturation 92.0 VBG Base Excess -1.0 Sodium 142 Potassium 3.3 Chloride 108 Carbon Dioxide 23 Anion Gap 14 BUN 15 Creatinine 0.83 Estim Creat Clear Calc 109.4 Estimated GFR > 60 POC Glucose Random Glucose 64 D Fasting Glucose Lactic Acid Lactic Acid Fup @ 2Hr Lactic Acid Fup @ 4Hr Calcium 8.4 Phosphorus 2.2 L Magnesium 1.8 Total Bilirubin 0.9 Direct Bilirubin AST 41 H D ALT 19 Alkaline Phosphatase 68 Ammonia Total Creatine Kinase Troponin I High Sens B-Natriuretic Peptide Total Protein 5.8 L Albumin 3.3 L Urine Color Urine Appearance Urine pH Ur Specific [place] Urine Protein Urine Glucose (UA) Urine Ketones Urine Blood Urine Nitrite Ur Leukocyte Esterase Urine RBC Urine WBC Urine WBC Clumps Ur Squamous Epith Cells Ur Renal Epithelial Cell Urine Bacteria Urine Mucus Salicylates Urine Opiates Screen Acetaminophen Ur Barbiturates Screen Ur Phencyclidine Scrn Ur Amphetamines Screen U Benzodiazepines Scrn Urine Cocaine Screen U Marijuana (THC) Screen Coronavirus (PCR) Influenza Type A (PCR) Influenza Type B (PCR) RSV RNA Qual (PCR) Blood Type Antibody Screen 07/20/20 07/20/20 07/20/20 13:45 20:03 20:04 WBC RBC Hgb Hct MCV MCH MCHC RDW Plt Count MPV Immature Gran % (Auto) Neut % (Auto) Lymph % (Auto) Garrett % (Auto) Eos % (Auto) Baso % (Auto) Lymph # (Auto) Garrett # (Auto) Eos # (Auto) Baso # (Auto) Abs Immat Gran (auto) Absolute Neuts (auto) Absolute Nucleated RBC Nucleated RBC % (auto) Smear Tech's Comments PT INR APTT PTT (Heparin Protocol) 83.6 H D O2 Saturation ABG pH at Pt Temp ABG pH (Temp Correct) ABG pCO2 at Pt Temp ABG pCO2 (Temp Corrct ABG pO2 at Pt Temp ABG pO2 (Temp Correct ABG HCO3 ABG Base Excess (Actual) VBG pH VBG pCO2 VBG pO2 VBG HCO3 VBG O2 Saturation VBG Base Excess Sodium Potassium Chloride Carbon Dioxide Anion Gap BUN Creatinine Estim Creat Clear Calc Estimated GFR POC Glucose 59 L* 61 Random Glucose Fasting Glucose Lactic Acid Lactic Acid Fup @ 2Hr Lactic Acid Fup @ 4Hr Calcium Phosphorus Magnesium Total Bilirubin Direct Bilirubin AST ALT Alkaline Phosphatase Ammonia Total Creatine Kinase Troponin I High Sens B-Natriuretic Peptide Total Protein Albumin Urine Color Urine Appearance Urine pH Ur Specific [place] Urine Protein Urine Glucose (UA) Urine Ketones Urine Blood Urine Nitrite Ur Leukocyte Esterase Urine RBC Urine WBC Urine WBC Clumps Ur Squamous Epith Cells Ur Renal Epithelial Cell Urine Bacteria Urine Mucus Salicylates Urine Opiates Screen Acetaminophen Ur Barbiturates Screen Ur Phencyclidine Scrn Ur Amphetamines Screen U Benzodiazepines Scrn Urine Cocaine Screen U Marijuana (THC) Screen Coronavirus (PCR) Influenza Type A (PCR) Influenza Type B (PCR) RSV RNA Qual (PCR) Blood Type Antibody Screen 07/20/20 07/21/20 07/21/20 20:31 03:11 05:20 WBC 12.1 H RBC 3.90 L Hgb 12.9 L Hct 37.8 L MCV 96.9 MCH 33.1 H MCHC 34.1 RDW 12.3 Plt Count 174 MPV 11.3 Immature Gran % (Auto) 1.5 H Neut % (Auto) 80.1 H Lymph % (Auto) 9.7 L Garrett % (Auto) 7.8 Eos % (Auto) 0.7 Baso % (Auto) 0.2 Lymph # (Auto) 1.2 Garrett # (Auto) 1.0 Eos # (Auto) 0.1 Baso # (Auto) 0.0 Abs Immat Gran (auto) 0.18 H Absolute Neuts (auto) 9.7 H Absolute Nucleated RBC 0.000 Nucleated RBC % (auto) 0.0 Smear Tech's Comments PT INR APTT PTT (Heparin Protocol) 53.8 D 26.5 L D O2 Saturation ABG pH at Pt Temp ABG pH (Temp Correct) ABG pCO2 at Pt Temp ABG pCO2 (Temp Corrct ABG pO2 at Pt Temp ABG pO2 (Temp Correct ABG HCO3 ABG Base Excess (Actual) VBG pH VBG pCO2 VBG pO2 VBG HCO3 VBG O2 Saturation VBG Base Excess Sodium Potassium Chloride Carbon Dioxide Anion Gap BUN Creatinine Estim Creat Clear Calc Estimated GFR POC Glucose Random Glucose Fasting Glucose Lactic Acid Lactic Acid Fup @ 2Hr Lactic Acid Fup @ 4Hr Calcium Phosphorus Magnesium Total Bilirubin Direct Bilirubin AST ALT Alkaline Phosphatase Ammonia Total Creatine Kinase Troponin I High Sens B-Natriuretic Peptide Total Protein Albumin Urine Color Urine Appearance Urine pH Ur Specific [place] Urine Protein Urine Glucose (UA) Urine Ketones Urine Blood Urine Nitrite Ur Leukocyte Esterase Urine RBC Urine WBC Urine WBC Clumps Ur Squamous Epith Cells Ur Renal Epithelial Cell Urine Bacteria Urine Mucus Salicylates Urine Opiates Screen Acetaminophen Ur Barbiturates Screen Ur Phencyclidine Scrn Ur Amphetamines Screen U Benzodiazepines Scrn Urine Cocaine Screen U Marijuana (THC) Screen Coronavirus (PCR) Influenza Type A (PCR) Influenza Type B (PCR) RSV RNA Qual (PCR) Blood Type Antibody Screen 07/21/20 07/21/20 07/21/20 05:20 05:20 07:42 WBC RBC Hgb Hct MCV MCH MCHC RDW Plt Count MPV Immature Gran % (Auto) Neut % (Auto) Lymph % (Auto) Garrett % (Auto) Eos % (Auto) Baso % (Auto) Lymph # (Auto) Garrett # (Auto) Eos # (Auto) Baso # (Auto) Abs Immat Gran (auto) Absolute Neuts (auto) Absolute Nucleated RBC Nucleated RBC % (auto) Smear Tech's Comments PT INR APTT PTT (Heparin Protocol) O2 Saturation ABG pH at Pt Temp ABG pH (Temp Correct) ABG pCO2 at Pt Temp ABG pCO2 (Temp Corrct ABG pO2 at Pt Temp ABG pO2 (Temp Correct ABG HCO3 ABG Base Excess (Actual) VBG pH 7.47 H VBG pCO2 22 VBG pO2 74 VBG HCO3 16 L VBG O2 Saturation 94.0 VBG Base Excess -5.3 Sodium 143 Potassium 3.3 Chloride 109 H Carbon Dioxide 17 L Anion Gap 20 BUN 11 Creatinine 0.77 Estim Creat Clear Calc 116.9 Estimated GFR > 60 POC Glucose 128 H Random Glucose 66 Fasting Glucose Lactic Acid Lactic Acid Fup @ 2Hr Lactic Acid Fup @ 4Hr Calcium 8.0 L Phosphorus 3.1 Magnesium 1.8 Total Bilirubin 1.8 H Direct Bilirubin AST 36 ALT 20 Alkaline Phosphatase 68 Ammonia Total Creatine Kinase Troponin I High Sens B-Natriuretic Peptide Total Protein 5.8 L Albumin 3.3 L Urine Color Urine Appearance Urine pH Ur Specific [place] Urine Protein Urine Glucose (UA) Urine Ketones Urine Blood Urine Nitrite Ur Leukocyte Esterase Urine RBC Urine WBC Urine WBC Clumps Ur Squamous Epith Cells Ur Renal Epithelial Cell Urine Bacteria Urine Mucus Salicylates Urine Opiates Screen Acetaminophen Ur Barbiturates Screen Ur Phencyclidine Scrn Ur Amphetamines Screen U Benzodiazepines Scrn Urine Cocaine Screen U Marijuana (THC) Screen Coronavirus (PCR) Influenza Type A (PCR) Influenza Type B (PCR) RSV RNA Qual (PCR) Blood Type Antibody Screen 07/21/20 07/21/20 07/21/20 10:17 11:31 18:06 WBC RBC Hgb Hct MCV MCH MCHC RDW Plt Count MPV Immature Gran % (Auto) Neut % (Auto) Lymph % (Auto) Garrett % (Auto) Eos % (Auto) Baso % (Auto) Lymph # (Auto) Garrett # (Auto) Eos # (Auto) Baso # (Auto) Abs Immat Gran (auto) Absolute Neuts (auto) Absolute Nucleated RBC Nucleated RBC % (auto) Smear Tech's Comments PT INR APTT PTT (Heparin Protocol) 85.4 H D O2 Saturation ABG pH at Pt Temp ABG pH (Temp Correct) ABG pCO2 at Pt Temp ABG pCO2 (Temp Corrct ABG pO2 at Pt Temp ABG pO2 (Temp Correct ABG HCO3 ABG Base Excess (Actual) VBG pH VBG pCO2 VBG pO2 VBG HCO3 VBG O2 Saturation VBG Base Excess Sodium Potassium Chloride Carbon Dioxide Anion Gap BUN Creatinine Estim Creat Clear Calc Estimated GFR POC Glucose 107 93 Random Glucose Fasting Glucose Lactic Acid Lactic Acid Fup @ 2Hr Lactic Acid Fup @ 4Hr Calcium Phosphorus Magnesium Total Bilirubin Direct Bilirubin AST ALT Alkaline Phosphatase Ammonia Total Creatine Kinase Troponin I High Sens B-Natriuretic Peptide Total Protein Albumin Urine Color Urine Appearance Urine pH Ur Specific [place] Urine Protein Urine Glucose (UA) Urine Ketones Urine Blood Urine Nitrite Ur Leukocyte Esterase Urine RBC Urine WBC Urine WBC Clumps Ur Squamous Epith Cells Ur Renal Epithelial Cell Urine Bacteria Urine Mucus Salicylates Urine Opiates Screen Acetaminophen Ur Barbiturates Screen Ur Phencyclidine Scrn Ur Amphetamines Screen U Benzodiazepines Scrn Urine Cocaine Screen U Marijuana (THC) Screen Coronavirus (PCR) Influenza Type A (PCR) Influenza Type B (PCR) RSV RNA Qual (PCR) Blood Type Antibody Screen 07/22/20 07/22/2021 00:28 05:09 05:09 WBC 10.2 RBC 3.95 L Hgb 13.3 L Hct 39.3 L MCV 99.5 H MCH 33.7 H MCHC 33.8 RDW 12.9 Plt Count 170 MPV 10.6 Immature Gran % (Auto) 2.0 H Neut % (Auto) 63.7 Lymph % (Auto) 15.8 L Garrett % (Auto) 13.9 H Eos % (Auto) 4.3 H Baso % (Auto) 0.3 Lymph # (Auto) 1.6 Garrett # (Auto) 1.4 H Eos # (Auto) 0.4 Baso # (Auto) 0.0 Abs Immat Gran (auto) 0.20 H Absolute Neuts (auto) 6.5 Absolute Nucleated RBC 0.040 H Nucleated RBC % (auto) 0.4 H Smear Tech's Comments PT INR APTT PTT (Heparin Protocol) O2 Saturation ABG pH at Pt Temp ABG pH (Temp Correct) ABG pCO2 at Pt Temp ABG pCO2 (Temp Corrct ABG pO2 at Pt Temp ABG pO2 (Temp Correct ABG HCO3 ABG Base Excess (Actual) VBG pH VBG pCO2 VBG pO2 VBG HCO3 VBG O2 Saturation VBG Base Excess Sodium 141 Potassium 2.9 L Chloride 108 Carbon Dioxide 24 Anion Gap 12 BUN 11 Creatinine 0.78 Estim Creat Clear Calc 116.0 Estimated GFR > 60 POC Glucose 96 Random Glucose 101 D Fasting Glucose Lactic Acid Lactic Acid Fup @ 2Hr Lactic Acid Fup @ 4Hr Calcium 8.0 L Phosphorus 3.8 Magnesium 1.8 Total Bilirubin Direct Bilirubin AST ALT Alkaline Phosphatase Ammonia Total Creatine Kinase Troponin I High Sens B-Natriuretic Peptide Total Protein Albumin 3.1 L Urine Color Urine Appearance Urine pH Ur Specific [place] Urine Protein Urine Glucose (UA) Urine Ketones Urine Blood Urine Nitrite Ur Leukocyte Esterase Urine RBC Urine WBC Urine WBC Clumps Ur Squamous Epith Cells Ur Renal Epithelial Cell Urine Bacteria Urine Mucus Salicylates Urine Opiates Screen Acetaminophen Ur Barbiturates Screen Ur Phencyclidine Scrn Ur Amphetamines Screen U Benzodiazepines Scrn Urine Cocaine Screen U Marijuana (THC) Screen Coronavirus (PCR) Influenza Type A (PCR) Influenza Type B (PCR) RSV RNA Qual (PCR) Blood Type Antibody Screen 07/22/20 07/22/20 07/22/20 05:15 05:43 12:55 WBC RBC Hgb Hct MCV MCH MCHC RDW Plt Count MPV Immature Gran % (Auto) Neut % (Auto) Lymph % (Auto) Garrett % (Auto) Eos % (Auto) Baso % (Auto) Lymph # (Auto) Garrett # (Auto) Eos # (Auto) Baso # (Auto) Abs Immat Gran (auto) Absolute Neuts (auto) Absolute Nucleated RBC Nucleated RBC % (auto) Smear Tech's Comments PT INR APTT PTT (Heparin Protocol) O2 Saturation ABG pH at Pt Temp ABG pH (Temp Correct) ABG pCO2 at Pt Temp ABG pCO2 (Temp Corrct ABG pO2 at Pt Temp ABG pO2 (Temp Correct ABG HCO3 ABG Base Excess (Actual) VBG pH 7.45 H VBG pCO2 34 VBG pO2 83 VBG HCO3 24 VBG O2 Saturation 94.0 VBG Base Excess 0.8 Sodium Potassium Chloride Carbon Dioxide Anion Gap BUN Creatinine Estim Creat Clear Calc Estimated GFR POC Glucose 101 117 H Random Glucose Fasting Glucose Lactic Acid Lactic Acid Fup @ 2Hr Lactic Acid Fup @ 4Hr Calcium Phosphorus Magnesium Total Bilirubin Direct Bilirubin AST ALT Alkaline Phosphatase Ammonia Total Creatine Kinase Troponin I High Sens B-Natriuretic Peptide Total Protein Albumin Urine Color Urine Appearance Urine pH Ur Specific [place] Urine Protein Urine Glucose (UA) Urine Ketones Urine Blood Urine Nitrite Ur Leukocyte Esterase Urine RBC Urine WBC Urine WBC Clumps Ur Squamous Epith Cells Ur Renal Epithelial Cell Urine Bacteria Urine Mucus Salicylates Urine Opiates Screen Acetaminophen Ur Barbiturates Screen Ur Phencyclidine Scrn Ur Amphetamines Screen U Benzodiazepines Scrn Urine Cocaine Screen U Marijuana (THC) Screen Coronavirus (PCR) Influenza Type A (PCR) Influenza Type B (PCR) RSV RNA Qual (PCR) Blood Type Antibody Screen 07/22/20 07/23/20 07/23/20 18:25 00:52 05:15 WBC RBC Hgb Hct MCV MCH MCHC RDW Plt Count MPV Immature Gran % (Auto) Neut % (Auto) Lymph % (Auto) Garrett % (Auto) Eos % (Auto) Baso % (Auto) Lymph # (Auto) Garrett # (Auto) Eos # (Auto) Baso # (Auto) Abs Immat Gran (auto) Absolute Neuts (auto) Absolute Nucleated RBC Nucleated RBC % (auto) Smear Tech's Comments PT INR APTT PTT (Heparin Protocol) O2 Saturation ABG pH at Pt Temp ABG pH (Temp Correct) ABG pCO2 at Pt Temp ABG pCO2 (Temp Corrct ABG pO2 at Pt Temp ABG pO2 (Temp Correct ABG HCO3 ABG Base Excess (Actual) VBG pH 7.40 VBG pCO2 38 VBG pO2 79 VBG HCO3 24 VBG O2 Saturation 93.0 VBG Base Excess -0.4 Sodium Potassium Chloride Carbon Dioxide Anion Gap BUN Creatinine Estim Creat Clear Calc Estimated GFR POC Glucose 104 122 H Random Glucose Fasting Glucose Lactic Acid Lactic Acid Fup @ 2Hr Lactic Acid Fup @ 4Hr Calcium Phosphorus Magnesium Total Bilirubin Direct Bilirubin AST ALT Alkaline Phosphatase Ammonia Total Creatine Kinase Troponin I High Sens B-Natriuretic Peptide Total Protein Albumin Urine Color Urine Appearance Urine pH Ur Specific [place] Urine Protein Urine Glucose (UA) Urine Ketones Urine Blood Urine Nitrite Ur Leukocyte Esterase Urine RBC Urine WBC Urine WBC Clumps Ur Squamous Epith Cells Ur Renal Epithelial Cell Urine Bacteria Urine Mucus Salicylates Urine Opiates Screen Acetaminophen Ur Barbiturates Screen Ur Phencyclidine Scrn Ur Amphetamines Screen U Benzodiazepines Scrn Urine Cocaine Screen U Marijuana (THC) Screen Coronavirus (PCR) Influenza Type A (PCR) Influenza Type B (PCR) RSV RNA Qual (PCR) Blood Type Antibody Screen 07/23/20 07/23/20 07/23/20 05:16 05:16 05:16 WBC 6.9 RBC 3.73 L Hgb 12.4 L Hct 37.5 L MCV 100.5 H MCH 33.2 H MCHC 33.1 RDW 13.1 Plt Count 146 L MPV 10.6 Immature Gran % (Auto) 1.9 H Neut % (Auto) 57.5 Lymph % (Auto) 18.8 L Garrett % (Auto) 13.7 H Eos % (Auto) 7.8 H Baso % (Auto) 0.3 Lymph # (Auto) 1.3 Garrett # (Auto) 1.0 Eos # (Auto) 0.5 H Baso # (Auto) 0.0 Abs Immat Gran (auto) 0.13 H Absolute Neuts (auto) 4.0 Absolute Nucleated RBC 0.020 H Nucleated RBC % (auto) 0.3 H Smear Tech's Comments Not Reportable PT INR APTT PTT (Heparin Protocol) O2 Saturation ABG pH at Pt Temp ABG pH (Temp Correct) ABG pCO2 at Pt Temp ABG pCO2 (Temp Corrct ABG pO2 at Pt Temp ABG pO2 (Temp Correct ABG HCO3 ABG Base Excess (Actual) VBG pH VBG pCO2 VBG pO2 VBG HCO3 VBG O2 Saturation VBG Base Excess Sodium 137 Potassium 3.3 Chloride 105 Carbon Dioxide 24 Anion Gap 11 L BUN 9 Creatinine 0.73 Estim Creat Clear Calc 123.5 Estimated GFR > 60 POC Glucose Random Glucose 117 H Fasting Glucose Lactic Acid Lactic Acid Fup @ 2Hr Lactic Acid Fup @ 4Hr Calcium 8.1 L Phosphorus 4.3 Magnesium 1.8 Total Bilirubin Direct Bilirubin AST ALT Alkaline Phosphatase Ammonia Total Creatine Kinase 289 H D Troponin I High Sens B-Natriuretic Peptide 58 Total Protein Albumin Urine Color Urine Appearance Urine pH Ur Specific [place] Urine Protein Urine Glucose (UA) Urine Ketones Urine Blood Urine Nitrite Ur Leukocyte Esterase Urine RBC Urine WBC Urine WBC Clumps Ur Squamous Epith Cells Ur Renal Epithelial Cell Urine Bacteria Urine Mucus Salicylates Urine Opiates Screen Acetaminophen Ur Barbiturates Screen Ur Phencyclidine Scrn Ur Amphetamines Screen U Benzodiazepines Scrn Urine Cocaine Screen U Marijuana (THC) Screen Coronavirus (PCR) Influenza Type A (PCR) Influenza Type B (PCR) RSV RNA Qual (PCR) Blood Type Antibody Screen 07/23/20 07/23/20 07/23/20 06:28 13:26 17:57 WBC RBC Hgb Hct MCV MCH MCHC RDW Plt Count MPV Immature Gran % (Auto) Neut % (Auto) Lymph % (Auto) Garrett % (Auto) Eos % (Auto) Baso % (Auto) Lymph # (Auto) Garrett # (Auto) Eos # (Auto) Baso # (Auto) Abs Immat Gran (auto) Absolute Neuts (auto) Absolute Nucleated RBC Nucleated RBC % (auto) Smear Tech's Comments PT INR APTT PTT (Heparin Protocol) O2 Saturation ABG pH at Pt Temp ABG pH (Temp Correct) ABG pCO2 at Pt Temp ABG pCO2 (Temp Corrct ABG pO2 at Pt Temp ABG pO2 (Temp Correct ABG HCO3 ABG Base Excess (Actual) VBG pH VBG pCO2 VBG pO2 VBG HCO3 VBG O2 Saturation VBG Base Excess Sodium Potassium Chloride Carbon Dioxide Anion Gap BUN Creatinine Estim Creat Clear Calc Estimated GFR POC Glucose 125 H 114 116 H Random Glucose Fasting Glucose Lactic Acid Lactic Acid Fup @ 2Hr Lactic Acid Fup @ 4Hr Calcium Phosphorus Magnesium Total Bilirubin Direct Bilirubin AST ALT Alkaline Phosphatase Ammonia Total Creatine Kinase Troponin I High Sens B-Natriuretic Peptide Total Protein Albumin Urine Color Urine Appearance Urine pH Ur Specific [place] Urine Protein Urine Glucose (UA) Urine Ketones Urine Blood Urine Nitrite Ur Leukocyte Esterase Urine RBC Urine WBC Urine WBC Clumps Ur Squamous Epith Cells Ur Renal Epithelial Cell Urine Bacteria Urine Mucus Salicylates Urine Opiates Screen Acetaminophen Ur Barbiturates Screen Ur Phencyclidine Scrn Ur Amphetamines Screen U Benzodiazepines Scrn Urine Cocaine Screen U Marijuana (THC) Screen Coronavirus (PCR) Influenza Type A (PCR) Influenza Type B (PCR) RSV RNA Qual (PCR) Blood Type Antibody Screen 07/23/20 07/24/20 07/24/20 23:55 05:10 05:10 WBC 7.3 RBC 3.81 L Hgb 12.7 L Hct 37.7 L MCV 99.0 H MCH 33.3 H MCHC 33.7 RDW 13.0 Plt Count 150 L MPV 10.3 Immature Gran % (Auto) 2.1 H Neut % (Auto) 60.2 Lymph % (Auto) 16.8 L Garrett % (Auto) 13.1 H Eos % (Auto) 7.5 H Baso % (Auto) 0.3 Lymph # (Auto) 1.2 Garrett # (Auto) 1.0 Eos # (Auto) 0.6 H Baso # (Auto) 0.0 Abs Immat Gran (auto) 0.15 H Absolute Neuts (auto) 4.4 Absolute Nucleated RBC 0.000 Nucleated RBC % (auto) 0.0 Smear Tech's Comments PT INR APTT PTT (Heparin Protocol) O2 Saturation ABG pH at Pt Temp ABG pH (Temp Correct) ABG pCO2 at Pt Temp ABG pCO2 (Temp Corrct ABG pO2 at Pt Temp ABG pO2 (Temp Correct ABG HCO3 ABG Base Excess (Actual) VBG pH VBG pCO2 VBG pO2 VBG HCO3 VBG O2 Saturation VBG Base Excess Sodium 140 Potassium 3.4 Chloride 104 Carbon Dioxide 30 H Anion Gap 9 L BUN 6 L Creatinine 0.66 Estim Creat Clear Calc 138.5 Estimated GFR > 60 POC Glucose 135 H Random Glucose 108 Fasting Glucose Lactic Acid Lactic Acid Fup @ 2Hr Lactic Acid Fup @ 4Hr Calcium 8.3 L Phosphorus 4.8 H Magnesium 1.8 Total Bilirubin Direct Bilirubin AST ALT Alkaline Phosphatase Ammonia Total Creatine Kinase 244 H Troponin I High Sens B-Natriuretic Peptide Total Protein Albumin Urine Color Urine Appearance Urine pH Ur Specific [place] Urine Protein Urine Glucose (UA) Urine Ketones Urine Blood Urine Nitrite Ur Leukocyte Esterase Urine RBC Urine WBC Urine WBC Clumps Ur Squamous Epith Cells Ur Renal Epithelial Cell Urine Bacteria Urine Mucus Salicylates Urine Opiates Screen Acetaminophen Ur Barbiturates Screen Ur Phencyclidine Scrn Ur Amphetamines Screen U Benzodiazepines Scrn Urine Cocaine Screen U Marijuana (THC) Screen Coronavirus (PCR) Influenza Type A (PCR) Influenza Type B (PCR) RSV RNA Qual (PCR) Blood Type Antibody Screen 07/24/20 07/24/20 07/24/20 05:10 05:13 08:34 WBC RBC Hgb Hct MCV MCH MCHC RDW Plt Count MPV Immature Gran % (Auto) Neut % (Auto) Lymph % (Auto) Garrett % (Auto) Eos % (Auto) Baso % (Auto) Lymph # (Auto) Garrett # (Auto) Eos # (Auto) Baso # (Auto) Abs Immat Gran (auto) Absolute Neuts (auto) Absolute Nucleated RBC Nucleated RBC % (auto) Smear Tech's Comments PT INR APTT PTT (Heparin Protocol) O2 Saturation ABG pH at Pt Temp ABG pH (Temp Correct) ABG pCO2 at Pt Temp ABG pCO2 (Temp Corrct ABG pO2 at Pt Temp ABG pO2 (Temp Correct ABG HCO3 ABG Base Excess (Actual) VBG pH 7.41 VBG pCO2 41 VBG pO2 58 VBG HCO3 26 VBG O2 Saturation 83.0 VBG Base Excess 2.3 Sodium Potassium Chloride Carbon Dioxide Anion Gap BUN Creatinine Estim Creat Clear Calc Estimated GFR POC Glucose Random Glucose Fasting Glucose Lactic Acid Lactic Acid Fup @ 2Hr Lactic Acid Fup @ 4Hr Calcium Phosphorus Magnesium Total Bilirubin Direct Bilirubin AST ALT Alkaline Phosphatase Ammonia Total Creatine Kinase Troponin I High Sens B-Natriuretic Peptide 39 Total Protein Albumin Urine Color Urine Appearance Urine pH Ur Specific [place] Urine Protein Urine Glucose (UA) Urine Ketones Urine Blood Urine Nitrite Ur Leukocyte Esterase Urine RBC Urine WBC Urine WBC Clumps Ur Squamous Epith Cells Ur Renal Epithelial Cell Urine Bacteria Urine Mucus Salicylates Urine Opiates Screen Acetaminophen Ur Barbiturates Screen Ur Phencyclidine Scrn Ur Amphetamines Screen U Benzodiazepines Scrn Urine Cocaine Screen U Marijuana (THC) Screen Coronavirus (PCR) Influenza Type A (PCR) Influenza Type B (PCR) RSV RNA Qual (PCR) Blood Type A Negative Antibody Screen NEGATIVE 07/24/20 07/24/20 07/24/20 12:56 18:07 23:57 WBC RBC Hgb Hct MCV MCH MCHC RDW Plt Count MPV Immature Gran % (Auto) Neut % (Auto) Lymph % (Auto) Garrett % (Auto) Eos % (Auto) Baso % (Auto) Lymph # (Auto) Garrett # (Auto) Eos # (Auto) Baso # (Auto) Abs Immat Gran (auto) Absolute Neuts (auto) Absolute Nucleated RBC Nucleated RBC % (auto) Smear Tech's Comments PT INR APTT PTT (Heparin Protocol) O2 Saturation ABG pH at Pt Temp ABG pH (Temp Correct) ABG pCO2 at Pt Temp ABG pCO2 (Temp Corrct ABG pO2 at Pt Temp ABG pO2 (Temp Correct ABG HCO3 ABG Base Excess (Actual) VBG pH VBG pCO2 VBG pO2 VBG HCO3 VBG O2 Saturation VBG Base Excess Sodium Potassium Chloride Carbon Dioxide Anion Gap BUN Creatinine Estim Creat Clear Calc Estimated GFR POC Glucose 95 109 108 Random Glucose Fasting Glucose Lactic Acid Lactic Acid Fup @ 2Hr Lactic Acid Fup @ 4Hr Calcium Phosphorus Magnesium Total Bilirubin Direct Bilirubin AST ALT Alkaline Phosphatase Ammonia Total Creatine Kinase Troponin I High Sens B-Natriuretic Peptide Total Protein Albumin Urine Color Urine Appearance Urine pH Ur Specific [place] Urine Protein Urine Glucose (UA) Urine Ketones Urine Blood Urine Nitrite Ur Leukocyte Esterase Urine RBC Urine WBC Urine WBC Clumps Ur Squamous Epith Cells Ur Renal Epithelial Cell Urine Bacteria Urine Mucus Salicylates Urine Opiates Screen Acetaminophen Ur Barbiturates Screen Ur Phencyclidine Scrn Ur Amphetamines Screen U Benzodiazepines Scrn Urine Cocaine Screen U Marijuana (THC) Screen Coronavirus (PCR) Influenza Type A (PCR) Influenza Type B (PCR) RSV RNA Qual (PCR) Blood Type Antibody Screen 07/25/20 07/25/20 07/25/20 05:35 05:35 05:35 WBC 12.0 H RBC 3.87 L Hgb 13.3 L Hct 38.4 L MCV 99.2 H MCH 34.4 H MCHC 34.6 RDW 13.0 Plt Count 175 MPV 10.2 Immature Gran % (Auto) 1.1 H Neut % (Auto) 75.0 H Lymph % (Auto) 8.9 L Garrett % (Auto) 11.4 H Eos % (Auto) 3.3 Baso % (Auto) 0.3 Lymph # (Auto) 1.1 L Garrett # (Auto) 1.4 H Eos # (Auto) 0.4 Baso # (Auto) 0.0 Abs Immat Gran (auto) 0.13 H Absolute Neuts (auto) 9.0 H Absolute Nucleated RBC 0.000 Nucleated RBC % (auto) 0.0 Smear Tech's Comments PT INR APTT PTT (Heparin Protocol) O2 Saturation ABG pH at Pt Temp ABG pH (Temp Correct) ABG pCO2 at Pt Temp ABG pCO2 (Temp Corrct ABG pO2 at Pt Temp ABG pO2 (Temp Correct ABG HCO3 ABG Base Excess (Actual) VBG pH VBG pCO2 VBG pO2 VBG HCO3 VBG O2 Saturation VBG Base Excess Sodium 143 Potassium 3.7 Chloride 105 Carbon Dioxide 31 H Anion Gap 11 L BUN 9 Creatinine 0.67 Estim Creat Clear Calc 136.4 Estimated GFR > 60 POC Glucose Random Glucose 100 Fasting Glucose Lactic Acid Lactic Acid Fup @ 2Hr Lactic Acid Fup @ 4Hr Calcium 8.5 Phosphorus 4.1 Magnesium 1.7 Total Bilirubin Direct Bilirubin AST ALT Alkaline Phosphatase Ammonia Total Creatine Kinase 85 D Troponin I High Sens B-Natriuretic Peptide 52 Total Protein Albumin Urine Color Urine Appearance Urine pH Ur Specific [place] Urine Protein Urine Glucose (UA) Urine Ketones Urine Blood Urine Nitrite Ur Leukocyte Esterase Urine RBC Urine WBC Urine WBC Clumps Ur Squamous Epith Cells Ur Renal Epithelial Cell Urine Bacteria Urine Mucus Salicylates Urine Opiates Screen Acetaminophen Ur Barbiturates Screen Ur Phencyclidine Scrn Ur Amphetamines Screen U Benzodiazepines Scrn Urine Cocaine Screen U Marijuana (THC) Screen Coronavirus (PCR) Influenza Type A (PCR) Influenza Type B (PCR) RSV RNA Qual (PCR) Blood Type Antibody Screen 07/25/20 07/25/20 07/25/20 05:35 08:04 11:56 WBC RBC Hgb Hct MCV MCH MCHC RDW Plt Count MPV Immature Gran % (Auto) Neut % (Auto) Lymph % (Auto) Garrett % (Auto) Eos % (Auto) Baso % (Auto) Lymph # (Auto) Garrett # (Auto) Eos # (Auto) Baso # (Auto) Abs Immat Gran (auto) Absolute Neuts (auto) Absolute Nucleated RBC Nucleated RBC % (auto) Smear Tech's Comments PT 13.0 INR 1.1 APTT 29.0 PTT (Heparin Protocol) O2 Saturation ABG pH at Pt Temp ABG pH (Temp Correct) ABG pCO2 at Pt Temp ABG pCO2 (Temp Corrct ABG pO2 at Pt Temp ABG pO2 (Temp Correct ABG HCO3 ABG Base Excess (Actual) VBG pH 7.47 H VBG pCO2 39 VBG pO2 54 VBG HCO3 29 H VBG O2 Saturation 82.0 VBG Base Excess 5.2 Sodium Potassium Chloride Carbon Dioxide Anion Gap BUN Creatinine Estim Creat Clear Calc Estimated GFR POC Glucose 105 Random Glucose Fasting Glucose Lactic Acid Lactic Acid Fup @ 2Hr Lactic Acid Fup @ 4Hr Calcium Phosphorus Magnesium Total Bilirubin Direct Bilirubin AST ALT Alkaline Phosphatase Ammonia Total Creatine Kinase Troponin I High Sens B-Natriuretic Peptide Total Protein Albumin Urine Color Urine Appearance Urine pH Ur Specific [place] Urine Protein Urine Glucose (UA) Urine Ketones Urine Blood Urine Nitrite Ur Leukocyte Esterase Urine RBC Urine WBC Urine WBC Clumps Ur Squamous Epith Cells Ur Renal Epithelial Cell Urine Bacteria Urine Mucus Salicylates Urine Opiates Screen Acetaminophen Ur Barbiturates Screen Ur Phencyclidine Scrn Ur Amphetamines Screen U Benzodiazepines Scrn Urine Cocaine Screen U Marijuana (THC) Screen Coronavirus (PCR) Influenza Type A (PCR) Influenza Type B (PCR) RSV RNA Qual (PCR) Blood Type Antibody Screen 07/25/20 07/25/20 07/25/20 18:14 20:23 20:34 WBC RBC Hgb Hct MCV MCH MCHC RDW Plt Count MPV Immature Gran % (Auto) Neut % (Auto) Lymph % (Auto) Garrett % (Auto) Eos % (Auto) Baso % (Auto) Lymph # (Auto) Garrett # (Auto) Eos # (Auto) Baso # (Auto) Abs Immat Gran (auto) Absolute Neuts (auto) Absolute Nucleated RBC Nucleated RBC % (auto) Smear Tech's Comments PT INR APTT PTT (Heparin Protocol) O2 Saturation ABG pH at Pt Temp ABG pH (Temp Correct) ABG pCO2 at Pt Temp ABG pCO2 (Temp Corrct ABG pO2 at Pt Temp ABG pO2 (Temp Correct ABG HCO3 ABG Base Excess (Actual) VBG pH VBG pCO2 VBG pO2 VBG HCO3 VBG O2 Saturation VBG Base Excess Sodium Potassium Chloride Carbon Dioxide Anion Gap BUN Creatinine Estim Creat Clear Calc Estimated GFR POC Glucose 94 Random Glucose Fasting Glucose Lactic Acid 0.9 Lactic Acid Fup @ 2Hr Lactic Acid Fup @ 4Hr Calcium Phosphorus Magnesium Total Bilirubin Direct Bilirubin AST ALT Alkaline Phosphatase Ammonia Total Creatine Kinase Troponin I High Sens B-Natriuretic Peptide Total Protein Albumin Urine Color DARK YELLOW Urine Appearance HAZY Urine pH 6.0 Ur Specific [place] 1.025 Urine Protein TRACE Urine Glucose (UA) NEG Urine Ketones NEG Urine Blood TRACE Urine Nitrite POS H Ur Leukocyte Esterase 2+ H Urine RBC 15-29 H Urine WBC 50-75 H Urine WBC Clumps NOTED Ur Squamous Epith Cells NONE Ur Renal Epithelial Cell TRACE Urine Bacteria 3+ Urine Mucus TRACE Salicylates Urine Opiates Screen Acetaminophen Ur Barbiturates Screen Ur Phencyclidine Scrn Ur Amphetamines Screen U Benzodiazepines Scrn Urine Cocaine Screen U Marijuana (THC) Screen Coronavirus (PCR) Influenza Type A (PCR) Influenza Type B (PCR) RSV RNA Qual (PCR) Blood Type Antibody Screen 07/25/20 07/26/20 07/26/20 23:23 05:17 05:17 WBC 13.2 H RBC 3.91 L Hgb 12.9 L Hct 39.8 L MCV 101.8 H MCH 33.0 MCHC 32.4 RDW 13.1 Plt Count 179 MPV 10.4 Immature Gran % (Auto) 0.7 H Neut % (Auto) 75.7 H Lymph % (Auto) 9.5 L Garrett % (Auto) 10.8 Eos % (Auto) 3.1 Baso % (Auto) 0.2 Lymph # (Auto) 1.3 Garrett # (Auto) 1.4 H Eos # (Auto) 0.4 Baso # (Auto) 0.0 Abs Immat Gran (auto) 0.09 H Absolute Neuts (auto) 10.0 H Absolute Nucleated RBC 0.000 Nucleated RBC % (auto) 0.0 Smear Tech's Comments PT INR APTT PTT (Heparin Protocol) O2 Saturation ABG pH at Pt Temp ABG pH (Temp Correct) ABG pCO2 at Pt Temp ABG pCO2 (Temp Corrct ABG pO2 at Pt Temp ABG pO2 (Temp Correct ABG HCO3 ABG Base Excess (Actual) VBG pH VBG pCO2 VBG pO2 VBG HCO3 VBG O2 Saturation VBG Base Excess Sodium 142 Potassium 3.8 Chloride 105 Carbon Dioxide 31 H Anion Gap 10 L BUN 13 Creatinine 0.72 Estim Creat Clear Calc 129.8 Estimated GFR > 60 POC Glucose 96 Random Glucose 101 Fasting Glucose Lactic Acid Lactic Acid Fup @ 2Hr Lactic Acid Fup @ 4Hr Calcium 8.6 Phosphorus 4.1 Magnesium 2.0 Total Bilirubin Direct Bilirubin AST ALT Alkaline Phosphatase Ammonia Total Creatine Kinase 37 L D Troponin I High Sens B-Natriuretic Peptide Total Protein Albumin Urine Color Urine Appearance Urine pH Ur Specific [place] Urine Protein Urine Glucose (UA) Urine Ketones Urine Blood Urine Nitrite Ur Leukocyte Esterase Urine RBC Urine WBC Urine WBC Clumps Ur Squamous Epith Cells Ur Renal Epithelial Cell Urine Bacteria Urine Mucus Salicylates Urine Opiates Screen Acetaminophen Ur Barbiturates Screen Ur Phencyclidine Scrn Ur Amphetamines Screen U Benzodiazepines Scrn Urine Cocaine Screen U Marijuana (THC) Screen Coronavirus (PCR) Influenza Type A (PCR) Influenza Type B (PCR) RSV RNA Qual (PCR) Blood Type Antibody Screen 07/26/20 07/26/20 07/26/20 05:17 05:29 06:00 WBC RBC Hgb Hct MCV MCH MCHC RDW Plt Count MPV Immature Gran % (Auto) Neut % (Auto) Lymph % (Auto) Garrett % (Auto) Eos % (Auto) Baso % (Auto) Lymph # (Auto) Garrett # (Auto) Eos # (Auto) Baso # (Auto) Abs Immat Gran (auto) Absolute Neuts (auto) Absolute Nucleated RBC Nucleated RBC % (auto) Smear Tech's Comments PT INR APTT PTT (Heparin Protocol) O2 Saturation ABG pH at Pt Temp ABG pH (Temp Correct) ABG pCO2 at Pt Temp ABG pCO2 (Temp Corrct ABG pO2 at Pt Temp ABG pO2 (Temp Correct ABG HCO3 ABG Base Excess (Actual) VBG pH 7.48 H VBG pCO2 39 VBG pO2 50 VBG HCO3 29 H VBG O2 Saturation 78.0 VBG Base Excess 5.9 Sodium Potassium Chloride Carbon Dioxide Anion Gap BUN Creatinine Estim Creat Clear Calc Estimated GFR POC Glucose 95 Random Glucose Fasting Glucose Lactic Acid Lactic Acid Fup @ 2Hr Lactic Acid Fup @ 4Hr Calcium Phosphorus Magnesium Total Bilirubin Direct Bilirubin AST ALT Alkaline Phosphatase Ammonia Total Creatine Kinase Troponin I High Sens B-Natriuretic Peptide 27 Total Protein Albumin Urine Color Urine Appearance Urine pH Ur Specific [place] Urine Protein Urine Glucose (UA) Urine Ketones Urine Blood Urine Nitrite Ur Leukocyte Esterase Urine RBC Urine WBC Urine WBC Clumps Ur Squamous Epith Cells Ur Renal Epithelial Cell Urine Bacteria Urine Mucus Salicylates Urine Opiates Screen Acetaminophen Ur Barbiturates Screen Ur Phencyclidine Scrn Ur Amphetamines Screen U Benzodiazepines Scrn Urine Cocaine Screen U Marijuana (THC) Screen Coronavirus (PCR) Influenza Type A (PCR) Influenza Type B (PCR) RSV RNA Qual (PCR) Blood Type Antibody Screen 07/26/20 07/26/20 07/26/20 12:04 12:40 18:15 WBC RBC Hgb Hct MCV MCH MCHC RDW Plt Count MPV Immature Gran % (Auto) Neut % (Auto) Lymph % (Auto) Garrett % (Auto) Eos % (Auto) Baso % (Auto) Lymph # (Auto) Garrett # (Auto) Eos # (Auto) Baso # (Auto) Abs Immat Gran (auto) Absolute Neuts (auto) Absolute Nucleated RBC Nucleated RBC % (auto) Smear Tech's Comments PT INR APTT 31.7 PTT (Heparin Protocol) O2 Saturation ABG pH at Pt Temp ABG pH (Temp Correct) ABG pCO2 at Pt Temp ABG pCO2 (Temp Corrct ABG pO2 at Pt Temp ABG pO2 (Temp Correct ABG HCO3 ABG Base Excess (Actual) VBG pH VBG pCO2 VBG pO2 VBG HCO3 VBG O2 Saturation VBG Base Excess Sodium Potassium Chloride Carbon Dioxide Anion Gap BUN Creatinine Estim Creat Clear Calc Estimated GFR POC Glucose 120 H 111 Random Glucose Fasting Glucose Lactic Acid Lactic Acid Fup @ 2Hr Lactic Acid Fup @ 4Hr Calcium Phosphorus Magnesium Total Bilirubin Direct Bilirubin AST ALT Alkaline Phosphatase Ammonia Total Creatine Kinase Troponin I High Sens B-Natriuretic Peptide Total Protein Albumin Urine Color Urine Appearance Urine pH Ur Specific [place] Urine Protein Urine Glucose (UA) Urine Ketones Urine Blood Urine Nitrite Ur Leukocyte Esterase Urine RBC Urine WBC Urine WBC Clumps Ur Squamous Epith Cells Ur Renal Epithelial Cell Urine Bacteria Urine Mucus Salicylates Urine Opiates Screen Acetaminophen Ur Barbiturates Screen Ur Phencyclidine Scrn Ur Amphetamines Screen U Benzodiazepines Scrn Urine Cocaine Screen U Marijuana (THC) Screen Coronavirus (PCR) Influenza Type A (PCR) Influenza Type B (PCR) RSV RNA Qual (PCR) Blood Type Antibody Screen 07/27/20 07/27/20 07/27/20 00:17 06:08 06:08 WBC 10.1 RBC 3.78 L Hgb 12.5 L Hct 38.5 L MCV 101.9 H MCH 33.1 H MCHC 32.5 RDW 13.0 Plt Count 182 MPV 11.4 Immature Gran % (Auto) 0.6 H Neut % (Auto) 76.1 H Lymph % (Auto) 10.7 L Garrett % (Auto) 9.5 Eos % (Auto) 2.9 Baso % (Auto) 0.2 Lymph # (Auto) 1.1 L Garrett # (Auto) 1.0 Eos # (Auto) 0.3 Baso # (Auto) 0.0 Abs Immat Gran (auto) 0.06 H Absolute Neuts (auto) 7.7 Absolute Nucleated RBC 0.000 Nucleated RBC % (auto) 0.0 Smear Tech's Comments PT INR APTT PTT (Heparin Protocol) O2 Saturation ABG pH at Pt Temp ABG pH (Temp Correct) ABG pCO2 at Pt Temp ABG pCO2 (Temp Corrct ABG pO2 at Pt Temp ABG pO2 (Temp Correct ABG HCO3 ABG Base Excess (Actual) VBG pH VBG pCO2 VBG pO2 VBG HCO3 VBG O2 Saturation VBG Base Excess Sodium 142 Potassium 4.0 Chloride 105 Carbon Dioxide 28 Anion Gap 13 BUN 16 Creatinine 0.68 Estim Creat Clear Calc 132.6 Estimated GFR > 60 POC Glucose 110 Random Glucose 112 Fasting Glucose Lactic Acid Lactic Acid Fup @ 2Hr Lactic Acid Fup @ 4Hr Calcium 8.5 Phosphorus 4.5 Magnesium 1.9 Total Bilirubin Direct Bilirubin AST ALT Alkaline Phosphatase Ammonia Total Creatine Kinase 29 L Troponin I High Sens B-Natriuretic Peptide Total Protein Albumin Urine Color Urine Appearance Urine pH Ur Specific [place] Urine Protein Urine Glucose (UA) Urine Ketones Urine Blood Urine Nitrite Ur Leukocyte Esterase Urine RBC Urine WBC Urine WBC Clumps Ur Squamous Epith Cells Ur Renal Epithelial Cell Urine Bacteria Urine Mucus Salicylates Urine Opiates Screen Acetaminophen Ur Barbiturates Screen Ur Phencyclidine Scrn Ur Amphetamines Screen U Benzodiazepines Scrn Urine Cocaine Screen U Marijuana (THC) Screen Coronavirus (PCR) Influenza Type A (PCR) Influenza Type B (PCR) RSV RNA Qual (PCR) Blood Type Antibody Screen 07/27/20 07/27/20 07/28/20 06:08 06:13 07:44 WBC 9.0 RBC 3.86 L Hgb 12.9 L Hct 38.4 L MCV 99.5 H MCH 33.4 H MCHC 33.6 RDW 12.6 Plt Count 178 MPV 12.2 Immature Gran % (Auto) 0.6 H Neut % (Auto) 71.2 Lymph % (Auto) 16.0 L Garrett % (Auto) 7.7 Eos % (Auto) 4.2 H Baso % (Auto) 0.3 Lymph # (Auto) 1.4 Garrett # (Auto) 0.7 Eos # (Auto) 0.4 Baso # (Auto) 0.0 Abs Immat Gran (auto) 0.05 H Absolute Neuts (auto) 6.4 Absolute Nucleated RBC 0.000 Nucleated RBC % (auto) 0.0 Smear Tech's Comments VERIFIED PT INR APTT PTT (Heparin Protocol) O2 Saturation ABG pH at Pt Temp ABG pH (Temp Correct) ABG pCO2 at Pt Temp ABG pCO2 (Temp Corrct ABG pO2 at Pt Temp ABG pO2 (Temp Correct ABG HCO3 ABG Base Excess (Actual) VBG pH 7.49 H VBG pCO2 38 VBG pO2 55 VBG HCO3 29 H VBG O2 Saturation 82.0 VBG Base Excess 5.7 Sodium Potassium Chloride Carbon Dioxide Anion Gap BUN Creatinine Estim Creat Clear Calc Estimated GFR POC Glucose Random Glucose Fasting Glucose Lactic Acid Lactic Acid Fup @ 2Hr Lactic Acid Fup @ 4Hr Calcium Phosphorus Magnesium Total Bilirubin Direct Bilirubin AST ALT Alkaline Phosphatase Ammonia Total Creatine Kinase Troponin I High Sens B-Natriuretic Peptide 19 Total Protein Albumin Urine Color Urine Appearance Urine pH Ur Specific [place] Urine Protein Urine Glucose (UA) Urine Ketones Urine Blood Urine Nitrite Ur Leukocyte Esterase Urine RBC Urine WBC Urine WBC Clumps Ur Squamous Epith Cells Ur Renal Epithelial Cell Urine Bacteria Urine Mucus Salicylates Urine Opiates Screen Acetaminophen Ur Barbiturates Screen Ur Phencyclidine Scrn Ur Amphetamines Screen U Benzodiazepines Scrn Urine Cocaine Screen U Marijuana (THC) Screen Coronavirus (PCR) Influenza Type A (PCR) Influenza Type B (PCR) RSV RNA Qual (PCR) Blood Type Antibody Screen 07/28/20 07/28/20 07/28/20 07:44 07:44 07:46 WBC RBC Hgb Hct MCV MCH MCHC RDW Plt Count MPV Immature Gran % (Auto) Neut % (Auto) Lymph % (Auto) Garrett % (Auto) Eos % (Auto) Baso % (Auto) Lymph # (Auto) Garrett # (Auto) Eos # (Auto) Baso # (Auto) Abs Immat Gran (auto) Absolute Neuts (auto) Absolute Nucleated RBC Nucleated RBC % (auto) Smear Tech's Comments PT INR APTT PTT (Heparin Protocol) O2 Saturation Cancelled ABG pH at Pt Temp Cancelled ABG pH (Temp Correct) Cancelled ABG pCO2 at Pt Temp Cancelled ABG pCO2 (Temp Corrct Cancelled ABG pO2 at Pt Temp Cancelled ABG pO2 (Temp Correct Cancelled ABG HCO3 Cancelled ABG Base Excess (Actual) Cancelled VBG pH VBG pCO2 VBG pO2 VBG HCO3 VBG O2 Saturation VBG Base Excess Sodium 141 Potassium 4.5 Chloride 107 Carbon Dioxide 25 Anion Gap 14 BUN 18 H Creatinine 0.67 Estim Creat Clear Calc 134.5 Estimated GFR > 60 POC Glucose Random Glucose 129 H Fasting Glucose Lactic Acid Lactic Acid Fup @ 2Hr Lactic Acid Fup @ 4Hr Calcium 8.6 Phosphorus 4.2 Magnesium 2.0 Total Bilirubin Direct Bilirubin AST ALT Alkaline Phosphatase Ammonia Total Creatine Kinase 28 L Troponin I High Sens B-Natriuretic Peptide 86 Total Protein Albumin Urine Color Urine Appearance Urine pH Ur Specific [place] Urine Protein Urine Glucose (UA) Urine Ketones Urine Blood Urine Nitrite Ur Leukocyte Esterase Urine RBC Urine WBC Urine WBC Clumps Ur Squamous Epith Cells Ur Renal Epithelial Cell Urine Bacteria Urine Mucus Salicylates Urine Opiates Screen Acetaminophen Ur Barbiturates Screen Ur Phencyclidine Scrn Ur Amphetamines Screen U Benzodiazepines Scrn Urine Cocaine Screen U Marijuana (THC) Screen Coronavirus (PCR) Influenza Type A (PCR) Influenza Type B (PCR) RSV RNA Qual (PCR) Blood Type Antibody Screen 07/28/20 07/28/20 07/28/20 07:53 12:15 18:22 WBC RBC Hgb Hct MCV MCH MCHC RDW Plt Count MPV Immature Gran % (Auto) Neut % (Auto) Lymph % (Auto) Garrett % (Auto) Eos % (Auto) Baso % (Auto) Lymph # (Auto) Garrett # (Auto) Eos # (Auto) Baso # (Auto) Abs Immat Gran (auto) Absolute Neuts (auto) Absolute Nucleated RBC Nucleated RBC % (auto) Smear Tech's Comments PT INR APTT PTT (Heparin Protocol) O2 Saturation ABG pH at Pt Temp ABG pH (Temp Correct) ABG pCO2 at Pt Temp ABG pCO2 (Temp Corrct ABG pO2 at Pt Temp ABG pO2 (Temp Correct ABG HCO3 ABG Base Excess (Actual) VBG pH 7.46 H VBG pCO2 36 VBG pO2 138 VBG HCO3 26 VBG O2 Saturation 98.0 VBG Base Excess 3.2 Sodium Potassium Chloride Carbon Dioxide Anion Gap BUN Creatinine Estim Creat Clear Calc Estimated GFR POC Glucose 112 92 Random Glucose Fasting Glucose Lactic Acid Lactic Acid Fup @ 2Hr Lactic Acid Fup @ 4Hr Calcium Phosphorus Magnesium Total Bilirubin Direct Bilirubin AST ALT Alkaline Phosphatase Ammonia Total Creatine Kinase Troponin I High Sens B-Natriuretic Peptide Total Protein Albumin Urine Color Urine Appearance Urine pH Ur Specific [place] Urine Protein Urine Glucose (UA) Urine Ketones Urine Blood Urine Nitrite Ur Leukocyte Esterase Urine RBC Urine WBC Urine WBC Clumps Ur Squamous Epith Cells Ur Renal Epithelial Cell Urine Bacteria Urine Mucus Salicylates Urine Opiates Screen Acetaminophen Ur Barbiturates Screen Ur Phencyclidine Scrn Ur Amphetamines Screen U Benzodiazepines Scrn Urine Cocaine Screen U Marijuana (THC) Screen Coronavirus (PCR) Influenza Type A (PCR) Influenza Type B (PCR) RSV RNA Qual (PCR) Blood Type Antibody Screen 07/29/20 07/29/20 07/29/20 00:41 05:46 05:46 WBC 13.7 H RBC 4.42 L Hgb 14.6 Hct 43.6 MCV 98.6 H MCH 33.0 MCHC 33.5 RDW 12.5 Plt Count TNP MPV Not Reportable Immature Gran % (Auto) 0.5 H Neut % (Auto) 74.7 H Lymph % (Auto) 11.5 L Garrett % (Auto) 11.2 H Eos % (Auto) 1.7 Baso % (Auto) 0.4 Lymph # (Auto) 1.6 Garrett # (Auto) 1.5 H Eos # (Auto) 0.2 Baso # (Auto) 0.1 Abs Immat Gran (auto) 0.07 H Absolute Neuts (auto) 10.2 H Absolute Nucleated RBC 0.000 Nucleated RBC % (auto) 0.0 Smear Tech's Comments VERIFIED PT INR APTT PTT (Heparin Protocol) O2 Saturation ABG pH at Pt Temp ABG pH (Temp Correct) ABG pCO2 at Pt Temp ABG pCO2 (Temp Corrct ABG pO2 at Pt Temp ABG pO2 (Temp Correct ABG HCO3 ABG Base Excess (Actual) VBG pH VBG pCO2 VBG pO2 VBG HCO3 VBG O2 Saturation VBG Base Excess Sodium 140 Potassium 4.1 Chloride 105 Carbon Dioxide 22 Anion Gap 17 BUN 18 H Creatinine 0.66 Estim Creat Clear Calc 135.1 Estimated GFR > 60 POC Glucose 95 Random Glucose 92 Fasting Glucose Lactic Acid Lactic Acid Fup @ 2Hr Lactic Acid Fup @ 4Hr Calcium 8.9 Phosphorus 4.2 Magnesium 2.0 Total Bilirubin Direct Bilirubin AST ALT Alkaline Phosphatase Ammonia Total Creatine Kinase 61 D Troponin I High Sens B-Natriuretic Peptide Total Protein Albumin Urine Color Urine Appearance Urine pH Ur Specific [place] Urine Protein Urine Glucose (UA) Urine Ketones Urine Blood Urine Nitrite Ur Leukocyte Esterase Urine RBC Urine WBC Urine WBC Clumps Ur Squamous Epith Cells Ur Renal Epithelial Cell Urine Bacteria Urine Mucus Salicylates Urine Opiates Screen Acetaminophen Ur Barbiturates Screen Ur Phencyclidine Scrn Ur Amphetamines Screen U Benzodiazepines Scrn Urine Cocaine Screen U Marijuana (THC) Screen Coronavirus (PCR) Influenza Type A (PCR) Influenza Type B (PCR) RSV RNA Qual (PCR) Blood Type Antibody Screen 07/29/20 07/29/20 07/29/20 05:46 05:50 06:32 WBC RBC Hgb Hct MCV MCH MCHC RDW Plt Count MPV Immature Gran % (Auto) Neut % (Auto) Lymph % (Auto) Garrett % (Auto) Eos % (Auto) Baso % (Auto) Lymph # (Auto) Garrett # (Auto) Eos # (Auto) Baso # (Auto) Abs Immat Gran (auto) Absolute Neuts (auto) Absolute Nucleated RBC Nucleated RBC % (auto) Smear Tech's Comments PT INR APTT PTT (Heparin Protocol) O2 Saturation ABG pH at Pt Temp ABG pH (Temp Correct) ABG pCO2 at Pt Temp ABG pCO2 (Temp Corrct ABG pO2 at Pt Temp ABG pO2 (Temp Correct ABG HCO3 ABG Base Excess (Actual) VBG pH 7.49 H VBG pCO2 32 VBG pO2 91 VBG HCO3 25 VBG O2 Saturation 97.0 VBG Base Excess 2.5 Sodium Potassium Chloride Carbon Dioxide Anion Gap BUN Creatinine Estim Creat Clear Calc Estimated GFR POC Glucose 101 Random Glucose Fasting Glucose Lactic Acid Lactic Acid Fup @ 2Hr Lactic Acid Fup @ 4Hr Calcium Phosphorus Magnesium Total Bilirubin Direct Bilirubin AST ALT Alkaline Phosphatase Ammonia Total Creatine Kinase Troponin I High Sens B-Natriuretic Peptide 210 H Total Protein Albumin Urine Color Urine Appearance Urine pH Ur Specific [place] Urine Protein Urine Glucose (UA) Urine Ketones Urine Blood Urine Nitrite Ur Leukocyte Esterase Urine RBC Urine WBC Urine WBC Clumps Ur Squamous Epith Cells Ur Renal Epithelial Cell Urine Bacteria Urine Mucus Salicylates Urine Opiates Screen Acetaminophen Ur Barbiturates Screen Ur Phencyclidine Scrn Ur Amphetamines Screen U Benzodiazepines Scrn Urine Cocaine Screen U Marijuana (THC) Screen Coronavirus (PCR) Influenza Type A (PCR) Influenza Type B (PCR) RSV RNA Qual (PCR) Blood Type Antibody Screen 07/30/20 07/30/20 07/30/20 07:28 07:28 07:32 WBC 10.4 RBC 4.29 L Hgb 14.2 Hct 42.9 MCV 100.0 H MCH 33.1 H MCHC 33.1 RDW 12.8 Plt Count 337 D MPV 10.6 Immature Gran % (Auto) 0.5 H Neut % (Auto) 72.4 Lymph % (Auto) 12.8 L Garrett % (Auto) 12.0 H Eos % (Auto) 1.9 Baso % (Auto) 0.4 Lymph # (Auto) 1.3 Garrett # (Auto) 1.3 H Eos # (Auto) 0.2 Baso # (Auto) 0.0 Abs Immat Gran (auto) 0.05 H Absolute Neuts (auto) 7.5 Absolute Nucleated RBC 0.000 Nucleated RBC % (auto) 0.0 Smear Tech's Comments PT INR APTT PTT (Heparin Protocol) O2 Saturation ABG pH at Pt Temp ABG pH (Temp Correct) ABG pCO2 at Pt Temp ABG pCO2 (Temp Corrct ABG pO2 at Pt Temp ABG pO2 (Temp Correct ABG HCO3 ABG Base Excess (Actual) VBG pH 7.44 H VBG pCO2 40 VBG pO2 149 VBG HCO3 27 H VBG O2 Saturation 99.0 VBG Base Excess 3.6 Sodium 141 Potassium 4.8 Chloride 105 Carbon Dioxide 27 Anion Gap 14 BUN 24 H Creatinine 0.69 Estim Creat Clear Calc 129.9 Estimated GFR > 60 POC Glucose Random Glucose Fasting Glucose 101 H Lactic Acid Lactic Acid Fup @ 2Hr Lactic Acid Fup @ 4Hr Calcium 9.1 Phosphorus Magnesium Total Bilirubin Direct Bilirubin AST ALT Alkaline Phosphatase Ammonia Total Creatine Kinase Troponin I High Sens B-Natriuretic Peptide Total Protein Albumin Urine Color Urine Appearance Urine pH Ur Specific [place] Urine Protein Urine Glucose (UA) Urine Ketones Urine Blood Urine Nitrite Ur Leukocyte Esterase Urine RBC Urine WBC Urine WBC Clumps Ur Squamous Epith Cells Ur Renal Epithelial Cell Urine Bacteria Urine Mucus Salicylates Urine Opiates Screen Acetaminophen Ur Barbiturates Screen Ur Phencyclidine Scrn Ur Amphetamines Screen U Benzodiazepines Scrn Urine Cocaine Screen U Marijuana (THC) Screen Coronavirus (PCR) Influenza Type A (PCR) Influenza Type B (PCR) RSV RNA Qual (PCR) Blood Type Antibody Screen 07/30/20 07/31/20 07/31/20 14:25 05:26 05:26 WBC 10.8 RBC 4.23 L Hgb 14.0 Hct 42.9 MCV 101.4 H MCH 33.1 H MCHC 32.6 RDW 12.7 Plt Count 353 MPV 10.8 Immature Gran % (Auto) 0.5 H Neut % (Auto) 72.4 Lymph % (Auto) 13.2 L Garrett % (Auto) 11.2 H Eos % (Auto) 2.2 Baso % (Auto) 0.5 Lymph # (Auto) 1.4 Garrett # (Auto) 1.2 Eos # (Auto) 0.2 Baso # (Auto) 0.1 Abs Immat Gran (auto) 0.05 H Absolute Neuts (auto) 7.8 Absolute Nucleated RBC 0.000 Nucleated RBC % (auto) 0.0 Smear Tech's Comments PT INR APTT PTT (Heparin Protocol) O2 Saturation ABG pH at Pt Temp ABG pH (Temp Correct) ABG pCO2 at Pt Temp ABG pCO2 (Temp Corrct ABG pO2 at Pt Temp ABG pO2 (Temp Correct ABG HCO3 ABG Base Excess (Actual) VBG pH VBG pCO2 VBG pO2 VBG HCO3 VBG O2 Saturation VBG Base Excess Sodium 141 Potassium 4.6 Chloride 106 Carbon Dioxide 28 Anion Gap 12 BUN 26 H Creatinine 0.71 Estim Creat Clear Calc 128.1 Estimated GFR > 60 POC Glucose Random Glucose 84 Fasting Glucose Lactic Acid Lactic Acid Fup @ 2Hr Lactic Acid Fup @ 4Hr Calcium 9.5 Phosphorus Magnesium Total Bilirubin Direct Bilirubin AST ALT Alkaline Phosphatase Ammonia Total Creatine Kinase Troponin I High Sens B-Natriuretic Peptide Total Protein Albumin Urine Color YELLOW Urine Appearance CLEAR Urine pH 6.5 Ur Specific [place] 1.020 Urine Protein NEG Urine Glucose (UA) NEG Urine Ketones NEG Urine Blood NEG Urine Nitrite NEG Ur Leukocyte Esterase NEG Urine RBC Urine WBC Urine WBC Clumps Ur Squamous Epith Cells Ur Renal Epithelial Cell Urine Bacteria Urine Mucus Salicylates Urine Opiates Screen Acetaminophen Ur Barbiturates Screen Ur Phencyclidine Scrn Ur Amphetamines Screen U Benzodiazepines Scrn Urine Cocaine Screen U Marijuana (THC) Screen Coronavirus (PCR) Influenza Type A (PCR) Influenza Type B (PCR) RSV RNA Qual (PCR) Blood Type Antibody Screen 07/31/20 08/01/20 08/01/20 05:28 05:26 05:27 WBC 11.6 H RBC 4.13 L Hgb 13.7 L Hct 42.0 MCV 101.7 H MCH 33.2 H MCHC 32.6 RDW 12.6 Plt Count 438 H MPV 10.7 Immature Gran % (Auto) 0.5 H Neut % (Auto) 70.3 Lymph % (Auto) 15.7 L Garrett % (Auto) 11.1 H Eos % (Auto) 1.9 Baso % (Auto) 0.5 Lymph # (Auto) 1.8 Garrett # (Auto) 1.3 H Eos # (Auto) 0.2 Baso # (Auto) 0.1 Abs Immat Gran (auto) 0.06 H Absolute Neuts (auto) 8.2 Absolute Nucleated RBC 0.000 Nucleated RBC % (auto) 0.0 Smear Tech's Comments PT INR APTT PTT (Heparin Protocol) O2 Saturation ABG pH at Pt Temp ABG pH (Temp Correct) ABG pCO2 at Pt Temp ABG pCO2 (Temp Corrct ABG pO2 at Pt Temp ABG pO2 (Temp Correct ABG HCO3 ABG Base Excess (Actual) VBG pH 7.37 7.37 VBG pCO2 51 50 VBG pO2 47 48 VBG HCO3 30 H 29 H VBG O2 Saturation 74.0 78.0 VBG Base Excess 4.0 3.4 Sodium Potassium Chloride Carbon Dioxide Anion Gap BUN Creatinine Estim Creat Clear Calc Estimated GFR POC Glucose Random Glucose Fasting Glucose Lactic Acid Lactic Acid Fup @ 2Hr Lactic Acid Fup @ 4Hr Calcium Phosphorus Magnesium Total Bilirubin Direct Bilirubin AST ALT Alkaline Phosphatase Ammonia Total Creatine Kinase Troponin I High Sens B-Natriuretic Peptide Total Protein Albumin Urine Color Urine Appearance Urine pH Ur Specific [place] Urine Protein Urine Glucose (UA) Urine Ketones Urine Blood Urine Nitrite Ur Leukocyte Esterase Urine RBC Urine WBC Urine WBC Clumps Ur Squamous Epith Cells Ur Renal Epithelial Cell Urine Bacteria Urine Mucus Salicylates Urine Opiates Screen Acetaminophen Ur Barbiturates Screen Ur Phencyclidine Scrn Ur Amphetamines Screen U Benzodiazepines Scrn Urine Cocaine Screen U Marijuana (THC) Screen Coronavirus (PCR) Influenza Type A (PCR) Influenza Type B (PCR) RSV RNA Qual (PCR) Blood Type Antibody Screen 08/01/20 08/01/20 08/01/20 05:27 17:11 17:20 WBC RBC Hgb Hct MCV MCH MCHC RDW Plt Count MPV Immature Gran % (Auto) Neut % (Auto) Lymph % (Auto) Garrett % (Auto) Eos % (Auto) Baso % (Auto) Lymph # (Auto) Garrett # (Auto) Eos # (Auto) Baso # (Auto) Abs Immat Gran (auto) Absolute Neuts (auto) Absolute Nucleated RBC Nucleated RBC % (auto) Smear Tech's Comments PT INR APTT PTT (Heparin Protocol) O2 Saturation ABG pH at Pt Temp ABG pH (Temp Correct) ABG pCO2 at Pt Temp ABG pCO2 (Temp Corrct ABG pO2 at Pt Temp ABG pO2 (Temp Correct ABG HCO3 ABG Base Excess (Actual) VBG pH VBG pCO2 VBG pO2 VBG HCO3 VBG O2 Saturation VBG Base Excess Sodium 142 Potassium 4.8 Chloride 105 Carbon Dioxide 27 Anion Gap 15 BUN 32 H Creatinine 0.76 Estim Creat Clear Calc 119.9 Estimated GFR > 60 POC Glucose Random Glucose 91 Fasting Glucose Lactic Acid 1.1 Lactic Acid Fup @ 2Hr Lactic Acid Fup @ 4Hr Calcium 9.4 Phosphorus Magnesium Total Bilirubin 0.7 Direct Bilirubin AST 53 H ALT 63 H Alkaline Phosphatase 101 D Ammonia Total Creatine Kinase Troponin I High Sens B-Natriuretic Peptide Total Protein 6.6 Albumin 3.4 L Urine Color Urine Appearance Urine pH Ur Specific [place] Urine Protein Urine Glucose (UA) Urine Ketones Urine Blood Urine Nitrite Ur Leukocyte Esterase Urine RBC Urine WBC Urine WBC Clumps Ur Squamous Epith Cells Ur Renal Epithelial Cell Urine Bacteria Urine Mucus Salicylates Urine Opiates Screen Acetaminophen Ur Barbiturates Screen Ur Phencyclidine Scrn Ur Amphetamines Screen U Benzodiazepines Scrn Urine Cocaine Screen U Marijuana (THC) Screen Coronavirus (PCR) Influenza Type A (PCR) Influenza Type B (PCR) RSV RNA Qual (PCR) Blood Type A Negative Antibody Screen NEGATIVE 08/02/20 08/02/20 08/02/20 06:06 06:12 06:12 WBC 9.0 RBC 3.86 L Hgb 12.8 L Hct 39.0 L MCV 101.0 H MCH 33.2 H MCHC 32.8 RDW 12.6 Plt Count 373 MPV 10.7 Immature Gran % (Auto) 0.3 Neut % (Auto) 58.9 Lymph % (Auto) 23.1 [place] % (Auto) 11.3 H Eos % (Auto) 5.5 H Baso % (Auto) 0.9 Lymph # (Auto) 2.1 [place] # (Auto) 1.0 Eos # (Auto) 0.5 H Baso # (Auto) 0.1 Abs Immat Gran (auto) 0.03 Absolute Neuts (auto) 5.3 Absolute Nucleated RBC 0.000 Nucleated RBC % (auto) 0.0 Smear Tech's Comments PT INR APTT PTT (Heparin Protocol) O2 Saturation ABG pH at Pt Temp ABG pH (Temp Correct) ABG pCO2 at Pt Temp ABG pCO2 (Temp Corrct ABG pO2 at Pt Temp ABG pO2 (Temp Correct ABG HCO3 ABG Base Excess (Actual) VBG pH 7.44 H VBG pCO2 38 VBG pO2 87 VBG HCO3 26 VBG O2 Saturation 97.0 VBG Base Excess 2.5 Sodium 139 Potassium 4.2 Chloride 103 Carbon Dioxide 25 Anion Gap 15 BUN 31 H Creatinine 0.65 Estim Creat Clear Calc 138.4 Estimated GFR > 60 POC Glucose Random Glucose 82 Fasting Glucose Lactic Acid Lactic Acid Fup @ 2Hr Lactic Acid Fup @ 4Hr Calcium 8.8 D Phosphorus Magnesium Total Bilirubin 0.7 Direct Bilirubin AST 51 H ALT 60 H Alkaline Phosphatase 92 Ammon[place] Total Creatine Kinase Troponin I High Sens B-Natriuretic Peptide Total Protein 6.3 L Albumin 3.3 L Urine Color Urine Appearance Urine pH Ur Specific [place] Urine Protein Urine Glucose (UA) Urine Ketones Urine Blood Urine Nitrite Ur Leukocyte Esterase Urine RBC Urine WBC Urine WBC Clumps Ur Squamous Epith Cells Ur Renal Epithelial Cell Urine Bacteria Urine Mucus Salicylates Urine Opiates Screen Acetaminophen Ur Barbiturates Screen Ur Phencyclidine Scrn Ur Amphetamines Screen U Benzodiazepines Scrn Urine Cocaine Screen U Marijuana (THC) Screen Coronavirus (PCR) Influenza Type A (PCR) Influenza Type B (PCR) RSV RNA Qual (PCR) Blood Type Antibody Screen 08/02/20 09:17 WBC RBC Hgb Hct MCV MCH MCHC RDW Plt Count MPV Immature Gran % (Auto) Neut % (Auto) Lymph % (Auto) [place] % (Auto) Eos % (Auto) Baso % (Auto) Lymph # (Auto) [place] # (Auto) Eos # (Auto) Baso # (Auto) Abs Immat Gran (auto) Absolute Neuts (auto) Absolute Nucleated RBC Nucleated RBC % (auto) Smear Tech's Comments PT 12.6 INR 1.1 APTT PTT (Heparin Protocol) O2 Saturation ABG pH at Pt Temp ABG pH (Temp Correct) ABG pCO2 at Pt Temp ABG pCO2 (Temp Corrct ABG pO2 at Pt Temp ABG pO2 (Temp Correct ABG HCO3 ABG Base Excess (Actual) VBG pH VBG pCO2 VBG pO2 VBG HCO3 VBG O2 Saturation VBG Base Excess Sodium Potassium Chloride Carbon Dioxide Anion Gap BUN Creatinine Estim Creat Clear Calc Estimated GFR POC Glucose Random Glucose Fasting Glucose Lactic Acid Lactic Acid Fup @ 2Hr Lactic Acid Fup @ 4Hr Calcium Phosphorus Magnesium Total Bilirubin Direct Bilirubin AST ALT Alkaline Phosphatase Ammonia Total Creatine Kinase Troponin I High Sens B-Natriuretic Peptide Total Protein Albumin Urine Color Urine Appearance Urine pH Ur Specific [place] Urine Protein Urine Glucose (UA) Urine Ketones Urine Blood Urine Nitrite Ur Leukocyte Esterase Urine RBC Urine WBC Urine WBC Clumps Ur Squamous Epith Cells Ur Renal Epithelial Cell Urine Bacteria Urine Mucus Salicylates Urine Opiates Screen Acetaminophen Ur Barbiturates Screen Ur Phencyclidine Scrn Ur Amphetamines Screen U Benzodiazepines Scrn Urine Cocaine Screen U Marijuana (THC) Screen Coronavirus (PCR) Influenza Type A (PCR) Influenza Type B (PCR) RSV RNA Qual (PCR) Blood Type Antibody Screen
--- NOTE | 2020-08-02 14:17 | MHC.CM.PN ---
Pt remains in ICU on ventilatory support following anoxic brain injury. Pt has not regained cognitive functioning at this time and is scheduled for peg/trach placement today. Pt's brother Star has agreed to serve as pt's legal court appointed guardian/conservator (pt has no HCP on file). This should be filed with the [employer] court system early next week. Pt will be able to transfer to [facility] in [place] once he is clinically stable AND we have a court date issued for guardianship hearing. Clinical updates sent to [facility] excluding peg/trach OR reports as they were not available at the time of this note. CM will follow
--- NOTE | 2020-08-02 15:39 | OP_ITS ---
DATE: 08/02/2020 SURGEON: Gissell Barboza MD PREOPERATIVE DIAGNOSIS: Respiratory failure. POSTOPERATIVE DIAGNOSIS: Respiratory failure. PROCEDURE PERFORMED: ESTIMATED BLOOD LOSS: Minimal. COMPLICATIONS: ANESTHESIA: General. ASSISTANTS: Kevin Ruby PA-C. SPECIMENS: None. PROCEDURES PERFORMED: Bronchoscopy, percutaneous tracheostomy, EGD, PEG tube placement. DESCRIPTION OF PROCEDURE: On the day of the operation, the patient was brought to the operating room in his ICU bed and anesthesia and monitoring devices were placed. The patient was completely paralyzed and sedated. A shoulder roll was placed under the shoulders and the neck was extended. A time-out was performed confirming the correct patient, site, and procedure. The bedside welder assistant then put the bronchoscope down to visualize the airways. There was a moderate amount of thick secretions bilaterally down to the subsegmental level. The neck and upper chest were then prepped and draped in standard sterile fashion, and a 2 cm incision was made above the sternal notch. At this point, the endotracheal tube was brought back to just above the level of the vocal cords and after dissecting directly onto the trachea. A needle with catheter was placed under vision into the second tracheal cartilage. The catheter was left in place and a wire was placed and visualized with the bronchoscope to go downward toward the kellie. The first dilator was then placed and removed. The second dilator was then placed and left in place and finally, the Rhino dilator was placed over the initial dilator and wire and this was dilated up to 36-[place] under vision quite easily. The Rhino dilator was then removed and the tracheostomy tube and its internal dilator were then placed over the wire without difficulty. The balloon was inflated and the bronchoscope was then placed down through the tracheostomy, visualizing the airways and the tip of the tracheostomy to be about 5 cm above the kellie. This was connected then to the ventilator with excellent volumes and the trach was secured with nylon sutures in 4 corners. Dressing was applied and trach ties were applied. The patient tolerated this portion of the procedure well and the shoulder roll was then removed. The EGD scope was then inserted through the oropharynx and into the esophagus down into the stomach, visualizing the first portion of the duodenum, stomach and esophagus. There were no mucosal lesions. The GE junction was at about 40 to 45 cm. With the scope was in the stomach, the stomach was inflated and transilluminated across the abdominal wall. A mali was made at the abdominal wall and that area was prepped and draped in standard sterile fashion. The bedside welder assistant then made a neck at the skin and needle and catheter were placed through the neck and into the stomach under vision. The catheter was left in place. A wire was placed through the catheter. The wire was then snared and then the wire was brought up with the scope through the mouth. This was looped into the PEG tube and dragged back down from the abdomen and brought up, snug up against the stomach wall. The scope was then reinserted, then visualized the PEG tube. The attachment and dressing were applied to the PEG tube, it was 3 cm at the skin. The patient tolerated this portion of procedure quite well also. The patient was then brought back to the intensive care unit in guarded, but stable condition. MD NEREIDA Reaves/PENG / [id number] MTDValentin
[2020-08-02] MEDS: Enoxaparin Sodium 40 MG/0.4 ML SYRINGE SUBCUT (21:25)
[2020-08-03] VITALS (40 sets, daily range): BP systolic 97–187; BP diastolic 59–123; PULSE 80–139; RESP 10–32; TEMP 37–38; O2SAT 93–100; BMI 32.1
[2020-08-03 02:11] LABS: Glucose, Whole Blood 74 mg/dL (60-115)
[2020-08-03] MEDS: vancomycin HCL 1,000 MG in 0.9 % Sodium Chloride 250 ML 270 MG IV ×2 (02:26→03:32)
[2020-08-03] MEDS: propofoL 1,000 MG/100 ML VIAL 17.89 MG IVCONT ×2 (02:35→08:11)
[2020-08-03 05:11] LABS: VBG Base Excess 2.8 mmol/L; VBG HCO3 26 mmol/L (22-26); VBG pCO2 38 mmHg; VBG pH 7.44 (7.32-7.43); VBG pO2 60 mmHg
[2020-08-03 05:13] LABS: MANUAL DIFF FLAG NO
[2020-08-03 05:14] LABS: Basophils Absolute Auto 0.1 X10*3/uL (0.0-0.2); Basophils Percent Auto 0.6 % (0-2); Eosinophils Absolute Auto 0.5 X10*3/uL (0.0-0.4); Eosinophils Percent Auto 4.6 % (0-4); Hemoglobin 13.3 g/dl (14.0-18.0); Imm Gran Abs Auto 0.03 X10*3/uL (0.00-0.03); Imm Gran Pct Auto 0.3 % (0.0-0.4); Lymphocytes Absolute Auto 1.5 X10*3/uL (1.2-4.9); Mean Corpuscular HGB Conc 34.1 g/dl (31.0-36.0); Mean Corpuscular Hemoglobin 33.6 pg (27.0-33.0); Mean Corpuscular Volume 98.5 fL (80-98); Mean Platelet Volume 10.4 fL (9.4-12.4); Monocytes Absolute Auto 0.9 X10*3/uL (0.1-1.2); Monocytes Percent Auto 9.2 % (2-11); Neutrophils Absolute Auto 7.1 X10*3/uL (2.0-8.3); Neutrophils Percent Auto 70.3 % (45-73); Platelet Count 335 X10*3/uL (160-400); Red Blood Count 3.96 X10*6/uL (4.60-5.80); Red Cell Distribution Width 12.3 % (11.0-16.0)
[2020-08-03 05:14] LABS: Venous Blood Gas Refer to POC result
[2020-08-03 05:38] LABS: Alanine Aminotransferase 65 U/L (0-40); Albumin Level 3.5 g/dL (3.5-5.0); Alkaline Phosphatase 97 U/L (39-117); Anion Gap 15 (12-20); Aspartate Amino Transferase 56 U/L (5-37); Bilirubin Total 0.4 mg/dL (0.0-1.0); Blood Urea Nitrogen 19 mg/dL (9-16); Calcium 8.7 mg/dL (8.4-10.2); Carbon Dioxide 26 mmol/L (22-29); Chloride 102 mmol/L (96-108); Creatinine Clr Calc Pharmacy 130.4; Estimated Glomerular Filt Rate > 60; Potassium 3.6 mmol/L (3.3-5.1); Sodium 139 mmol/L (135-145); Total Protein 6.8 g/dL (6.5-8.0)
[2020-08-03 05:46] LABS: Glucose Random 95 mg/dL (60-115)
[2020-08-03] MEDS: modafiniL 100 MG TABLET 200 MG OG-TUBE (08:25)
[2020-08-03] MEDS: QUEtiapine Fumarate 50 MG TABLET G-TUBE ×2 (08:26→19:42)
[2020-08-03] MEDS: Chlorhexidine Gluc Oral Rinse 15 ML MOUTHWASH BUCCAL ×3 (08:26→19:42)
--- NOTE | 2020-08-03 09:12 | PC.NURSE ---
Addendum entered by Sam Richardson RN 08/03/20 15:50: Tube feed restarted at 20ml/hr 1530. 25mg metoprolol given x2 through PEG tube, restarted back on esmolol at 75mcg/kg/min. At 1200 pt placed on Trach collar FiO2 28% SaO2 97%, able to cough up own secretions. Original Note: Pt on propofol 30mcg/kg/min, ventilated through #8 portex trach. Pt slightly opens eyes to voice, does not track or follow commands. Pt propofol turned off for 1 hr, pt opening eyes spontaneously, still not tracking or following commands, pupils PERRLA 5mm. Positive cough/ weak/no gag. Pt shaking in bed at times, not as restless in bed. On pressure support [id number], PEEP 7, FiO2 30%, ETCO2 23, SaO2 94-100%, RR 23 Vt 475 Ve 10.9. Has pink tinged inline secretions small-moderate. When propofol was off, pt started breathing at 40br/min, Vt down to 275, gurgling noted, RT notified and added air into cuffed trach. Vt now 425ml. RR now 23. BP high at times up to 180 SBP. RT could only find #7 portex trach cuffed to keep at bedside. Minimal dried blood to gauze on trach, sutures in place. PEG tube no drainage, gauze intact, wafer rotated. Gave meds through it this AM without issue. Bowel sounds positive. will restart tube feedings 1500.
[2020-08-03] MEDS: Esmolol HCl/NaCl Iso 2,500 MG/250 ML IV.SOLN 29.16 MG IVCONT (09:50)
[2020-08-03] MEDS: HYDROmorphone HCl 1 MG/ML SYRINGE IVPUSH (10:10)
--- NOTE | 2020-08-03 10:28 | HO.POSTANES ---
Post Anesthesia Evaluation Post Anesthesia Evaluation Vital Signs: Vital Signs Temp Pulse Resp BP Pulse Ox 08/03/20 10:00 100.2 F 97 20 187/123 H 93 08/03/20 09:50 139 H 187/123 H 08/03/20 09:00 99.7 F 126 H 29 H 129/79 96 08/03/20 08:00 99.5 F 113 H 10 L 152/97 H 95 08/03/20 07:00 99.3 F 116 H 25 H 183/104 H 99 08/03/20 06:06 111 H 17 159/103 H 94 08/03/20 05:08 107 H 18 157/104 H 96 08/03/20 04:06 99.1 F 110 H 21 H 157/106 H 96 08/03/20 03:12 116 H 22 H 158/108 H 97 08/03/20 02:01 109 H 19 154/101 H 96 08/03/20 01:01 108 H 18 136/84 96 08/03/20 00:05 99.7 F 111 H 22 H 148/95 H 97 08/02/20 23:00 99.7 F 114 H 21 H 160/95 H 96 Anesthesia: General Endotracheal-GETA Mental Status: Sedated Pain Control: Satisfactory Nausea/Vomiting: None Hydration: Adequate Anesthesia-Related Issues: No Anes. Related Issues
[2020-08-03] MEDS: Metoprolol Tartrate 25 MG TABLET PO ×2 (12:06→14:44)
--- NOTE | 2020-08-03 12:21 | P.PNCC_ITS ---
Subjective Subjective Date of Service: 08/03/20 Interval History: Mr. Gustafson was admitted to ICU on July 17 with acute respiratory failure. The patient is a 59 yo M with h/o HTN and depression, on mult meds (clonidine, gabapentin, mirtazapine, olanzapine, trazodone, and venlafaxine), along with opiates for chronic pain. The patient was BIBA to the ED on 07/17 after being found unresponsive at home w shallow breathing 2? presumed opiate OD. An empty bottle of Percocet was found. No response to Narcan. He was intubated for airway protection immed on arrival to ED. Chest CT suggested aspiration pneumonitis. Also had rhabdo and LA, along with troponin elevation. The patient was admitted to the ICU. Echo showed mod decreased LV fxn, EF 30-35%, with a likely apical thrombus, mildly decreased RV function, and dilated, non-collapsing inferior vena cava. RVSP was unable to be calculated. The patient was started on heparin drip. The patient was extubated on July 19, and was lethargic and significantly delirious. Acute kidney injury resolved. Empiric antibiotics were discontinued after 48 hours. MRI on July 20 showed ?Multiple areas of restricted diffusion scattered throughout the brain parenchyma, with symmetric involvement of the bilateral globus pallidus, focal involvement of the right caudate head, bilateral parasagittal subcortical white matter foci, and a single focus within the right lateral occipital lobe. The watershed distribution of the infarcts, and involvement of the globus pallidi (more sensitive to ischemia) suggested a hypoxic-ischemic insult.? On July 21, the patient acutely aspirated and required re-intubation. 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 Neurological prognosis was judged to be poor. F/u echo on July 25 showed normal LV fxn with EF 55-60%, and no RWMAs. F/u neuro exam on July 25 showed no cognitive f xn. Fever w/u on July 25 showed a UTI, and he was put on ceftriaxone. Urine grew sensitive E-coli. F/U u/a on 07/30 was negative. After mult discussions, family decided to proceed with tracheostomy and PEG. Over the July 27- weekend, the patient woke up and seemed to be showing some purposeful responsiveness. Since then, he?s been awake with eyes open, but he?s demonstrated little cortical function. Inconsistently, he?s sometimes moved his head toward the sound of verbal stimuli, but he doesn?t track and has no clear response to confrontation. Once or twice he seemed to move his hand slightly to show us two fingers on command, but it was only once or twice during the entire week. Best neuro response today is opens eyes to verbal stimulation. Overall, no neurological progress at all this week. But his sympathetic tone has been very active and labile, requiring mult fentanyl boluses and freq esmolol infusions, and going up and down on the propofol drip, which we hadn?t been able to discontinue completely bec he gets very agitated and dysynchronus with the ventilator. SBP was ranging from 170?s-80 range, HRs 70s-120?s, RR from 11-20s. Started him on Seroquel 50mg bid on 08/01, which significantly improved his lability. He underwent tracheostomy and PEG yesterday which went well. Looks much ?calmer? this morning with the propofol off. Still 100% noninteractive. He?s on esmolol 25ug. HR 103, BP 109/51. On PSV 10/30%/+7, RR was 24, Sat 96%. Responded very nicely to Dilaudid 1mg. Changed him over to 28% trach collar. He?s breathing easy with RR, Sat 100%. CVBG this morning showed 7.44/38/+2. Tmax 100.2. Started Provigil on July 29, with no response. Stopped it today. PERRL, about 5mm. Chest is clear. Abdomen benign. No edema. U/O is averaging > 50cc/hr. LABORATORY DATA: Below. White count steady, renal indices down. Lactic acid was negative on August 01. MICROBIOLOGY: Blood cultures were drawn August 01 because of hypotension (a ssociated with labile sympathetic tone). 1/4 bottles was reported positive at 29 hours for Gram-positive cocci in clusters. The other set shows no growth so far. Lactic acid was negative on that blood draw. IMPRESSION: 1. AMS on admission, presumed 2? opiate OD. 2. Current encephalopathy. MRI suggests anoxic and embolic etiologies. He?s clearly ?awake? but severely encephalopathic. Does seem to be making some questionable progress, but very, very slow. No response to Provigil. Nice resp onse so far to Seroquel 50 mg bid, seems much less sympathetically activated. Seems much more comfortable after the tracheostomy. 3. Acute respiratory failure. Doing well on the trach collar. 4. Aspiration pneumonitis. Resolved. 5. LA. 2? rhabdo and hypovolemia. Resolved. 6. CMOP. s/p ? NSTEMI. CMOP is resolved. 7. Nutrition. On tube feeds. 8. ID: No clinical evidence of infection, sepsis, or shock. The positive BC was likely a contaminant. Redrew cultures. Will not give abx. Critical care time (excluding procedures): 55 min. Physical Exam Vital Signs: Vital Signs: Last Vital Signs Temp 100.0 F 08/03/20 12:00 Pulse 110 H 08/03/20 12:06 Resp 21 H 08/03/20 12:00 BP 159/101 H 08/03/20 12:06 Pulse Ox 100 08/03/20 12:00 Body Mass Index 32.1 Objective Data Labs CBC & Chem 7: 08/03/20 05:05 08/03/20 05:05 Labs: Laboratory Results - last 24 hr 08/03/20 08/03/20 08/03/20 02:06 05:04 05:05 WBC 10.0 RBC 3.96 L Hgb 13.3 L Hct 39.0 L MCV 98.5 H MCH 33.6 H MCHC 34.1 RDW 12.3 Plt Count 335 MPV 10.4 Immature Gran % (Auto) 0.3 Neut % (Auto) 70.3 Lymph % (Auto) 15.0 L [place] % (Auto) 9.2 Eos % (Auto) 4.6 H Baso % (Auto) 0.6 Lymph # (Auto) 1.5 [place] # (Auto) 0.9 Eos # (Auto) 0.5 H Baso # (Auto) 0.1 Abs Immat Gran (auto) 0.03 Absolute Neuts (auto) 7.1 Absolute Nucleated RBC 0.000 Nucleated RBC % (auto) 0.0 VBG pH 7.44 H VBG pCO2 38 VBG pO2 60 VBG HCO3 26 VBG O2 Saturation 90.0 VBG Base Excess 2.8 Sodium Potassium Chloride Carbon Dioxide Anion Gap BUN Creatinine Estim Creat Clear Calc Estimated GFR POC Glucose 74 Random Glucose Fasting Glucose Calcium Total Bilirubin AST ALT Alkaline Phosphatase Total Protein Albumin 08/03/20 05:05 WBC RBC Hgb Hct MCV MCH MCHC RDW Plt Count MPV Immature Gran % (Auto) Neut % (Auto) Lymph % (Auto) [place] % (Auto) Eos % (Auto) Baso % (Auto) Lymph # (Auto) [place] # (Auto) Eos # (Auto) Baso # (Auto) Abs Immat Gran (auto) Absolute Neuts (auto) Absolute Nucleated RBC Nucleated RBC % (auto) VBG pH VBG pCO2 VBG pO2 VBG HCO3 VBG O2 Saturation VBG Base Excess Sodium 139 Potassium 3.6 Chloride 102 Carbon Dioxide 26 Anion Gap 15 BUN 19 H Creatinine 0.69 Estim Creat Clear Calc 130.4 Estimated GFR > 60 POC Glucose Random Glucose 95 Fasting Glucose Cancelled Calcium 8.7 Total Bilirubin 0.4 AST 56 H ALT 65 H Alkaline Phosphatase 97 Total Protein 6.8 Albumin 3.5 Microbiology Microbiology Results: Microbiology 08/01/20 17:11 Blood - Venous Blood Culture - Preliminary 08/01/20 17:11 Blood - Venous Blood Culture - Preliminary No growth after 24 hours. 07/25/20 20:34 Blood - Venous Blood Culture - Final No growth after 5 days. 07/25/20 20:34 Blood - Venous Blood Culture - Final No growth after 5 days. 07/25/20 20:23 Sputum - Suctioned Gram Stain - Final 07/25/20 20:23 Sputum - Suctioned Sputum Culture - Final 07/25/20 Unknown Urine [place] Urine Culture - Final Escherichia coli 07/17/20 19:28 Blood - Venous Blood Culture - Final No growth after 5 days. 07/17/20 19:20 Blood - Venous Blood Culture - Final No growth after 5 days. 07/19/20 10:02 Sputum - Suctioned Gram Stain - Final 07/19/20 10:02 Sputum - Suctioned Sputum Culture - Final Critical Care Time Critical Care Time (minutes): 60
[2020-08-03] MEDS: Potassium Chloride Packet 20 MEQ PACKET 40 MEQ G-TUBE (13:37)
[2020-08-03 16:13] LABS: Glucose, Whole Blood 98 mg/dL (60-115)
[2020-08-03] MEDS: Esmolol HCl/NaCl Iso 2,500 MG/250 ML IV.SOLN 43.74 MG IVCONT (17:57)
[2020-08-03] MEDS: Zinc Sulfate 220 MG CAPSULE PO (18:15)
[2020-08-03] MEDS: Ascorbic Acid 500 MG TABLET 1000 MG PO (19:40)
[2020-08-03] MEDS: Metoprolol Tartrate 25 MG TABLET G-TUBE (19:41)
[2020-08-03] MEDS: Thiamine HCL 100 MG TABLET 200 MG PO (19:41)
[2020-08-03] MEDS: Cholecalciferol (Vitamin D3) 25 MCG TABLET 50 MCG PO (19:42)
[2020-08-03] MEDS: Famotidine 20 MG TABLET 40 MG PO (19:42)
[2020-08-03] MEDS: Atorvastatin Calcium 80 MG TABLET PO (19:42)
[2020-08-03] MEDS: Melatonin 3 MG TABLET 9 MG PO (19:43)
[2020-08-03] MEDS: Enoxaparin Sodium 40 MG/0.4 ML SYRINGE SUBCUT (19:43)
[2020-08-03] MEDS: Esmolol HCl/NaCl Iso 2,500 MG/250 ML IV.SOLN 34.99 MG IVCONT (22:15)
[2020-08-04] VITALS (49 sets, daily range): BP systolic 66–179; BP diastolic 38–115; PULSE 66–124; RESP 14–90; TEMP 36.8–37.7; O2SAT 91–98; BMI 31.4
[2020-08-04] MEDS: HYDROmorphone HCl 1 MG/ML SYRINGE IVPUSH (01:18)
[2020-08-04 05:42] LABS: VBG Base Excess 4.1 mmol/L; VBG HCO3 27 mmol/L (22-26); VBG pCO2 37 mmHg; VBG pH 7.47 (7.32-7.43); VBG pO2 48 mmHg
[2020-08-04 05:44] LABS: Venous Blood Gas Refer to POC result
[2020-08-04 05:46] LABS: MANUAL DIFF FLAG NO
[2020-08-04 05:49] LABS: Basophils Absolute Auto 0.1 X10*3/uL (0.0-0.2); Basophils Percent Auto 0.5 % (0-2); Eosinophils Absolute Auto 0.4 X10*3/uL (0.0-0.4); Eosinophils Percent Auto 3.3 % (0-4); Hematocrit 40.9 % (42-52); Hemoglobin 13.8 g/dl (14.0-18.0); Imm Gran Abs Auto 0.05 X10*3/uL (0.00-0.03); Imm Gran Pct Auto 0.4 % (0.0-0.4); Lymphocytes Absolute Auto 1.8 X10*3/uL (1.2-4.9); Lymphocytes Percent Auto 15.2 % (20-40); Mean Corpuscular HGB Conc 33.7 g/dl (31.0-36.0); Mean Corpuscular Hemoglobin 32.9 pg (27.0-33.0); Mean Corpuscular Volume 97.4 fL (80-98); Mean Platelet Volume 10.7 fL (9.4-12.4); Monocytes Absolute Auto 1.4 X10*3/uL (0.1-1.2); Monocytes Percent Auto 11.1 % (2-11); Neutrophils Absolute Auto 8.4 X10*3/uL (2.0-8.3); Neutrophils Percent Auto 69.5 % (45-73); Platelet Count 371 X10*3/uL (160-400); Red Cell Distribution Width 12.4 % (11.0-16.0); White Blood Count 12.1 X10*3/uL (4.8-10.8)
[2020-08-04 06:00] LABS: D Dimer 1047 NG/ML
[2020-08-04 06:16] LABS: Alanine Aminotransferase 54 U/L (0-40); Albumin Level 3.6 g/dL (3.5-5.0); Alkaline Phosphatase 99 U/L (39-117); Anion Gap 16 (12-20); Aspartate Amino Transferase 43 U/L (5-37); Blood Urea Nitrogen 19 mg/dL (9-16); C Reactive Protein 8.11 mg/dL (< or = 0.50); Calcium 9.2 mg/dL (8.4-10.2); Carbon Dioxide 25 mmol/L (22-29); Chloride 104 mmol/L (96-108); Creatinine Clr Calc Pharmacy 121.7; Estimated Glomerular Filt Rate > 60; Glucose Random 104 mg/dL (60-115); Potassium 3.9 mmol/L (3.3-5.1); Sodium 141 mmol/L (135-145)
[2020-08-04] MEDS: Esmolol HCl/NaCl Iso 2,500 MG/250 ML IV.SOLN 29.16 MG IVCONT (06:30)
[2020-08-04 06:39] LABS: Ferritin 416 ng/mL (20-250)
[2020-08-04] MEDS: HYDROmorphone HCl 0.5 MG/0.5 ML SYRINGE IVPUSH ×2 (07:26→13:25)
[2020-08-04] MEDS: Zinc Sulfate 220 MG CAPSULE PO (07:27)
[2020-08-04] MEDS: Ascorbic Acid 500 MG TABLET 1000 MG PO ×2 (07:27→22:00)
[2020-08-04] MEDS: QUEtiapine Fumarate 50 MG TABLET G-TUBE ×2 (07:27→22:02)
[2020-08-04] MEDS: Famotidine 20 MG TABLET 40 MG PO (07:27)
[2020-08-04] MEDS: Cholecalciferol (Vitamin D3) 25 MCG TABLET 50 MCG PO ×2 (07:28→22:01)
[2020-08-04] MEDS: Thiamine HCL 100 MG TABLET 200 MG PO ×2 (07:28→22:00)
[2020-08-04] MEDS: Chlorhexidine Gluc Oral Rinse 15 ML MOUTHWASH BUCCAL ×3 (07:28→21:58)
[2020-08-04] MEDS: Metoprolol Tartrate 25 MG TABLET G-TUBE ×2 (07:28→22:01)
[2020-08-04] MEDS: Nystatin Powder 15 GM BOTTLE 1 APPL TOPICAL ×3 (10:48→22:02)
[2020-08-04] MEDS: acetaZOLAMIDE 250 MG TABLET 500 MG G-TUBE (13:57)
--- NOTE | 2020-08-04 14:40 | P.PNCC_ITS ---
Subjective Subjective Date of Service: 08/04/20 Interval History: NOTE: Mr. Gustafson? was visited by his son on August 01. During that visit, the son had close, prolonged contact with his father. The next day, the son became symptomatic with COVID, and the day after that tested positive for COVID. (I.e. The patient was exposed to a person who was at peak infectivity.) Because of that, we started the patient on the [facility] COVID prophylaxis protocol: Vit B, Vit C, Vit D, Pepcid, zinc, and melatonin. I added thiamine and atorvastatin. I did not write for Ivermectin which is part of their prophylaxis protocol, but per that protocol ivermectin should be considered if the patient becomes infected. Dose is 0.2 mg/kg on day 1 and day 3. I?ve written the patient for a COVID test tomorrow morning. Discussed with Dr. Hernandez. Mr. Gustafson was admitted to ICU on July 17 with acute respiratory failure. The patient is a 59 yo M with h/o HTN and depression, on mult meds (clonidine, gabapentin, mirtazapine, olanzapine, trazodone, and venlafaxine), along with opiates for chronic pain. The patient was BIBA to the ED on 07/17 after being found unresponsive at home w shallow breathing 2? presumed opiate OD. An empty bottle of Percocet was found. No response to Narcan. He was intubated for airway protection immed on arrival to ED. Chest CT suggested aspiration pneumonitis. Also had rhabdo and LA, along with troponin elevation. The patient was admitted to the ICU. Echo showed mod decreased LV fxn, EF 30-35%, with a likely apical thrombus, mildly decreased RV function, and dilated, non-collapsing inferior vena cava. RVSP was unable to be calculated. The patient was started on heparin drip. The patient was extubated on July 19, and was lethargic and significantly delirious. Acute kidney injury resolved. Empiric antibiotics were discontinued after 48 hours. MRI on July 20 showed ?Multiple areas of restricted diffusion scattered throughout the brain parenchyma, with symmetric involvement of the bilateral globus pallidus, focal involvement of the right caudate head, bilateral parasagittal subcortical white matter foci, and a single focus within the right lateral occipital lobe. The watershed distribution of the infarcts, and involvement of the globus pallidi (more sensitive to ischemia) suggested a hypoxic-ischemic insult.? On July 21, the patient acutely aspirated and required re-intubation. 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 Neurological prognosis was judged to be poor. F/u echo on July 25 showed normal LV fxn with EF 55-60%, and no RWMAs. F/u neuro exam on July 25 showed no cognitive fxn. Fever w/u on July 25 showed a UTI, and he was put on ceftriaxone. Urine grew sensitive E-coli. F/U u/a on 07/30 was negative. After mult discussions, family decided to proceed with tracheostomy and PEG. Over the July 27- weekend, the patient woke up and seemed to be showing some purposeful responsiveness. Since then, he?s been awake with eyes open, but he?s demonstrated little cortical function. Inconsistently, he?s sometimes moved his head toward the sound of verbal stimuli, but he doesn?t track and has no clear response to confrontation. Once or twice he seemed to move his hand slightly to show us two fingers on command, but it was only once or twice during the entire week. Best neuro response today is opens eyes to verbal stimulation. He was on Provigil from July 29-, with no response, therefore was discontinued. Overall, no neurological progress at all this week. But his sympathetic tone has been very active and labile, requiring mult fentanyl boluses and freq esmolol infusions, and going up and down on the propofol drip. He was started on Seroquel 50mg bid on 08/01, which significantly improved his lability. He underwent tracheostomy and PEG on which went well. The propofol was discontinued the next day (yesterday), and he looks much ?calmer? since then. And we switched him over to trach collar yesterday with no problem. He?s still 100% noninteractive. Currently on esmolol 100ug, plus metoprolol 25mg q8. HR 105, BP 179/109. He?s breathing easy on 28% trach collar. CVBG this morning on the trach collar showed 7.47/37/+4. He is afebrile today; yesterday T-max was 100.2. No edema. We gave him ? mg Dilaudid IV, and his pressure dropped from the 179/109 to 103/61, with the esmolol off. According to the nurse, he?s responded like this to small dose Dilaudid multiple times, even though he?s not tachypneic. U/O is averaging > 30cc/hr. LABORATORY DATA: Below. White count up slightly today. DDimer, Ferritin, and CRP all moderately elevated, with no prior determinations. MICROBIOLOGY: Blood cultures were drawn August 01 because of hypotension (associated with labile sympathetic tone). / bottles was reported positive at 29 hours for Coag negative Staph. The other set shows no growth so far. Lactic acid was negative on that blood draw. We redrew BC?s yesterday, and they also show no growth. IMPRESSION: 1. AMS on admission, presumed 2? opiate OD. 2. Current encephalopathy. MRI suggests anoxic and embolic etiologies. He?s clearly ?awake? but severely encephalopathic. Does seem to be making some questionable progress, but very, very slow. No response to Provigil. Nice response so far to Seroquel 50 mg bid, seems much less sympathetically activated. Seems much more comfortable after the tracheostomy. 3. Acute respiratory failure. Doing well on the trach collar. 4. Labile sympathetic tone. It?s possible that this is 2? opiate withdrawal, but we never discontinued his fentanyl infusion suddenly, and he was not tachyp neic (the 1? sign of opiate withdrawal). I?m going to decrease his metoprolol to 25 mg bid, start clonidine 0.2 mg tid, and put him on Dilaudid 2mg per GT q6hr. The Dilaudid can then be tapered off. 6. Aspiration pneumonitis. Resolved. 7. LA. 2? rhabdo and hypovolemia. Resolved. 8. CMOP. s/p ? NSTEMI. CMOP is resolved. 9. Nutrition. On tube feeds. 10. ID: No clinical evidence of infection, sepsis, or shock. The positive BC was likely a contaminant. Will not give abx. 11. Metabolic alkalosis. I wrote him for two doses of Diamox. Critical care time (excluding procedures): 50 min. Physical Exam Vital Signs: Vital Signs: Last Vital Signs Temp 99.1 F 04/18/21 14:00 Pulse 94 08/04/20 14:29 Resp 21 H 08/04/20 14:29 BP 103/61 08/04/20 14:29 Pulse Ox 93 08/04/20 14:00 Body Mass Index 31.4 Objective Data Labs CBC & Chem 7: 08/04/20 05:34 08/04/20 05:34 Labs: Laboratory Results - last 24 hr 08/03/20 08/04/20 08/04/20 16:05 05:34 05:34 WBC 12.1 H RBC 4.20 L Hgb 13.8 L Hct 40.9 L MCV 97.4 MCH 32.9 MCHC 33.7 RDW 12.4 Plt Count 371 MPV 10.7 Immature Gran % (Auto) 0.4 Neut % (Auto) 69.5 Lymph % (Auto) 15.2 L [place] % (Auto) 11.1 H Eos % (Auto) 3.3 Baso % (Auto) 0.5 Lymph # (Auto) 1.8 [place] # (Auto) 1.4 H Eos # (Auto) 0.4 Baso # (Auto) 0.1 Abs Immat Gran (auto) 0.05 H Absolute Neuts (auto) 8.4 H Absolute Nucleated RBC 0.000 Nucleated RBC % (auto) 0.0 D-Dimer 1047 VBG pH VBG pCO2 VBG pO2 VBG HCO3 VBG O2 Saturation VBG Base Excess Sodium Potassium Chloride Carbon Dioxide Anion Gap BUN Creatinine Estim Creat Clear Calc Estimated GFR POC Glucose 98 Random Glucose Calcium Ferritin Total Bilirubin AST ALT Alkaline Phosphatase C-Reactive Protein Total Protein Albumin 08/04/20 08/04/20 05:34 05:36 WBC RBC Hgb Hct MCV MCH MCHC RDW Plt Count MPV Immature Gran % (Auto) Neut % (Auto) Lymph % (Auto) [place] % (Auto) Eos % (Auto) Baso % (Auto) Lymph # (Auto) [place] # (Auto) Eos # (Auto) Baso # (Auto) Abs Immat Gran (auto) Absolute Neuts (auto) Absolute Nucleated RBC Nucleated RBC % (auto) D-Dimer VBG pH 7.47 H VBG pCO2 37 VBG pO2 48 VBG HCO3 27 H VBG O2 Saturation 80.0 VBG Base Excess 4.1 Sodium 141 Potassium 3.9 Chloride 104 Carbon Dioxide 25 Anion Gap 16 BUN 19 H Creatinine 0.73 Estim Creat Clear Calc 121.7 Estimated GFR > 60 POC Glucose Random Glucose 104 Calcium 9.2 Ferritin 416 H Total Bilirubin 1.0 AST 43 H ALT 54 H Alkaline Phosphatase 99 C-Reactive Protein 8.11 H Total Protein 7.0 Albumin 3.6 Microbiology Microbiology Results: Microbiology 08/03/20 07:59 Blood - Venous Blood Culture - Preliminary No growth after 24 hours. 08/03/20 07:59 Blood - Venous Blood Culture - Preliminary No growth after 24 hours. 08/01/20 17:11 Blood - Venous Blood Culture - Final Coag negative Staphylococcus 08/01/20 17:11 Blood - Venous Blood Culture - Preliminary No growth after 48 hours. 07/25/20 20:34 Blood - Venous Blood Culture - Final No growth after 5 days. 07/25/20 20:34 Blood - Venous Blood Culture - Final No growth after 5 days. 07/25/20 20:23 Sputum - Suctioned Gram Stain - Final 07/25/20 20:23 Sputum - Suctioned Sputum Culture - Final 07/25/20 Unknown Urine [place] Urine Culture - Final Escherichia coli 07/17/20 19:28 Blood - Venous Blood Culture - Final No growth after 5 days. 07/17/20 19:20 Blood - Venous Blood Culture - Final No growth after 5 days. 07/19/20 10:02 Sputum - Suctioned Gram Stain - Final 07/19/20 10:02 Sputum - Suctioned Sputum Culture - Final
[2020-08-04] MEDS: HYDROmorphone HCl 2 MG TABLET G-TUBE ×2 (14:55→21:44)
[2020-08-04] MEDS: cloNIDine HCL 0.2 MG TABLET G-TUBE ×3 (15:50→21:59)
--- NOTE | 2020-08-04 17:28 | PC.NURSE ---
Pt hypertensive when awake, 180/110, HR up to 120. On metoprolol 25mg PO BID. Esmolol drip will take care of HR at 50mcg/kg/min, however, minimal effect on BP. HR will go down to 70-90 on 50mcg/kg/min. When pt is given 0.5mg dilaudid IV, BP trends down to 100/60. 2mg PEG dilaudid scheduled q6h along with clonidine 0.2mg TID. This dropped the patients pressure to 82/54 HR 74, within 30 minutes, BP back to 151/88 HR 109.
[2020-08-04] MEDS: Enoxaparin Sodium 40 MG/0.4 ML SYRINGE SUBCUT (21:58)
[2020-08-04] MEDS: Atorvastatin Calcium 80 MG TABLET PO (22:00)
[2020-08-04] MEDS: Melatonin 3 MG TABLET 9 MG PO (22:00)
[2020-08-04] MEDS: Famotidine 20 MG TABLET PO (22:01)
[2020-08-04] MEDS: Lactated Ringers 500 ML 999 ML IV (23:35)
[2020-08-05] VITALS (27 sets, daily range): BP systolic 80–182; BP diastolic 45–104; PULSE 56–114; RESP 14–28; TEMP 36–37.6; O2SAT 91–98; BMI 31.2
[2020-08-05] MEDS: Lactated Ringers 500 ML 999 ML IV (00:20)
[2020-08-05 02:50] LABS: COVID-19 Test Negative (Negative); IDNOW Serial# 9DD0AD1C
--- NOTE | 2020-08-05 03:17 | PC.NURSE ---
ASSUMED CARE OF PT AT 1900. PT OFF ALL DRIPS AT THIS TIME. MONITOR SHOWED ST, HR 100-110'S. DR BILLS CALLED TO CHECK ON PT AT 1945, SPECIFICALLY CHECKING ON HEARTRATE. EXTRA DOSE OF CLONIDINE WAS ORDERED BY BIA DORMAN AND BP DROPPED. THE BP WAS ELEVATED AT 170/113 AT 2130 JUST BEFORE THE EXTRA DOSE CLONIDINE ADMINISTRATION. HE ALSO RECEIVED A SCHEDULED HS DOSE. BIA DORMAN AT BEDSIDE. BP DROPPED TO 70'S SYSTOLIC AND PT WAS GIVEN LR 500 ML BOLUS WITH NO IMPROVEMENT IN BP. LEVOPHED WAS STARTED AND TITRATED TO 0.08 MCG/KG/MIN WITH GOOD EFFECT. HE ALSO RECEIVED A 2ND BOLUS OF 500 ML LR. HE WAS SCHEDULED FOR DIAMOX AT AND DILAUDID AND BOTH OF THESE WERE NOT GIVEN. BP CAME UP AND LEVO WAS SHUT OFF. URINE OUTPUT IS GOOD. HEART RATE CURRENTLY 114 ST. BIA DORMAN AWARE OF HEART RATE AND CURRENT BP 133/70 AND WANT TO CONTINUE TO NOT GIVE DIAMOX. PT IN NO ACUTE RESP DISTRESS. O2 SAT 93% ON TRACH COLLAR AT 28%. HE HAS A GOOD COUGH AND ABLE TO COUGH UP THICK LEY SPUTUM FROM CRACH. DISPOSABLE INNER CANNULA CHANGED. TRACH SITE CLEAN.
[2020-08-05] MEDS: HYDROmorphone HCl 2 MG TABLET G-TUBE (03:56)
[2020-08-05 05:13] LABS: VBG Base Excess 0.9 mmol/L; VBG HCO3 24 mmol/L (22-26); VBG pCO2 37 mmHg; VBG pH 7.43 (7.32-7.43); VBG pO2 45 mmHg
[2020-08-05 05:15] LABS: MANUAL DIFF FLAG NO
[2020-08-05 05:20] LABS: Venous Blood Gas Refer to POC result
[2020-08-05 05:22] LABS: Basophils Percent Auto 0.4 % (0-2); Eosinophils Absolute Auto 0.4 X10*3/uL (0.0-0.4); Eosinophils Percent Auto 3.6 % (0-4); Hematocrit 39.3 % (42-52); Hemoglobin 12.9 g/dl (14.0-18.0); Imm Gran Abs Auto 0.05 X10*3/uL (0.00-0.03); Imm Gran Pct Auto 0.5 % (0.0-0.4); Lymphocytes Absolute Auto 1.9 X10*3/uL (1.2-4.9); Lymphocytes Percent Auto 19.1 % (20-40); Mean Corpuscular HGB Conc 32.8 g/dl (31.0-36.0); Mean Corpuscular Hemoglobin 32.1 pg (27.0-33.0); Mean Corpuscular Volume 97.8 fL (80-98); Mean Platelet Volume 10.8 fL (9.4-12.4); Monocytes Absolute Auto 1.1 X10*3/uL (0.1-1.2); Monocytes Percent Auto 11.1 % (2-11); Neutrophils Absolute Auto 6.6 X10*3/uL (2.0-8.3); Neutrophils Percent Auto 65.3 % (45-73); Platelet Count 338 X10*3/uL (160-400); Red Blood Count 4.02 X10*6/uL (4.60-5.80); Red Cell Distribution Width 12.4 % (11.0-16.0); White Blood Count 10.1 X10*3/uL (4.8-10.8)
[2020-08-05 05:42] LABS: Alanine Aminotransferase 47 U/L (0-40); Albumin Level 3.5 g/dL (3.5-5.0); Alkaline Phosphatase 87 U/L (39-117); Anion Gap 14 (12-20); Aspartate Amino Transferase 40 U/L (5-37); Bilirubin Total 0.7 mg/dL (0.0-1.0); Blood Urea Nitrogen 20 mg/dL (9-16); C Reactive Protein 5.32 mg/dL (< or = 0.50); Carbon Dioxide 25 mmol/L (22-29); Chloride 108 mmol/L (96-108); Creatinine Clr Calc Pharmacy 115.3; Estimated Glomerular Filt Rate > 60; Glucose Random 91 mg/dL (60-115); Potassium 3.7 mmol/L (3.3-5.1); Sodium 143 mmol/L (135-145); Total Protein 6.6 g/dL (6.5-8.0)
[2020-08-05] MEDS: Ascorbic Acid 500 MG TABLET 1000 MG PO (08:02)
[2020-08-05] MEDS: Thiamine HCL 100 MG TABLET 200 MG PO (08:02)
[2020-08-05] MEDS: Cholecalciferol (Vitamin D3) 25 MCG TABLET 50 MCG PO (08:03)
[2020-08-05] MEDS: Famotidine 20 MG TABLET PO ×2 (08:03→20:01)
[2020-08-05] MEDS: QUEtiapine Fumarate 50 MG TABLET G-TUBE ×2 (08:12→20:01)
[2020-08-05] MEDS: Metoprolol Tartrate 25 MG TABLET G-TUBE ×2 (08:15→20:03)
[2020-08-05] MEDS: cloNIDine HCL 0.2 MG TABLET G-TUBE ×3 (08:15→19:48)
[2020-08-05] MEDS: Chlorhexidine Gluc Oral Rinse 15 ML MOUTHWASH BUCCAL ×3 (08:20→20:01)
[2020-08-05] MEDS: Nystatin Powder 15 GM BOTTLE 1 APPL TOPICAL ×3 (08:33→20:02)
--- NOTE | 2020-08-05 10:14 | MHC.CLN ---
F/U RECOMMEND TF JEVITY 1.0 AT MAX GOAL RATE 75CC/HR WITH WATER FLUSHES 240CC WATER FLUSHES Q 6HRS PROVIDES 1908KCALS (23KCALS/KG), 80G (1.0G/KG), 2463CC TOTAL WATER FROM FORMULA AND FLUSH (30CC/KG) START JEVITY AT 20CC/HR AND INCREASE BY 10CC Q 4 HRS UNTIL MAX GOAL OF 75CC/HR IS REACHED MONITOR TOLERANCE, RESIDUALS AND LYTES
--- NOTE | 2020-08-05 11:18 | PC.NURSE ---
Removed TLC to [facility] per MD order. Catheter intact and tip visualized. Patient tolerated well. HR remained in the 90s and o2 sats in the mid 90s. Occlusive DSD applied. Peripheral IV access placed, #20 G to bilateral wrists. Tube feed changed to Jevity 1.0 with max rate of 75 per Workforce Development Assistant. Patient tolerating well through PEG tube. Martinez removed per MD order. Male external catheter applied and draining yellow urine.
--- NOTE | 2020-08-05 13:04 | PM.CCPN ---
Subjective Subjective Date of Service: 08/05/20 Interval History: 59-year-old gentleman with underlying history of hypertension, depression, anxiety with possible psychotic features, admitted on 07/17/2020 of after he was found unresponsive and on the floor in his house with Percocet nearby. EMS administered Narcan with no improvement. Patient was intubated in the emergency room. 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 He has been transferred to intensive care unit for further care. His toxicology screen has been essentially negative. He got an empiric 1st part of acetylcysteine protocol for Tylenol toxicity. His CT chest was significant for sequela of an aspiration. Patient also was noted to have rising CPK and has been started IV fluid resuscitation. On further discussion with his family patient was not noted to be abusing any substances, including alcohol over the last several years. His 2D echocardiogram was notable for new cardiomyopathy with ejection fraction of 30% and possible left ventricular thrombus. Patient has been started heparin drip. He has been extubated on 07/19/2020, however he remained significantly delirious. MRI in 07/20/2020 with evidence of anoxic brain injury. Family discussion was held and family decided to continue with further care. Tracheostomy and parenteral gastrostomy have been placed on 08/02/2020. Patient has tolerated tracheal collar for 48 hours. No events overnight. Physical Exam Vital Signs: Vital Signs: Last Vital Signs Temp 96.8 F 08/05/20 12:00 Pulse 91 08/05/20 12:00 Resp 14 08/05/20 12:00 BP 163/94 H 08/05/20 12:00 Pulse Ox 91 L 08/05/20 12:00 Body Mass Index 31.2 Const: General: no acute distress and other (Encephalopathic) Eyes: Sclerae: sclerae normal EOM: EOMs intact bilaterally Neck: Neck: Yes no lymphadenopathy, Yes trachea midline, Yes supple and Yes other (Tracheostomy on tracheal collar) Resp: Effort & Inspection: normal respiratory effort and no respiratory distress Auscultation: clear to auscultation bilaterally Cardio: Rate: regular rate Rhythm: regular rhythm Heart sounds: no gallops, no murmurs and no rubs GI: Palpation (GI): Soft to palpation and Other GI palpation findings present ( Nontender) Auscultation: normal bowel sounds Extrem: General: No clubbing, No cyanosis and Yes pedal edema (Trace bilateral) Objective Data Labs CBC & Chem 7: 08/05/20 05:07 08/05/20 05:07 Labs: Laboratory Results - last 24 hr 08/05/20 08/05/20 08/05/20 02:25 05:07 05:07 WBC 10.1 RBC 4.02 L Hgb 12.9 L Hct 39.3 L MCV 97.8 MCH 32.1 MCHC 32.8 RDW 12.4 Plt Count 338 MPV 10.8 Immature Gran % (Auto) 0.5 H Neut % (Auto) 65.3 Lymph % (Auto) 19.1 L [place] % (Auto) 11.1 H Eos % (Auto) 3.6 Baso % (Auto) 0.4 Lymph # (Auto) 1.9 [place] # (Auto) 1.1 Eos # (Auto) 0.4 Baso # (Auto) 0.0 Abs Immat Gran (auto) 0.05 H Absolute Neuts (auto) 6.6 Absolute Nucleated RBC 0.000 Nucleated RBC % (auto) 0.0 VBG pH VBG pCO2 VBG pO2 VBG HCO3 VBG O2 Saturation VBG Base Excess Sodium 143 Potassium 3.7 Chloride 108 Carbon Dioxide 25 Anion Gap 14 BUN 20 H Creatinine 0.77 Estim Creat Clear Calc 115.3 Estimated GFR > 60 Random Glucose 91 Calcium 9.0 Total Bilirubin 0.7 AST 40 H ALT 47 H Alkaline Phosphatase 87 C-Reactive Protein 5.32 H Total Protein 6.6 Albumin 3.5 SARS-CoV-2 (PCR) COVID-19 ([facility]) Negative COVID-19 Clin Com See Note 08/05/20 08/05/20 05:07 05:11 WBC RBC Hgb Hct MCV MCH MCHC RDW Plt Count MPV Immature Gran % (Auto) Neut % (Auto) Lymph % (Auto) [place] % (Auto) Eos % (Auto) Baso % (Auto) Lymph # (Auto) [place] # (Auto) Eos # (Auto) Baso # (Auto) Abs Immat Gran (auto) Absolute Neuts (auto) Absolute Nucleated RBC Nucleated RBC % (auto) VBG pH 7.43 VBG pCO2 37 VBG pO2 45 VBG HCO3 24 VBG O2 Saturation 76.0 VBG Base Excess 0.9 Sodium Potassium Chloride Carbon Dioxide Anion Gap BUN Creatinine Estim Creat Clear Calc Estimated GFR Random Glucose Calcium Total Bilirubin AST ALT Alkaline Phosphatase C-Reactive Protein Total Protein Albumin SARS-CoV-2 (PCR) Cancelled COVID-19 ([facility]) COVID-19 Clin Com Microbiology Microbiology Results: Microbiology 08/03/20 07:59 Blood - Venous Blood Culture - Preliminary No growth after 48 hours. 08/03/20 07:59 Blood - Venous Blood Culture - Preliminary No growth after 48 hours. 08/01/20 17:11 Blood - Venous Blood Culture - Final Coag negative Staphylococcus 08/01/20 17:11 Blood - Venous Blood Culture - Preliminary No growth after 48 hours. 07/25/20 20:34 Blood - Venous Blood Culture - Final No growth after 5 days. 07/25/20 20:34 Blood - Venous Blood Culture - Final No growth after 5 days. 07/25/20 20:23 Sputum - Suctioned Gram Stain - Final 07/25/20 20:23 Sputum - Suctioned Sputum Culture - Final 07/25/20 Unknown Urine [place] Urine Culture - Final Escherichia coli 07/17/20 19:28 Blood - Venous Blood Culture - Final No growth after 5 days. 07/17/20 19:20 Blood - Venous Blood Culture - Final No growth after 5 days. 07/19/20 10:02 Sputum - Suctioned Gram Stain - Final 07/19/20 10:02 Sputum - Suctioned Sputum Culture - Final Progress Note: A&P Assessment and plan (1) Anoxic encephalopathy: Status: Acute Assessment and Plan: Assessment: 59-year-old gentleman admitted with acute respiratory failure and encephalopathy likely secondary to an aspiration event after/during myocardial infarction resulting in anoxic brain injury, now status post tracheostomy and parenteral gastrostomy placement Plan: Neuro: Anoxic encephalopathy. Overall very poor prognosis for further recovery. Neurology service care appreciated. Cardiac: New diagnosis of cardiomyopathy with reduced ejection fraction and possible left ventricular thrombus. Cardiology service care appreciated. Labile blood pressure secondary to disequilibrium of autonomic nervous system after an anoxic injury. Continue with antihypertensives including clonidine and metoprolol. Pulmonary: Acute hypoxic respiratory failure with a pulmonary aspiration component initially requiring ventilatory support. Extubated 07/19/2020. Required tracheostomy on 08/02/2020. Now tolerated tracheal collar 48 hours. Renal: Acute kidney injury secondary to rhabdomyolysis, resolved. Non oliguric. Continue to monitor renal indices and urine output. Endo: No acute issues. GI: No acute issues. ID: No acute issues. Heme/Onc: No acute issues. Psych: No acute issues. Underlying anxiety and depression. Miscellaneous: No acute issues. Prophylaxis: Lovenox, famotidine Diet: Tube feeds Critical care time spent: 60 minutes (2) Multiple cerebral infarctions: Status: Acute (3) NSTEMI (non-ST elevated myocardial infarction): Status: Acute (4) Acute respiratory failure: Status: Acute (5) Aspiration into airway: Status: Acute Critical Care Time Critical Care Time (minutes): 60
[2020-08-05] MEDS: Enoxaparin Sodium 40 MG/0.4 ML SYRINGE SUBCUT (20:00)
[2020-08-06] VITALS (11 sets, daily range): BP systolic 130–162; BP diastolic 72–93; PULSE 54–87; RESP 18–29; TEMP 35.8–37.1; O2SAT 92–98; BMI 31.6
--- NOTE | 2020-08-06 05:09 | PC.NURSE ---
CARE ASSUMED 23:15...REMAINS 28% FIO2 COOL AEROSOL VIA TRACH COLLAR..NO DISTRESS...EYES OPEN..BRIEFLY TRACKS SPEAKER AND WEAKLY MOVES EXTREMETIES BUT DOES NOT FOLLOW ANY COMMANDS...DOES NOT RESPOND TO VERBAL QUESTIONS...NSR..NO ECTOPY...[place] CATHETER COLLECTING YELLOW URINE...TUBE FEEDS 75 CC/HR...INCONTINANT SEVERAL SOFT BROWN STOOLS...GROIN REMAINS WITH FUNGAL RASH...BP REMAINS LABILE PER SHIFT REPORT...
[2020-08-06 05:41] LABS: MANUAL DIFF FLAG NO
[2020-08-06 05:50] LABS: Basophils Percent Auto 0.3 % (0-2); Eosinophils Absolute Auto 0.4 X10*3/uL (0.0-0.4); Eosinophils Percent Auto 4.6 % (0-4); Hematocrit 39.6 % (42-52); Hemoglobin 13.4 g/dl (14.0-18.0); Imm Gran Abs Auto 0.04 X10*3/uL (0.00-0.03); Imm Gran Pct Auto 0.4 % (0.0-0.4); Lymphocytes Absolute Auto 1.7 X10*3/uL (1.2-4.9); Lymphocytes Percent Auto 18.3 % (20-40); Mean Corpuscular HGB Conc 33.8 g/dl (31.0-36.0); Mean Corpuscular Hemoglobin 32.8 pg (27.0-33.0); Mean Corpuscular Volume 97.1 fL (80-98); Mean Platelet Volume 11.2 fL (9.4-12.4); Monocytes Absolute Auto 0.8 X10*3/uL (0.1-1.2); Monocytes Percent Auto 8.3 % (2-11); Neutrophils Absolute Auto 6.3 X10*3/uL (2.0-8.3); Neutrophils Percent Auto 68.1 % (45-73); Platelet Count 333 X10*3/uL (160-400); Red Blood Count 4.08 X10*6/uL (4.60-5.80); Red Cell Distribution Width 12.4 % (11.0-16.0); White Blood Count 9.2 X10*3/uL (4.8-10.8)
[2020-08-06 06:09] LABS: Alanine Aminotransferase 47 U/L (0-40); Albumin Level 3.5 g/dL (3.5-5.0); Alkaline Phosphatase 91 U/L (39-117); Anion Gap 15 (12-20); Aspartate Amino Transferase 43 U/L (5-37); Bilirubin Total 0.7 mg/dL (0.0-1.0); Blood Urea Nitrogen 17 mg/dL (9-16); Calcium 9.1 mg/dL (8.4-10.2); Carbon Dioxide 20 mmol/L (22-29); Chloride 109 mmol/L (96-108); Creatinine Clr Calc Pharmacy 129.1; Estimated Glomerular Filt Rate > 60; Glucose Random 115 mg/dL (60-115); Potassium 3.7 mmol/L (3.3-5.1); Sodium 140 mmol/L (135-145); Total Protein 6.8 g/dL (6.5-8.0)
[2020-08-06] MEDS: QUEtiapine Fumarate 50 MG TABLET G-TUBE ×2 (07:23→22:04)
[2020-08-06] MEDS: cloNIDine HCL 0.2 MG TABLET G-TUBE ×3 (07:23→22:04)
[2020-08-06] MEDS: Chlorhexidine Gluc Oral Rinse 15 ML MOUTHWASH BUCCAL (07:23)
[2020-08-06] MEDS: Metoprolol Tartrate 25 MG TABLET G-TUBE ×2 (07:24→22:06)
[2020-08-06] MEDS: Nystatin Powder 15 GM BOTTLE 1 APPL TOPICAL ×3 (07:24→22:07)
--- NOTE | 2020-08-06 09:59 | MHC.CM.PN ---
Guardianship/conservator paperwork faxed to [place] listing pt's brother Star as the intended guardian. The attorneys will file and once a court date is known, [facility] can accept pt for continuation of care.
--- NOTE | 2020-08-06 10:57 | MHC.IC ---
Notified by nursing staff in ICU that pt had been exposed to a visitor on 08/01/20 that subsequently exhibited symptoms of Covid the next day and tested positive a day after that. Pt was tested for Covid by Dr Storm on 08/05/20 and the test was negative. Pt has be since transferred to [facility]. Per discussion with Dr Hernandez, the patient should be re-tested again in 5 days and quarantined at this time. [place] text to Dr [email or web address] to let him know this information and that patient will be on Airborne and Contact precautions. Discussed plan with truck shop supervisor, community service coordinator and pt nurse. Pt is currently in private room.
--- NOTE | 2020-08-06 18:49 | HO.PM.IMPN ---
Subjective Subjective Date of Service: 08/06/20 Interval History: seen f/u for post icu s/p peg and trach and non communicative. Seems comfortable and awaiting placment and guardianship Review of Systems Unable to obtain. Review of Systems: Yes Unobtainable due to mental status Constitutional Constitutional: Denies fever(s) Physical Exam Vital Signs: Vital Signs: Last Vital Signs Temp 98.1 F 08/06/20 10:53 Pulse 82 08/06/20 10:53 Resp 22 H 08/06/20 10:53 BP 130/79 08/06/20 10:53 Pulse Ox 98 08/06/20 10:53 Body Mass Index 31.6 General: Non-verbal Resp: rhonchi CVS: S1,S2,RRR GI: +BS, NT, no distention Skin: No rash, no decub ulcer identified Neuro: motor grossly intact Psych: appropriate affect Objective Data Current Medications Generic Name Dose Route Start Last Admin Trade Name Freq PRN Reason Stop Dose Admin Chlorhexidine Gluconate 15 ml 07/21/20 09:00 08/06/20 16:13 Chlorhexidine Gluc Oral Rinse 15 Ml Mouthwash BUCCAL Not Given TID GINNY Clonidine HCl 0.2 mg 08/04/20 16:00 08/06/20 17:28 Clonidine Hcl 0.2 Mg Tablet G-TUBE 0.2 mg TID GINNY Administration Protocol Enoxaparin Sodium 40 mg 07/31/20 21:00 08/05/20 20:00 Enoxaparin Sodium 40 Mg/0.4 Ml Syringe SUBCUT 40 mg Q24H GINNY Administration Famotidine 20 mg 08/04/20 21:00 08/06/20 09:58 Famotidine 20 Mg Tablet PO Not Given BID GINNY Hydromorphone HCl 0.5 mg 08/03/20 11:18 08/04/20 13:25 Hydromorphone Hcl 0.5 Mg/0.5 Ml Syringe IVPUSH 0.5 mg Q1H PRN Administration WOB Metoprolol Tartrate 25 mg 08/04/20 21:00 08/06/20 07:24 Metoprolol Tartrate 25 Mg Tablet G-TUBE 25 mg Q12H GINNY Administration Protocol Nystatin 1 appl 08/04/20 09:00 08/06/20 17:29 Nystatin Powder 15 Gm Bottle TOPICAL 1 appl TID GINNY Administration Protocol Quetiapine Fumarate 50 mg 08/01/20 21:15 08/06/20 07:23 Quetiapine Fumarate 50 Mg Tablet G-TUBE 50 mg BID GINNY Administration Labs CBC & Chem 7: 08/06/20 05:26 08/06/20 05:26 Microbiology Microbiology Results: Microbiology 08/03/20 07:59 Blood - Venous Blood Culture - Preliminary No growth after 48 hours. 08/03/20 07:59 Blood - Venous Blood Culture - Preliminary No growth after 48 hours. 08/01/20 17:11 Blood - Venous Blood Culture - Final Coag negative Staphylococcus 08/01/20 17:11 Blood - Venous Blood Culture - Preliminary No growth after 48 hours. 07/25/20 20:34 Blood - Venous Blood Culture - Final No growth after 5 days. 07/25/20 20:34 Blood - Venous Blood Culture - Final No growth after 5 days. 07/25/20 20:23 Sputum - Suctioned Gram Stain - Final 07/25/20 20:23 Sputum - Suctioned Sputum Culture - Final 07/25/20 Unknown Urine [place] Urine Culture - Final Escherichia coli 07/17/20 19:28 Blood - Venous Blood Culture - Final No growth after 5 days. 07/17/20 19:20 Blood - Venous Blood Culture - Final No growth after 5 days. 07/19/20 10:02 Sputum - Suctioned Gram Stain - Final 07/19/20 10:02 Sputum - Suctioned Sputum Culture - Final Assessment and Plan (1) Anoxic encephalopathy: Status: Acute Assessment and Plan: Hospital day 20, 59-year-old gentleman admitted with acute respiratory failure and encephalopathy likely secondary to an aspiration event after/during myocardial infarction resulting in anoxic brain injury, now status post tracheostomy and parenteral gastrostomy placement Plan: Neuro: Anoxic encephalopathy. Overall very poor prognosis for further recovery. Cardiac: New diagnosis of cardiomyopathy with reduced ejection fraction and possible left ventricular thrombus. Cardiology service care appreciated. Labile blood pressure secondary to disequilibrium of autonomic nervous system after an anoxic injury. Continue with antihypertensives including clonidine and metoprolol. Pulmonary: Acute hypoxic respiratory failure with a pulmonary aspiration component initially requiring ventilatory support. Extubated 07/19/2020. Required tracheostomy on 08/02/2020. Now tolerated tracheal collar 48 hours. Renal: Acute kidney injury secondary to rhabdomyolysis, resolved. Non oliguric. Continue to monitor renal indices and urine output. Endo: No acute issues. GI: No acute issues. ID: No acute issues. Heme/Onc: No acute issues. Psych: No acute issues. Underlying anxiety and depression. Miscellaneous: No acute issues. Prophylaxis: Lovenox, famotidine Diet: Tube feeds Need guardianship for placment, on seroquel for agiation will get Psych consult for Kenan (2) Multiple cerebral infarctions: Status: Acute (3) NSTEMI (non-ST elevated myocardial infarction): Status: Acute (4) Acute respiratory failure: Status: Acute (5) Aspiration into airway: Status: Acute
[2020-08-06] MEDS: Famotidine 20 MG TABLET PO (22:04)
[2020-08-06] MEDS: Enoxaparin Sodium 40 MG/0.4 ML SYRINGE SUBCUT (22:04)
[2020-08-07] VITALS: BP 137/86; PULSE 69; RESP 18; TEMP 36.6; O2SAT 92
[2020-08-07 03:52] VITALS: BP 173/87; PULSE 86; RESP 18; TEMP 36.7; O2SAT 97
[2020-08-07 06:00] VITALS: BMI 31.6
[2020-08-07 07:02] VITALS: BP 118/58; PULSE 74; RESP 22; TEMP 36.6
[2020-08-07] MEDS: Famotidine 20 MG TABLET PO ×2 (09:35→20:28)
[2020-08-07] MEDS: Chlorhexidine Gluc Oral Rinse 15 ML MOUTHWASH BUCCAL ×3 (09:35→20:29)
[2020-08-07] MEDS: QUEtiapine Fumarate 50 MG TABLET G-TUBE ×2 (09:36→20:28)
[2020-08-07] MEDS: Nystatin Powder 15 GM BOTTLE 1 APPL TOPICAL ×3 (09:36→20:29)
[2020-08-07] MEDS: Metoprolol Tartrate 25 MG TABLET G-TUBE ×2 (09:36→20:28)
[2020-08-07] MEDS: cloNIDine HCL 0.2 MG TABLET G-TUBE ×3 (09:36→20:28)
[2020-08-07 11:08] VITALS: BP 118/69; PULSE 62; RESP 22; TEMP 36.7; O2SAT 95
--- NOTE | 2020-08-07 11:29 | MHC.CM.PN ---
Per ROUNDS discussion, [facility] is the goal for dc (new Trach on 08/02/20) pending court date for Guardianship and [place] (PSYCH CONSULT ordered on 08/06/20 and discussed again today at ROUNDS).Patient's Brother/Star at [phone] is willing to serve as Guardian.CM will continue to follow for dc planning.
--- NOTE | 2020-08-07 11:37 | MHC.CLN ---
F/U PT RECEIVING TF JEVITY 1.0 AT MAX GOAL RATE 75CC/HR WITH WATER FLUSHES 240CC WATER FLUSHES Q 6HRS PROVIDES 1908KCALS (23KCALS/KG), 80G (1.0G/KG), 2463CC TOTAL WATER FROM FORMULA AND FLUSH (30CC/KG) TOLERATING WITH LOW RESIDUALS PER NSG MONITOR TOLERANCE, RESIDUALS AND LYTES
--- NOTE | 2020-08-07 12:53 | HO.PM.IMPN ---
Subjective Subjective Date of Service: 08/07/20 Interval History: seen f/u for post icu s/p peg and trach and non communicative. Seems comfortable and awaiting placment and guardianship..No new issues today Review of Systems Unable to obtain. Constitutional Constitutional: Denies fever(s) Physical Exam Vital Signs: Vital Signs: Last Vital Signs Temp 98.1 F 08/07/20 11:08 Pulse 62 08/07/20 11:08 Resp 22 H 08/07/20 11:08 BP 118/69 08/07/20 11:08 Pulse Ox 95 08/07/20 11:08 Body Mass Index 31.6 Const: Other: General: Non-verbal Resp: rhonchi, no accessory muscle use CVS: S1,S2,RRR GI: +BS, NT, no distention Skin: No rash, no decub ulcer identified Neuro: motor grossly intact Psych: appropriate affect Objective Data Current Medications Generic Name Dose Route Start Last Admin Trade Name Freq PRN Reason Stop Dose Admin Chlorhexidine Gluconate 15 ml 07/21/20 09:00 08/07/20 09:35 Chlorhexidine Gluc Oral Rinse 15 Ml Mouthwash BUCCAL 15 ml TID GINNY Administration Clonidine HCl 0.2 mg 08/04/20 16:00 08/07/20 09:36 Clonidine Hcl 0.2 Mg Tablet G-TUBE 0.2 mg TID GINNY Administration Protocol Enoxaparin Sodium 40 mg 07/31/20 21:00 08/06/20 22:04 Enoxaparin Sodium 40 Mg/0.4 Ml Syringe SUBCUT 40 mg Q24H GINNY Administration Famotidine 20 mg 08/04/20 21:00 08/07/20 09:35 Famotidine 20 Mg Tablet PO 20 mg BID GINNY Administration Hydromorphone HCl 0.5 mg 08/03/20 11:18 08/04/20 13:25 Hydromorphone Hcl 0.5 Mg/0.5 Ml Syringe IVPUSH 0.5 mg Q1H PRN Administration WOB Metoprolol Tartrate 25 mg 08/04/20 21:00 08/07/20 09:36 Metoprolol Tartrate 25 Mg Tablet G-TUBE 25 mg Q12H GINNY Administration Protocol Nystatin 1 appl 08/04/20 09:00 08/07/20 09:36 Nystatin Powder 15 Gm Bottle TOPICAL 1 appl TID GINNY Administration Protocol Quetiapine Fumarate 50 mg 08/01/20 21:15 08/07/20 09:36 Quetiapine Fumarate 50 Mg Tablet G-TUBE 50 mg BID GINNY Administration Labs CBC & Chem 7: 08/06/20 05:26 08/06/20 05:26 Microbiology Microbiology Results: Microbiology 08/01/20 17:11 Blood - Venous Blood Culture - Final No growth after 5 days. 08/03/20 07:59 Blood - Venous Blood Culture - Preliminary No growth after 48 hours. 08/03/20 07:59 Blood - Venous Blood Culture - Preliminary No growth after 48 hours. 08/01/20 17:11 Blood - Venous Blood Culture - Final Coag negative Staphylococcus 07/25/20 20:34 Blood - Venous Blood Culture - Final No growth after 5 days. 07/25/20 20:34 Blood - Venous Blood Culture - Final No growth after 5 days. 07/25/20 20:23 Sputum - Suctioned Gram Stain - Final 07/25/20 20:23 Sputum - Suctioned Sputum Culture - Final 07/25/20 Unknown Urine [place] Urine Culture - Final Escherichia coli 07/17/20 19:28 Blood - Venous Blood Culture - Final No growth after 5 days. 07/17/20 19:20 Blood - Venous Blood Culture - Final No growth after 5 days. 07/19/20 10:02 Sputum - Suctioned Gram Stain - Final 07/19/20 10:02 Sputum - Suctioned Sputum Culture - Final Assessment and Plan (1) Anoxic encephalopathy: Status: Acute Assessment and Plan: Hospital day 20, 59-year-old gentleman admitted with acute respiratory failure and encephalopathy likely secondary to an aspiration event after/during myocardial infarction resulting in anoxic brain injury, now status post tracheostomy and parenteral gastrostomy placement Plan: Neuro: Anoxic encephalopathy. Overall very poor prognosis for further recovery. Cardiac: New diagnosis of cardiomyopathy with reduced ejection fraction and possible left ventricular thrombus. Cardiology service care appreciated. Labile blood pressure secondary to disequilibrium of autonomic nervous system after an anoxic injury. Continue with antihypertensives including clonidine and metoprolol. Pulmonary: Acute hypoxic respiratory failure with a pulmonary aspiration component initially requiring ventilatory support. Extubated 07/19/2020. Required tracheostomy on 08/02/2020. Now tolerated tracheal collar 48 hours. Renal: Acute kidney injury secondary to rhabdomyolysis, resolved. Continue to monitor renal indices and urine output. Endo: No acute issues. GI: No acute issues. ID: No acute issues. Heme/Onc: No acute issues. Psych: No acute issues. Underlying anxiety and depression. Miscellaneous: No acute issues. Prophylaxis: Lovenox, famotidine Diet: Tube feeds Need guardianship for placment, on seroquel for agiation will, Psych consult for Kenan (2) Multiple cerebral infarctions: Status: Acute (3) NSTEMI (non-ST elevated myocardial infarction): Status: Acute (4) Acute respiratory failure: Status: Acute (5) Aspiration into airway: Status: Acute
--- NOTE | 2020-08-07 14:51 | PM.PSYCN ---
History of Present Illness Date of Service: 08/07/2020 Chief Complaint: OVERDOSE Reason for Consult: guardianship and medical certificate Requesting physician: Sam Ludwig Discussed with referring provider: Yes Sources of Information: chart reviewed Additional Sources of Information: RN HPI Narrative: Patient is a 59 year old male currently medically admitted following TX and anoxic brain injury. Guardianship being pursued and as patient was being prescribed seroquel, medical certificate regarding necessity of this medication needed to be completed. Patient not interviewed as he is completely non responsive given brain injury. He has a trach, requires full care, and per RN has not had any periods of agitation. Per documentation he was started on seroquel 50mg BID in the ICU about a week ago, prior to extubation, for agitation and lability . Medical Evaluation Reviewed: Yes Personal & Social History: Awaiting guardianship hearing and placement in penitentiary care facility Review of Systems Review of Systems Yes Unobtainable due to mental condition and Unobtainable due to mental status [facility] Medical History Anxiety Depression Diagnostics Vital Signs (24Hr): Vital Signs - 24 hr 08/06/20 19:03 08/06/20 19:38 08/06/20 22:04 Temperature 98.7 F Pulse Rate 79 Respiratory Rate 18 Blood Pressure 131/79 162/85 H 141/93 H Pulse Oximetry 97 97 08/06/20 22:06 08/07/20 00:00 08/07/20 03:52 Temperature 97.9 F 98.0 F Pulse Rate 75 69 86 Respiratory Rate 18 18 Blood Pressure 141/93 H 137/86 173/87 H Pulse Oximetry 92 97 08/07/20 07:02 08/07/20 11:08 Temperature 98 F 98.1 F Pulse Rate 74 62 Respiratory Rate 22 H 22 H Blood Pressure 118/58 L 118/69 Pulse Oximetry 95 Body Mass Index 31.6 Labs Results: 08/06/20 05:26 08/06/20 05:26 Labs: Laboratory Results - last 48 hr 08/06/20 08/06/20 05:26 05:26 WBC 9.2 RBC 4.08 L Hgb 13.4 L Hct 39.6 L MCV 97.1 MCH 32.8 MCHC 33.8 RDW 12.4 Plt Count 333 MPV 11.2 Immature Gran % (Auto) 0.4 Neut % (Auto) 68.1 Lymph % (Auto) 18.3 L Sebastian % (Auto) 8.3 Eos % (Auto) 4.6 H Baso % (Auto) 0.3 Lymph # (Auto) 1.7 Sebastian # (Auto) 0.8 Eos # (Auto) 0.4 Baso # (Auto) 0.0 Abs Immat Gran (auto) 0.04 H Absolute Neuts (auto) 6.3 Absolute Nucleated RBC 0.000 Nucleated RBC % (auto) 0.0 Sodium 140 Potassium 3.7 Chloride 109 H Carbon Dioxide 20 L Anion Gap 15 BUN 17 H Creatinine 0.69 Estim Creat Clear Calc 129.1 Estimated GFR > 60 Random Glucose 115 Calcium 9.1 Total Bilirubin 0.7 AST 43 H ALT 47 H Alkaline Phosphatase 91 Total Protein 6.8 Albumin 3.5 Imaging Radiology Impressions: ITS Impressions Chest X-Ray 07/17/20 18:05 IMPRESSION: Commonly reported imaging features of Covid 19 or viral pneumonia are present. Other processes such as influenza pneumonia or organizing pneumonia, as can be seen with drug toxicity and connective tissue disease, can cause a similar imaging pattern. ET tube in good position. Head CT 07/17/20 18:07 IMPRESSION: Confluent large infiltrate in the dependent portion of the right lower lobe and right upper lobe. Minimal infiltrates is seen in the left lower lobe basal segment. There are groundglass opacities in the left upper lobe. Also visualized is bronchial wall thickening. Findings are suspicious for Covid disease. Small lacunar infarcts in the right basal ganglia and bilateral internal capsules. No acute intracranial bleed, edema or mass effect. Chest CT 07/17/20 18:21 IMPRESSION: Confluent large infiltrate in the dependent portion of the right lower lobe and right upper lobe. Minimal infiltrates is seen in the left lower lobe basal segment. There are groundglass opacities in the left upper lobe. Also visualized is bronchial wall thickening. Findings are suspicious for Covid disease. Small lacunar infarcts in the right basal ganglia and bilateral internal capsules. No acute intracranial bleed, edema or mass effect. Abdomen/Pelvis CT 07/17/20 18:31 IMPRESSION: No acute intra-abdominal process seen. Submucosal fat deposition in descending colon likely from chronic inflammatory process. Scattered colonic diverticulosis without diverticulitis. Bilateral basilar infiltrates Brain MRI 07/20/20 12:20 IMPRESSION: Multiple areas of restricted diffusion scattered throughout the brain parenchyma, with symmetric involvement of the bilateral globus pallidus, focal involvement of the right caudate head, bilateral parasagittal subcortical white matter foci, and a single focus within the right lateral occipital lobe. The watershed distribution of the infarcts, and involvement of the globus pallidi (more sensitive to ischemia) would suggest a hypoxic-ischemic insult. Chest X-Ray 07/21/20 09:05 IMPRESSION: No significant change. ET tube tip is about 7 cm above kellie. Gastric tube passing into the stomach. Unchanged bilateral diffuse patchy interstitial opacification. Chest X-Ray 07/22/20 18:12 IMPRESSION: Slight improvement in interstitial changes but there is new dense left lower lobe consolidation and probable left effusion. Head CT 07/23/20 00:00 IMPRESSION: Evolving deep keenan, parasagittal cerebral white matter and right occipital lobe infarcts. No new infarcts. No intracranial hemorrhage. Chest X-Ray 07/23/20 19:54 IMPRESSION: The left IJ catheter has its tip in the proximal SVC up against the lateral wall. Chest X-Ray 07/26/20 12:00 IMPRESSION: Linear opacity right lung new compared to prior likely discoid atelectasis. Lungs otherwise clear. Medications Medications Current Medications Generic Name Dose Route Start Last Admin Trade Name Freq PRN Reason Stop Dose Admin Chlorhexidine Gluconate 15 ml 07/21/20 09:00 08/07/20 09:35 Chlorhexidine Gluc Oral Rinse 15 Ml Mouthwash BUCCAL 15 ml TID GINNY Administration Clonidine HCl 0.2 mg 08/04/20 16:00 08/07/20 09:36 Clonidine Hcl 0.2 Mg Tablet G-TUBE 0.2 mg TID GINNY Administration Protocol Enoxaparin Sodium 40 mg 07/31/20 21:00 08/06/20 22:04 Enoxaparin Sodium 40 Mg/0.4 Ml Syringe SUBCUT 40 mg Q24H GINNY Administration Famotidine 20 mg 08/04/20 21:00 08/07/20 09:35 Famotidine 20 Mg Tablet PO 20 mg BID GINNY Administration Hydromorphone HCl 0.5 mg 08/03/20 11:18 08/04/20 13:25 Hydromorphone Hcl 0.5 Mg/0.5 Ml Syringe IVPUSH 0.5 mg Q1H PRN Administration WOB Metoprolol Tartrate 25 mg 08/04/20 21:00 08/07/20 09:36 Metoprolol Tartrate 25 Mg Tablet G-TUBE 25 mg Q12H GINNY Administration Protocol Nystatin 1 appl 08/04/20 09:00 08/07/20 09:36 Nystatin Powder 15 Gm Bottle TOPICAL 1 appl TID GINNY Administration Protocol Quetiapine Fumarate 50 mg 08/01/20 21:15 08/07/20 09:36 Quetiapine Fumarate 50 Mg Tablet G-TUBE 50 mg BID GINNY Administration Allergies Allergies Allergy/AdvReac Type Severity Reaction Status Date / Time No Known Allergies Allergy Unverified 01/04/20 15:51 [No Known Allergies*] Assessment & Plan Assessment & Plan (1) Anoxic encephalopathy: Status: Acute Code(s): G93.1 - Anoxic brain damage, not elsewhere classified Recommendations: Consider d/c Seroquel and trailing non antipsychotics to address agitation such as depakote Consider neuro consult for further recommendations to manage agitation Greater than 50% of the session was spent on counseling and/or coordination of care
[2020-08-07 15:26] VITALS: BP 149/91; PULSE 72; RESP 22; TEMP 36.8; O2SAT 94
[2020-08-07] MEDS: Enoxaparin Sodium 40 MG/0.4 ML SYRINGE SUBCUT (20:28)
[2020-08-07 21:53] VITALS: TEMP 37.4
[2020-08-08] VITALS (10 sets, daily range): BP systolic 141–161; BP diastolic 84–95; PULSE 64–176; RESP 18–22; TEMP 36.4–37; O2SAT 96–98; BMI 29.3
[2020-08-08] MEDS: cloNIDine HCL 0.2 MG TABLET G-TUBE ×3 (10:44→21:08)
[2020-08-08] MEDS: Metoprolol Tartrate 25 MG TABLET G-TUBE ×2 (10:44→21:07)
[2020-08-08] MEDS: Nystatin Powder 15 GM BOTTLE 1 APPL TOPICAL ×3 (10:44→21:28)
[2020-08-08] MEDS: Famotidine 20 MG TABLET PO ×2 (10:44→21:08)
[2020-08-08] MEDS: Chlorhexidine Gluc Oral Rinse 15 ML MOUTHWASH BUCCAL ×3 (10:44→21:08)
[2020-08-08] MEDS: QUEtiapine Fumarate 50 MG TABLET G-TUBE (10:44)
--- NOTE | 2020-08-08 13:38 | P.PNIM_ITS ---
Subjective Subjective Date of Service: 08/08/20 Interval History: seen f/u for post icu s/p peg and trach and non communicative. Seems comfortable and awaiting placment and guardianship..No new issues today Review of Systems Unable to obtain. Constitutional Constitutional: Denies fever(s) Physical Exam Vital Signs: Vital Signs: Last Vital Signs Temp 98.1 F 08/08/20 11:30 Pulse 73 08/08/20 11:30 Resp 20 08/08/20 11:30 BP 148/95 H 08/08/20 11:30 Pulse Ox 97 08/08/20 11:30 Body Mass Index 29.3 Const: Other: General: Non-verbal Resp: rhonchi, no accessory muscle use CVS: S1,S2,RRR GI: +BS, NT, no distention Skin: No rash, no decub ulcer identified Neuro: motor grossly intact Psych: appropriate affect Objective Data Current Medications Generic Name Dose Route Start Last Admin Trade Name Freq PRN Reason Stop Dose Admin Chlorhexidine Gluconate 15 ml 07/21/20 09:00 08/08/20 10:44 Chlorhexidine Gluc Oral Rinse 15 Ml Mouthwash BUCCAL 15 ml TID GINNY Administration Clonidine HCl 0.2 mg 08/04/20 16:00 08/08/20 10:44 Clonidine Hcl 0.2 Mg Tablet G-TUBE 0.2 mg TID GINNY Administration Protocol Enoxaparin Sodium 40 mg 07/31/20 21:00 08/07/20 20:28 Enoxaparin Sodium 40 Mg/0.4 Ml Syringe SUBCUT 40 mg Q24H GINNY Administration Famotidine 20 mg 08/04/20 21:00 08/08/20 10:44 Famotidine 20 Mg Tablet PO 20 mg BID GINNY Administration Metoprolol Tartrate 25 mg 08/04/20 21:00 08/08/20 10:44 Metoprolol Tartrate 25 Mg Tablet G-TUBE 25 mg Q12H GINNY Administration Protocol Nystatin 1 appl 08/04/20 09:00 08/08/20 10:44 Nystatin Powder 15 Gm Bottle TOPICAL 1 appl TID GINNY Administration Protocol Quetiapine Fumarate 50 mg 08/01/20 21:15 08/08/20 10:44 Quetiapine Fumarate 50 Mg Tablet G-TUBE 50 mg BID GINNY Administration Labs CBC & Chem 7: 08/06/20 05:26 08/06/20 05:26 Assessment and Plan (1) Anoxic encephalopathy: Status: Acute Assessment and Plan: 59-year-old gentleman admitted with acute respiratory failure and encephalopathy likely secondary to an aspiration event after/during myocardial infarction resulting in anoxic brain injury, now status post tracheostomy and parenteral gastrostomy placement. No new issues Plan: Neuro: Anoxic encephalopathy. Overall very poor prognosis for further recovery. Cardiac: New diagnosis of cardiomyopathy with reduced ejection fraction and possible left ventricular thrombus. Cardiology service care appreciated. Labile blood pressure secondary to disequilibrium of autonomic nervous system after an anoxic injury. Continue with antihypertensives including clonidine and metoprolol. Pulmonary: Acute hypoxic respiratory failure with a pulmonary aspiration component initially requiring ventilatory support. Extubated 07/19/2020. Required tracheostomy on 08/02/2020. Now tolerated tracheal collar 48 hours. Renal: Acute kidney injury secondary to rhabdomyolysis, resolved. Continue to monitor renal indices and urine output. Endo: No acute issues. GI: No acute issues. ID: No acute issues. Heme/Onc: No acute issues. Psych: No acute issues. Underlying anxiety and depression. Miscellaneous: No acute issues. Prophylaxis: Lovenox, famotidine Diet: Tube feeds Need guardianship for placment, on seroquel for agiation will, Psych consult for Kenan Seen by Psych 08/07 with following recommendation * Consider d/c Seroquel and trailing non antipsychotics to address agitation such as depakote * Consider neuro consult for further recommendations to manage agitation
[2020-08-08] MEDS: Enoxaparin Sodium 40 MG/0.4 ML SYRINGE SUBCUT (21:06)
[2020-08-09] VITALS (10 sets, daily range): BP systolic 128–180; BP diastolic 79–94; PULSE 69–84; RESP 15–19; TEMP 37–37.6; O2SAT 93–98; BMI 29.3
[2020-08-09] MEDS: Chlorhexidine Gluc Oral Rinse 15 ML MOUTHWASH BUCCAL ×2 (08:49→16:02)
[2020-08-09] MEDS: Metoprolol Tartrate 25 MG TABLET G-TUBE ×2 (08:49→22:30)
[2020-08-09] MEDS: Famotidine 20 MG TABLET PO ×2 (08:49→22:30)
[2020-08-09] MEDS: cloNIDine HCL 0.2 MG TABLET G-TUBE ×3 (08:49→22:32)
[2020-08-09] MEDS: Nystatin Powder 15 GM BOTTLE 1 APPL TOPICAL ×3 (08:50→22:33)
--- NOTE | 2020-08-09 12:02 | P.PNIM_ITS ---
Subjective Subjective Date of Service: 08/09/20 Interval History: seen in f/u for post icu s/p peg and trach and non communicative. Comfortable. Awaiting guardianship Physical Exam Vital Signs: Vital Signs: Last Vital Signs Temp 99.2 F 08/09/20 11:47 Pulse 77 08/09/20 11:47 Resp 19 08/09/20 11:47 BP 144/89 H 08/09/20 11:47 Pulse Ox 93 08/09/20 11:47 Body Mass Index 29.3 Const: Other: General: Non-verbal Resp: rhonchi, no accessory muscle use CVS: S1,S2,RRR GI: +BS, NT, no distention Skin: No rash, no decub ulcer identified--watch for skin break Neuro: motor grossly intact Psych: appropriate affect Objective Data Current Medications Generic Name Dose Route Start Last Admin Trade Name Freq PRN Reason Stop Dose Admin Chlorhexidine Gluconate 15 ml 07/21/20 09:00 08/09/20 08:49 Chlorhexidine Gluc Oral Rinse 15 Ml Mouthwash BUCCAL 15 ml TID GINNY Administration Clonidine HCl 0.2 mg 08/04/20 16:00 08/09/20 08:49 Clonidine Hcl 0.2 Mg Tablet G-TUBE 0.2 mg TID GINNY Administration Protocol Enoxaparin Sodium 40 mg 07/31/20 21:00 08/08/20 21:06 Enoxaparin Sodium 40 Mg/0.4 Ml Syringe SUBCUT 40 mg Q24H GINNY Administration Famotidine 20 mg 08/04/20 21:00 08/09/20 08:49 Famotidine 20 Mg Tablet PO 20 mg BID GINNY Administration Metoprolol Tartrate 25 mg 08/04/20 21:00 08/09/20 08:49 Metoprolol Tartrate 25 Mg Tablet G-TUBE 25 mg Q12H GINNY Administration Protocol Nystatin 1 appl 08/04/20 09:00 08/09/20 08:50 Nystatin Powder 15 Gm Bottle TOPICAL 1 appl TID GINNY Administration Protocol Labs CBC & Chem 7: 08/06/20 05:26 08/06/20 05:26 Microbiology Microbiology Results: Microbiology 08/03/20 07:59 Blood - Venous Blood Culture - Final No growth after 5 days. 08/03/20 07:59 Blood - Venous Blood Culture - Final No growth after 5 days. 08/01/20 17:11 Blood - Venous Blood Culture - Final No growth after 5 days. 08/01/20 17:11 Blood - Venous Blood Culture - Final Coag negative Staphylococcus 07/25/20 20:34 Blood - Venous Blood Culture - Final No growth after 5 days. 07/25/20 20:34 Blood - Venous Blood Culture - Final No growth after 5 days. 07/25/20 20:23 Sputum - Suctioned Gram Stain - Final 07/25/20 20:23 Sputum - Suctioned Sputum Culture - Final 07/25/20 Unknown Urine [place] Urine Culture - Final Escherichia coli 07/17/20 19:28 Blood - Venous Blood Culture - Final No growth after 5 days. 07/17/20 19:20 Blood - Venous Blood Culture - Final No growth after 5 days. 07/19/20 10:02 Sputum - Suctioned Gram Stain - Final 07/19/20 10:02 Sputum - Suctioned Sputum Culture - Final Assessment and Plan (1) Anoxic encephalopathy: Status: Acute Assessment and Plan: 59-year-old gentleman admitted with acute respiratory failure and encephalopathy likely secondary to an aspiration event after/during myocardial infarction resulting in anoxic brain injury, now status post tracheostomy and parenteral gastrostomy placement. No new issues Plan: Neuro: Anoxic encephalopathy. Overall very poor prognosis for further recovery. Cardiac: New diagnosis of cardiomyopathy with reduced ejection fraction and possible left ventricular thrombus. Cardiology service care appreciated. Labile blood pressure secondary to disequilibrium of autonomic nervous system after an anoxic injury. Continue with antihypertensives including clonidine and met oprolol. Pulmonary: Acute hypoxic respiratory failure with a pulmonary aspiration component initially requiring ventilatory support. Extubated 07/19/2020. Required tracheostomy on 08/02/2020. Now tolerated tracheal collar 48 hours. Renal: Acute kidney injury secondary to rhabdomyolysis, resolved. Continue to monitor renal indices and urine output. Endo: No acute issues. GI: No acute issues. ID: No acute issues. Heme/Onc: No acute issues. Psych: No acute issues. Underlying anxiety and depression. Miscellaneous: No acute issues. Prophylaxis: Lovenox, famotidine Diet: Tube feed--tolerating Need guardianship for placment, on seroquel for agiation will, Psych consult for Kenan Seen by Psych 08/07 with following recommendation * Consider d/c Seroquel and trailing non antipsychotics to address agitation such as depakote * Consider neuro consult for further recommendations to manage agitation Close monitoring of skin as very high risk for pressure ulcers
--- NOTE | 2020-08-09 13:07 | MHC.CLN ---
F/U PT CONTINUES WITH JEVITY 1.0 AT MAX GOAL RATE 75CC/HR WITH WATER FLUSHES 240CC WATER FLUSHES Q 6HRS PROVIDES 1908KCALS (23KCALS/KG), 80G (1.0G/KG), 2463CC TOTAL WATER FROM FORMULA AND FLUSH (30CC/KG) TOLERATING WITH LOW RESIDUALS PER NSG MONITOR TOLERANCE, RESIDUALS AND LYTES
[2020-08-09] MEDS: Enoxaparin Sodium 40 MG/0.4 ML SYRINGE SUBCUT (22:30)
[2020-08-10] VITALS (8 sets, daily range): BP systolic 140–180; BP diastolic 80–94; PULSE 74–88; RESP 16–18; TEMP 36.8–37.9; O2SAT 94–100; BMI 29.4
[2020-08-10] MEDS: Metoprolol Tartrate 25 MG TABLET G-TUBE ×2 (09:26→22:14)
[2020-08-10] MEDS: Famotidine 20 MG TABLET PO ×2 (09:26→22:11)
[2020-08-10] MEDS: Chlorhexidine Gluc Oral Rinse 15 ML MOUTHWASH BUCCAL ×3 (09:26→22:11)
[2020-08-10] MEDS: cloNIDine HCL 0.2 MG TABLET G-TUBE ×3 (09:26→22:12)
[2020-08-10] MEDS: Nystatin Powder 15 GM BOTTLE 1 APPL TOPICAL ×3 (09:27→22:12)
[2020-08-10 13:04] LABS: COVID-19 Test Negative (Negative); IDNOW Serial# 9DD0AD1C
[2020-08-10] MEDS: Enoxaparin Sodium 40 MG/0.4 ML SYRINGE SUBCUT (22:11)
[2020-08-11] VITALS (12 sets, daily range): BP systolic 110–180; BP diastolic 62–89; PULSE 68–88; RESP 18–20; TEMP 35.7–37.3; O2SAT 96–100; BMI 29.7
[2020-08-11] MEDS: Chlorhexidine Gluc Oral Rinse 15 ML MOUTHWASH BUCCAL ×3 (08:25→21:15)
[2020-08-11] MEDS: cloNIDine HCL 0.2 MG TABLET G-TUBE ×3 (08:25→21:15)
[2020-08-11] MEDS: Nystatin Powder 15 GM BOTTLE 1 APPL TOPICAL ×3 (08:26→21:32)
[2020-08-11] MEDS: Famotidine 20 MG TABLET PO ×2 (08:26→21:15)
[2020-08-11] MEDS: Metoprolol Tartrate 25 MG TABLET G-TUBE ×2 (08:26→21:14)
--- NOTE | 2020-08-11 10:05 | P.PNIM_ITS ---
Subjective Subjective Date of Service: 08/11/20 Interval History: seen in f/u for post icu s/p peg and trach and non communicative. Comfortable. Awaiting guardianship, had fever yesterday, negative covid and more fever Physical Exam Vital Signs: Vital Signs: Last Vital Signs Temp 97.6 F 08/11/20 07:52 Pulse 81 08/11/20 08:26 Resp 19 08/11/20 07:52 BP 180/86 H 08/11/20 08:26 Pulse Ox 98 08/11/20 07:52 Oxygen Flow Rate 5 08/05/20 08:26 Body Mass Index 29.7 Const: Other: General: Non-verbal Resp: rhonchi, no accessory muscle use CVS: S1,S2,RRR GI: +BS, NT, no distention Skin: No rash, no decub ulcer identified--watch for skin break Neuro: motor grossly intact Psych: appropriate affect Objective Data Current Medications Generic Name Dose Route Start Last Admin Trade Name Freq PRN Reason Stop Dose Admin Chlorhexidine Gluconate 15 ml 07/21/20 09:00 08/11/20 08:25 Chlorhexidine Gluc Oral Rinse 15 Ml Mouthwash BUCCAL 15 ml TID GINNY Administration Clonidine HCl 0.2 mg 08/04/20 16:00 08/11/20 08:25 Clonidine Hcl 0.2 Mg Tablet G-TUBE 0.2 mg TID GINNY Administration Protocol Enoxaparin Sodium 40 mg 07/31/20 21:00 08/10/20 22:11 Enoxaparin Sodium 40 Mg/0.4 Ml Syringe SUBCUT 40 mg Q24H GINNY Administration Famotidine 20 mg 08/04/20 21:00 08/11/20 08:26 Famotidine 20 Mg Tablet PO 20 mg BID GINNY Administration Metoprolol Tartrate 25 mg 08/04/20 21:00 08/11/20 08:26 Metoprolol Tartrate 25 Mg Tablet G-TUBE 25 mg Q12H GINNY Administration Protocol Nystatin 1 appl 08/04/20 09:00 08/11/20 08:26 Nystatin Powder 15 Gm Bottle TOPICAL 1 appl TID GINNY Administration Protocol Labs CBC & Chem 7: 08/06/20 05:26 08/06/20 05:26 Microbiology Microbiology Results: Microbiology 08/03/20 07:59 Blood - Venous Blood Culture - Final No growth after 5 days. 08/03/20 07:59 Blood - Venous Blood Culture - Final No growth after 5 days. 08/01/20 17:11 Blood - Venous Blood Culture - Final No growth after 5 days. 08/01/20 17:11 Blood - Venous Blood Culture - Final Coag negative Staphylococcus 07/25/20 20:34 Blood - Venous Blood Culture - Final No growth after 5 days. 07/25/20 20:34 Blood - Venous Blood Culture - Final No growth after 5 days. 07/25/20 20:23 Sputum - Suctioned Gram Stain - Final 07/25/20 20:23 Sputum - Suctioned Sputum Culture - Final 07/25/20 Unknown Urine [place] Urine Culture - Final Escherichia coli 07/17/20 19:28 Blood - Venous Blood Culture - Final No growth after 5 days. 07/17/20 19:20 Blood - Venous Blood Culture - Final No growth after 5 days. 07/19/20 10:02 Sputum - Suctioned Gram Stain - Final 07/19/20 10:02 Sputum - Suctioned Sputum Culture - Final Assessment and Plan (1) Anoxic encephalopathy: Status: Acute Assessment and Plan: 59-year-old gentleman admitted with acute respiratory failure and encephalopathy likely secondary to an aspiration event after/during myocardial infarction resulting in anoxic brain injury, now status post tracheostomy and parenteral gastrostomy placement. No new issues Plan: Neuro: Anoxic encephalopathy. Overall very poor prognosis for further recovery. Cardiac: New diagnosis of cardiomyopathy with reduced ejection fraction and possible left ventricular thrombus. Cardiology service care appreciated. Labile blood pressure secondary to disequilibrium of autonomic nervous system after an anoxic injury. Continue with antihypertensives including clonidine and metoprolol. Pulmonary: Acute hypoxic respiratory failure with a pulmonary aspiration component initially requiring ventilatory support. Extubated 07/19/2020. Required tracheostomy on 08/02/2020. Now tolerated tracheal collar 48 hours. Renal: Acute kidney injury secondary to rhabdomyolysis, resolved. Continue to monitor renal indices and urine output. Endo: No acute issues. GI: No acute issues. ID: No acute issues. Heme/Onc: No acute issues. Psych: No acute issues. Underlying anxiety and depression. Miscellaneous: No acute issues. Prophylaxis: Lovenox, famotidine Diet: Tube feed--tolerating Need guardianship for placment, on seroquel for agiation will, Psych consult for Kenan [place] exposure--retest today Seen by Psych 08/07 with following recommendation * Consider d/c Seroquel and trailing non antipsychotics to address agitation such as depakote * Consider neuro consult for further recommendations to manage agitation Close monitoring of skin as very high risk for pressure ulcers
[2020-08-11 11:34] LABS: COVID-19 Test Negative (Negative); IDNOW Serial# 9DD0AD1C
[2020-08-11] MEDS: Enoxaparin Sodium 40 MG/0.4 ML SYRINGE SUBCUT (21:15)
[2020-08-12] VITALS (11 sets, daily range): BP systolic 125–140; BP diastolic 72–84; PULSE 71–88; RESP 18–20; TEMP 36.2–36.9; O2SAT 95–97; BMI 29.8
[2020-08-12] MEDS: Chlorhexidine Gluc Oral Rinse 15 ML MOUTHWASH BUCCAL ×3 (09:18→21:48)
[2020-08-12] MEDS: cloNIDine HCL 0.2 MG TABLET G-TUBE ×3 (09:18→21:47)
[2020-08-12] MEDS: Famotidine 20 MG TABLET PO ×2 (09:19→21:48)
[2020-08-12] MEDS: Metoprolol Tartrate 25 MG TABLET G-TUBE ×2 (09:19→21:48)
[2020-08-12] MEDS: Nystatin Powder 15 GM BOTTLE 1 APPL TOPICAL ×3 (09:38→22:02)
--- NOTE | 2020-08-12 12:10 | HO.PM.IMPN ---
Subjective Subjective Date of Service: 08/12/20 Interval History: seen in f/u for post icu s/p peg and trach and non communicative. Comfortable. Awaiting guardianship. No fever, covid negative Review of Systems Unable to obtain. Physical Exam Vital Signs: Vital Signs: Last Vital Signs Temp 97.6 F 08/12/20 11:45 Pulse 88 08/12/20 11:45 Resp 18 08/12/20 11:45 BP 140/84 H 08/12/20 11:45 Pulse Ox 97 08/12/20 11:45 Oxygen Flow Rate 5 08/05/20 08:26 Body Mass Index 29.8 Const: Other: General: Non-verbal Resp: rhonchi, no accessory muscle use CVS: S1,S2,RRR GI: +BS, NT, no distention Skin: No rash, no decub ulcer identified--watch for skin break Neuro: motor grossly intact Psych: appropriate affect Objective Data Current Medications Generic Name Dose Route Start Last Admin Trade Name Freq PRN Reason Stop Dose Admin Chlorhexidine Gluconate 15 ml 07/21/20 09:00 08/12/20 09:18 Chlorhexidine Gluc Oral Rinse 15 Ml Mouthwash BUCCAL 15 ml TID GINNY Administration Clonidine HCl 0.2 mg 08/04/20 16:00 08/12/20 09:18 Clonidine Hcl 0.2 Mg Tablet G-TUBE 0.2 mg TID GINNY Administration Protocol Enoxaparin Sodium 40 mg 07/31/20 21:00 08/11/20 21:15 Enoxaparin Sodium 40 Mg/0.4 Ml Syringe SUBCUT 40 mg Q24H GINNY Administration Famotidine 20 mg 08/04/20 21:00 08/12/20 09:19 Famotidine 20 Mg Tablet PO 20 mg BID GINNY Administration Metoprolol Tartrate 25 mg 08/04/20 21:00 08/12/20 09:19 Metoprolol Tartrate 25 Mg Tablet G-TUBE 25 mg Q12H GINNY Administration Protocol Nystatin 1 appl 08/04/20 09:00 08/12/20 09:38 Nystatin Powder 15 Gm Bottle TOPICAL 1 appl TID GINNY Administration Protocol Labs CBC & Chem 7: 08/06/20 05:26 08/06/20 05:26 Microbiology Microbiology Results: Microbiology 08/03/20 07:59 Blood - Venous Blood Culture - Final No growth after 5 days. 08/03/20 07:59 Blood - Venous Blood Culture - Final No growth after 5 days. 08/01/20 17:11 Blood - Venous Blood Culture - Final No growth after 5 days. 08/01/20 17:11 Blood - Venous Blood Culture - Final Coag negative Staphylococcus 07/25/20 20:34 Blood - Venous Blood Culture - Final No growth after 5 days. 07/25/20 20:34 Blood - Venous Blood Culture - Final No growth after 5 days. 07/25/20 20:23 Sputum - Suctioned Gram Stain - Final 07/25/20 20:23 Sputum - Suctioned Sputum Culture - Final 07/25/20 Unknown Urine [place] Urine Culture - Final Escherichia coli 07/17/20 19:28 Blood - Venous Blood Culture - Final No growth after 5 days. 07/17/20 19:20 Blood - Venous Blood Culture - Final No growth after 5 days. 07/19/20 10:02 Sputum - Suctioned Gram Stain - Final 07/19/20 10:02 Sputum - Suctioned Sputum Culture - Final Assessment and Plan (1) Anoxic encephalopathy: Status: Acute Assessment and Plan: 59-year-old gentleman admitted with acute respiratory failure and encephalopathy likely secondary to an aspiration event after/during myocardial infarction resulting in anoxic brain injury, now status post tracheostomy and parenteral gastrostomy placement. No changes Plan: Neuro: Anoxic encephalopathy. Overall very poor prognosis for further recovery. Cardiac: New diagnosis of cardiomyopathy with reduced ejection fraction and possible left ventricular thrombus. Cardiology service care appreciated. Labile blood pressure secondary to disequilibrium of autonomic nervous system after an anoxic injury. Continue with antihypertensives including clonidine and metoprolol. Pulmonary: Acute hypoxic respiratory failure with a pulmonary aspiration component initially requiring ventilatory support. Extubated 07/19/2020. Required tracheostomy on 08/02/2020. Now tolerated tracheal collar 48 hours. Renal: Acute kidney injury secondary to rhabdomyolysis, resolved. Continue to monitor renal indices and urine output. Endo: No acute issues. GI: No acute issues. ID: No acute issues. Heme/Onc: No acute issues. Psych: No acute issues. Underlying anxiety and depression. Miscellaneous: No acute issues. Prophylaxis: Lovenox, famotidine Diet: Tube feed--tolerating Need guardianship for placment, on seroquel for agiation will, Psych consult for Kenan [place] exposure--retest today Seen by Psych 08/07 with following recommendation Consider d/c Seroquel and trailing non antipsychotics to address agitation such as depakote Consider neuro consult for further recommendations to manage agitation Close monitoring of skin as very high risk for pressure ulcers
--- NOTE | 2020-08-12 13:23 | MHC.CM.PN ---
Patient is on 6 liters O2 via trach mask, NPO with peg feedings. Currently waiting for court date for guardianship hearingClare is following. CM will continue to follow patient for discharge needs.
[2020-08-12] MEDS: Enoxaparin Sodium 40 MG/0.4 ML SYRINGE SUBCUT (21:48)
[2020-08-13] VITALS (12 sets, daily range): BP systolic 115–144; BP diastolic 69–89; PULSE 64–95; RESP 16–23; TEMP 36.1–37.4; O2SAT 93–96; BMI 29.2
[2020-08-13] MEDS: cloNIDine HCL 0.2 MG TABLET G-TUBE ×3 (09:29→21:53)
--- NOTE | 2020-08-13 09:29 | MHC.IC ---
pt tested negative for COVID on 08/11/20. Quarantine can be discontinued. No longer requires Airborne and Contact precautions.
[2020-08-13] MEDS: Nystatin Powder 15 GM BOTTLE 1 APPL TOPICAL ×3 (09:30→22:54)
[2020-08-13] MEDS: Famotidine 20 MG TABLET PO ×2 (09:30→21:52)
[2020-08-13] MEDS: Chlorhexidine Gluc Oral Rinse 15 ML MOUTHWASH BUCCAL ×3 (09:30→21:53)
[2020-08-13] MEDS: Metoprolol Tartrate 25 MG TABLET G-TUBE ×2 (09:30→21:52)
--- NOTE | 2020-08-13 10:50 | P.PNIM_ITS ---
Subjective Subjective Date of Service: 08/13/20 Interval History: seen in f/u for post icu s/p peg and trach and non communicative. Comfortable. Awaiting guardianship. No new issues Review of Systems Unable to obtain. Physical Exam Vital Signs: Vital Signs: Last Vital Signs Temp 99.4 F 08/13/20 08:00 Pulse 75 08/13/20 09:30 Resp 20 08/13/20 08:00 BP 115/69 08/13/20 09:30 Pulse Ox 95 08/13/20 08:00 Oxygen Flow Rate 5 08/05/20 08:26 Body Mass Index 29.2 Const: Other: General: Non-verbal Resp: rhonchi, no accessory muscle use CVS: S1,S2,RRR GI: +BS, NT, no distention Skin: No rash, no decub ulcer identified--watch for skin break Neuro: motor grossly intact Psych: appropriate affect Objective Data Current Medications Generic Name Dose Route Start Last Admin Trade Name Freq PRN Reason Stop Dose Admin Chlorhexidine Gluconate 15 ml 07/21/20 09:00 08/13/20 09:30 Chlorhexidine Gluc Oral Rinse 15 Ml Mouthwash BUCCAL 15 ml TID GINNY Administration Clonidine HCl 0.2 mg 08/04/20 16:00 08/13/20 09:29 Clonidine Hcl 0.2 Mg Tablet G-TUBE 0.2 mg TID GINNY Administration Protocol Enoxaparin Sodium 40 mg 07/31/20 21:00 08/12/20 21:48 Enoxaparin Sodium 40 Mg/0.4 Ml Syringe SUBCUT 40 mg Q24H GINNY Administration Famotidine 20 mg 08/04/20 21:00 08/13/20 09:30 Famotidine 20 Mg Tablet PO 20 mg BID GINNY Administration Metoprolol Tartrate 25 mg 08/04/20 21:00 08/13/20 09:30 Metoprolol Tartrate 25 Mg Tablet G-TUBE 25 mg Q12H GINNY Administration Protocol Nystatin 1 appl 08/04/20 09:00 08/13/20 09:30 Nystatin Powder 15 Gm Bottle TOPICAL 1 appl TID GINNY Administration Protocol Labs CBC & Chem 7: 08/06/20 05:26 08/06/20 05:26 Microbiology Microbiology Results: Microbiology 08/03/20 07:59 Blood - Venous Blood Culture - Final No growth after 5 days. 08/03/20 07:59 Blood - Venous Blood Culture - Final No growth after 5 days. 08/01/20 17:11 Blood - Venous Blood Culture - Final No growth after 5 days. 08/01/20 17:11 Blood - Venous Blood Culture - Final Coag negative Staphylococcus 07/25/20 20:34 Blood - Venous Blood Culture - Final No growth after 5 days. 07/25/20 20:34 Blood - Venous Blood Culture - Final No growth after 5 days. 07/25/20 20:23 Sputum - Suctioned Gram Stain - Final 07/25/20 20:23 Sputum - Suctioned Sputum Culture - Final 07/25/20 Unknown Urine [place] Urine Culture - Final Escherichia coli 07/17/20 19:28 Blood - Venous Blood Culture - Final No growth after 5 days. 07/17/20 19:20 Blood - Venous Blood Culture - Final No growth after 5 days. 07/19/20 10:02 Sputum - Suctioned Gram Stain - Final 07/19/20 10:02 Sputum - Suctioned Sputum Culture - Final Assessment and Plan (1) Anoxic encephalopathy: Status: Acute Assessment and Plan: 59-year-old gentleman admitted with acute respiratory failure and encephalopathy likely secondary to an aspiration event after/during myocardial infarction resulting in anoxic brain injury, now status post tracheostomy and parenteral gastrostomy placement. No changes Plan: Neuro: Anoxic encephalopathy. Overall very poor prognosis for further recovery. Cardiac: New diagnosis of cardiomyopathy with reduced ejection fraction and possible left ventricular thrombus. Cardiology service care appreciated. Labile blood pressure secondary to disequilibrium of autonomic nervous system after an anoxic injury. Continue with antihypertensives including clonidine and metoprolol. Pulmonary: Acute hypoxic respiratory failure with a pulmonary aspiration component initially requiring ventilatory support. Extubated 07/19/2020. Required tracheostomy on 08/02/2020. Now tolerated tracheal collar 48 hours. Renal: Acute kidney injury secondary to rhabdomyolysis, resolved. Continue to monitor renal indices and urine output. Endo: No acute issues. GI: No acute issues. ID: No acute issues. Heme/Onc: No acute issues. Psych: No acute issues. Underlying anxiety and depression. Miscellaneous: No acute issues. Prophylaxis: Lovenox, famotidine Diet: Tube feed--tolerating Need guardianship for placment, on seroquel for agiation will, Psych consult for [place] covid exposure--retest today Seen by Psych 08/07 with following recommendation * Consider d/c Seroquel and trailing non antipsychotics to address agitation such as depakote * Consider neuro consult for further recommendations to manage agitation Close monitoring of skin as very high risk for pressure ulcers Continue current care, awaiting court day for guardianship hearing
[2020-08-13] MEDS: Enoxaparin Sodium 40 MG/0.4 ML SYRINGE SUBCUT (21:52)
[2020-08-14] VITALS (7 sets, daily range): BP systolic 117–152; BP diastolic 59–99; PULSE 60–105; RESP 15–20; TEMP 36–37.2; O2SAT 95–98
[2020-08-14] MEDS: Chlorhexidine Gluc Oral Rinse 15 ML MOUTHWASH BUCCAL ×3 (09:50→21:17)
[2020-08-14] MEDS: cloNIDine HCL 0.2 MG TABLET G-TUBE ×3 (09:50→21:17)
[2020-08-14] MEDS: Metoprolol Tartrate 25 MG TABLET G-TUBE ×2 (09:50→21:18)
[2020-08-14] MEDS: Famotidine 20 MG TABLET PO ×2 (09:51→21:18)
[2020-08-14] MEDS: Nystatin Powder 15 GM BOTTLE 1 APPL TOPICAL ×3 (09:51→21:18)
--- NOTE | 2020-08-14 10:41 | HO.PM.IMPN ---
Subjective Subjective Date of Service: 08/14/20 Interval History: no copjlaints Cardiovascular Cardiovascular: Reports no additional cardiovascular complaints Genitourinary Genitourinary: Reports no additional male genitourinary complaints Physical Exam Vital Signs: Vital Signs: Last Vital Signs Temp 99 F 08/14/20 08:00 Pulse 80 08/14/20 09:50 Resp 20 08/14/20 08:00 BP 146/88 H 08/14/20 09:50 Pulse Ox 98 08/14/20 08:00 Oxygen Flow Rate 5 08/05/20 08:26 Body Mass Index 29.2 Const Other: General: Non-verbal Resp: rhonchi, no accessory muscle use CVS: S1,S2,RRR GI: +BS, NT, no distention Skin: No rash, no decub ulcer identified--watch for skin break Neuro: motor grossly intact Psych: appropriate affect Objective Data Current Medications Generic Name Dose Route Start Last Admin Trade Name Freq PRN Reason Stop Dose Admin Chlorhexidine Gluconate 15 ml 07/21/20 09:00 08/14/20 09:50 Chlorhexidine Gluc Oral Rinse 15 Ml Mouthwash BUCCAL 15 ml TID GINNY Administration Clonidine HCl 0.2 mg 08/04/20 16:00 08/14/20 09:50 Clonidine Hcl 0.2 Mg Tablet G-TUBE 0.2 mg TID GINNY Administration Protocol Enoxaparin Sodium 40 mg 07/31/20 21:00 08/13/20 21:52 Enoxaparin Sodium 40 Mg/0.4 Ml Syringe SUBCUT 40 mg Q24H GINNY Administration Famotidine 20 mg 08/04/20 21:00 08/14/20 09:51 Famotidine 20 Mg Tablet PO 20 mg BID GINNY Administration Metoprolol Tartrate 25 mg 08/04/20 21:00 08/14/20 09:50 Metoprolol Tartrate 25 Mg Tablet G-TUBE 25 mg Q12H GINNY Administration Protocol Nystatin 1 appl 08/04/20 09:00 08/14/20 09:51 Nystatin Powder 15 Gm Bottle TOPICAL 1 appl TID GINNY Administration Protocol Labs CBC & Chem 7: 08/06/20 05:26 08/06/20 05:26 Microbiology Microbiology Results: Microbiology 08/03/20 07:59 Blood - Venous Blood Culture - Final No growth after 5 days. 08/03/20 07:59 Blood - Venous Blood Culture - Final No growth after 5 days. 08/01/20 17:11 Blood - Venous Blood Culture - Final No growth after 5 days. 08/01/20 17:11 Blood - Venous Blood Culture - Final Coag negative Staphylococcus 07/25/20 20:34 Blood - Venous Blood Culture - Final No growth after 5 days. 07/25/20 20:34 Blood - Venous Blood Culture - Final No growth after 5 days. 07/25/20 20:23 Sputum - Suctioned Gram Stain - Final 07/25/20 20:23 Sputum - Suctioned Sputum Culture - Final 07/25/20 Unknown Urine [place] Urine Culture - Final Escherichia coli 07/17/20 19:28 Blood - Venous Blood Culture - Final No growth after 5 days. 07/17/20 19:20 Blood - Venous Blood Culture - Final No growth after 5 days. 07/19/20 10:02 Sputum - Suctioned Gram Stain - Final 07/19/20 10:02 Sputum - Suctioned Sputum Culture - Final Assessment and Plan (1) Anoxic encephalopathy: Status: Acute Assessment and Plan: 59-year-old gentleman admitted with acute respiratory failure and encephalopathy likely secondary to an aspiration event after/during myocardial infarction resulting in anoxic brain injury, now status post tracheostomy and parenteral gastrostomy placement. No changes anoxic encephalopathy Overall very poor prognosis for further recovery. cardiomyopathy with reduced ejection fraction and possible left ventricular thrombus Cardiology service care appreciated. Labile blood pressure secondary to disequilibrium of autonomic nervous system after an anoxic injury. HTN clonidine and metoprolol. Acute hypoxic respiratory failure with a pulmonary aspiration component initially requiring ventilatory support. Extubated 07/19/2020. Required tracheostomy on 08/02/2020. Now tolerated tracheal collar 48 hours. Acute kidney injury secondary to rhabdomyolysis resolved Need guardianship for placment, on seroquel for agiation will, Psych consult for Kenan [place] exposure--retest today Close monitoring of skin as very high risk for pressure ulcers
--- NOTE | 2020-08-14 12:08 | MHC.CLN ---
F/U PT CONTINUES WITH JEVITY 1.0 AT MAX GOAL RATE 75CC/HR WITH WATER FLUSHES 240CC WATER FLUSHES Q 6HRS PROVIDES 1908KCALS (23KCALS/KG), 80G (1.0G/KG), 2463CC TOTAL WATER FROM FORMULA AND FLUSH (30CC/KG) TOLERATING WITH LOW RESIDUALS PER NSG CONTINUE TO MONITOR TOLERANCE, RESIDUALS AND LYTES
--- NOTE | 2020-08-14 13:12 | MHC.CM.PN ---
Patient is on 5 liters O2 via trach mask. Still waiting on court date for guardianship. Clare has been following. patient will need BLS transport.
[2020-08-14] MEDS: Enoxaparin Sodium 40 MG/0.4 ML SYRINGE SUBCUT (21:18)
[2020-08-15] VITALS (8 sets, daily range): BP systolic 108–145; BP diastolic 69–84; PULSE 59–80; RESP 15–18; TEMP 36.5–37.2; O2SAT 95–99; BMI 29.5
[2020-08-15 06:35] LABS: MANUAL DIFF FLAG NO
[2020-08-15 06:58] LABS: Basophils Percent Auto 0.3 % (0-2); Eosinophils Absolute Auto 0.4 X10*3/uL (0.0-0.4); Eosinophils Percent Auto 3.6 % (0-4); Hematocrit 42.4 % (42-52); Hemoglobin 14.5 g/dl (14.0-18.0); Imm Gran Abs Auto 0.03 X10*3/uL (0.00-0.03); Imm Gran Pct Auto 0.3 % (0.0-0.4); Lymphocytes Absolute Auto 2.2 X10*3/uL (1.2-4.9); Mean Corpuscular HGB Conc 34.2 g/dl (31.0-36.0); Mean Corpuscular Hemoglobin 32.3 pg (27.0-33.0); Mean Corpuscular Volume 94.4 fL (80-98); Mean Platelet Volume 12.6 fL (9.4-12.4); Monocytes Absolute Auto 1.3 X10*3/uL (0.1-1.2); Monocytes Percent Auto 11.9 % (2-11); Neutrophils Absolute Auto 6.7 X10*3/uL (2.0-8.3); Neutrophils Percent Auto 62.9 % (45-73); Platelet Count 230 X10*3/uL (160-400); Red Blood Count 4.49 X10*6/uL (4.60-5.80); Red Cell Distribution Width 12.2 % (11.0-16.0); White Blood Count 10.6 X10*3/uL (4.8-10.8)
[2020-08-15] MEDS: Metoprolol Tartrate 25 MG TABLET G-TUBE ×2 (07:38→20:55)
[2020-08-15] MEDS: Chlorhexidine Gluc Oral Rinse 15 ML MOUTHWASH BUCCAL ×3 (07:38→20:55)
[2020-08-15] MEDS: Famotidine 20 MG TABLET PO ×2 (07:38→20:55)
[2020-08-15] MEDS: cloNIDine HCL 0.2 MG TABLET G-TUBE ×3 (07:38→20:55)
[2020-08-15] MEDS: Nystatin Powder 15 GM BOTTLE 1 APPL TOPICAL ×3 (07:39→20:56)
[2020-08-15 07:41] LABS: Anion Gap 14 (12-20); Blood Urea Nitrogen 18 mg/dL (9-16); Calcium 9.3 mg/dL (8.4-10.2); Carbon Dioxide 26 mmol/L (22-29); Chloride 99 mmol/L (96-108); Creatinine Clr Calc Pharmacy 130.7; Estimated Glomerular Filt Rate > 60; Glucose Fasting 84 mg/dL (60-99); Potassium 4.2 mmol/L (3.3-5.1); Sodium 135 mmol/L (135-145)
--- NOTE | 2020-08-15 12:04 | HO.PM.IMPN ---
Subjective Subjective Date of Service: 08/15/20 Interval History: no complaints Cardiovascular Cardiovascular: Reports no additional cardiovascular complaints Gastrointestinal Gastrointestinal: Reports no additional gastrointestinal complaints Physical Exam Vital Signs: Vital Signs: Last Vital Signs Temp 98.6 F 08/15/20 08:00 Pulse 65 08/15/20 08:00 Resp 18 08/15/20 08:00 BP 125/77 08/15/20 08:00 Pulse Ox 98 08/15/20 08:00 Oxygen Flow Rate 5 08/05/20 08:26 Body Mass Index 29.5 Const Other: General: Non-verbal Resp: rhonchi, no accessory muscle use CVS: S1,S2,RRR GI: +BS, NT, no distention Skin: No rash, no decub ulcer identified--watch for skin break Neuro: motor grossly intact Psych: appropriate affect Objective Data Current Medications Generic Name Dose Route Start Last Admin Trade Name Freq PRN Reason Stop Dose Admin Chlorhexidine Gluconate 15 ml 07/21/20 09:00 08/15/20 07:38 Chlorhexidine Gluc Oral Rinse 15 Ml Mouthwash BUCCAL 15 ml TID GINNY Administration Clonidine HCl 0.2 mg 08/04/20 16:00 08/15/20 07:38 Clonidine Hcl 0.2 Mg Tablet G-TUBE 0.2 mg TID GINNY Administration Protocol Enoxaparin Sodium 40 mg 07/31/20 21:00 08/14/20 21:18 Enoxaparin Sodium 40 Mg/0.4 Ml Syringe SUBCUT 40 mg Q24H GINNY Administration Famotidine 20 mg 08/04/20 21:00 08/15/20 07:38 Famotidine 20 Mg Tablet PO 20 mg BID GINNY Administration Metoprolol Tartrate 25 mg 08/04/20 21:00 08/15/20 07:38 Metoprolol Tartrate 25 Mg Tablet G-TUBE 25 mg Q12H GINNY Administration Protocol Nystatin 1 appl 08/04/20 09:00 08/15/20 07:39 Nystatin Powder 15 Gm Bottle TOPICAL 1 appl TID GINNY Administration Protocol Labs CBC & Chem 7: 08/15/20 05:18 08/15/20 05:18 Microbiology Microbiology Results: Microbiology 08/03/20 07:59 Blood - Venous Blood Culture - Final No growth after 5 days. 08/03/20 07:59 Blood - Venous Blood Culture - Final No growth after 5 days. 08/01/20 17:11 Blood - Venous Blood Culture - Final No growth after 5 days. 08/01/20 17:11 Blood - Venous Blood Culture - Final Coag negative Staphylococcus 07/25/20 20:34 Blood - Venous Blood Culture - Final No growth after 5 days. 07/25/20 20:34 Blood - Venous Blood Culture - Final No growth after 5 days. 07/25/20 20:23 Sputum - Suctioned Gram Stain - Final 07/25/20 20:23 Sputum - Suctioned Sputum Culture - Final 07/25/20 Unknown Urine [place] Urine Culture - Final Escherichia coli 07/17/20 19:28 Blood - Venous Blood Culture - Final No growth after 5 days. 07/17/20 19:20 Blood - Venous Blood Culture - Final No growth after 5 days. 07/19/20 10:02 Sputum - Suctioned Gram Stain - Final 07/19/20 10:02 Sputum - Suctioned Sputum Culture - Final Assessment and Plan (1) Anoxic encephalopathy: Status: Acute Assessment and Plan: 59-year-old gentleman admitted with acute respiratory failure and encephalopathy likely secondary to an aspiration event after/during myocardial infarction resulting in anoxic brain injury, now status post tracheostomy and parenteral gastrostomy placement. No changes anoxic encephalopathy Overall very poor prognosis for further recovery. cardiomyopathy with reduced ejection fraction and possible left ventricular thrombus Cardiology service care appreciated. Labile blood pressure secondary to disequilibrium of autonomic nervous system after an anoxic injury. HTN clonidine and metoprolol. Acute hypoxic respiratory failure with a pulmonary aspiration component initially requiring ventilatory support. Extubated 07/19/2020. Required tracheostomy on 08/02/2020. Now tolerated tracheal collar 48 hours. Acute kidney injury secondary to rhabdomyolysis resolved Need guardianship for placment, on seroquel for agiation will, Psych consult for Kenan Close monitoring of skin as very high risk for pressure ulcers
[2020-08-15] MEDS: Enoxaparin Sodium 40 MG/0.4 ML SYRINGE SUBCUT (20:55)
[2020-08-16] VITALS (10 sets, daily range): BP systolic 114–159; BP diastolic 68–95; PULSE 70–93; RESP 18–20; TEMP 36.1–36.8; O2SAT 96–98; BMI 29.5
[2020-08-16] MEDS: cloNIDine HCL 0.2 MG TABLET G-TUBE ×3 (09:14→21:07)
[2020-08-16] MEDS: Famotidine 20 MG TABLET PO ×2 (09:14→21:05)
[2020-08-16] MEDS: Chlorhexidine Gluc Oral Rinse 15 ML MOUTHWASH BUCCAL ×2 (09:15→21:05)
[2020-08-16] MEDS: Metoprolol Tartrate 25 MG TABLET G-TUBE ×2 (09:15→21:06)
[2020-08-16] MEDS: Nystatin Powder 15 GM BOTTLE 1 APPL TOPICAL ×3 (09:20→21:07)
--- NOTE | 2020-08-16 11:27 | MHC.CM.PN ---
Patient's court date for guardianship is Wednesday08/19/2020. CM unable to update [facility] r/t [employer] is down. Patient will need BLS transport. CM will continue to follow patient for discharge needs.
--- NOTE | 2020-08-16 11:49 | HO.PM.IMPN ---
Subjective Subjective Date of Service: 08/16/20 Interval History: no complaints Cardiovascular Cardiovascular: Reports no additional cardiovascular complaints Gastrointestinal Gastrointestinal: Reports no additional gastrointestinal complaints Physical Exam Vital Signs: Vital Signs: Last Vital Signs Temp 97.0 F 08/16/20 11:44 Pulse 73 08/16/20 11:44 Resp 20 08/16/20 11:44 BP 130/87 08/16/20 11:44 Pulse Ox 96 08/16/20 11:44 Oxygen Flow Rate 5 08/05/20 08:26 Body Mass Index 29.5 Const Other: General: Non-verbal Resp: rhonchi, no accessory muscle use CVS: S1,S2,RRR GI: +BS, NT, no distention Skin: No rash, no decub ulcer identified--watch for skin break Neuro: motor grossly intact Psych: appropriate affect Objective Data Current Medications Generic Name Dose Route Start Last Admin Trade Name Freq PRN Reason Stop Dose Admin Chlorhexidine Gluconate 15 ml 07/21/20 09:00 08/16/20 09:15 Chlorhexidine Gluc Oral Rinse 15 Ml Mouthwash BUCCAL 15 ml TID GINNY Administration Clonidine HCl 0.2 mg 08/04/20 16:00 08/16/20 09:14 Clonidine Hcl 0.2 Mg Tablet G-TUBE 0.2 mg TID GINNY Administration Protocol Enoxaparin Sodium 40 mg 07/31/20 21:00 08/15/20 20:55 Enoxaparin Sodium 40 Mg/0.4 Ml Syringe SUBCUT 40 mg Q24H GINNY Administration Famotidine 20 mg 08/04/20 21:00 08/16/20 09:14 Famotidine 20 Mg Tablet PO 20 mg BID GINNY Administration Metoprolol Tartrate 25 mg 08/04/20 21:00 08/16/20 09:15 Metoprolol Tartrate 25 Mg Tablet G-TUBE 25 mg Q12H GINNY Administration Protocol Nystatin 1 appl 08/04/20 09:00 08/16/20 09:20 Nystatin Powder 15 Gm Bottle TOPICAL 1 appl TID GINNY Administration Protocol Labs CBC & Chem 7: 08/15/20 05:18 08/15/20 05:18 Microbiology Microbiology Results: Microbiology 08/03/20 07:59 Blood - Venous Blood Culture - Final No growth after 5 days. 08/03/20 07:59 Blood - Venous Blood Culture - Final No growth after 5 days. 08/01/20 17:11 Blood - Venous Blood Culture - Final No growth after 5 days. 08/01/20 17:11 Blood - Venous Blood Culture - Final Coag negative Staphylococcus 07/25/20 20:34 Blood - Venous Blood Culture - Final No growth after 5 days. 07/25/20 20:34 Blood - Venous Blood Culture - Final No growth after 5 days. 07/25/20 20:23 Sputum - Suctioned Gram Stain - Final 07/25/20 20:23 Sputum - Suctioned Sputum Culture - Final 07/25/20 Unknown Urine [place] Urine Culture - Final Escherichia coli 07/17/20 19:28 Blood - Venous Blood Culture - Final No growth after 5 days. 07/17/20 19:20 Blood - Venous Blood Culture - Final No growth after 5 days. 07/19/20 10:02 Sputum - Suctioned Gram Stain - Final 07/19/20 10:02 Sputum - Suctioned Sputum Culture - Final Assessment and Plan (1) Anoxic encephalopathy: Status: Acute Assessment and Plan: 59-year-old gentleman admitted with acute respiratory failure and encephalopathy likely secondary to an aspiration event after/during myocardial infarction resulting in anoxic brain injury, now status post tracheostomy and parenteral gastrostomy placement. stable anoxic encephalopathy Overall very poor prognosis for further recovery. cardiomyopathy with reduced ejection fraction and possible left ventricular thrombus Cardiology service care appreciated. Labile blood pressure secondary to disequilibrium of autonomic nervous system after an anoxic injury. HTN clonidine and metoprolol. Acute hypoxic respiratory failure with a pulmonary aspiration component initially requiring ventilatory support. Extubated 07/19/2020. Required tracheostomy on 08/02/2020. Now tolerated tracheal collar 48 hours. Acute kidney injury secondary to rhabdomyolysis resolved Need guardianship for placment, on seroquel for agiation will, Psych consult for Kenan Close monitoring of skin as very high risk for pressure ulcers
[2020-08-16] MEDS: Enoxaparin Sodium 40 MG/0.4 ML SYRINGE SUBCUT (21:05)
[2020-08-17] VITALS (9 sets, daily range): BP systolic 110–161; BP diastolic 71–98; PULSE 19–94; RESP 16–19; TEMP 36–36.9; O2SAT 95–98; BMI 27.8
[2020-08-17] MEDS: Metoprolol Tartrate 25 MG TABLET G-TUBE ×2 (08:53→20:23)
[2020-08-17] MEDS: Nystatin Powder 15 GM BOTTLE 1 APPL TOPICAL ×3 (08:53→20:24)
[2020-08-17] MEDS: Famotidine 20 MG TABLET PO ×2 (08:53→20:21)
[2020-08-17] MEDS: cloNIDine HCL 0.2 MG TABLET G-TUBE ×3 (08:53→20:23)
[2020-08-17] MEDS: Chlorhexidine Gluc Oral Rinse 15 ML MOUTHWASH BUCCAL ×3 (08:53→20:20)
--- NOTE | 2020-08-17 11:00 | HO.PM.IMPN ---
Subjective Subjective Date of Service: 08/17/20 Interval History: no complaints Cardiovascular Cardiovascular: Reports no additional cardiovascular complaints Gastrointestinal Gastrointestinal: Reports no additional gastrointestinal complaints Physical Exam Vital Signs: Vital Signs: Last Vital Signs Temp 97.1 F 08/17/20 07:28 Pulse 72 08/17/20 08:53 Resp 19 08/17/20 07:28 BP 136/84 08/17/20 08:53 Pulse Ox 95 08/17/20 07:28 Oxygen Flow Rate 5 08/05/20 08:26 Body Mass Index 27.8 Const Other: General: Non-verbal Resp: rhonchi, no accessory muscle use CVS: S1,S2,RRR GI: +BS, NT, no distention Skin: No rash, no decub ulcer identified--watch for skin break Neuro: motor grossly intact Psych: appropriate affect Objective Data Current Medications Generic Name Dose Route Start Last Admin Trade Name Freq PRN Reason Stop Dose Admin Chlorhexidine Gluconate 15 ml 07/21/20 09:00 08/17/20 08:53 Chlorhexidine Gluc Oral Rinse 15 Ml Mouthwash BUCCAL 15 ml TID GINNY Administration Clonidine HCl 0.2 mg 08/04/20 16:00 08/17/20 08:53 Clonidine Hcl 0.2 Mg Tablet G-TUBE 0.2 mg TID GINNY Administration Protocol Enoxaparin Sodium 40 mg 07/31/20 21:00 08/16/20 21:05 Enoxaparin Sodium 40 Mg/0.4 Ml Syringe SUBCUT 40 mg Q24H GINNY Administration Famotidine 20 mg 08/04/20 21:00 08/17/20 08:53 Famotidine 20 Mg Tablet PO 20 mg BID GINNY Administration Metoprolol Tartrate 25 mg 08/04/20 21:00 08/17/20 08:53 Metoprolol Tartrate 25 Mg Tablet G-TUBE 25 mg Q12H GINNY Administration Protocol Nystatin 1 appl 08/04/20 09:00 08/17/20 08:53 Nystatin Powder 15 Gm Bottle TOPICAL 1 appl TID GINNY Administration Protocol Labs CBC & Chem 7: 08/15/20 05:18 08/15/20 05:18 Microbiology Microbiology Results: Microbiology 08/03/20 07:59 Blood - Venous Blood Culture - Final No growth after 5 days. 08/03/20 07:59 Blood - Venous Blood Culture - Final No growth after 5 days. 08/01/20 17:11 Blood - Venous Blood Culture - Final No growth after 5 days. 08/01/20 17:11 Blood - Venous Blood Culture - Final Coag negative Staphylococcus 07/25/20 20:34 Blood - Venous Blood Culture - Final No growth after 5 days. 07/25/20 20:34 Blood - Venous Blood Culture - Final No growth after 5 days. 07/25/20 20:23 Sputum - Suctioned Gram Stain - Final 07/25/20 20:23 Sputum - Suctioned Sputum Culture - Final 07/25/20 Unknown Urine [place] Urine Culture - Final Escherichia coli 07/17/20 19:28 Blood - Venous Blood Culture - Final No growth after 5 days. 07/17/20 19:20 Blood - Venous Blood Culture - Final No growth after 5 days. 07/19/20 10:02 Sputum - Suctioned Gram Stain - Final 07/19/20 10:02 Sputum - Suctioned Sputum Culture - Final Assessment and Plan (1) Anoxic encephalopathy: Status: Acute Assessment and Plan: 59-year-old gentleman admitted with acute respiratory failure and encephalopathy likely secondary to an aspiration event after/during myocardial infarction resulting in anoxic brain injury, now status post tracheostomy and parenteral gastrostomy placement. no changes anoxic encephalopathy Overall very poor prognosis for further recovery. cardiomyopathy with reduced ejection fraction and possible left ventricular thrombus Cardiology service care appreciated. Labile blood pressure secondary to disequilibrium of autonomic nervous system after an anoxic injury. HTN clonidine and metoprolol. Acute hypoxic respiratory failure with a pulmonary aspiration component initially requiring ventilatory support. Extubated 07/19/2020. Required tracheostomy on 08/02/2020. Now tolerated tracheal collar Acute kidney injury secondary to rhabdomyolysis resolved Need guardianship for placement, on seroquel for agitation Close monitoring of skin as very high risk for pressure ulcers
[2020-08-17] MEDS: Enoxaparin Sodium 40 MG/0.4 ML SYRINGE SUBCUT (20:20)
[2020-08-18] VITALS (9 sets, daily range): BP systolic 112–136; BP diastolic 53–78; PULSE 63–69; RESP 17–28; TEMP 36.3–36.8; O2SAT 94–99; BMI 29.2
[2020-08-18] MEDS: Chlorhexidine Gluc Oral Rinse 15 ML MOUTHWASH BUCCAL ×2 (07:56→15:03)
[2020-08-18] MEDS: Famotidine 20 MG TABLET PO ×2 (07:57→20:43)
[2020-08-18] MEDS: cloNIDine HCL 0.2 MG TABLET G-TUBE ×3 (07:58→20:43)
[2020-08-18] MEDS: Metoprolol Tartrate 25 MG TABLET G-TUBE ×2 (08:02→20:43)
[2020-08-18] MEDS: Nystatin Powder 15 GM BOTTLE 1 APPL TOPICAL ×3 (08:23→20:44)
--- NOTE | 2020-08-18 09:36 | HO.PM.IMPN ---
Subjective Subjective Date of Service: 08/18/20 Interval History: no complaints Cardiovascular Cardiovascular: Reports no additional cardiovascular complaints Gastrointestinal Gastrointestinal: Reports no additional gastrointestinal complaints Physical Exam Vital Signs: Vital Signs: Last Vital Signs Temp 97.5 F 08/18/20 07:52 Pulse 63 08/18/20 08:02 Resp 28 H 08/18/20 07:52 BP 112/70 08/18/20 08:02 Pulse Ox 96 08/18/20 07:52 Oxygen Flow Rate 5 08/05/20 08:26 Body Mass Index 29.2 Const Other: General: Non-verbal Resp: rhonchi, no accessory muscle use CVS: S1,S2,RRR GI: +BS, NT, no distention Skin: No rash, no decub ulcer identified--watch for skin break Neuro: motor grossly intact Psych: appropriate affect Objective Data Current Medications Generic Name Dose Route Start Last Admin Trade Name Freq PRN Reason Stop Dose Admin Chlorhexidine Gluconate 15 ml 07/21/20 09:00 08/18/20 07:56 Chlorhexidine Gluc Oral Rinse 15 Ml Mouthwash BUCCAL 15 ml TID GINNY Administration Clonidine HCl 0.2 mg 08/04/20 16:00 08/18/20 07:58 Clonidine Hcl 0.2 Mg Tablet G-TUBE 0.2 mg TID GINNY Administration Protocol Enoxaparin Sodium 40 mg 07/31/20 21:00 08/17/20 20:20 Enoxaparin Sodium 40 Mg/0.4 Ml Syringe SUBCUT 40 mg Q24H GINNY Administration Famotidine 20 mg 08/04/20 21:00 08/18/20 07:57 Famotidine 20 Mg Tablet PO 20 mg BID GINNY Administration Metoprolol Tartrate 25 mg 08/04/20 21:00 08/18/20 08:02 Metoprolol Tartrate 25 Mg Tablet G-TUBE 25 mg Q12H GINNY Administration Protocol Nystatin 1 appl 08/04/20 09:00 08/18/20 08:23 Nystatin Powder 15 Gm Bottle TOPICAL 1 appl TID GINNY Administration Protocol Labs CBC & Chem 7: 08/15/20 05:18 08/15/20 05:18 Microbiology Microbiology Results: Microbiology 08/03/20 07:59 Blood - Venous Blood Culture - Final No growth after 5 days. 08/03/20 07:59 Blood - Venous Blood Culture - Final No growth after 5 days. 08/01/20 17:11 Blood - Venous Blood Culture - Final No growth after 5 days. 08/01/20 17:11 Blood - Venous Blood Culture - Final Coag negative Staphylococcus 07/25/20 20:34 Blood - Venous Blood Culture - Final No growth after 5 days. 07/25/20 20:34 Blood - Venous Blood Culture - Final No growth after 5 days. 07/25/20 20:23 Sputum - Suctioned Gram Stain - Final 07/25/20 20:23 Sputum - Suctioned Sputum Culture - Final 07/25/20 Unknown Urine [place] Urine Culture - Final Escherichia coli 07/17/20 19:28 Blood - Venous Blood Culture - Final No growth after 5 days. 07/17/20 19:20 Blood - Venous Blood Culture - Final No growth after 5 days. 07/19/20 10:02 Sputum - Suctioned Gram Stain - Final 07/19/20 10:02 Sputum - Suctioned Sputum Culture - Final Assessment and Plan (1) Anoxic encephalopathy: Status: Acute Assessment and Plan: 59-year-old gentleman admitted with acute respiratory failure and encephalopathy likely secondary to an aspiration event after/during myocardial infarction resulting in anoxic brain injury, now status post tracheostomy and parenteral gastrostomy placement. stable anoxic encephalopathy Overall very poor prognosis for further recovery. cardiomyopathy with reduced ejection fraction and possible left ventricular thrombus Cardiology service care appreciated. Labile blood pressure secondary to disequilibrium of autonomic nervous system after an anoxic injury. HTN clonidine and metoprolol. Acute hypoxic respiratory failure with a pulmonary aspiration component initially requiring ventilatory support. Extubated 07/19/2020. Required tracheostomy on 08/02/2020. Now tolerated tracheal collar Acute kidney injury secondary to rhabdomyolysis resolved Need guardianship for placement, on seroquel for agitation Close monitoring of skin as very high risk for pressure ulcers
[2020-08-18] MEDS: Enoxaparin Sodium 40 MG/0.4 ML SYRINGE SUBCUT (20:43)
[2020-08-19 03:53] VITALS: BP 133/79; PULSE 67; RESP 18; TEMP 37.1; O2SAT 96
[2020-08-19 06:00] VITALS: BMI 29.1
[2020-08-19 07:32] VITALS: BP 136/77; PULSE 80; RESP 18; TEMP 35.9; O2SAT 92
[2020-08-19] MEDS: Chlorhexidine Gluc Oral Rinse 15 ML MOUTHWASH BUCCAL ×3 (07:57→22:36)
[2020-08-19] MEDS: cloNIDine HCL 0.2 MG TABLET G-TUBE ×3 (07:57→22:36)
[2020-08-19] MEDS: Metoprolol Tartrate 25 MG TABLET G-TUBE ×2 (07:57→22:36)
[2020-08-19] MEDS: Famotidine 20 MG TABLET PO ×2 (07:57→22:36)
[2020-08-19] MEDS: Nystatin Powder 15 GM BOTTLE 1 APPL TOPICAL ×3 (07:58→22:37)
--- NOTE | 2020-08-19 09:26 | HO.PM.IMPN ---
Subjective Subjective Date of Service: 08/19/20 Interval History: no changes Cardiovascular Cardiovascular: Reports no additional cardiovascular complaints Gastrointestinal Gastrointestinal: Reports no additional gastrointestinal complaints Physical Exam Vital Signs: Vital Signs: Last Vital Signs Temp 96.7 F L 08/19/20 07:32 Pulse 80 08/19/20 07:32 Resp 18 08/19/20 07:32 BP 136/77 08/19/20 07:32 Pulse Ox 92 08/19/20 07:32 Oxygen Flow Rate 5 08/05/20 08:26 Body Mass Index 29.1 Const Other: General: Non-verbal Resp: rhonchi, no accessory muscle use CVS: S1,S2,RRR GI: +BS, NT, no distention Skin: No rash, no decub ulcer identified--watch for skin break Neuro: motor grossly intact Psych: appropriate affect Objective Data Current Medications Generic Name Dose Route Start Last Admin Trade Name Freq PRN Reason Stop Dose Admin Chlorhexidine Gluconate 15 ml 07/21/20 09:00 08/19/20 07:57 Chlorhexidine Gluc Oral Rinse 15 Ml Mouthwash BUCCAL 15 ml TID GINNY Administration Clonidine HCl 0.2 mg 08/04/20 16:00 08/19/20 07:57 Clonidine Hcl 0.2 Mg Tablet G-TUBE 0.2 mg TID GINNY Administration Protocol Enoxaparin Sodium 40 mg 07/31/20 21:00 08/18/20 20:43 Enoxaparin Sodium 40 Mg/0.4 Ml Syringe SUBCUT 40 mg Q24H GINNY Administration Famotidine 20 mg 08/04/20 21:00 08/19/20 07:57 Famotidine 20 Mg Tablet PO 20 mg BID GINNY Administration Metoprolol Tartrate 25 mg 08/04/20 21:00 08/19/20 07:57 Metoprolol Tartrate 25 Mg Tablet G-TUBE 25 mg Q12H GINNY Administration Protocol Nystatin 1 appl 08/04/20 09:00 08/19/20 07:58 Nystatin Powder 15 Gm Bottle TOPICAL 1 appl TID GINNY Administration Protocol Labs CBC & Chem 7: 08/15/20 05:18 08/15/20 05:18 Microbiology Microbiology Results: Microbiology 08/03/20 07:59 Blood - Venous Blood Culture - Final No growth after 5 days. 08/03/20 07:59 Blood - Venous Blood Culture - Final No growth after 5 days. 08/01/20 17:11 Blood - Venous Blood Culture - Final No growth after 5 days. 08/01/20 17:11 Blood - Venous Blood Culture - Final Coag negative Staphylococcus 07/25/20 20:34 Blood - Venous Blood Culture - Final No growth after 5 days. 07/25/20 20:34 Blood - Venous Blood Culture - Final No growth after 5 days. 07/25/20 20:23 Sputum - Suctioned Gram Stain - Final 07/25/20 20:23 Sputum - Suctioned Sputum Culture - Final 07/25/20 Unknown Urine [place] Urine Culture - Final Escherichia coli 07/17/20 19:28 Blood - Venous Blood Culture - Final No growth after 5 days. 07/17/20 19:20 Blood - Venous Blood Culture - Final No growth after 5 days. 07/19/20 10:02 Sputum - Suctioned Gram Stain - Final 07/19/20 10:02 Sputum - Suctioned Sputum Culture - Final Assessment and Plan (1) Anoxic encephalopathy: Status: Acute Assessment and Plan: 59-year-old gentleman admitted with acute respiratory failure and encephalopathy likely secondary to an aspiration event after/during myocardial infarction resulting in anoxic brain injury, now status post tracheostomy and parenteral gastrostomy placement. no acute changes anoxic encephalopathy Overall very poor prognosis for further recovery. cardiomyopathy with reduced ejection fraction and possible left ventricular thrombus Cardiology service care appreciated. Labile blood pressure secondary to disequilibrium of autonomic nervous system after an anoxic injury. HTN clonidine and metoprolol. Acute hypoxic respiratory failure with a pulmonary aspiration component initially requiring ventilatory support. Extubated 07/19/2020. Required tracheostomy on 08/02/2020. Now tolerated tracheal collar Acute kidney injury secondary to rhabdomyolysis resolved Need guardianship for placement, on seroquel for agitation Close monitoring of skin as very high risk for pressure ulcers
[2020-08-19 10:55] VITALS: BP 137/98; PULSE 67; RESP 18; TEMP 36.2; O2SAT 95
--- NOTE | 2020-08-19 13:36 | MHC.CM.PN ---
Patient's guardianship court date is today. CM will send updates to [employer]. Patient will need BLS transport. CM will continue to follow patient for discharge needs.
[2020-08-19 15:39] VITALS: BP 126/72; PULSE 66; RESP 16; TEMP 36.4; O2SAT 97
[2020-08-19 19:13] VITALS: BP 135/76; PULSE 73; RESP 20; TEMP 36.4; O2SAT 94
[2020-08-19] MEDS: Enoxaparin Sodium 40 MG/0.4 ML SYRINGE SUBCUT (22:36)
[2020-08-19 23:32] VITALS: BP 125/77; PULSE 68; RESP 18; TEMP 36.3; O2SAT 99
[2020-08-20] VITALS (9 sets, daily range): BP systolic 118–152; BP diastolic 78–85; PULSE 66–77; RESP 18–20; TEMP 36.1–36.6; O2SAT 94–99; BMI 27.7
[2020-08-20] MEDS: Chlorhexidine Gluc Oral Rinse 15 ML MOUTHWASH BUCCAL ×3 (08:37→21:49)
[2020-08-20] MEDS: cloNIDine HCL 0.2 MG TABLET G-TUBE ×3 (08:38→21:49)
[2020-08-20] MEDS: Metoprolol Tartrate 25 MG TABLET G-TUBE ×2 (08:38→21:50)
[2020-08-20] MEDS: Nystatin Powder 15 GM BOTTLE 1 APPL TOPICAL ×3 (08:38→21:50)
[2020-08-20] MEDS: Famotidine 20 MG TABLET PO ×2 (08:38→21:49)
--- NOTE | 2020-08-20 11:48 | P.DS_ITS ---
DS: Providers Provider Date of Service: 08/20/20 Date of admission: 07/17/20 19:11 Primary care physician: John Hernandez MD Consults: 07/19/20 08:41 Consult to Cardiology Routine Consulting Provider: Vazquez Moeller Reason for consultation: Acute cardiomyopathy Has provider been notified: No 07/20/20 16:01 Consult to Neurology Routine Consulting Provider: [facility] Reason for consultation: Anoxic injury, ?recovery potential / timing Has provider been notified: No 07/21/20 13:20 Consult to Thoracic Surgery Routine Consulting Provider: Gissell Barboza Reason for consultation: Please evaluate for tracheostomy and PEG placement for [facility] care Has provider been notified: No 07/24/20 22:21 Consult to Neurology Routine Consulting Provider: Naz Dinh Reason for consultation: 8 in the morning to discuss EEG and pt status 07/30/20 15:15 Consult to General Surgery Routine Consulting Provider: Felipe Spaulding Reason for consultation: PEG TUBE Has provider been notified: Yes 08/06/20 18:54 Consult to Psychiatry Routine Consulting Provider: [facility] Reason for consultation: TBI, needs [place] for guardianship DS: Diagnosis Discharge Diagnosis (1) Anoxic encephalopathy: Status: Acute (2) Multiple cerebral infarctions: Status: Acute (3) Encephalopathy: Status: Acute Problem details: Multifactorial encephalopathy. There was significant concern about anoxic encephalopathy based upon his initial history. His imaging revealed distinct basal ganglia lesions that were likely not from cerebral infarcts from embolism but rather were from anoxic injury. This implied the severe nature of anoxic injury. On top of that there were multiple acute embolic infarctions probably from cardiac source of embolism. Primary pathology probably was myocardial infarction resulting in hypoxemia and cerebral embolism. (4) NSTEMI (non-ST elevated myocardial infarction): Status: Acute (5) Cardiomyopathy: Status: Acute (6) Toxic encephalopathy: Status: Acute (7) Metabolic acidosis: Status: Acute (8) Elevated troponin: Status: Acute (9) Hyperkalemia: Status: Acute (10) LA (acute kidney injury): Status: Acute (11) Rhabdomyolysis: Status: Acute (12) Aspiration into airway: Status: Acute (13) Acute respiratory failure: Status: Acute (14) Respiratory failure: Status: Acute DS: Medications Discharge Medications Home Medications: Previous Rx's Medication Instructions Recorded chlorhexidine gluconate 15 ml BUCCAL TID #0 ml 08/20/20 clonidine HCl 0.2 mg G-TUBE TID #0 tab 08/20/20 enoxaparin 40 mg SUBCUT Q24H #0 ml 08/20/20 famotidine 20 mg PO BID #0 tab 08/20/20 metoprolol tartrate 25 mg G-TUBE Q12H #0 tab 08/20/20 nystatin 1 appl TOPICAL TID #0 g 08/20/20 DS: Summary Hospital Course Hospital Course: patient had prolonged hospital stay, for more details please see full medical record, in summary: patient was admitted to the ICU for toxic encephalopathy due to overdose, intentional vs unintentional, possibly percocet, clonidine. he was intubated for acute hypoxic respiratory failure. course was complicated by aspiration pneumonia, now resolved, he underwent tracheostomy 08/02/20, now tolerating tracheal collar. he was noted to have sifnificant anoxic encephalopathy and is currently non verbal. he required Gtube placement for dysphagia an dhas been toelrating jevitiy feeds. he had LA from rhabdomyolosis which resolved with IV fluids. he was also noted initially to have a cardiomyopathy with questionable LV thrombus, but on repeat echo 07/25/20 EF had recovered and no thrombus was seen. jpjohnathon is now stable and will be discharged to LTAC. he does not appear to be a risk for suicide. Time Spent with Patient Time attestation: Total time spent providing and/or coordinating discharge serv ices: Discharge coordination time: Greater than 30 minutes Physical Exam Vital Signs: Vital Signs: Last Vital Signs Temp 97.8 F 08/20/20 07:22 Pulse 77 08/20/20 08:38 Resp 20 08/20/20 07:22 BP 152/83 H 08/20/20 08:38 Pulse Ox 97 08/20/20 07:22 Oxygen Flow Rate 5 08/05/20 08:26 Body Mass Index 27.7 Other: General: Non-verbal Resp: rhonchi, no accessory muscle use CVS: S1,S2,RRR GI: +BS, NT, no distention Skin: No rash, no decub ulcer identified--watch for skin break Neuro: motor grossly intact Psych: appropriate affect Discharge Plan Discharge Patient Disposition: Xfer LTC Discharge Diagnosis: anoxic brain injury Referrals: John Hernandez MD [Primary Care Provider] - 1 Week Discharge Medications: New enoxaparin 40 mg/0.4 mL Syringe 40 mg subcut Q24H Qty: 0 RF: 0 clonidine HCl 0.2 mg Tablet 0.2 mg G-tube TID Qty: 0 RF: 0 metoprolol tartrate 25 mg Tablet 25 mg G-tube Q12H Qty: 0 RF: 0 chlorhexidine gluconate 0.12 % Mouthwash 15 ml buccal TID Qty: 0 RF: 0 famotidine 20 mg Tablet 20 mg PO BID Qty: 0 RF: 0 nystatin 100,000 unit/gram Powder 1 appl topical TID Qty: 0 RF: 0 Discontinued clonidine HCl 0.1 mg tablet 0.1 mg PO BID PRN (Reason: panic attack) RF: 0 venlafaxine 75 mg capsule,extended release 24hr 75 mg PO DAILY RF: 0 trazodone 50 mg tablet 50 - 100 mg PO BEDTIME PRN (Reason: Insomnia) RF: 0 mirtazapine 30 mg tablet 30 mg PO BEDTIME RF: 0 olanzapine 15 mg tablet 7.5 mg PO BID RF: 0 gabapentin 100 mg capsule 100 mg PO BID RF: 0 fluoride (sodium) 1.1 % cream 1 appl PO BID RF: 0 Discharge Orders: Discharge Order (Routine); Ordered 08/20/20 Ordered By: Herb Maurice Diet: other Activity on Discharge: As tolerated Stand Alone Forms: Patient Portal Discharge page Care Plan Goals: manage chronic issues Health Concerns: anoxic brain injury Plan of Treatment: continue chronic management, tube fees, jevity 1 fermin, 24hrs at 75cc/hr, 240cc water q6h Assessment: see above
[2020-08-20 12:28] LABS: COVID-19 Test Negative (Negative)
--- NOTE | 2020-08-20 14:50 | MHC.CM.PN ---
Per Ev at [facility], they do not have a bed for patient today but will have one for tomorrow. Nurse, MD and guardian John are all aware. CM will continue to follow patient for discharge needs.
--- NOTE | 2020-08-20 15:16 | HO.PM.IMPN ---
Subjective Subjective Date of Service: 08/20/20 Interval History: no complaints Cardiovascular Cardiovascular: Reports no additional cardiovascular complaints Gastrointestinal Gastrointestinal: Reports no additional gastrointestinal complaints Physical Exam Vital Signs: Vital Signs: Last Vital Signs Temp 97.2 F 08/20/20 11:58 Pulse 67 08/20/20 11:58 Resp 18 08/20/20 11:58 BP 118/80 08/20/20 11:58 Pulse Ox 99 08/20/20 11:58 Oxygen Flow Rate 5 08/05/20 08:26 Body Mass Index 27.7 Other: General: Non-verbal Resp: rhonchi, no accessory muscle use CVS: S1,S2,RRR GI: +BS, NT, no distention Skin: No rash, no decub ulcer identified--watch for skin break Neuro: motor grossly intact Psych: appropriate affect Objective Data Current Medications Generic Name Dose Route Start Last Admin Trade Name Freq PRN Reason Stop Dose Admin Chlorhexidine Gluconate 15 ml 07/21/20 09:00 08/20/20 08:37 Chlorhexidine Gluc Oral Rinse 15 Ml Mouthwash BUCCAL 15 ml TID GINNY Administration Clonidine HCl 0.2 mg 08/04/20 16:00 08/20/20 08:38 Clonidine Hcl 0.2 Mg Tablet G-TUBE 0.2 mg TID GINNY Administration Protocol Enoxaparin Sodium 40 mg 07/31/20 21:00 08/19/20 22:36 Enoxaparin Sodium 40 Mg/0.4 Ml Syringe SUBCUT 40 mg Q24H GINNY Administration Famotidine 20 mg 08/04/20 21:00 08/20/20 08:38 Famotidine 20 Mg Tablet PO 20 mg BID GINNY Administration Metoprolol Tartrate 25 mg 08/04/20 21:00 08/20/20 08:38 Metoprolol Tartrate 25 Mg Tablet G-TUBE 25 mg Q12H GINNY Administration Protocol Nystatin 1 appl 08/04/20 09:00 08/20/20 08:38 Nystatin Powder 15 Gm Bottle TOPICAL 1 appl TID GINNY Administration Protocol Labs CBC & Chem 7: 08/15/20 05:18 08/15/20 05:18 Microbiology Microbiology Results: Microbiology 08/03/20 07:59 Blood - Venous Blood Culture - Final No growth after 5 days. 08/03/20 07:59 Blood - Venous Blood Culture - Final No growth after 5 days. 08/01/20 17:11 Blood - Venous Blood Culture - Final No growth after 5 days. 08/01/20 17:11 Blood - Venous Blood Culture - Final Coag negative Staphylococcus 07/25/20 20:34 Blood - Venous Blood Culture - Final No growth after 5 days. 07/25/20 20:34 Blood - Venous Blood Culture - Final No growth after 5 days. 07/25/20 20:23 Sputum - Suctioned Gram Stain - Final 07/25/20 20:23 Sputum - Suctioned Sputum Culture - Final 07/25/20 Unknown Urine [place] Urine Culture - Final Escherichia coli 07/17/20 19:28 Blood - Venous Blood Culture - Final No growth after 5 days. 07/17/20 19:20 Blood - Venous Blood Culture - Final No growth after 5 days. 07/19/20 10:02 Sputum - Suctioned Gram Stain - Final 07/19/20 10:02 Sputum - Suctioned Sputum Culture - Final Assessment and Plan (1) Anoxic encephalopathy: Status: Acute Assessment and Plan: 59-year-old gentleman admitted with acute respiratory failure and encephalopathy likely secondary to an aspiration event after/during myocardial infarction resulting in anoxic brain injury, now status post tracheostomy and parenteral gastrostomy placement. no changes, likely dc tomorrow to [facility] anoxic encephalopathy Overall very poor prognosis for further recovery. cardiomyopathy with reduced ejection fraction and possible left ventricular thrombus Cardiology service care appreciated. Labile blood pressure secondary to disequilibrium of autonomic nervous system after an anoxic injury. HTN clonidine and metoprolol. Acute hypoxic respiratory failure with a pulmonary aspiration component initially requiring ventilatory support. Extubated 07/19/2020. Required tracheostomy on 08/02/2020. Now tolerated tracheal collar Acute kidney injury secondary to rhabdomyolysis resolved Need guardianship for placement, on seroquel for agitation Close monitoring of skin as very high risk for pressure ulcers
[2020-08-20] MEDS: Enoxaparin Sodium 40 MG/0.4 ML SYRINGE SUBCUT (21:49)
[2020-08-21] VITALS (8 sets, daily range): BP systolic 115–132; BP diastolic 73–81; PULSE 56–67; RESP 18–20; TEMP 35.7–37; O2SAT 98–100; BMI 28.3
--- NOTE | 2020-08-21 05:52 | PC.NURSE ---
weight was done without air loss appliance
--- NOTE | 2020-08-21 05:54 | PC.NURSE ---
weight was done without the Air loss appliance attached to the bed .
[2020-08-21 08:00] LABS: Hematocrit 40.7 % (42-52); Mean Corpuscular HGB Conc 34.4 g/dl (31.0-36.0); Mean Corpuscular Hemoglobin 32.3 pg (27.0-33.0); Mean Platelet Volume 11.7 fL (9.4-12.4); Platelet Count 209 X10*3/uL (160-400); Red Blood Count 4.33 X10*6/uL (4.60-5.80); Red Cell Distribution Width 12.4 % (11.0-16.0); White Blood Count 9.8 X10*3/uL (4.8-10.8)
[2020-08-21 08:25] LABS: Anion Gap 12 (12-20); Blood Urea Nitrogen 16 mg/dL (9-16); Calcium 9.5 mg/dL (8.4-10.2); Carbon Dioxide 27 mmol/L (22-29); Chloride 100 mmol/L (96-108); Creatinine Clr Calc Pharmacy 121.1; Estimated Glomerular Filt Rate > 60; Glucose Random 104 mg/dL (60-115); Potassium 4.1 mmol/L (3.3-5.1); Sodium 135 mmol/L (135-145)
[2020-08-21] MEDS: Famotidine 20 MG TABLET PO (10:13)
[2020-08-21] MEDS: Chlorhexidine Gluc Oral Rinse 15 ML MOUTHWASH BUCCAL ×2 (10:13→16:22)
[2020-08-21] MEDS: Metoprolol Tartrate 25 MG TABLET G-TUBE (10:13)
[2020-08-21] MEDS: cloNIDine HCL 0.2 MG TABLET G-TUBE ×2 (10:14→16:21)
[2020-08-21] MEDS: Nystatin Powder 15 GM BOTTLE 1 APPL TOPICAL ×2 (10:14→16:22)
--- NOTE | 2020-08-21 14:27 | MHC.CLN ---
F/U PT CONTINUES WITH JEVITY 1.0 AT MAX GOAL RATE 75CC/HR WITH WATER FLUSHES 240CC WATER FLUSHES Q 6HRS PROVIDES 1908KCALS (23KCALS/KG), 80G (1.0G/KG), 2463CC TOTAL WATER FROM FORMULA AND FLUSH (30CC/KG) TOLERATING WITH LOW RESIDUALS PER NSG; LABS WNL CONTINUE TO MONITOR TOLERANCE, RESIDUALS AND LYTES
--- NOTE | 2020-08-21 14:34 | MHC.CM.PN ---
Patient will be discharged today to [facility] today at 4:30pm via ALS transport. Nurse and guardian John rosario.
--- NOTE | 2020-08-21 16:54 | PC.NURSE ---
Pt. discharged to [facility] with no complications at 16:50 by ambulance. Pt. was calm and alert. Telemonitor and pulse ox removed. All instructions given to EMT.
== END 2020-08-21 16:50 | DRG 4 ==
LOC: HO.ED 19:11 → HO.EDOVER 20:14 → HO.ICU 23:08 → HO.IMC 08-06 07:00
PROVIDERS: Anesthesiology; Internal Medicine; Internal Medicine Cardiovascular Disease; Physician Assistant; Physician Assistant Medical; Registered Nurse Community Health; Surgery; Admitting Provider Internal Medicine Pulmonary Disease; Emergency Provider Emergency Medicine Emergency Medical Services; PCP Internal Medicine; Visit Provider Internal Medicine
PROC: 0B113F4 Bypass Trachea to Cutaneous with Tracheostomy Device, Percutaneous Approach (ICD-10-PCS; principal; 2020-08-02 12:40)
PROC: 0DH63UZ Insertion of Feeding Device into Stomach, Percutaneous Approach (ICD-10-PCS; CPT 43246; 2020-08-02 12:40)
DX: T40.2X1A Poisoning by other opioids, accidental (unintentional), initial encounter (principal); J69.0 Pneumonitis due to inhalation of food and vomit; G92 Toxic encephalopathy; I21.4 Non-ST elevation (NSTEMI) myocardial infarction; J96.01 Acute respiratory failure with hypoxia; I63.9 Cerebral infarction, unspecified; N17.9 Acute kidney failure, unspecified; E87.2 Acidosis; M62.82 Rhabdomyolysis; I42.9 Cardiomyopathy, unspecified; G93.1 Anoxic brain damage, not elsewhere classified; T46.5X1A Poisoning by other antihypertensive drugs, accidental (unintentional), initial encounter; G89.29 Other chronic pain; F32.9 Major depressive disorder, single episode, unspecified; F41.9 Anxiety disorder, unspecified; I10 Essential (primary) hypertension; Y92.009 Unspecified place in unspecified non-institutional (private) residence as the place of occurrence of the external cause; E87.5 Hyperkalemia; Z20.822 Contact with and (suspected) exposure to COVID-19; Z79.899 Other long term (current) drug therapy
CPT/HCPCS: 0241U; 36415; 70450; 70551; 71045; 71250; 74176; 80048; 80053; 80076; 80143; 80179; 80307; 81001; 81003; 82040; 82140; 82550; 82728; 82947; 83605; 83735; 83880; 84100; 84484; 85025; 85027; 85379; 85610; 85730; 86140; 86850; 86900; 86901; 87040; 87070; 87086; 87088; 87186; 87205; 87635; 93005; 93306; 93308; 94002; 94003; 94640; 94799; 95816; 96365; 96367; 96375; 99285; 99291; 99292; J0132; J0330; J0696; J1100; J1170; J1650; J2060; J2250; J2370; J2543; J2997; J3010; J3370; P9047; U0003; U0005